=== PATIENT | female | born 1970 | race Caucasian/White ===

== ENCOUNTER 2022-09-04 10:27 | Inpatient (IN) ==
[2022-09-04] MEDS ORDERED: ALBUT/IPRATROP 3MG/0.5MG NEB 3 ML VIAL NEB STA (11:13)
--- NOTE | 2022-09-04 11:23 | Emergency Department Note ---
Impression & Plan Hypoxia, SOB (shortness of breath), CHF (congestive heart failure), Pedal edema, UTI (urinary tract infection) ED Provider Note NAME: TRANG TRONCOSO AGE: 52 SEX: F : 1970 ARRIVES VIA: Walk-In INFORMANT: [Patient] ED PROVIDER(S): [Kai Galaviz MD] CHIEF COMPLAINT: Shortness of breath HISTORY OF PRESENT ILLNESS: The patient is a 52-year-old female with a history of obesity. She does occasionally use an inhaler at home but has not been diagnosed with COPD. She does use tobacco products. The patient states that she has noticed increasing shortness of breath over the last few weeks. Things got quite a bit worse in the last couple days. Her abdomen is now much more swollen. Her legs are swollen. There has been no cough, chest pain, fever or chills, no nausea vomiting or diarrhea. She has tried her albuterol and it helps slightly for short time. Of note in triage, her O2 saturation was in the 70s. She does not typically wear oxygen. PMHx/PSHx: See Below SOCIAL HISTORY: See Below. PHYSICAL EXAM: GENERAL: Patient is in no acute distress. HEENT: No acute trauma, normocephalic atraumatic, mucous membranes moist, no nasal congestion. NECK: No stridor, no adenopathy, no meningismus, trachea is midline. LUNGS: Markedly diminished breath sounds bilaterally with some scattered wheezes and basilar crackles, the crackles are heard mostly on the left. No respiratory distress. No accessory muscle use. HEART: Without murmurs gallops or rubs, regular rate and rhythm. Heart tones are quite distant. ABDOMEN: Soft, nontender, bowel sounds positive, no peritonitis. Obese. There is abdominal wall edema noted. There is some subtle erythema to the abdominal wall but no warmth EXTREMITIES: No cyanosis, significant bilateral pedal edema, full range of motion of all the joints without pain or difficulty, no signs for acute trauma. NEUROLOGIC: Oriented x 3, no acute motor or sensory deficits, no focal weakness. SKIN: No jaundice, no diaphoresis. DIFFERENTIAL DIAGNOSIS: CHF, ascites, fluid overload, renal or liver failure, electrolyte imbalance, KS, pneumonia, bronchitis, PE, among others. EMERGENCY DEPARTMENT COURSE/PROCEDURES: Prior/Outside records reviewed: None. ECG per my interpretation: Indication was shortness of breath. The ECG shows a normal sinus rhythm with a rate of 98. There is some baseline artifact seen. There is no obvious ST elevation. No PVCs. The QTc is 436. Continuous Cardiac Monitoring per my interpretation: An order was placed for continuous cardiac monitoring. The monitor shows a rate of 91 with normal sinus rhythm. Critical Care Note: I have personally spent 47 minutes of critical care time in the direct management of this patient. This includes bedside care, interpretation of diagnostic studies, and testing, discussion with consultants, patient, and family members, and other required patient management activities. This 47 minutes is in excess of all separately billable procedures. MEDICAL DECISION MAKING: There is a very mild leukocytosis, this could be consistent with infection or the stress of her current situation. There is a normal hemoglobin and platelet count. No coagulopathy. ABG showed some mild acidosis, likely from CO2 retention. No renal failure or significant electrolyte abnormality. Lactic acid level was not elevated making severe sepsis less likely. No concerning liver enzyme elevation. ECG shows a normal sinus rhythm, no obvious acute KS. Cardiac enzyme testing x1 was somewhat elevated. This elevation could be from cardiac injury or potentially mismatch from her hypoxia. BNP was elevated consistent with CHF and fluid overload. Chest x-ray does show CHF. No pneumonia or pneumothorax per my review. Urinalysis shows findings of infection. COVID test returned negative. Bilateral lower extremity ultrasound did not show any evidence for DVT. Patient was given nitroglycerin paste, 2 inches. She received IV Lasix, 60 mg. A Renteria catheter was placed. She received IV ceftriaxone for her UTI. She was given a DuoNeb. The patient's oxygen saturation is now adequate. She looks fairly comfortable. The patient appears to be short of breath and hypoxic from CHF. She is significantly fluid overloaded. Admission is warranted. I spoke with the patient and case management, the on-call hospitalist was consulted. DISPOSITION: Patient's presentation and findings warrant a hospital stay. Past Med/Surg History Medical History Cellulitis Depression Gout HLD (hyperlipidemia) HTN (hypertension) Non-insulin dependent type 2 diabetes mellitus Obesity Shortness of breath Tobacco use disorder Surgical History (Updated 09/04/22 @ 14:12 by ZACHERY Feritas) H/O: H/O: hysterectomy History of cholecystectomy Family History (Updated 09/04/22 @ 14:13 by ZACHERY Freitas) Other Asthma Dyslipidemia Heart disease Hypertension Social History Smoking Status: Current every day smoker packs per day: 1.5; Second Hand Exposure: No; Do You Dip or Chew Tobacco: No; Tobacco Cessation Education Requested by Patient: Yes Hx Alcohol Use: No Hx Substance Use: No Preferred Language: Hungarian Hearing Ability: Normal Current Living Situation: Family current occupational status: unemployed Feels Safe at Home: Yes Allergies Allergies Allergy/AdvReac Type Severity Reaction Status Date / Time Penicillins Allergy Hives Verified 09/04/22 13:29 Home Meds Home Medications Medication Instructions Recorded Confirmed albuterol sulfate 90 mcg/actuation 90 mcg inhalation BID PRN 09/04/22 09/04/22 aerosol inhaler (ProAir HFA) Shortness Of Breath Or Wheezing allopurinol 100 mg tablet 100 mg PO DAILY 09/04/22 09/04/22 atorvastatin 10 mg tablet 10 mg PO DAILY 09/04/22 09/04/22 duloxetine 60 mg capsule,delayed 60 mg PO DAILY 09/04/22 09/04/22 release famotidine 20 mg tablet 20 mg PO DAILY 09/04/22 09/04/22 lisinopril 30 mg tablet 30 mg PO DAILY 09/04/22 09/04/22 metformin 1,000 mg tablet 1,000 mg PO BID 09/04/22 09/04/22 Results & Data (ED) Vital Signs Vital Signs - 24 hr 09/04/22 10:45 09/04/22 10:50 09/04/22 11:48 Temperature 36.3 C L 36.6 C Temperature Source Temporal Artery Scan Oral Pulse Rate 91 H Pulse Rate [Right Finger] 85 Pulse Rate from SpO2 Sensor Pulse Rhythm Pulse Rhythm [Right Finger] Regular Pulse Strength [Right Finger] Normal Respiratory Rate 22 22 Respiratory Effort / Characteristics Non-Labored Non-Labored Spontaneous Respiratory Depth Normal Normal Respiratory Pattern Regular Regular Blood Pressure 171/72 H Blood Pressure [Left Arm] 176/98 H Blood Pressure Mean 105 Blood Pressure Mean [Left Arm] 124 Blood Pressure Position [Left Arm] Sitting Pulse Oximetry 73 L 72 L 95 Oxygen Delivery Method Room Air Nasal Cannula Nasal Cannula Oxygen Flow Rate 0 4 Sepsis Recent Fever Within 48 Hours No Sepsis New/Unexplained Change in Mental Status N/A Sepsis Action Taken by Nursing No Action Required Oxygen Flow Rate - Titration 4 Pulse Oximetry Post Tiitration 92 09/04/22 10:56 09/04/22 10:55 09/04/22 11:00 Temperature Temperature Source Pulse Rate 71 102 H Pulse Rate [Right Finger] Pulse Rate from SpO2 Sensor Pulse Rhythm Regular Pulse Rhythm [Right Finger] Pulse Strength [Right Finger] Respiratory Rate 26 H 24 Respiratory Effort / Characteristics Respiratory Depth Respiratory Pattern Blood Pressure 217/119 H Blood Pressure [Left Arm] Blood Pressure Mean 151 Blood Pressure Mean [Left Arm] Blood Pressure Position [Left Arm] Pulse Oximetry 92 Oxygen Delivery Method Nasal Cannula Oxygen Flow Rate 4 Sepsis Recent Fever Within 48 Hours Sepsis New/Unexplained Change in Mental Status Sepsis Action Taken by Nursing Oxygen Flow Rate - Titration Pulse Oximetry Post Tiitration 09/04/22 11:00 09/04/22 11:10 09/04/22 11:20 Temperature Temperature Source Pulse Rate 93 H 87 87 Pulse Rate [Right Finger] Pulse Rate from SpO2 Sensor 94 H 87 87 Pulse Rhythm Pulse Rhythm [Right Finger] Pulse Strength [Right Finger] Respiratory Rate 30 H 20 22 Respiratory Effort / Characteristics Respiratory Depth Respiratory Pattern Blood Pressure Blood Pressure [Left Arm] Blood Pressure Mean Blood Pressure Mean [Left Arm] Blood Pressure Position [Left Arm] Pulse Oximetry 94 96 97 Oxygen Delivery Method Oxygen Flow Rate Sepsis Recent Fever Within 48 Hours Sepsis New/Unexplained Change in Mental Status Sepsis Action Taken by Nursing Oxygen Flow Rate - Titration Pulse Oximetry Post Tiitration 09/04/22 11:30 09/04/22 11:30 09/04/22 11:40 Temperature Temperature Source Pulse Rate 84 84 Pulse Rate [Right Finger] Pulse Rate from SpO2 Sensor 83 84 Pulse Rhythm Pulse Rhythm [Right Finger] Pulse Strength [Right Finger] Respiratory Rate 17 20 Respiratory Effort / Characteristics Respiratory Depth Respiratory Pattern Blood Pressure 176/98 H Blood Pressure [Left Arm] Blood Pressure Mean 124 Blood Pressure Mean [Left Arm] Blood Pressure Position [Left Arm] Pulse Oximetry 97 95 Oxygen Delivery Method Oxygen Flow Rate Sepsis Recent Fever Within 48 Hours Sepsis New/Unexplained Change in Mental Status Sepsis Action Taken by Nursing Oxygen Flow Rate - Titration Pulse Oximetry Post Tiitration 09/04/22 11:50 09/04/22 12:00 09/04/22 12:10 Temperature Temperature Source Pulse Rate 85 83 94 H Pulse Rate [Right Finger] Pulse Rate from SpO2 Sensor 85 84 95 H Pulse Rhythm Pulse Rhythm [Right Finger] Pulse Strength [Right Finger] Respiratory Rate 21 18 26 H Respiratory Effort / Characteristics Respiratory Depth Respiratory Pattern Blood Pressure Blood Pressure [Left Arm] Blood Pressure Mean Blood Pressure Mean [Left Arm] Blood Pressure Position [Left Arm] Pulse Oximetry 95 99 92 Oxygen Delivery Method Oxygen Flow Rate Sepsis Recent Fever Within 48 Hours Sepsis New/Unexplained Change in Mental Status Sepsis Action Taken by Nursing Oxygen Flow Rate - Titration Pulse Oximetry Post Tiitration 09/04/22 12:25 09/04/22 12:20 09/04/22 12:30 Temperature Temperature Source Pulse Rate 88 89 87 Pulse Rate [Right Finger] Pulse Rate from SpO2 Sensor 89 88 Pulse Rhythm Pulse Rhythm [Right Finger] Pulse Strength [Right Finger] Respiratory Rate 20 36 H Respiratory Effort / Characteristics Respiratory Depth Respiratory Pattern Blood Pressure Blood Pressure [Left Arm] Blood Pressure Mean Blood Pressure Mean [Left Arm] Blood Pressure Position [Left Arm] Pulse Oximetry 95 95 Oxygen Delivery Method Oxygen Flow Rate Sepsis Recent Fever Within 48 Hours Sepsis New/Unexplained Change in Mental Status Sepsis Action Taken by Nursing Oxygen Flow Rate - Titration Pulse Oximetry Post Tiitration 09/04/22 12:16 Temperature Temperature Source Pulse Rate Pulse Rate [Right Finger] Pulse Rate from SpO2 Sensor Pulse Rhythm Pulse Rhythm [Right Finger] Pulse Strength [Right Finger] Respiratory Rate Respiratory Effort / Characteristics Respiratory Depth Respiratory Pattern Blood Pressure Blood Pressure [Left Arm] Blood Pressure Mean Blood Pressure Mean [Left Arm] Blood Pressure Position [Left Arm] Pulse Oximetry 85 L Oxygen Delivery Method Oxygen Flow Rate 4 Sepsis Recent Fever Within 48 Hours Sepsis New/Unexplained Change in Mental Status Sepsis Action Taken by Nursing Oxygen Flow Rate - Titration 6 Pulse Oximetry Post Tiitration 93 Home Medications Current Medication List: was personally reviewed by me Laboratory Data Attestation: I reviewed the patient's lab results. 09/04/22 11:09 09/04/22 11:09 Lab Results 09/04/22 09/04/22 09/04/22 Range/Units 11:09 11:09 11:09 WBC 12.07 H (4.8-10.8) K/ul RBC 5.43 H (4.20-5.40) M/uL Hgb 13.2 (12.0-16.0) g/dl Hct 45.7 (37.0-47.0) % MCV 84.2 (80.0-100.0) fL MCH 24.3 L (25.0-34.0) pg MCHC 28.9 L (32.0-36.0) g/dL RDW Std Deviation 56.6 H (36.4-46.3) fL RDW Coeff of Bhumi 19.9 H (11.5-14.5) % Plt Count 295 (130-400) K/uL MPV 11.0 (9.4-12.4) fL Immature Gran % (Auto) 0.3 % Neut % (Auto) 81.9 % Lymph % (Auto) 12.2 % Stark % (Auto) 4.0 % Eos % (Auto) 1.2 % Baso % (Auto) 0.4 % Neut # (Auto) 9.89 H (1.40-6.50) K/uL Lymph # (Auto) 1.47 (1.2-3.4) K/uL Stark # (Auto) 0.48 (0.11-0.59) K/uL Eos # (Auto) 0.14 (0-0.50) K/uL Baso # (Auto) 0.05 (0-0.2) K/uL Immature Gran # (Auto) 0.04 (0.01-0.20) K/uL Polychromasia 2+ PT Cancelled INR Cancelled APTT Cancelled PTT Ratio Cancelled Sodium 141 (136-145) mmol/L Potassium 4.2 (3.5-5.1) mmol/L Chloride 106 (98-107) mmol/L Carbon Dioxide 29 (21-32) mmol/L Anion Gap 6 (3-11) BUN 23 (6-23) mg/dl Creatinine 0.65 (0.6-1.2) mg/dl Est Cr Clr Drug Dosing 156.8 ml/min Est GFR ( Amer) 117.5 ml/min Est GFR (Non-Af Amer) 101.4 ml/min BUN/Creatinine Ratio 35.4 H (10-20) Glucose 126 H (70-99(Fasting)) mg/dl Estimat Average Glucose mg/dl Hemoglobin A1c (4.5-5.6) % Lactate (0.4-2.0) mmol/L Calcium 8.5 L (8.6-10.3) mg/dl Magnesium 1.8 (1.7-2.4) mg/dl Total Bilirubin 0.6 (0.2-1.0) mg/dl AST 14 (13-39) U/L ALT 11 (7-52) U/L Alkaline Phosphatase 92 (34-104) U/L Troponin I High Sens 895.1 H* (0-14) pg/ml B-Natriuretic Peptide (0-100) pg/ml Total Protein 6.7 (6.0-8.3) gm/dl Albumin 3.5 (3.4-5.0) gm/dl Globulin 3.2 (2.5-4.0) gm/dl Albumin/Globulin Ratio 1.1 (0.9-2) Urine Color Urine Appearance (Clear) Urine pH (4.5-7.5) Ur Specific [place] (1.000-1.030) Urine Protein (Negative) Urine Glucose (UA) (Negative) Urine Ketones (Negative) Urine Blood (Negative) Urine Nitrite (Negative) Urine Bilirubin (Negative) Urine Urobilinogen (Negative) Ur Leukocyte Esterase (Negative) Urine WBC (Auto) (0-5) /hpf Urine RBC (Auto) (0-4) /hpf U Hyaline Cast (Auto) (0-5) /lpf U Epithel Cells (Auto) (0-5) /lpf Urine Bacteria (Auto) (Negative) SARS-CoV-2, RNA, NAAT (NEGATIVE) 09/04/22 09/04/22 09/04/22 Range/Units 11:09 11:09 11:40 WBC (4.8-10.8) K/ul RBC (4.20-5.40) M/uL Hgb (12.0-16.0) g/dl Hct (37.0-47.0) % MCV (80.0-100.0) fL MCH (25.0-34.0) pg MCHC (32.0-36.0) g/dL RDW Std Deviation (36.4-46.3) fL RDW Coeff of Bhumi (11.5-14.5) % Plt Count (130-400) K/uL MPV (9.4-12.4) fL Immature Gran % (Auto) % Neut % (Auto) % Lymph % (Auto) % Stark % (Auto) % Eos % (Auto) % Baso % (Auto) % Neut # (Auto) (1.40-6.50) K/uL Lymph # (Auto) (1.2-3.4) K/uL Stark # (Auto) (0.11-0.59) K/uL Eos # (Auto) (0-0.50) K/uL Baso # (Auto) (0-0.2) K/uL Immature Gran # (Auto) (0.01-0.20) K/uL Polychromasia PT INR APTT PTT Ratio Sodium (136-145) mmol/L Potassium (3.5-5.1) mmol/L Chloride (98-107) mmol/L Carbon Dioxide (21-32) mmol/L Anion Gap (3-11) BUN (6-23) mg/dl Creatinine (0.6-1.2) mg/dl Est Cr Clr Drug Dosing ml/min Est GFR ( Amer) ml/min Est GFR (Non-Af Amer) ml/min BUN/Creatinine Ratio (10-20) Glucose (70-99(Fasting)) mg/dl Estimat Average Glucose 160 mg/dl Hemoglobin A1c 7.2 H (4.5-5.6) % Lactate (0.4-2.0) mmol/L Calcium (8.6-10.3) mg/dl Magnesium (1.7-2.4) mg/dl Total Bilirubin (0.2-1.0) mg/dl AST (13-39) U/L ALT (7-52) U/L Alkaline Phosphatase (34-104) U/L Troponin I High Sens (0-14) pg/ml B-Natriuretic Peptide 481 H (0-100) pg/ml Total Protein (6.0-8.3) gm/dl Albumin (3.4-5.0) gm/dl Globulin (2.5-4.0) gm/dl Albumin/Globulin Ratio (0.9-2) Urine Color Urine Appearance (Clear) Urine pH (4.5-7.5) Ur Specific [place] (1.000-1.030) Urine Protein (Negative) Urine Glucose (UA) (Negative) Urine Ketones (Negative) Urine Blood (Negative) Urine Nitrite (Negative) Urine Bilirubin (Negative) Urine Urobilinogen (Negative) Ur Leukocyte Esterase (Negative) Urine WBC (Auto) (0-5) /hpf Urine RBC (Auto) (0-4) /hpf U Hyaline Cast (Auto) (0-5) /lpf U Epithel Cells (Auto) (0-5) /lpf Urine Bacteria (Auto) (Negative) SARS-CoV-2, RNA, NAAT NEGATIVE (NEGATIVE) 09/04/22 09/04/22 09/04/22 Range/Units 11:42 12:16 12:17 WBC (4.8-10.8) K/ul RBC (4.20-5.40) M/uL Hgb (12.0-16.0) g/dl Hct (37.0-47.0) % MCV (80.0-100.0) fL MCH (25.0-34.0) pg MCHC (32.0-36.0) g/dL RDW Std Deviation (36.4-46.3) fL RDW Coeff of Bhumi (11.5-14.5) % Plt Count (130-400) K/uL MPV (9.4-12.4) fL Immature Gran % (Auto) % Neut % (Auto) % Lymph % (Auto) % Stark % (Auto) % Eos % (Auto) % Baso % (Auto) % Neut # (Auto) (1.40-6.50) K/uL Lymph # (Auto) (1.2-3.4) K/uL Stark # (Auto) (0.11-0.59) K/uL Eos # (Auto) (0-0.50) K/uL Baso # (Auto) (0-0.2) K/uL Immature Gran # (Auto) (0.01-0.20) K/uL Polychromasia PT 11.4 INR 1.0 APTT 24.9 PTT Ratio 0.9 Sodium (136-145) mmol/L Potassium (3.5-5.1) mmol/L Chloride (98-107) mmol/L Carbon Dioxide (21-32) mmol/L Anion Gap (3-11) BUN (6-23) mg/dl Creatinine (0.6-1.2) mg/dl Est Cr Clr Drug Dosing ml/min Est GFR ( Amer) ml/min Est GFR (Non-Af Amer) ml/min BUN/Creatinine Ratio (10-20) Glucose (70-99(Fasting)) mg/dl Estimat Average Glucose mg/dl Hemoglobin A1c (4.5-5.6) % Lactate 1.8 (0.4-2.0) mmol/L Calcium (8.6-10.3) mg/dl Magnesium (1.7-2.4) mg/dl Total Bilirubin (0.2-1.0) mg/dl AST (13-39) U/L ALT (7-52) U/L Alkaline Phosphatase (34-104) U/L Troponin I High Sens (0-14) pg/ml B-Natriuretic Peptide (0-100) pg/ml Total Protein (6.0-8.3) gm/dl Albumin (3.4-5.0) gm/dl Globulin (2.5-4.0) gm/dl Albumin/Globulin Ratio (0.9-2) Urine Color Dark Yellow Urine Appearance Cloudy A (Clear) Urine pH 5.5 (4.5-7.5) Ur Specific [place] 1.025 (1.000-1.030) Urine Protein 3+ H (Negative) Urine Glucose (UA) Negative (Negative) Urine Ketones Trace H (Negative) Urine Blood Negative (Negative) Urine Nitrite Positive A (Negative) Urine Bilirubin 1+ H (Negative) Urine Urobilinogen Negative (Negative) Ur Leukocyte Esterase 2+ H (Negative) Urine WBC (Auto) >30 H (0-5) /hpf Urine RBC (Auto) 0-4 (0-4) /hpf U Hyaline Cast (Auto) 1-5 (0-5) /lpf U Epithel Cells (Auto) >30 H (0-5) /lpf Urine Bacteria (Auto) 4+ H (Negative) SARS-CoV-2, RNA, NAAT (NEGATIVE) Administered Medications Discontinued Medications Albuterol (Albut/Ipratrop 3mg/0.5mg Neb 3 Ml Vial) 3 ml NEB NOW STA; Protocol Stop: 09/04/22 11:14 Last Admin: 09/04/22 11:55 Dose: 3 ml Documented By: BOWLING OR SKATING FRONT DESK CLERK Furosemide (Furosemide 40 Mg/4 Ml Vial) 60 mg IV NOW STA Stop: 09/04/22 11:25 Last Admin: 09/04/22 11:55 Dose: 60 mg Documented By: BOWLING OR SKATING FRONT DESK CLERK Ceftriaxone Sodium (Rocephin) 2,000 mg in 70 mls @ 140 mls/hr IV NOW STA Stop: 09/04/22 13:35 Last Infusion: 09/04/22 15:15 Dose: 0 mls/hr Documented By: BOWLING OR SKATING FRONT DESK CLERK Admin: 09/04/22 14:39 Dose: 140 mls/hr Documented By: TOBY Miscellaneous Information (Patient's Allergy Info Needs Entered) 1 each N/A Q30M DIA Stop: 10/04/22 12:44 Last Admin: 09/04/22 14:35 Dose: Not Given Documented By: BOWLING OR SKATING FRONT DESK CLERK Admin: 09/04/22 14:35 Dose: Not Given Documented By: BOWLING OR SKATING FRONT DESK CLERK Admin: 09/04/22 13:29 Dose: 1 each Documented By: BOWLING OR SKATING FRONT DESK CLERK Admin: 09/04/22 13:29 Dose: 1 each Documented By: BOWLING OR SKATING FRONT DESK CLERK Nitroglycerin (Nitroglycerin 2% Ointment 30gm Tube) 2 inch EXT NOW STA Stop: 09/04/22 11:26 Last Admin: 09/04/22 11:54 Dose: 2 inch Documented By: BOWLING OR SKATING FRONT DESK CLERK Imaging Data Radiologist's Impression: Chest X-Ray 09/04/22 10:56 XR chest 1V portable HISTORY: Dyspnea COMPARISON: None. FINDINGS: No pneumothorax. Trace bilateral pleural effusions. The cardiac silhouette is enlarged. There is perihilar interstitial/vascular thickening consistent with mild pulmonary edema. No focal lung consolidations to suggest a pneumonia. IMPRESSION: Cardiomegaly with mild interstitial pulmonary edema and trace bilateral pleural effusions. ACT 112: Negative or not required by law. Electronically signed by: Yan Roberts M.D. 09/04/2022 11:28 AM Venous Doppler Study 09/04/22 12:13 US venous doppler LE BI CLINICAL HISTORY: swelling, poss dvt TECHNIQUE: Bilateral lower extremity real-time compression venous ultrasound with Color Doppler imaging. Utilizing real-time ultrasonic imaging multiple real time high-resolution ultrasonic images with compression and noncompression maneuvers of the deep venous system in addition to color doppler imaging were performed from the common femoral vein through the proximal calf veins. COMPARISON: None available at the time of this dictation. FINDINGS/IMPRESSION: Currently there is normal compressibility of the deep venous system from the common femoral vein through the proximal calf veins. Limited evaluation of the bilateral calf vessels. The left common femoral vein and greater saphenous vein were not well visualized due to patient positioning. ACT 112: Negative or not required by law. Electronically signed by: Babatunde Lopez M.D. 09/04/2022 5:06 PM Discharge Plan Visit Data Chief Complaint: Shortness of Breath/Dyspnea Stated Complaint: SHORTNESS OF BREATH, FILLING WITH FLUID ED Provider: Kai Galaviz Discharge Problem: Hypoxia, SOB (shortness of breath), CHF (congestive heart failure), Pedal edema, UTI (urinary tract infection) Patient Disposition: Admitted As Inpatient Condition: Fair Discharge Instructions Interventions: ED Discharge Assessment Last Done: 09/04/22 14:54
[2022-09-04] MEDS ORDERED: FUROSEMIDE 40 MG/4 ML VIAL IV STA (11:24)
[2022-09-04] MEDS ORDERED: NITROGLYCERIN 2% OINTMENT 30GM TUBE EXT STA (11:25)
--- NOTE | 2022-09-04 11:29 | XRay Report ---
XR chest 1V portable HISTORY: Dyspnea COMPARISON: None. FINDINGS: No pneumothorax. Trace bilateral pleural effusions. The cardiac silhouette is enlarged. The re is perihilar interstitial/vascular thickening consistent with mild pulmonary edema. No focal lung consolidations to suggest a pneumonia. IMPRESSION: Cardiomegaly with mild interstitial pulmonary edema and trace bilateral pleural effusions. ACT 112: Negative or not required by law. Electronically signed by: Yan Roberts M.D. 09/04/2022 11:28 AM
--- NOTE | 2022-09-04 12:06 | Electrocardiogram Report ---
Test Reason : Blood Pressure : / mmHG Vent. Rate : 098 BPM Atrial Rate : 098 BPM P-R Int : 190 ms QRS Dur : 086 ms QT Int : 342 ms P-R-T Axes : 058 106 -03 degrees QTc Int : 436 ms Normal sinus rhythm Rightward axis Nonspecific T wave abnormality Abnormal ECG No previous ECGs available Confirmed by Kurtis Connor ([id number]) on 09/04/2022 12:05:59 PM Referred By: Confirmed By:Kurtis Connor
[2022-09-04 12:08] LABS: Hematocrit (blood only) 45.7 % (37.0-47.0); Hemoglobin 13.2 g/dl (12.0-16.0); Mean Corpuscular Hemoglobin 24.3 pg (25.0-34.0); Mean Corpuscular Hgb Conc 28.9 g/dL (32.0-36.0); Mean Corpuscular Volume 84.2 fL (80.0-100.0); Platelet Count 295 K/uL (130-400); RDW Coefficient of Variation 19.9 % (11.5-14.5); RDW Standard Deviation 56.6 fL (36.4-46.3); Red Blood Count 5.43 M/uL (4.20-5.40); White Blood Count 12.07 K/ul (4.8-10.8)
[2022-09-04 12:10] LABS: Albumin Globulin Ratio 1.1 (0.9-2); Albumin Level 3.5 gm/dl (3.4-5.0); BUN Creatinine Ratio 35.4 (10-20); Bilirubin,Total 0.6 mg/dl (0.2-1.0); Calcium 8.5 mg/dl (8.6-10.3); Creatinine Clr Calc Pharmacy 156.8 ml/min; Est GFR (African American) 117.5 ml/min; Est GFR (Non-African American) 101.4 ml/min; Globulin 3.2 gm/dl (2.5-4.0); Magnesium 1.8 mg/dl (1.7-2.4); Potassium 4.2 mmol/L (3.5-5.1); Total Protein 6.7 gm/dl (6.0-8.3)
[2022-09-04 12:17] LABS: Basophils # (auto) 0.05 K/uL (0-0.2); Basophils % (auto) 0.4 %; Eosinophils # (auto) 0.14 K/uL (0-0.50); Eosinophils % (auto) 1.2 %; Immature Granulocytes # (auto) 0.04 K/uL (0.01-0.20); Immature Granulocytes % (auto) 0.3 %; Lymphocytes # (auto) 1.47 K/uL (1.2-3.4); Lymphocytes % (auto) 12.2 %; Monocytes # (auto) 0.48 K/uL (0.11-0.59); Neutrophils # (auto) 9.89 K/uL (1.40-6.50); Neutrophils % (auto) 81.9 %; Polychromasia 2+
[2022-09-04 12:23] LABS: Troponin I High Sensitivity 895.1 pg/ml (0-14)
[2022-09-04] MEDS ORDERED: POLYETHYLENE (MIRALAX) 17 GM PACK PO PRN (12:33)
[2022-09-04] MEDS ORDERED: MAGNESIUM HYDROXIDE SUSP 30 ML UDC PO PRN (12:33)
[2022-09-04] MEDS ORDERED: ONDANSETRON INJ 2 MG/ML 2 ML VIAL IV PRN (12:33)
[2022-09-04] MEDS ORDERED: ACETAMINOPHEN 325 MG TAB PO PRN (12:33)
[2022-09-04] MEDS ORDERED: ALUMINUM/MAGNESIUM SUSP 30 ML UDC PO PRN (12:33)
[2022-09-04 12:39] LABS: Appearance Urine Cloudy (Clear); Bacteria Urine Automated 4+ (Negative); Blood Urine Negative (Negative); Color Urine Dark Yellow; Epithelial Cell Urine Auto >30 /lpf (0-5); Glucose Urine UA Negative (Negative); Ketones Urine Trace (Negative); Leukocyte Esterase Urine 2+ (Negative); Nitrite Urine Positive (Negative); Protein Urine 3+ (Negative); Specific Gravity Urine 1.025 (1.000-1.030); Urobilinogen Urine Negative (Negative); WBC Urine Automated >30 /hpf (0-5); pH Urine 5.5 (4.5-7.5)
--- NOTE | 2022-09-04 12:47 | History & Physical Report ---
Date of Service September 04, 2022 Assessment & Plan (1) Shortness of breath: (2) HTN (hypertension): (3) HLD (hyperlipidemia): (4) Non-insulin dependent type 2 diabetes mellitus: (5) Tobacco use disorder: (6) Gout: (7) Obesity: (8) Depression: (9) Cellulitis: Plan 52-year-old presents with increased shortness of breath times a few weeks. No history of CHF. Legs bilateral lower extremity swelling. BNP 481, troponin 895; suspect mismatch due to fluid overload. Received Lasix 60 mg in ED. Chest x-ray interstitial pulmonary edema with trace bilateral pleural effusions. No ischemia noted on EKG. Rule out DVT/PE. Blood culture and urine culture pending. Shortness of breath: R/O CHF, DVT/PE BNP 481 Troponin 895; suspect mismatch due to fluid overload; will trend x1. If increasing; suspect would benefit from Heparin gtt Lasix 60 mg in ED; does not take diuretics at baseline; (+) diuresis; Administer 40 mg in AM and reassess I/O Doppler ultrasound of BL LE pending ECHO pending Chest CTA pending; place on oxymask Blood Culture/Urine Culture pending Renteria insertion with I/O Fluid restriction 1800 added to diet Cellulitis: Erythema RLE; warm to touch No open areas Treat with Keflex PO Tobacco use disorder: Nicotine patch offered; declined; patient reports having flaky skin with previous use PFTs done in 2017; FEV1 94 Would benefit from outpatient PFT's HTN: Takes lisinopril; baseline creatinine 0.8; continue HLD: Takes atorvastatin; continue Diabetes mellitus, type II: Obesity: BMI: 69.7 Takes metformin; hold while inpatient Last A1c 06/2021: 6.9; recheck while here FSBS ACHS SSI while inpatient Depression: Takes Cymbalta; continue Gout: Takes allopurinol; continue Disposition: PCP: Dr. Griffith CODE STATUS: Full code VTE prophylaxis: Heparin SQ I spent a total of 88 minutes coordinating, documenting, and providing care for this patient excluding time spent in the performance of separately billed services. All of the aforementioned completed while collaborating with the assigned attending physician for a full treatment plan. Please see their addendum for further details. History of Present Illness Chief Complaint: SOB Primary Care Provider: Santo Griffith MD Mr. Slater is a 52-year-old female that presented to the ED after her sister drove her to the hospital with complaints of shortness of breath that have been occurring for the past few weeks; worsening over the past few days with increased abdominal distention. She reports that she noticed her hand imprint if she left her hand on her abdomen. She had dyspnea at rest and with exertion. On arrival patient SPO2 70% improved with 4 L supplemental O2. Patient reporting bilateral lower extremity swelling. No known history of congestive heart failure. Chest x-ray revealed cardiomegaly with interstitial pulmonary edema and trace bilateral pleural effusions. No ischemia on EKG and patient denies chest pain. Pt has had a productive clear cough that has been present since May. She denies fever/chills. She does have bilateral LE edema up to above her knee with right sided erythema, R> L. BNP 41, troponin 895; suspect mismatch related to fluid overload and do not suspect this to be ACS in nature. CXR Cardiomegaly with mild interstitial pulmonary edema and trace bilateral pleural effusions. High suspicion for PE/DVT due to obesity and increased tobacco risk. Additional past medical history includes hypertension, HLD, diabetes mellitus type 2 [id number], obesity, gout, osteoarthritis, lumbar DDD and urge incontinence. Patient denies headache, visual or auditory changes, dizziness, fever, chills, cough, chest pain, appetite changes, new rashes, recent falls or trauma, nausea, vomiting, diarrhea. She does report some palpitations over the past week or so but not associated with any activity, aggravated or relieved by anything specific. Currently smoking 1.5 ppd of cigarettes for the past four years and had quite for five years prior to that. Prior to her 5 years of smoking cessation she was smoking 1ppd x 10+ years. She denies alcohol or recreational drug use. Pt lives with her mother and her sister drove her to the hospital today. At baseline, she is able to ambulate with a cane intermittently and is able to complete her own ADL's. She is not working. When I visited with her, she was sitting upright in her hospital bed in no apparent distress and able to speak in complete sentences. Patient will be admitted for further evaluation and management. Please see A/P for further details. Allergies Allergy/AdvReac Type Severity Reaction Status Date / Time Penicillins Allergy Hives Verified 09/04/22 13:29 Home Medications Medication Instructions Recorded Confirmed Type albuterol sulfate 90 mcg/actuation 90 mcg inhalation BID PRN 09/04/22 09/04/22 History aerosol inhaler (ProAir HFA) Shortness Of Breath Or Wheezing allopurinol 100 mg tablet 100 mg PO DAILY 09/04/22 09/04/22 History atorvastatin 10 mg tablet 10 mg PO DAILY 09/04/22 09/04/22 History duloxetine 60 mg capsule,delayed 60 mg PO DAILY 09/04/22 09/04/22 History release famotidine 20 mg tablet 20 mg PO DAILY 09/04/22 09/04/22 History lisinopril 30 mg tablet 30 mg PO DAILY 09/04/22 09/04/22 History metformin 1,000 mg tablet 1,000 mg PO BID 09/04/22 09/04/22 History Past Med/Surg History Medical History Cellulitis Depression Gout HLD (hyperlipidemia) HTN (hypertension) Non-insulin dependent type 2 diabetes mellitus Obesity Shortness of breath Tobacco use disorder Surgical History (Updated 09/04/22 @ 14:12 by ZACHERY Freitas) H/O: H/O: hysterectomy History of cholecystectomy Family History (Updated 09/04/22 @ 14:13 by ZACHERY Freitas) Other Asthma Dyslipidemia Heart disease Hypertension Social History Smoking Status: Current every day smoker packs per day: 1.5; Second Hand Exposure: Yes; Do You Dip or Chew Tobacco: No; Tobacco Cessation Education Requested by Patient: No Hx Alcohol Use: No Hx Substance Use: No Preferred Language: Montenegrin Communication Ability: Effective Hearing Ability: Normal Spinal Surgeon Required: No Beliefs That Will Affect Care: None Current Living Situation: Parent current occupational status: unemployed Other Information That Helps Us Care for You: No Feels Safe at Home: Yes Safety Concerns: Feels Safe At This Time Assistive Devices: Cane and Denture - Upper Review of Systems Review of Systems: Neuro: (-) Falls, trauma, slurred speech HEENT: (-) MAJANO, dizziness, dysphagia, visual or auditory changes CV: (-) CP, palpitations, swelling Resp: (+) SOB GI: (-) appetite changes, N/V/D, bowel changes : (-) urinary changes Skin: (+) erythema R.L LE Psych: (-) anxiety, depression Physical Exam Physical Exam: Neuro: AAOx4, PERRLA, no aphagia, memory changes, CNII-XII grossly intact HEENT: head normocephalic, moist mucus membranes CV: S1/S2, (-) M/G/R, (+) edema, cap refill < 3 seconds Resp: Lungs clear upper airway; decreased air movement lower lungs GI: Abdomen large NT and distended, Ax4 bowel sounds, (-) CVA tenderness Musculoskeletal: 5/5 B/L UE strength, 5/5 B/L LE strength. No gait disturbance Skin: (-) rashes , (+) erythema R>L. Psych: euthymic mood Results & Data Results & Data Vital Signs (Past 12 Hours) Vital Signs Temp Pulse Pulse Resp BP BP Pulse Ox 09/04/22 12:25 88 09/04/22 12:10 94 H 26 H 92 09/04/22 12:00 83 18 99 09/04/22 11:50 85 21 95 09/04/22 11:40 84 20 95 09/04/22 11:30 84 17 97 09/04/22 11:30 176/98 H 09/04/22 11:20 87 22 97 09/04/22 11:10 87 20 96 09/04/22 11:00 93 H 30 H 94 09/04/22 11:00 217/119 H 09/04/22 10:55 102 H 24 09/04/22 10:56 71 26 H 92 09/04/22 11:48 36.6 C 85 22 176/98 H 95 09/04/22 10:50 72 L 09/04/22 10:45 36.3 C L 91 H 22 171/72 H 73 L O2 Del Method O2 Flow Rate 09/04/22 12:25 09/04/22 12:10 09/04/22 12:00 09/04/22 11:50 09/04/22 11:40 09/04/22 11:30 09/04/22 11:30 09/04/22 11:20 09/04/22 11:10 09/04/22 11:00 09/04/22 11:00 09/04/22 10:55 09/04/22 10:56 Nasal Cannula 4 09/04/22 11:48 Nasal Cannula 4 09/04/22 10:50 Nasal Cannula 0 09/04/22 10:45 Room Air Laboratory Results Short CBC 09/04/22 Range/Units 11:09 WBC 12.07 H (4.8-10.8) K/ul Hgb 13.2 (12.0-16.0) g/dl Hct 45.7 (37.0-47.0) % Plt Count 295 (130-400) K/uL BMP 09/04/22 11:09 Sodium 141 Potassium 4.2 Chloride 106 Carbon Dioxide 29 BUN 23 Creatinine 0.65 Glucose 126 H Calcium 8.5 L Liver Function 09/04/22 Range/Units 11:09 Total Bilirubin 0.6 (0.2-1.0) mg/dl AST 14 (13-39) U/L ALT 11 (7-52) U/L Alkaline Phosphatase 92 (34-104) U/L Albumin 3.5 (3.4-5.0) gm/dl Diagnostic Findings Chest X-Ray 09/04/22 10:56 XR chest 1V portable HISTORY: Dyspnea COMPARISON: None. FINDINGS: No pneumothorax. Trace bilateral pleural effusions. The cardiac silhouette is enlarged. There is perihilar interstitial/vascular thickening consistent with mild pulmonary edema. No focal lung consolidations to suggest a pneumonia. IMPRESSION: Cardiomegaly with mild interstitial pulmonary edema and trace bilateral pleural effusions. ACT 112: Negative or not required by law. Electronically signed by: Yan Roberts M.D. 09/04/2022 11:28 AM ECG Additional Comments: NSR Vent. Rate : 098 BPM Atrial Rate : 098 BPM P-R Int : 190 ms QRS Dur : 086 ms QT Int : 342 ms P-R-T Axes : 058 106 -03 degrees QTc Int : 436 ms Code Status & VTE Plan Code Status Full code in the event of cardiac or respiratory arrest VTE Prophylaxis Plan VTE Prophylaxis will be ordered: Yes Supervising Physician Co-Signing Physician Notes Patient seen and examined independently. Chart reviewed. Case discussed with JAILENE. Lasix 40mg IV daily Trop x 3 Check TTE LE ultrasound negative for DVT CTA chest pending to evaluate for PE given her hypoxia with VTE risk factors of smoking and obesity Keflex for RLE cellulitis. UA abnormal but patient with no urinary symptoms.
[2022-09-04 12:55] LABS: Bilirubin Urine 1+ (Negative)
[2022-09-04 13:00] LABS: RBC Urine Automated 0-4 /hpf (0-4)
[2022-09-04] MEDS ORDERED: cefTRIAXone SODIUM 2,000 MG/70 ML BAG IV STA (13:06)
[2022-09-04 13:07] LABS: Partial Thromboplastin Ratio 0.9; Partial Thromboplastin Time 24.9 Seconds (21.0-31.0); Prothrombin Time 11.4 Seconds (9.0-12.0)
[2022-09-04] MEDS: Patient's ALLERGY Info needs ENTERED SCH ×2 (13:29→14:35)
[2022-09-04 13:53] LABS: Base Excess ABG 5.3 mEq/L (-9-1.8); HCO3 ABG 33 mmol/L (19-24); Oxygen Saturation ABG 96.9 % (90-95); PCO2 ABG 63 mmHg (35-46); PO2 ABG 78 mmHg (80-95); pH ABG 7.33 (7.35-7.45)
[2022-09-04 14:02] LABS: Allen Test Pos (Pos)
[2022-09-04 14:11] LABS: Estimated Average Glucose 160 mg/dl; Hemoglobin A1C 7.2 % (4.5-5.6)
[2022-09-04] MEDS ORDERED: GLUCAGON FOR INJ 1 MG VIAL SQ PRN (14:54)
[2022-09-04] MEDS ORDERED: GLUCOSE 40% GEL 15 GM TUBE PO PRN (14:54)
[2022-09-04] MEDS ORDERED: PHARMACY GLYCEMIC MGMT CONSULT PRN (14:54)
[2022-09-04] MEDS ORDERED: DEXTROSE 50% 50 ML SYRINGE IV PRN (14:54)
[2022-09-04] MEDS ORDERED: GLUCOSE 10 TAB/TUBE PO PRN (14:54)
[2022-09-04] MEDS ORDERED: CARBOHYDRATES FOR HYPOGLYCEMIA PO PRN (14:54)
--- NOTE | 2022-09-04 17:08 | Ultrasound Report ---
US venous doppler LE BI CLINICAL HISTORY: swelling, poss dvt TECHNIQUE: Bilateral lower extremity real-time compression venous ultrasound with Color Doppler imagi ng. Utilizing real-time ultrasonic imaging multiple real time high-resolution ultrasonic images with compression and noncompression maneuvers of the deep venous system in addition to color doppler imagi ng were performed from the common femoral vein through the proximal calf veins. COMPARISON: None available at the time of this dictation. FINDINGS/IMPRESSION: Currently there is normal compressibility of the deep venous system from the common femoral vein thro ugh the proximal calf veins. Limited evaluation of the bilateral calf vessels. The left common femor al vein and greater saphenous vein were not well visualized due to patient positioning. ACT 112: Negative or not required by law. Electronically signed by: Babatunde Lopez M.D. 09/04/2022 5:06 PM
[2022-09-04] MEDS: cephALEXin 500 MG CAP PO SCH ×2 (19:19→22:00)
[2022-09-04] MEDS: INSULIN ASPART PER UNIT CHARGE SC SCH ×2 (19:30→22:06)
[2022-09-04] MEDS ORDERED: LANTUS PER UNIT CHARGE SQ SCH (21:00)
[2022-09-04] MEDS ORDERED: PNEUMOCOCCAL Polysaccharide Vaccine 25mcg/0.5mL vial/Syr IM ONE (23:45)
[2022-09-05 06:22] LABS: Hematocrit (blood only) 44.3 % (37.0-47.0); Hemoglobin 12.9 g/dl (12.0-16.0); Mean Corpuscular Hemoglobin 24.4 pg (25.0-34.0); Mean Corpuscular Hgb Conc 29.1 g/dL (32.0-36.0); Mean Corpuscular Volume 83.7 fL (80.0-100.0); Mean Platelet Volume 10.4 fL (9.4-12.4); Platelet Count 272 K/uL (130-400); RDW Coefficient of Variation 19.5 % (11.5-14.5); RDW Standard Deviation 56.6 fL (36.4-46.3); Red Blood Count 5.29 M/uL (4.20-5.40); White Blood Count 12.46 K/ul (4.8-10.8)
[2022-09-05 06:38] LABS: Albumin Level 3.3 gm/dl (3.4-5.0); BUN Creatinine Ratio 29.5 (10-20); Bilirubin,Total 0.5 mg/dl (0.2-1.0); Calcium 8.9 mg/dl (8.6-10.3); Creatinine Clr Calc Pharmacy 158.7 ml/min; Est GFR (Non-African American) 103.5 ml/min; Globulin 3.2 gm/dl (2.5-4.0); Magnesium 1.7 mg/dl (1.7-2.4); Phosphorus 4.1 mg/dl (2.5-4.9); Potassium 4.3 mmol/L (3.5-5.1); Total Protein 6.5 gm/dl (6.0-8.3)
[2022-09-05] MEDS: INSULIN ASPART PER UNIT CHARGE SC SCH ×4 (08:42→20:54)
[2022-09-05] MEDS: ATORVASTATIN 10 MG TAB PO SCH (08:49)
[2022-09-05] MEDS: allopurinoL 100 MG TAB PO SCH (08:49)
[2022-09-05] MEDS: cephALEXin 500 MG CAP PO SCH ×4 (08:49→20:59)
[2022-09-05] MEDS: DULoxetine HCL 60 MG CAP PO SCH (08:50)
[2022-09-05] MEDS: FAMOTIDINE 20 MG TAB PO SCH (08:50)
[2022-09-05] MEDS: FUROSEMIDE 40 MG/4 ML VIAL IV SCH ×2 (08:51→14:43)
[2022-09-05] MEDS ORDERED: lisinopril 10 MG TAB PO SCH (09:00)
[2022-09-05] MEDS ORDERED: FUROSEMIDE 40 MG/4 ML VIAL IV SCH (09:00)
--- NOTE | 2022-09-05 10:07 | Cardiology Consultation ---
Date of Consultation September 05, 2022 Assessment & Plan (1) Hypoxia: (2) Right heart failure: (3) Cellulitis: (4) Elevated troponin: (5) (HFpEF) heart failure with preserved ejection fraction: (6) COPD exacerbation: Plan Acute decompensated right heart failure, HFpEF Suspected obstructive pulmonary disease exacerbation, chronic tobacco use Probable bilateral lower extremity cellulitis Elevated troponin in the absence of an acute coronary syndrome (critical illness, hypoxemia, heart failure, pulmonary disease) Hypertension, uncontrolled Dyslipidemia RECOMMENDATIONS: Continue IV furosemide Trial low-dose spironolactone Switch lisinopril to losartan at 100 mg/day Monitor I's/O's, daily weights, daily metabolic panels, maintain electrolytes Recommend evaluation sleep disordered breathing, for obesity hypoventilation syndrome Treatment of the bronchitic symptoms as per hospitalist. Consider use of Sacubitril/valsartan (Entresto) after optimizing mineralocorticoid-receptor antagonist and sodium-glucose transport protein 2 receptor antagonist therapies Continue statin Tobacco cessation Further recommendations pending the above, evaluation by Dr. Maza, and patient's ongoing hospitalization Supervising Physician Co-Signing Physician Notes Supervising Physician Attestation: I have personally performed a history and physical examination on the patient. I agree with the physician front desk assistant's findings and plan as documented with the following additions. Subjective: Patient with progressive shortness of breath, chronic bilateral lower extremity edema Exam: Cardiovascular: Regular rhythm, no murmurs, 2+ lower extremity edema Data: Echocardiogram performed 09/01/2022 revealed mild concentric left ventricular hypertrophy, LVEF 55 to 60%, no significant valvular heart disease. Assessment and Plan: Impression as noted above, clinical right heart failure despite normal RV size and systolic function noted on echo. * Continue furosemide 40 mg twice daily, spironolactone 12.5 mg daily added as well as losartan 50 mg twice daily DVT prophylaxis: Consider adding pharmacologic DVT prophylaxis Santosh Rodriguez, DO History of Present Illness Reason for Consultation: Acute CHF, elevated troponin Requesting Physician: Oliver Attending Physician: Oliver History of Present Illness Ms. Tyesha Slater is a 52-year-old female who lives with her mother in [place], [place]. Back in late April or early May both the patient and her mother had chest colds. Towards the end of May she had a telemedicine visit with her PCP Dr. Griffith. Complaints at that time included chest pressure, cough, shortness of breath, and fever. She was treated for an acute complicated bronchitis with a course of prednisone, azithromycin, and Tessalon Perles. Unfortunately, she did not experience improvement after treatment for an acute complicated bronchitis. She describes experiencing worsening cough productive of clear phlegm, worsening shortness of breath, orthopnea without PND (folds a comforter up at the head of the bed and puts a pillow on top of that), abdominal distention, increased lower extremity peripheral edema, weight gain. On arrival to the ER the patient's SPO2 was 70%, improving with 4 L of supplemental oxygen. Chest x-ray revealed interstitial pulmonary edema with trace pleural effusions. She was given 40 mg of IV furosemide without much improvement. She was also prescribed Rocephin due to concern for bilateral lower extremity cellulitis. Nitropaste was administered due to observed hypertension, elevated troponin. Significant chest pain. EKG without acute changes. Resting echocardiography with preserved LV systolic function without wall motion abnormality. Patient denies prior cardiac history. She notes that 5 or 6 years ago she was referred for dobutamine stress echocardiography to evaluate complaints of shortness of breath. Testing at that time was unable to be completed due to hypertension. The patient specifically denies history of VT, CAD, CHF, arrhythmia, heart murmur, rheumatic fever, or scarlet fever. Inactive. Dyspnea occurs with activities of daily living. No exertional related chest discomfort. No significant palpitations. No syncope. No melena or hematochezia. Past Medical and Surgical History: Morbid obesity Type 2 diabetes mellitus Hypertension Dyslipidemia Tobacco use disorder Depression Gout Osteoarthritis Lumbar disc disease Urge incontinence Hysterectomy Cholecystectomy Family History: Father's history is unknown. Mother is alive and well without cardiac issues. 1 brother and 1 sister without cardiac issues Social History: Tobacco: Currently smoking 1 to 2 packs/day. She has smoked 1 to 1-1/2 packs/day for the last 4 years. She notes taking a 5-year break from cigarettes, vaping at that time. She has smoked since her teenage years. No smokeless tobacco. No significant alcohol consumption. No illegal drug use. . 2 children. Lives with her mother. 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 Allergies Allergy/AdvReac Type Severity Reaction Status Date / Time Penicillins Allergy Hives Verified 09/04/22 13:29 Home Medications Medication Instructions Recorded Confirmed Type albuterol sulfate 90 mcg/actuation 90 mcg inhalation BID PRN 09/04/22 09/04/22 History aerosol inhaler (ProAir HFA) Shortness Of Breath Or Wheezing allopurinol 100 mg tablet 100 mg PO DAILY 09/04/22 09/04/22 History atorvastatin 10 mg tablet 10 mg PO DAILY 09/04/22 09/04/22 History duloxetine 60 mg capsule,delayed 60 mg PO DAILY 09/04/22 09/04/22 History release famotidine 20 mg tablet 20 mg PO DAILY 09/04/22 09/04/22 History lisinopril 30 mg tablet 30 mg PO DAILY 09/04/22 09/04/22 History metformin 1,000 mg tablet 1,000 mg PO BID 09/04/22 09/04/22 History Patient History Medical History Cellulitis Depression Gout HLD (hyperlipidemia) HTN (hypertension) Non-insulin dependent type 2 diabetes mellitus Obesity Shortness of breath Tobacco use disorder Surgical History H/O: H/O: hysterectomy History of cholecystectomy Family History Other Asthma Dyslipidemia Heart disease Hypertension Social History Smoking Status: Current every day smoker packs per day: 1.5; Second Hand Exposure: Yes; Do You Dip or Chew Tobacco: No; Tobacco Cessation Education Requested by Patient: No Hx Alcohol Use: No Hx Substance Use: No Preferred Language: Italian Communication Ability: Effective Hearing Ability: Normal Harpooner Required: No Beliefs That Will Affect Care: None Current Living Situation: Parent current occupational status: unemployed Other Information That Helps Us Care for You: No Feels Safe at Home: Yes Safety Concerns: Feels Safe At This Time Assistive Devices: Cane Review of Systems Review of Systems: Complete Review of Systems: Constitutional: + Weight gain. No night sweats. HEENT: No amaurosis fugax. Pulmonary: Recent bronchitis. No history of PE. No history of asthma. Cardiac: See above. GI/Abd: No dysphagia. No melana or hematochezia. Denies liver or kidney problems. Vascular: No history of aneurysm Hematologic: No abnormal bleeding Musculoskeletal: Arthritis. Chronic low back pain. Neurologic: No history of seizure. No history of CVA. Female : Incontinence Endocrine: Type 2 diabetes mellitus, on metformin Complete Review of Systems is as stated above, negative, or noncontributory Physical Exam Physical Exam: General: Alert to person place and time. Morbidly obese. Wet cough HENT: Normocephalic. Atraumatic. Eyes: PER. Conjunctiva pink, sclera clear. Neck: JVD not appreciated Heart: RRR, 88 bpm. No murmur. Lungs: Decreased. Diminished. No wheeze. Clear to auscultation. Abdomen: Large, distended, edematous. +BS. No organomegaly. Extremities: Bilateral lower extremity erythema suggesting bilateral lower extremity cellulitis. Chronic indurated edema, 2+. No cyanosis. No clubbing. Limited neurological examination is without focal deficits. Pulses: Radial pulse 1/4. Distal pulses not appreciated. Results & Data Vital Signs (Past 12 Hours) Vital Signs Temp Pulse Pulse Resp BP BP Pulse Ox 09/05/22 08:00 36.8 C 91 H 20 166/82 H 95 09/05/22 04:00 36.7 C 88 18 164/89 H 95 09/04/22 23:11 90 09/04/22 22:55 09/04/22 23:05 36.7 C 92 H 22 143/82 H 94 09/04/22 22:30 91 H 19 94 09/04/22 22:30 169/79 H 09/04/22 22:20 82 18 96 09/04/22 22:10 85 20 96 O2 Del Method O2 Flow Rate 09/05/22 08:00 Room Air 4 09/05/22 04:00 Nasal Cannula 4 09/04/22 23:11 09/04/22 22:55 Nasal Cannula 5 09/04/22 23:05 Nasal Cannula 5 09/04/22 22:30 09/04/22 22:30 09/04/22 22:20 09/04/22 22:10 Laboratory Results Cardiac Enzymes 09/04/22 09/04/22 09/04/22 Range/Units 11:09 11:09 14:09 AST 14 (13-39) U/L Troponin I High Sens 895.1 H* 817.6 H* (0-14) pg/ml B-Natriuretic Peptide 481 H (0-100) pg/ml 09/04/22 09/05/22 09/05/22 Range/Units 21:29 05:39 05:39 AST 12 L (13-39) U/L Troponin I High Sens 764.1 H* 731.2 H* (0-14) pg/ml B-Natriuretic Peptide (0-100) pg/ml Coagulation 09/04/22 09/04/22 09/04/22 Range/Units 11:09 11:09 12:16 PT Cancelled 11.4 APTT Cancelled 24.9 B-Natriuretic Peptide 481 H (0-100) pg/ml CBC 09/04/22 09/05/22 Range/Units 11:09 05:39 WBC 12.07 H 12.46 H (4.8-10.8) K/ul RBC 5.43 H 5.29 (4.20-5.40) M/uL Hgb 13.2 12.9 (12.0-16.0) g/dl Hct 45.7 44.3 (37.0-47.0) % Plt Count 295 272 (130-400) K/uL Neut # (Auto) 9.89 H (1.40-6.50) K/uL Lymph # (Auto) 1.47 (1.2-3.4) K/uL Pierce # (Auto) 0.48 (0.11-0.59) K/uL Eos # (Auto) 0.14 (0-0.50) K/uL Baso # (Auto) 0.05 (0-0.2) K/uL Comprehensive Metabolic Panel 09/04/22 09/05/22 Range/Units 11:09 05:39 Sodium 141 144 (136-145) mmol/L Potassium 4.2 4.3 (3.5-5.1) mmol/L Chloride 106 106 (98-107) mmol/L Carbon Dioxide 29 33 H (21-32) mmol/L BUN 23 18 (6-23) mg/dl Creatinine 0.65 0.61 (0.6-1.2) mg/dl Glucose 126 H 112 H (70-99(Fasting)) mg/dl Calcium 8.5 L 8.9 (8.6-10.3) mg/dl AST 14 12 L (13-39) U/L ALT 11 9 (7-52) U/L Alkaline Phosphatase 92 87 (34-104) U/L Total Protein 6.7 6.5 (6.0-8.3) gm/dl Albumin 3.5 3.3 L (3.4-5.0) gm/dl Intake and Output 09/04/22 09/05/22 09/05/22 22:59 06:59 14:59 Intake Total 70 / 70 Output Total 2400 / 2800 400 / 2800 Balance -2330 / -2730 -400 / -2730 Intake: IV 70 / cefTRIAXone SODIUM 2,000 mg In 70 / 70 70 ml @ 140 mls/hr IV NOW STA Rx#:[id number] Output: Urine Amount (Catheter) 2400 / 2800 400 / 2800 Renteria/Indwelling 2400 / 2800 400 / 2800 Other: Other Intake Source Sips Weight 168.8 kg 160.5 kg Weight Measurement Method Standing Scale Standing Scale Diagnostic Findings EKG on presentation revealed normal sinus rhythm at 98 bpm with rightward axis, nonspecific T wave abnormality. QTc 436 ms. EKG in the morning of September 05, 2022 revealed normal sinus rhythm at 89 bpm with rightward axis, without significant change compared to prior. Continuous telemetry monitoring revealed sinus rhythm with premature atrial c ontractions, heart rates primarily in the 80s and 90s. Resting echocardiography on September 04, 2022 revealed preserved LV systolic function, ejection fraction 55 to 60%. RV wall motion normal. Mild concentric left ventricular hypertrophy noted. RV size and function normal. Grade 1 diastolic dysfunction noted. No significant valvular disease observed. Chest x-ray revealed cardiomegaly with mild interstitial pulmonary edema and trace bilateral pleural effusions per radiological interpretation. Venous blood test without overt DVT
--- NOTE | 2022-09-05 11:22 | Electrocardiogram Report ---
Test Reason : Blood Pressure : / mmHG Vent. Rate : 089 BPM Atrial Rate : 089 BPM P-R Int : 186 ms QRS Dur : 090 ms QT Int : 360 ms P-R-T Axes : 059 108 017 degrees QTc Int : 438 ms Normal sinus rhythm Rightward axis Borderline ECG When compared with ECG of 04-SEP-2022 10:57, No significant change was found Confirmed by Kurtis Connor ([id number]) on 09/05/2022 11:22:25 AM Referred By: REFERRED SELF Confirmed By:Kurtis Connor
--- NOTE | 2022-09-05 11:33 | Hospitalist Progress Note ---
Date of Service September 05, 2022 Assessment & Plan (1) Shortness of breath: (2) HTN (hypertension): (3) HLD (hyperlipidemia): (4) Non-insulin dependent type 2 diabetes mellitus: (5) Tobacco use disorder: (6) Gout: (7) Obesity: (8) Depression: (9) Cellulitis: Plan 52-year-old presents with increased shortness of breath times a few weeks. No history of CHF. Legs bilateral lower extremity swelling. BNP 481, troponin 895. Received Lasix 60 mg in ED. Chest x-ray interstitial pulmonary edema with trace bilateral pleural effusions. No ischemia noted on EKG. Rule out DVT/PE. Blood culture and urine culture pending. Acute hypoxic respiratory failure Acute on chronic diastolic heart failure Elevated high-sensitivity troponin due to demand ischemia 52-year-old female presents to the hospital with increasing shortness of breath for few weeks Chest x-ray personally reviewed; consistent with pulmonary edema Labs reviewed; BNP elevated Echocardiogram results reviewed; mild concentric left ventricular hypertrophy. EF of 55 to 60%. Grade 1 diastolic dysfunction Venous duplex did not show DVT Continue on IV diuresis Strict input and output monitoring; currently has Renteria. Will remove tomorrow. Discussed with cardiology; continue IV Lasix and trial of low-dose spironolactone. CTA ordered at admission to rule out PE; pending Will need outpatient sleep study Cellulitis: Erythema RLE; warm to touch No open areas Started on Keflex. Continue. Tobacco use disorder: Nicotine patch offered; declined; patient reports having flaky skin with previous use PFTs done in 2017; FEV1 94 HTN: Previously on lisinopril. Switch to losartan 50 mg twice daily during hospitalization. HLD: Takes atorvastatin; continue Diabetes mellitus, type II: Morbid obesity: BMI: 69.7 Takes metformin; hold while inpatient Last A1c 06/2021: 6.9 FSBS ACHS SSI while inpatient Depression: Takes Cymbalta; continue Gout: Takes allopurinol; continue Disposition: PCP: Dr. Griffith CODE STATUS: Full code VTE prophylaxis: Heparin SQ Time spent evaluating patient, direct bedside care, chart review, placing orders, interpretation of diagnostic studies, discussion with consultants, patient, and family members, as well as other required patient management activities is 60 minutes. Please note the above document was generated using voice recognition software. It may contain grammatical, syntax or spelling errors. Any formal questions or concerns about the content, text or information contained within the body of this dictation should be directly addressed to the provider for clarification Admission and Anticipated Discharge Date Admission Date: September 04, 2022 Subjective Patient seen and examined at bedside. She is comfortably sitting up on the bed; not in any distress. She is requiring 4 L of oxygen via nasal cannula. Telemetry shows normal sinus rhythm. Review of Systems Review of Systems: All systems reviewed & are unremarkable except as noted in Subjective Physical Exam Physical Exam: Constitutional: Alert, oriented x3; morbidly obese. Respiratory: Basal lung sounds difficult to appreciate due to body habitus. Otherwise, physically bedside. Cardiovascular: RRR, no murmur, no edema Vessels: no JVD or carotid bruit Chest: normal inspection of chest Abdomen: normal bowel sounds, soft, nontender, no hepatosplenomegaly Musculoskeletal: no cyanosis or clubbing, extremities motor strength 5/5 Skin: Slight redness present in bilateral lower extremity. Neurologic: PERRL, EOMI, accommodation nl, no face palsy, no dysarthria CN's II- XI intact bilaterally and moves all extremities Psychiatric: A+Ox3, euthymic affect Lymphatic: no cervical or axillary lymphadenopathy : deferred Results & Data Results & Data Vital Signs (Past 12 Hours) Vital Signs Temp Pulse Resp BP Pulse Ox O2 Del Method O2 Flow Rate 09/05/22 11:26 36.4 C L 90 22 158/79 H 92 Nasal Cannula 4 09/05/22 10:17 Nasal Cannula 5 09/05/22 08:00 36.8 C 91 H 20 166/82 H 95 Room Air 4 09/05/22 04:00 36.7 C 88 18 164/89 H 95 Nasal Cannula 4 Laboratory Results Laboratory Results WBC 12.46 K/ul (4.8-10.8) H 09/05/22 05:39 RBC 5.29 M/uL (4.20-5.40) 09/05/22 05:39 Hgb 12.9 g/dl (12.0-16.0) 09/05/22 05:39 Hct 44.3 % (37.0-47.0) 09/05/22 05:39 MCV 83.7 fL (80.0-100.0) 09/05/22 05:39 MCH 24.4 pg (25.0-34.0) L 09/05/22 05:39 MCHC 29.1 g/dL (32.0-36.0) L 09/05/22 05:39 RDW Std Deviation 56.6 fL (36.4-46.3) H 09/05/22 05:39 RDW Coeff of Bhumi 19.5 % (11.5-14.5) H 09/05/22 05:39 Plt Count 272 K/uL (130-400) 09/05/22 05:39 MPV 10.4 fL (9.4-12.4) 09/05/22 05:39 Immature Gran % (Auto) 0.3 % 09/04/22 11:09 Neut % (Auto) 81.9 % 09/04/22 11:09 Lymph % (Auto) 12.2 % 09/04/22 11:09 [place] % (Auto) 4.0 % 09/04/22 11:09 Eos % (Auto) 1.2 % 09/04/22 11:09 Baso % (Auto) 0.4 % 09/04/22 11:09 Neut # (Auto) 9.89 K/uL (1.40-6.50) H 09/04/22 11:09 Lymph # (Auto) 1.47 K/uL (1.2-3.4) 09/04/22 11:09 [place] # (Auto) 0.48 K/uL (0.11-0.59) 09/04/22 11:09 Eos # (Auto) 0.14 K/uL (0-0.50) 09/04/22 11:09 Baso # (Auto) 0.05 K/uL (0-0.2) 09/04/22 11:09 Immature Gran # (Auto) 0.04 K/uL (0.01-0.20) 09/04/22 11:09 Polychromasia 2+ 09/04/22 11:09 PT 11.4 Seconds (9.0-12.0) 09/04/22 12:16 INR 1.0 (0.9-1.1) 09/04/22 12:16 APTT 24.9 Seconds (21.0-31.0) 09/04/22 12:16 PTT Ratio 0.9 09/04/22 12:16 ABG pH 7.33 (7.35-7.45) L 09/04/22 13:41 ABG pCO2 63 mmHg (35-46) H 09/04/22 13:41 ABG pO2 78 mmHg (80-95) L 09/04/22 13:41 ABG HCO3 33 mmol/L (19-24) H 09/04/22 13:41 ABG O2 Saturation 96.9 % (90-95) H 09/04/22 13:41 ABG Base Excess 5.3 mEq/L (-9-1.8) H 09/04/22 13:41 Rj Test Pos (Pos) 09/04/22 13:41 Oxygen Given 6L 09/04/22 13:41 Sodium 144 mmol/L (136-145) 09/05/22 05:39 Potassium 4.3 mmol/L (3.5-5.1) 09/05/22 05:39 Chloride 106 mmol/L (98-107) 09/05/22 05:39 Carbon Dioxide 33 mmol/L (21-32) H 09/05/22 05:39 Anion Gap 5 (3-11) 09/05/22 05:39 BUN 18 mg/dl (6-23) 09/05/22 05:39 Creatinine 0.61 mg/dl (0.6-1.2) 09/05/22 05:39 Est Cr Clr Drug Dosing 158.7 ml/min 09/05/22 05:39 Est GFR ( Amer) 120.0 ml/min 09/05/22 05:39 Est GFR (Non-Af Amer) 103.5 ml/min 09/05/22 05:39 BUN/Creatinine Ratio 29.5 (10-20) H 09/05/22 05:39 Glucose 112 mg/dl (70-99(Fasting)) H 09/05/22 05:39 POC Glucose 127 mg/dl (70-99) H 09/05/22 11:07 Estimat Average Glucose 160 mg/dl 09/04/22 11:09 Hemoglobin A1c 7.2 % (4.5-5.6) H 09/04/22 11:09 Lactate 1.8 mmol/L (0.4-2.0) 09/04/22 11:42 Calcium 8.9 mg/dl (8.6-10.3) 09/05/22 05:39 Phosphorus 4.1 mg/dl (2.5-4.9) 09/05/22 05:39 Magnesium 1.7 mg/dl (1.7-2.4) 09/05/22 05:39 Total Bilirubin 0.5 mg/dl (0.2-1.0) 09/05/22 05:39 AST 12 U/L (13-39) L 09/05/22 05:39 ALT 9 U/L (7-52) 09/05/22 05:39 Alkaline Phosphatase 87 U/L (34-104) 09/05/22 05:39 Troponin I High Sens 731.2 pg/ml (0-14) H* 09/05/22 05:39 B-Natriuretic Peptide 481 pg/ml (0-100) H 09/04/22 11:09 Total Protein 6.5 gm/dl (6.0-8.3) 09/05/22 05:39 Albumin 3.3 gm/dl (3.4-5.0) L 09/05/22 05:39 Globulin 3.2 gm/dl (2.5-4.0) 09/05/22 05:39 Albumin/Globulin Ratio 1.0 (0.9-2) 09/05/22 05:39 Procalcitonin < 0.05 ng/ml (0-0.5) 09/05/22 05:39 Urine Color Dark Yellow 09/04/22 12:17 Urine Appearance Cloudy (Clear) A 09/04/22 12:17 Urine pH 5.5 (4.5-7.5) 09/04/22 12:17 Ur Specific [place] 1.025 (1.000-1.030) 09/04/22 12:17 Urine Protein 3+ (Negative) H 09/04/22 12:17 Urine Glucose (UA) Negative (Negative) 09/04/22 12:17 Urine Ketones Trace (Negative) H 09/04/22 12:17 Urine Blood Negative (Negative) 09/04/22 12:17 Urine Nitrite Positive (Negative) A 09/04/22 12:17 Urine Bilirubin 1+ (Negative) H 09/04/22 12:17 Urine Urobilinogen Negative (Negative) 09/04/22 12:17 Ur Leukocyte Esterase 2+ (Negative) H 09/04/22 12:17 Urine WBC (Auto) >30 /hpf (0-5) H 09/04/22 12:17 Urine RBC (Auto) 0-4 /hpf (0-4) 09/04/22 12:17 U Hyaline Cast (Auto) 1-5 /lpf (0-5) 09/04/22 12:17 U Epithel Cells (Auto) >30 /lpf (0-5) H 09/04/22 12:17 Urine Bacteria (Auto) 4+ (Negative) H 09/04/22 12:17 SARS-CoV-2, RNA, NAAT NEGATIVE (NEGATIVE) 09/04/22 11:40 Impressions Chest X-Ray 09/04/22 10:56 XR chest 1V portable HISTORY: Dyspnea COMPARISON: None. FINDINGS: No pneumothorax. Trace bilateral pleural effusions. The cardiac silhouette is enlarged. There is perihilar interstitial/vascular thickening consistent with mild pulmonary edema. No focal lung consolidations to suggest a pneumonia. IMPRESSION: Cardiomegaly with mild interstitial pulmonary edema and trace bilateral pleural effusions. ACT 112: Negative or not required by law. Electronically signed by: Yan Roberts M.D. 09/04/2022 11:28 AM Venous Doppler Study 09/04/22 12:13 US venous doppler LE BI CLINICAL HISTORY: swelling, poss dvt TECHNIQUE: Bilateral lower extremity real-time compression venous ultrasound with Color Doppler imaging. Utilizing real-time ultrasonic imaging multiple real time high-resolution ultrasonic images with compression and noncompression maneuvers of the deep venous system in addition to color doppler imaging were performed from the common femoral vein through the proximal calf veins. COMPARISON: None available at the time of this dictation. FINDINGS/IMPRESSION: Currently there is normal compressibility of the deep venous system from the common femoral vein through the proximal calf veins. Limited evaluation of the bilateral calf vessels. The left common femoral vein and greater saphenous vein were not well visualized due to patient positioning. ACT 112: Negative or not required by law. Electronically signed by: Babatunde Lopez M.D. 09/04/2022 5:06 PM
[2022-09-05] MEDS: SPIRONOLACTONE 12.5 MG TAB PO SCH (11:55)
--- NOTE | 2022-09-05 13:19 | Pharmacy Report ---
Pharmacy Glycemic Sign Off Nt - Date of Service September 05, 2022 - Assessment & Plan ASSESSMENT: * Pharmacy was consulted by ZACHERY Calle, on 09/04/22 for glycemic control and to write orders per [facility] inpatient glycemic control protocol. * Major changes made by pharmacy to antidiabetic regimen include: * Adding correctional/prandial insulin * Patient has been receiving 2-3 units of insulin per injection for adequate glycemic control * BSGs ranging 107-127 mg/dl * Do not anticipate further changes in patient status that would quickly deteriorate glycemic control (i.e. patient to be NPO for upcoming procedure, steroids tapering, starting tube feedings, etc). PLAN FOR INPATIENT GLYCEMIC CONTROL: No changes needed to current regimen. * No basal insulin necessary * Continue NovoLog per scale ACHS/Q6hrs while NPO * Goal range = 110-140 mg/dl * CF = 30 mg/dl/unit * CR = 1 unit for ever 10 g CHO consumed * Pharmacy is signing off of glycemic consult and will no longer be making adjustments to inpatient regimen. Please feel free to re-consult if needed. Thank you.
[2022-09-05] MEDS: LOSARTAN POTASSIUM 50 MG TAB PO SCH (20:59)
[2022-09-06 07:11] LABS: BUN Creatinine Ratio 29.2 (10-20); Calcium 8.9 mg/dl (8.6-10.3); Creatinine Clr Calc Pharmacy 205.5 ml/min; Est GFR (African American) 129.8 ml/min; Potassium 3.8 mmol/L (3.5-5.1)
[2022-09-06 07:38] LABS: Hematocrit (blood only) 43.8 % (37.0-47.0); Hemoglobin 12.3 g/dl (12.0-16.0); Mean Corpuscular Hemoglobin 23.7 pg (25.0-34.0); Mean Corpuscular Hgb Conc 28.1 g/dL (32.0-36.0); Mean Corpuscular Volume 84.4 fL (80.0-100.0); Mean Platelet Volume 10.8 fL (9.4-12.4); Platelet Count 264 K/uL (130-400); RDW Coefficient of Variation 19.1 % (11.5-14.5); RDW Standard Deviation 55.6 fL (36.4-46.3); Red Blood Count 5.19 M/uL (4.20-5.40); White Blood Count 10.69 K/ul (4.8-10.8)
[2022-09-06 07:39] LABS: Basophils # (auto) 0.03 K/uL (0-0.2); Basophils % (auto) 0.3 %; Eosinophils # (auto) 0.17 K/uL (0-0.50); Eosinophils % (auto) 1.6 %; Immature Granulocytes # (auto) 0.03 K/uL (0.01-0.20); Immature Granulocytes % (auto) 0.3 %; Lymphocytes # (auto) 1.82 K/uL (1.2-3.4); Monocytes # (auto) 0.59 K/uL (0.11-0.59); Monocytes % (auto) 5.5 %; Neutrophils # (auto) 8.05 K/uL (1.40-6.50); Neutrophils % (auto) 75.3 %; Polychromasia 1+
[2022-09-06] MEDS: INSULIN ASPART PER UNIT CHARGE SC SCH ×4 (09:08→20:23)
[2022-09-06] MEDS: LOSARTAN POTASSIUM 50 MG TAB PO SCH ×2 (09:09→20:32)
[2022-09-06] MEDS: cephALEXin 500 MG CAP PO SCH ×4 (09:09→20:32)
[2022-09-06] MEDS: SPIRONOLACTONE 12.5 MG TAB PO SCH (09:10)
[2022-09-06] MEDS: allopurinoL 100 MG TAB PO SCH (09:10)
[2022-09-06] MEDS: DULoxetine HCL 60 MG CAP PO SCH (09:11)
[2022-09-06] MEDS: ATORVASTATIN 10 MG TAB PO SCH (09:11)
[2022-09-06] MEDS: FAMOTIDINE 20 MG TAB PO SCH (09:11)
[2022-09-06] MEDS: FUROSEMIDE 40 MG/4 ML VIAL IV SCH (09:27)
--- NOTE | 2022-09-06 09:49 | Cardiology Progress Note ---
Date of Service September 06, 2022 Assessment & Plan (1) Hypoxia: (2) Right heart failure: (3) Cellulitis: (4) Elevated troponin: (5) (HFpEF) heart failure with preserved ejection fraction: (6) COPD exacerbation: Plan Acute decompensated right heart failure, HFpEF Suspected obstructive pulmonary disease exacerbation, chronic tobacco use Probable bilateral lower extremity cellulitis Elevated troponin in the absence of an acute coronary syndrome (critical illness, hypoxemia, heart failure, pulmonary disease) Hypertension Dyslipidemia RECOMMENDATIONS: Continue IV furosemide and spironolactone. Aggressive diuresis noted with low dose furosemide. -6 L balance since admission. Daily weight with standing scale. Monitor I+O's. Monitor renal function and electrolytes -stable this morning. Recommend evaluation sleep disordered breathing, for obesity hypoventilation syndrome Hypertension improved with transition to losartan and diuresis. Treatment of the bronchitis symptoms as per hospitalist. Consider use of Sacubitril/valsartan (Entresto) after optimizing mineralo corticoid-receptor antagonist and sodium-glucose transport protein 2 receptor antagonist therapies Continue statin Tobacco cessation Would anticipate need of ongoing IV diuresis over the next few days. Case discussed with Dr. Rodriguez I spent a total of 35 minutes on the date of service in preparation, delivery, and documentation of the care provided to this patient, excluding any time spent in the performance of separately billed services. Pebbles Sargent PA-C Department of Cardiology, [facility] This chart was completed in part utilizing Speech Voice Recognition Software. Grammatical errors, random word insertions, pronoun errors, and incomplete sentences are an occasional consequence of this system due to software limitations, ambient noise, and hardware issues. Any formal questions or concerns about the content, text, or information contained within the body of this dictation should be directly addressed to the provider for clarification. Admission and Anticipated Discharge Date Admission Date: September 04, 2022 Supervising Physician Co-Signing Physician Notes Supervising Physician Attestation: I have personally performed a history and physical examination on the patient. I agree with the physician pizza hut assistant's findings and plan as documented with the following additions. Subjective: Patient sitting in bedside chair at the time my assessment. Renteria catheter in place. Denies chest discomfort or shortness of breath. Still with significant lower extremity edema and erythema. Exam: Pulmonary: Mildly decreased breath sounds at the bases Cardiovascular: Regular rhythm, no murmurs, 2+ lower extremity edema Data: Telemetry reveals sinus rhythm in the 80s Assessment and Plan: -Acute right heart failure, preserved LVEF, clinically, suspect obesity hypoventilation syndrome -Continue furosemide 20 mg IV twice daily, spironolactone. DVT prophylaxis: Subcutaneous heparin 5000 units every 8 hours Santosh Rodriguez, Subjective Patient resting in bed. Ongoing cough and SOB noted but improving. No fever or chills. No chest pain. Aggressive diuresis since admission. Negative 6 L. Weight likely not accurate on admission. Ongoing edema and abdominal bloating n oted. Review of Systems Review of Systems: All systems reviewed & are unremarkable except as noted in HPI & below Physical Exam Constitutional: WD/WN, vitals as above Neck: + thick neck Respiratory: + cough Auscultation: + diminished lung sounds, + crackles and + rhonchi Cardiovascular: Rate/Rhythm: regular rate and regular rhythm Heart Sounds: no murmur (distant heart sounds. No audible murmur) Extremities: + edema (2+ hard indurated edema with stasis changes) Gastrointestinal (Abdomen): normal bowel sounds, soft, nontender, no hepatosplenomegaly Neurologic: PERRL, EOMI, accommodation nl, no face palsy, no dysarthria Results & Data Vital Signs (Past 12 Hours) Vital Signs Temp Pulse Pulse Resp BP Pulse Ox O2 Del Method 09/06/22 09:01 92 Nasal Cannula 09/06/22 07:39 36.6 C 79 19 132/75 92 Nasal Cannula 09/06/22 07:22 81 09/06/22 02:51 181/80 H 09/06/22 02:47 36.8 C 85 18 172/93 H 95 Nasal Cannula 09/05/22 21:59 71 09/05/22 22:58 36.7 C 84 18 171/84 H 95 Nasal Cannula O2 Flow Rate 09/06/22 09:01 2 09/06/22 07:39 5.0 09/06/22 07:22 09/06/22 02:51 09/06/22 02:47 5 09/05/22 21:59 09/05/22 22:58 5 Laboratory Results Cardiac Enzymes 09/05/22 Range/Units 11:34 Troponin I High Sens 668.1 H* (0-14) pg/ml CBC 09/06/22 Range/Units 05:35 WBC 10.69 (4.8-10.8) K/ul RBC 5.19 (4.20-5.40) M/uL Hgb 12.3 (12.0-16.0) g/dl Hct 43.8 (37.0-47.0) % Plt Count 264 (130-400) K/uL Neut # (Auto) 8.05 H (1.40-6.50) K/uL Lymph # (Auto) 1.82 (1.2-3.4) K/uL [place] # (Auto) 0.59 (0.11-0.59) K/uL Eos # (Auto) 0.17 (0-0.50) K/uL Baso # (Auto) 0.03 (0-0.2) K/uL Comprehensive Metabolic Panel 09/06/22 Range/Units 05:35 Sodium 144 (136-145) mmol/L Potassium 3.8 (3.5-5.1) mmol/L Chloride 104 (98-107) mmol/L Carbon Dioxide 36 H (21-32) mmol/L BUN 14 (6-23) mg/dl Creatinine 0.48 L (0.6-1.2) mg/dl Glucose 100 H (70-99(Fasting)) mg/dl Calcium 8.9 (8.6-10.3) mg/dl Intake and Output 09/05/22 09/06/22 09/06/22 22:59 06:59 14:59 Output Total 1750 / 4850 300 / 4850 Balance -1750 / -4120 -300 / -4120 Output: Urine Amount (Catheter) 1750 / 4850 300 / 4850 Renteria/Indwelling 1750 / 4850 300 / 4850 Other: Weight 165 kg Weight Measurement Method Standing Scale Diagnostic Findings Telemetry reviewed: NSR in the 80's; no arrhythmias EKG 09/06/22: Normal sinus rhythm Rightward axis Borderline ECG When compared with ECG of 05-SEP-2022 05:57, No significant change was found Echocardiogram report reviewed Study was technically difficult Mild concentric LVH LV wall motion is normal EF 55-60% RV is normal in size and function Grade I diastolic dysfunction No significant valvular disease Chest xray reviewed on admission: IMPRESSION: Cardiomegaly with mild interstitial pulmonary edema and trace bilateral pleural effusions. Medications Administered Current Inpatient Medications Acetaminophen (Acetaminophen 325 Mg Tab) 650 mg PO Q4H PRN PRN Reason: Pain or Fever Stop: 10/04/22 12:32 Last Admin: 09/06/22 02:47 Dose: 650 mg Al Hydrox/Mg Hydrox/Simethicone (Aluminum/Magnesium Susp 30 Ml Udc) 15 ml PO Q4H PRN PRN Reason: Dyspepsia Stop: 10/04/22 12:32 Allopurinol (Allopurinol 100 Mg Tab) 100 mg PO DAILY DIA Stop: 10/05/22 08:59 Last Admin: 09/06/22 09:10 Dose: 100 mg Atorvastatin Calcium (Atorvastatin 10 Mg Tab) 10 mg PO DAILY DIA Stop: 10/05/22 08:59 Last Admin: 09/06/22 09:11 Dose: 10 mg Cephalexin HCl (Cephalexin 500 Mg Cap) 500 mg PO QID [facility] Stop: 09/11/22 16:59 Last Admin: 09/06/22 09:09 Dose: 500 mg Dextrose (Dextrose 50% 50 Ml Syringe) 25 - 50 ml IV UD PRN; Protocol PRN Reason: Hypoglycemia Protocol Stop: 10/04/22 14:53 Duloxetine HCl (Duloxetine Hcl 60 Mg Cap) 60 mg PO DAILY DIA Stop: 10/05/22 08:59 Last Admin: 09/06/22 09:11 Dose: 60 mg Famotidine (Famotidine 20 Mg Tab) 20 mg PO DAILY DIA Stop: 10/05/22 08:59 Last Admin: 09/06/22 09:11 Dose: 20 mg Furosemide (Furosemide Inj 20 Mg/2 Ml Vial) 20 mg IV BID@0800,1400 [facility] Stop: 10/06/22 13:59 Glucagon (Glucagon For Inj 1 Mg Vial) 1 mg SQ UD PRN; Protocol PRN Reason: Hypoglycemia Protocol Stop: 10/04/22 14:53 Glucose (Glucose 10 Tab/Tube) 4 - 8 tab PO UD PRN; Protocol PRN Reason: Hypoglycemia Treatment Stop: 10/04/22 14:53 Glucose (Glucose 40% Gel 15 Gm Tube) 15 - 30 gm PO UD PRN; Protocol PRN Reason: Hypoglycemia Protocol Stop: 10/04/22 14:53 Heparin Sodium (Porcine) (Heparin Sod 5,000 Unit/0.5 Ml Vial) 5,000 units SQ Q8 DIA Stop: 06/24/23 13:59 Insulin Aspart (Insulin Aspart Per Unit Charge) 0 units SC ACHS DIA Stop: 10/04/22 16:29 Last Admin: 09/06/22 09:08 Dose: 2 units Losartan Potassium (Losartan Potassium 50 Mg Tab) 50 mg PO BID DIA Stop: 10/05/22 20:59 Last Admin: 09/06/22 09:09 Dose: 50 mg Magnesium Hydroxide (Magnesium Hydroxide Susp 30 Ml Udc) 30 ml PO Q12H PRN PRN Reason: Constipation Stop: 10/04/22 12:32 Miscellaneous (Carbohydrates For Hypoglycemia ) 15 - 30 gm PO UD PRN PRN Reason: Hypoglycemia Protocol Stop: 10/04/22 14:53 Ondansetron HCl (Ondansetron Inj 2 Mg/Ml 2 Ml Vial) 4 mg IV Q6H PRN PRN Reason: Nausea Stop: 10/04/22 12:32 Polyethylene Glycol (Polyethylene (Miralax) 17 Gm Pack) 17 gm PO DAILY PRN PRN Reason: Constipation Stop: 10/04/22 12:32 Spironolactone (Spironolactone 12.5 Mg Tab) 12.5 mg PO DAILY DIA Stop: 10/05/22 10:59 Last Admin: 09/06/22 09:10 Dose: 12.5 mg
--- NOTE | 2022-09-06 10:34 | Hospitalist Progress Note ---
Date of Service September 06, 2022 Assessment & Plan (1) Shortness of breath: (2) HTN (hypertension): (3) HLD (hyperlipidemia): (4) Non-insulin dependent type 2 diabetes mellitus: (5) Tobacco use disorder: (6) Gout: (7) Obesity: (8) Depression: (9) Cellulitis: Plan 52-year-old presents with increased shortness of breath times a few weeks. No history of CHF. Legs bilateral lower extremity swelling. BNP 481, troponin 895. Received Lasix 60 mg in ED. Chest x-ray interstitial pulmonary edema with trace bilateral pleural effusions. No ischemia noted on EKG. Rule out DVT/PE. Blood culture and urine culture pending. Acute hypoxic respiratory failure Acute on chronic diastolic heart failure Elevated high-sensitivity troponin due to demand ischemia 52-year-old female presents to the hospital with increasing shortness of breath for few weeks. On presentation, her SPO2 at room air was 77%, with RR greater than 22. Chest x-ray on admission personally reviewed; consistent with pulmonary edema Labs reviewed; BNP elevated Echocardiogram results reviewed; mild concentric left ventricular hypertrophy. EF of 55 to 60%. Grade 1 diastolic dysfunction Venous duplex did not show DVT will change IV Lasix to 20 milligram twice daily. BMP reviewed from today; bicarb increased to 36. Strict input and output monitoring; remove Renteria and use external cath. Discussed with cardiology; continue IV Lasix and trial of low-dose spironolactone. CTA chest ordered to rule out PE. Will need outpatient sleep study Cellulitis: Erythema RLE; warm to touch No open areas Started on Keflex. Continue. Tobacco use disorder: Nicotine patch offered; declined; patient reports having flaky skin with previous use PFTs done in 2017; FEV1 94 HTN: Previously on lisinopril. Switch to losartan 50 mg twice daily during hospitalization. HLD: Takes atorvastatin; continue Diabetes mellitus, type II: Morbid obesity: BMI: 69.7 Takes metformin; hold while inpatient Last A1c 06/2021: 6.9 FSBS ACHS SSI while inpatient Depression: Takes Cymbalta; continue Gout: Takes allopurinol; continue Disposition: PCP: Dr. Griffith CODE STATUS: Full code VTE prophylaxis: Heparin SQ Dispositionlives with her mother. Independent of all ADLs. PT OT ordered. Patient continues to be hospitalized due to acute hypoxic respiratory failure, acute on chronic diastolic heart failure needing IV diuretics. Time spent evaluating patient, direct bedside care, chart review, placing orders, interpretation of diagnostic studies, discussion with consultants, patient, and family members, as well as other required patient management activities is 60 minutes. Please note the above document was generated using voice recognition software. It may contain grammatical, syntax or spelling errors. Any formal questions or concerns about the content, text or information contained within the body of this dictation should be directly addressed to the provider for clarification Admission and Anticipated Discharge Date Admission Date: September 04, 2022 Subjective Patient seen and examined at bedside. She reports her shortness of breath is slightly better compared to admission. Urine output of 6 L since admission. Review of Systems Review of Systems: All systems reviewed & are unremarkable except as noted in Subjective Physical Exam Physical Exam: Constitutional: Alert, oriented x3; morbidly obese. Respiratory: Basal lung sounds difficult to appreciate due to body habitus. Otherwise, vesicular breath sound. Cardiovascular: RRR, no murmur, no edema Vessels: no JVD or carotid bruit Chest: normal inspection of chest Abdomen: normal bowel sounds, soft, nontender, no hepatosplenomegaly Musculoskeletal: no cyanosis or clubbing, extremities motor strength 5/5 Skin: Slight redness present in bilateral lower extremity. Neurologic: PERRL, EOMI, accommodation nl, no face palsy, no dysarthria CN's II- XI intact bilaterally and moves all extremities Psychiatric: A+Ox3, euthymic affect Lymphatic: no cervical or axillary lymphadenopathy : deferred Results & Data Results & Data Vital Signs (Past 12 Hours) Vital Signs Temp Pulse Pulse Resp BP Pulse Ox O2 Del Method 09/06/22 09:01 92 Nasal Cannula 09/06/22 07:39 36.6 C 79 19 132/75 92 Nasal Cannula 09/06/22 07:22 81 09/06/22 02:51 181/80 H 09/06/22 02:47 36.8 C 85 18 172/93 H 95 Nasal Cannula 09/05/22 22:58 36.7 C 84 18 171/84 H 95 Nasal Cannula O2 Flow Rate 09/06/22 09:01 2 09/06/22 07:39 5.0 09/06/22 07:22 09/06/22 02:51 09/06/22 02:47 5 09/05/22 22:58 5 Laboratory Results Laboratory Results WBC 10.69 K/ul (4.8-10.8) 09/06/22 05:35 RBC 5.19 M/uL (4.20-5.40) 09/06/22 05:35 Hgb 12.3 g/dl (12.0-16.0) 09/06/22 05:35 Hct 43.8 % (37.0-47.0) 09/06/22 05:35 MCV 84.4 fL (80.0-100.0) 09/06/22 05:35 MCH 23.7 pg (25.0-34.0) L 09/06/22 05:35 MCHC 28.1 g/dL (32.0-36.0) L 09/06/22 05:35 RDW Std Deviation 55.6 fL (36.4-46.3) H 09/06/22 05:35 RDW Coeff of Bhumi 19.1 % (11.5-14.5) H 09/06/22 05:35 Plt Count 264 K/uL (130-400) 09/06/22 05:35 MPV 10.8 fL (9.4-12.4) 09/06/22 05:35 Immature Gran % (Auto) 0.3 % 09/06/22 05:35 Neut % (Auto) 75.3 % 09/06/22 05:35 Lymph % (Auto) 17.0 % 09/06/22 05:35 [place] % (Auto) 5.5 % 09/06/22 05:35 Eos % (Auto) 1.6 % 09/06/22 05:35 Baso % (Auto) 0.3 % 09/06/22 05:35 Neut # (Auto) 8.05 K/uL (1.40-6.50) H 09/06/22 05:35 Lymph # (Auto) 1.82 K/uL (1.2-3.4) 09/06/22 05:35 [place] # (Auto) 0.59 K/uL (0.11-0.59) 09/06/22 05:35 Eos # (Auto) 0.17 K/uL (0-0.50) 09/06/22 05:35 Baso # (Auto) 0.03 K/uL (0-0.2) 09/06/22 05:35 Immature Gran # (Auto) 0.03 K/uL (0.01-0.20) 09/06/22 05:35 Polychromasia 1+ 09/06/22 05:35 PT 11.4 Seconds (9.0-12.0) 09/04/22 12:16 INR 1.0 (0.9-1.1) 09/04/22 12:16 APTT 24.9 Seconds (21.0-31.0) 09/04/22 12:16 PTT Ratio 0.9 09/04/22 12:16 ABG pH 7.33 (7.35-7.45) L 09/04/22 13:41 ABG pCO2 63 mmHg (35-46) H 09/04/22 13:41 ABG pO2 78 mmHg (80-95) L 09/04/22 13:41 ABG HCO3 33 mmol/L (19-24) H 09/04/22 13:41 ABG O2 Saturation 96.9 % (90-95) H 09/04/22 13:41 ABG Base Excess 5.3 mEq/L (-9-1.8) H 09/04/22 13:41 Rj Test Pos (Pos) 09/04/22 13:41 Oxygen Given 6L 09/04/22 13:41 Sodium 144 mmol/L (136-145) 09/06/22 05:35 Potassium 3.8 mmol/L (3.5-5.1) 09/06/22 05:35 Chloride 104 mmol/L (98-107) 09/06/22 05:35 Carbon Dioxide 36 mmol/L (21-32) H 09/06/22 05:35 Anion Gap 4 (3-11) 09/06/22 05:35 BUN 14 mg/dl (6-23) 09/06/22 05:35 Creatinine 0.48 mg/dl (0.6-1.2) L 09/06/22 05:35 Est Cr Clr Drug Dosing 205.5 ml/min 09/06/22 05:35 Est GFR ( Amer) 129.8 ml/min 09/06/22 05:35 Est GFR (Non-Af Amer) 112.0 ml/min 09/06/22 05:35 BUN/Creatinine Ratio 29.2 (10-20) H 09/06/22 05:35 Glucose 100 mg/dl (70-99(Fasting)) H 09/06/22 05:35 POC Glucose 120 mg/dl (70-99) H 09/06/22 07:28 Estimat Average Glucose 160 mg/dl 09/04/22 11:09 Hemoglobin A1c 7.2 % (4.5-5.6) H 09/04/22 11:09 Lactate 1.8 mmol/L (0.4-2.0) 09/04/22 11:42 Calcium 8.9 mg/dl (8.6-10.3) 09/06/22 05:35 Phosphorus 4.1 mg/dl (2.5-4.9) 09/05/22 05:39 Magnesium 1.7 mg/dl (1.7-2.4) 09/05/22 05:39 Total Bilirubin 0.5 mg/dl (0.2-1.0) 09/05/22 05:39 AST 12 U/L (13-39) L 09/05/22 05:39 ALT 9 U/L (7-52) 09/05/22 05:39 Alkaline Phosphatase 87 U/L (34-104) 09/05/22 05:39 Troponin I High Sens 668.1 pg/ml (0-14) H* 09/05/22 11:34 B-Natriuretic Peptide 481 pg/ml (0-100) H 09/04/22 11:09 Total Protein 6.5 gm/dl (6.0-8.3) 09/05/22 05:39 Albumin 3.3 gm/dl (3.4-5.0) L 09/05/22 05:39 Globulin 3.2 gm/dl (2.5-4.0) 09/05/22 05:39 Albumin/Globulin Ratio 1.0 (0.9-2) 09/05/22 05:39 Procalcitonin < 0.05 ng/ml (0-0.5) 09/05/22 05:39 Urine Color Dark Yellow 09/04/22 12:17 Urine Appearance Cloudy (Clear) A 09/04/22 12:17 Urine pH 5.5 (4.5-7.5) 09/04/22 12:17 Ur Specific [place] 1.025 (1.000-1.030) 09/04/22 12:17 Urine Protein 3+ (Negative) H 09/04/22 12:17 Urine Glucose (UA) Negative (Negative) 09/04/22 12:17 Urine Ketones Trace (Negative) H 09/04/22 12:17 Urine Blood Negative (Negative) 09/04/22 12:17 Urine Nitrite Positive (Negative) A 09/04/22 12:17 Urine Bilirubin 1+ (Negative) H 09/04/22 12:17 Urine Urobilinogen Negative (Negative) 09/04/22 12:17 Ur Leukocyte Esterase 2+ (Negative) H 09/04/22 12:17 Urine WBC (Auto) >30 /hpf (0-5) H 09/04/22 12:17 Urine RBC (Auto) 0-4 /hpf (0-4) 09/04/22 12:17 U Hyaline Cast (Auto) 1-5 /lpf (0-5) 09/04/22 12:17 U Epithel Cells (Auto) >30 /lpf (0-5) H 09/04/22 12:17 Urine Bacteria (Auto) 4+ (Negative) H 09/04/22 12:17 SARS-CoV-2, RNA, NAAT NEGATIVE (NEGATIVE) 09/04/22 11:40 Impressions Chest X-Ray 09/04/22 10:56 XR chest 1V portable HISTORY: Dyspnea COMPARISON: None. FINDINGS: No pneumothorax. Trace bilateral pleural effusions. The cardiac silhouette is enlarged. There is perihilar interstitial/vascular thickening consistent with mild pulmonary edema. No focal lung consolidations to suggest a pneumonia. IMPRESSION: Cardiomegaly with mild interstitial pulmonary edema and trace bilateral pleural effusions. ACT 112: Negative or not required by law. Electronically signed by: Yan Roberts M.D. 09/04/2022 11:28 AM Venous Doppler Study 09/04/22 12:13 US venous doppler LE BI CLINICAL HISTORY: swelling, poss dvt TECHNIQUE: Bilateral lower extremity real-time compression venous ultrasound with Color Doppler imaging. Utilizing real-time ultrasonic imaging multiple real time high-resolution ultrasonic images with compression and noncompression maneuvers of the deep venous system in addition to color doppler imaging were performed from the common femoral vein through the proximal calf veins. COMPARISON: None available at the time of this dictation. FINDINGS/IMPRESSION: Currently there is normal compressibility of the deep venous system from the common femoral vein through the proximal calf veins. Limited evaluation of the bilateral calf vessels. The left common femoral vein and greater saphenous vein were not well visualized due to patient positioning. ACT 112: Negative or not required by law. Electronically signed by: Babatunde Lopez M.D. 09/04/2022 5:06 PM
[2022-09-06] MEDS ORDERED: OPTIRAY 320 125ml IV ONE (11:11)
--- NOTE | 2022-09-06 11:20 | CT Scan Report ---
CT angio chest PE protocol CLINICAL HISTORY: Rule out PE TECHNIQUE: Multidetector row helical CT of the chest was performed with angiographic protocol. Garvin l and sagittal reformations were obtained. Coronal and sagittal MIPS were obtained from the axial lora a set and were submitted for review. Automated dose lowering techniques and/or adjustment according to patient size were utilized for this exam. CT DOSE: 1743.53 mGy.cm Comparison: None available at the time of this dictation. FINDINGS: Lungs and pleura: Bilateral trace pleural effusions are seen. Underlying atelectasis is seen. Heart and pericardium: Cardiomegaly is seen with biatrial enlargement. There is a 5 mm nodule in the right middle lobe (series 7 image 180). Vessels: No evidence of pulmonary embolism. Mediastinum and claire: Unremarkable. Chest wall and lower neck: Unremarkable. Abdomen: Unremarkable. Bones: Degenerative changes in the thoracic spine. IMPRESSION: 1. No pulmonary embolus is seen. 2. 5 mm nodule in the right lower lobe. According to Fleischner criteria, no follow-up is required i n low risk patients, in high-risk patients, a 12 month follow-up CT can be optionally performed. ACT 112: Negative or not required by law. Electronically signed by: Babatunde Lopez M.D. 09/06/2022 11:19 AM
[2022-09-06] MEDS: FUROSEMIDE INJ 20 MG/2 ML VIAL IV SCH (14:00)
[2022-09-06] MEDS ORDERED: FUROSEMIDE 40 MG/4 ML VIAL IV SCH (14:00)
[2022-09-06] MEDS: HEPARIN SOD 5,000 UNIT/0.5 ML VIAL SQ SCH ×2 (14:00→21:06)
[2022-09-07] MEDS: HEPARIN SOD 5,000 UNIT/0.5 ML VIAL SQ SCH ×3 (05:56→21:04)
--- NOTE | 2022-09-07 06:08 | Electrocardiogram Report ---
Test Reason : Blood Pressure : / mmHG Vent. Rate : 084 BPM Atrial Rate : 084 BPM P-R Int : 198 ms QRS Dur : 086 ms QT Int : 378 ms P-R-T Axes : 075 102 015 degrees QTc Int : 446 ms Poor data quality, interpretation may be adversely affected Normal sinus rhythm Rightward axis Borderline ECG When compared with ECG of 05-SEP-2022 05:57, No significant change was found Confirmed by Mio Rayo ([id number]) on 09/07/2022 6:07:57 AM Referred By: REFERRED SELF Confirmed By:Mio Rayo
[2022-09-07 06:24] LABS: BUN Creatinine Ratio 27.5 (10-20); Calcium 8.9 mg/dl (8.6-10.3); Est GFR (African American) 127.2 ml/min; Est GFR (Non-African American) 109.8 ml/min; Magnesium 1.4 mg/dl (1.7-2.4); Potassium 3.7 mmol/L (3.5-5.1)
[2022-09-07 06:41] LABS: Basophils # (auto) 0.03 K/uL (0-0.2); Basophils % (auto) 0.3 %; Eosinophils # (auto) 0.17 K/uL (0-0.50); Eosinophils % (auto) 1.7 %; Hematocrit (blood only) 41.3 % (37.0-47.0); Hemoglobin 11.9 g/dl (12.0-16.0); Hypochromasia Present; Immature Granulocytes # (auto) 0.04 K/uL (0.01-0.20); Immature Granulocytes % (auto) 0.4 %; Lymphocytes # (auto) 1.53 K/uL (1.2-3.4); Lymphocytes % (auto) 15.5 %; Mean Corpuscular Hemoglobin 24.1 pg (25.0-34.0); Mean Corpuscular Hgb Conc 28.8 g/dL (32.0-36.0); Mean Corpuscular Volume 83.6 fL (80.0-100.0); Mean Platelet Volume 10.8 fL (9.4-12.4); Monocytes # (auto) 0.52 K/uL (0.11-0.59); Monocytes % (auto) 5.3 %; Neutrophils # (auto) 7.55 K/uL (1.40-6.50); Neutrophils % (auto) 76.8 %; Platelet Count 262 K/uL (130-400); RDW Coefficient of Variation 18.7 % (11.5-14.5); RDW Standard Deviation 53.9 fL (36.4-46.3); Red Blood Count 4.94 M/uL (4.20-5.40); White Blood Count 9.84 K/ul (4.8-10.8)
[2022-09-07] MEDS: LOSARTAN POTASSIUM 50 MG TAB PO SCH ×2 (08:08→21:04)
[2022-09-07] MEDS: FUROSEMIDE INJ 20 MG/2 ML VIAL IV SCH ×2 (08:08→14:59)
[2022-09-07] MEDS: cephALEXin 500 MG CAP PO SCH ×4 (08:08→21:05)
[2022-09-07] MEDS: ATORVASTATIN 10 MG TAB PO SCH (08:09)
[2022-09-07] MEDS: allopurinoL 100 MG TAB PO SCH (08:09)
[2022-09-07] MEDS: DULoxetine HCL 60 MG CAP PO SCH (08:09)
[2022-09-07] MEDS: FAMOTIDINE 20 MG TAB PO SCH (08:10)
[2022-09-07] MEDS: SPIRONOLACTONE 12.5 MG TAB PO SCH (08:10)
[2022-09-07] MEDS: MAGNESIUM SULFATE / D5W 1 GM/100 ML BAG IV SCH ×4 (08:11→14:38)
[2022-09-07] MEDS: INSULIN ASPART PER UNIT CHARGE SC SCH ×4 (08:11→21:05)
[2022-09-07] MEDS ORDERED: POTASSIUM CHLORIDE CRTAB 20 MEQ TABCR PO ONE (14:00)
[2022-09-07] MEDS ORDERED: FUROSEMIDE INJ 20 MG/2 ML VIAL IV SCH (14:00)
[2022-09-07] MEDS ORDERED: FUROSEMIDE 40 MG/4 ML VIAL IV SCH (14:00)
--- NOTE | 2022-09-07 14:03 | Hospitalist Progress Note ---
Date of Service September 07, 2022 Assessment & Plan (1) Shortness of breath: (2) HTN (hypertension): (3) HLD (hyperlipidemia): (4) Non-insulin dependent type 2 diabetes mellitus: (5) Tobacco use disorder: (6) Gout: (7) Obesity: (8) Depression: (9) Cellulitis: Plan 52-year-old presents with increased shortness of breath times a few weeks. No history of CHF. Legs bilateral lower extremity swelling. BNP 481, troponin 895. Received Lasix 60 mg in ED. Chest x-ray interstitial pulmonary edema with trace bilateral pleural effusions. No ischemia noted on EKG. Rule out DVT/PE. Blood culture and urine culture pending. Acute hypoxic respiratory failure Acute on chronic diastolic heart failure Elevated high-sensitivity troponin due to demand ischemia 52-year-old female presents to the hospital with increasing shortness of breath for few weeks. On presentation, her SPO2 at room air was 77%, with RR greater than 22. Chest x-ray on admission personally reviewed; consistent with pulmonary edema Labs reviewed; BNP elevated Echocardiogram results reviewed; mild concentric left ventricular hypertrophy. EF of 55 to 60%. Grade 1 diastolic dysfunction Venous duplex did not show DVT CTA chest reviewed; no PE. Bilateral atelectasis present. Minimal pulmonary edema. Discussed with cardiology; recommend to continue on Lasix 20 mg IV twice daily. Monitor kidney function and bicarb. Also continue on spironolactone 12.5 mg once daily. Wean down oxygen as tolerated. Daily weights Cellulitis: Erythema RLE; warm to touch No open areas Started on Keflex. Continue. Tobacco use disorder: Nicotine patch offered; declined; patient reports having flaky skin with previous use PFTs done in 2017; FEV1 94 HTN: Previously on lisinopril. Switch to losartan 50 mg twice daily during hospitalization. HLD: Takes atorvastatin; continue Diabetes mellitus, type II: Morbid obesity: BMI: 69.7 Takes metformin; hold while inpatient Last A1c 06/2021: 6.9 FSBS ACHS SSI while inpatient Depression: Takes Cymbalta; continue Gout: Takes allopurinol; continue Disposition: PCP: Dr. Griffith CODE STATUS: Full code VTE prophylaxis: Heparin SQ Dispositionlives with her mother. Independent of all ADLs. PT OT recommend home with home health; prescription sent. Also prescription for bariatric walker sent. Patient continues to be hospitalized due to acute hypoxic respiratory failure, acute on chronic diastolic heart failure needing IV diuretics. Time spent evaluating patient, direct bedside care, chart review, placing orders, interpretation of diagnostic studies, discussion with consultants, patient, and family members, as well as other required patient management activities is 60 minutes. Please note the above document was generated using voice recognition software. It may contain grammatical, syntax or spelling errors. Any formal questions or concerns about the content, text or information contained within the body of this dictation should be directly addressed to the provider for clarification Admission and Anticipated Discharge Date Admission Date: September 04, 2022 Subjective Patient seen and examined at bedside. She is sitting up on the chair; not in distress. She continues to require oxygen by nasal cannula at 2 L/min. She desaturates on ambulation. Review of Systems Review of Systems: All systems reviewed & are unremarkable except as noted in Subjective Physical Exam Physical Exam: Constitutional: Alert, oriented x3; morbidly obese. Respiratory: Basal lung sounds difficult to appreciate due to body habitus. Otherwise, vesicular breath sound. Cardiovascular: RRR, no murmur, no edema Vessels: no JVD or carotid bruit Chest: normal inspection of chest Abdomen: normal bowel sounds, soft, nontender, no hepatosplenomegaly Musculoskeletal: no cyanosis or clubbing, extremities motor strength 5/5 Skin: Slight redness present in bilateral lower extremity. 3+ pitting edema present. Neurologic: PERRL, EOMI, accommodation nl, no face palsy, no dysarthria CN's II- XI intact bilaterally and moves all extremities Psychiatric: A+Ox3, euthymic affect Lymphatic: no cervical or axillary lymphadenopathy : deferred Results & Data Results & Data Vital Signs (Past 12 Hours) Vital Signs Temp Pulse Pulse Pulse Pulse Pulse Pulse 09/07/22 13:39 83 103 H 104 H 101 H 103 H 09/07/22 12:02 09/07/22 11:46 36.7 C 09/07/22 07:10 80 09/07/22 06:23 36.9 C 09/07/22 03:21 36.9 C Pulse Pulse Pulse Resp Resp Resp Resp 09/07/22 13:39 89 83 20 24 24 09/07/22 12:02 09/07/22 11:46 79 21 09/07/22 07:10 09/07/22 06:23 83 20 09/07/22 03:21 83 20 Resp Resp Resp Resp BP Pulse Ox Pulse Ox 09/07/22 13:39 24 24 20 20 90 09/07/22 12:02 09/07/22 11:46 148/81 H 92 09/07/22 07:10 09/07/22 06:23 159/76 H 91 09/07/22 03:21 158/78 H 90 Pulse Ox Pulse Ox Pulse Ox Pulse Ox Pulse Ox Pulse Ox O2 Del Method 09/07/22 13:39 82 L 83 L 86 L 79 L 94 86 L 09/07/22 12:02 Nasal Cannula 09/07/22 11:46 Nasal Cannula 09/07/22 07:10 09/07/22 06:23 Nasal Cannula 09/07/22 03:21 Nasal Cannula O2 Flow Rate O2 Flow Rate O2 Flow Rate O2 Flow Rate O2 Flow Rate O2 Flow Rate O2 Flow Rate 09/07/22 13:39 2 3 4 6 2 2 09/07/22 12:02 3 09/07/22 11:46 3.0 09/07/22 07:10 09/07/22 06:23 4 09/07/22 03:21 4 Laboratory Results Laboratory Results WBC 9.84 K/ul (4.8-10.8) 09/07/22 05:25 RBC 4.94 M/uL (4.20-5.40) 09/07/22 05:25 Hgb 11.9 g/dl (12.0-16.0) L 09/07/22 05:25 Hct 41.3 % (37.0-47.0) 09/07/22 05:25 MCV 83.6 fL (80.0-100.0) 09/07/22 05:25 MCH 24.1 pg (25.0-34.0) L 09/07/22 05:25 MCHC 28.8 g/dL (32.0-36.0) L 09/07/22 05:25 RDW Std Deviation 53.9 fL (36.4-46.3) H 09/07/22 05:25 RDW Coeff of Bhumi 18.7 % (11.5-14.5) H 09/07/22 05:25 Plt Count 262 K/uL (130-400) 09/07/22 05:25 MPV 10.8 fL (9.4-12.4) 09/07/22 05:25 Immature Gran % (Auto) 0.4 % 09/07/22 05:25 Neut % (Auto) 76.8 % 09/07/22 05:25 Lymph % (Auto) 15.5 % 09/07/22 05:25 [place] % (Auto) 5.3 % 09/07/22 05:25 Eos % (Auto) 1.7 % 09/07/22 05:25 Baso % (Auto) 0.3 % 09/07/22 05:25 Neut # (Auto) 7.55 K/uL (1.40-6.50) H 09/07/22 05:25 Lymph # (Auto) 1.53 K/uL (1.2-3.4) 09/07/22 05:25 [place] # (Auto) 0.52 K/uL (0.11-0.59) 09/07/22 05:25 Eos # (Auto) 0.17 K/uL (0-0.50) 09/07/22 05:25 Baso # (Auto) 0.03 K/uL (0-0.2) 09/07/22 05:25 Immature Gran # (Auto) 0.04 K/uL (0.01-0.20) 09/07/22 05:25 Polychromasia 1+ 09/06/22 05:35 Hypochromasia Present 09/07/22 05:25 PT 11.4 Seconds (9.0-12.0) 09/04/22 12:16 INR 1.0 (0.9-1.1) 09/04/22 12:16 APTT 24.9 Seconds (21.0-31.0) 09/04/22 12:16 PTT Ratio 0.9 09/04/22 12:16 ABG pH 7.33 (7.35-7.45) L 09/04/22 13:41 ABG pCO2 63 mmHg (35-46) H 09/04/22 13:41 ABG pO2 78 mmHg (80-95) L 09/04/22 13:41 ABG HCO3 33 mmol/L (19-24) H 09/04/22 13:41 ABG O2 Saturation 96.9 % (90-95) H 09/04/22 13:41 ABG Base Excess 5.3 mEq/L (-9-1.8) H 09/04/22 13:41 Rj Test Pos (Pos) 09/04/22 13:41 Oxygen Given 6L 09/04/22 13:41 Sodium 143 mmol/L (136-145) 09/07/22 05:25 Potassium 3.7 mmol/L (3.5-5.1) 09/07/22 05:25 Chloride 99 mmol/L (98-107) 09/07/22 05:25 Carbon Dioxide 39 mmol/L (21-32) H 09/07/22 05:25 Anion Gap 5 (3-11) 09/07/22 05:25 BUN 14 mg/dl (6-23) 09/07/22 05:25 Creatinine 0.51 mg/dl (0.6-1.2) L 09/07/22 05:25 Est Cr Clr Drug Dosing 192.0 ml/min 09/07/22 05:25 Est GFR ( Amer) 127.2 ml/min 09/07/22 05:25 Est GFR (Non-Af Amer) 109.8 ml/min 09/07/22 05:25 BUN/Creatinine Ratio 27.5 (10-20) H 09/07/22 05:25 Glucose 99 mg/dl (70-99(Fasting)) 09/07/22 05:25 POC Glucose 116 mg/dl (70-99) H 09/07/22 11:23 Estimat Average Glucose 160 mg/dl 09/04/22 11:09 Hemoglobin A1c 7.2 % (4.5-5.6) H 09/04/22 11:09 Lactate 1.8 mmol/L (0.4-2.0) 09/04/22 11:42 Calcium 8.9 mg/dl (8.6-10.3) 09/07/22 05:25 Phosphorus 4.1 mg/dl (2.5-4.9) 09/05/22 05:39 Magnesium 1.4 mg/dl (1.7-2.4) L 09/07/22 05:25 Total Bilirubin 0.5 mg/dl (0.2-1.0) 09/05/22 05:39 AST 12 U/L (13-39) L 09/05/22 05:39 ALT 9 U/L (7-52) 09/05/22 05:39 Alkaline Phosphatase 87 U/L (34-104) 09/05/22 05:39 Troponin I High Sens 668.1 pg/ml (0-14) H* 09/05/22 11:34 B-Natriuretic Peptide 481 pg/ml (0-100) H 09/04/22 11:09 Total Protein 6.5 gm/dl (6.0-8.3) 09/05/22 05:39 Albumin 3.3 gm/dl (3.4-5.0) L 09/05/22 05:39 Globulin 3.2 gm/dl (2.5-4.0) 09/05/22 05:39 Albumin/Globulin Ratio 1.0 (0.9-2) 09/05/22 05:39 Procalcitonin < 0.05 ng/ml (0-0.5) 09/05/22 05:39 Urine Color Dark Yellow 09/04/22 12:17 Urine Appearance Cloudy (Clear) A 09/04/22 12:17 Urine pH 5.5 (4.5-7.5) 09/04/22 12:17 Ur Specific [place] 1.025 (1.000-1.030) 09/04/22 12:17 Urine Protein 3+ (Negative) H 09/04/22 12:17 Urine Glucose (UA) Negative (Negative) 09/04/22 12:17 Urine Ketones Trace (Negative) H 09/04/22 12:17 Urine Blood Negative (Negative) 09/04/22 12:17 Urine Nitrite Positive (Negative) A 09/04/22 12:17 Urine Bilirubin 1+ (Negative) H 09/04/22 12:17 Urine Urobilinogen Negative (Negative) 09/04/22 12:17 Ur Leukocyte Esterase 2+ (Negative) H 09/04/22 12:17 Urine WBC (Auto) >30 /hpf (0-5) H 09/04/22 12:17 Urine RBC (Auto) 0-4 /hpf (0-4) 09/04/22 12:17 U Hyaline Cast (Auto) 1-5 /lpf (0-5) 09/04/22 12:17 U Epithel Cells (Auto) >30 /lpf (0-5) H 09/04/22 12:17 Urine Bacteria (Auto) 4+ (Negative) H 09/04/22 12:17 SARS-CoV-2, RNA, NAAT NEGATIVE (NEGATIVE) 09/04/22 11:40 Impressions Chest X-Ray 09/04/22 10:56 XR chest 1V portable HISTORY: Dyspnea COMPARISON: None. FINDINGS: No pneumothorax. Trace bilateral pleural effusions. The cardiac silhouette is enlarged. There is perihilar interstitial/vascular thickening consistent with mild pulmonary edema. No focal lung consolidations to suggest a pneumonia. IMPRESSION: Cardiomegaly with mild interstitial pulmonary edema and trace bilateral pleural effusions. ACT 112: Negative or not required by law. Electronically signed by: Yan Roberts M.D. 09/04/2022 11:28 AM Venous Doppler Study 09/04/22 12:13 US venous doppler LE BI CLINICAL HISTORY: swelling, poss dvt TECHNIQUE: Bilateral lower extremity real-time compression venous ultrasound with Color Doppler imaging. Utilizing real-time ultrasonic imaging multiple real time high-resolution ultrasonic images with compression and noncompression maneuvers of the deep venous system in addition to color doppler imaging were performed from the common femoral vein through the proximal calf veins. COMPARISON: None available at the time of this dictation. FINDINGS/IMPRESSION: Currently there is normal compressibility of the deep venous system from the common femoral vein through the proximal calf veins. Limited evaluation of the bilateral calf vessels. The left common femoral vein and greater saphenous vein were not well visualized due to patient positioning. ACT 112: Negative or not required by law. Electronically signed by: Babatunde Lopez M.D. 09/04/2022 5:06 PM Chest CTA 09/06/22 07:30 CT angio chest PE protocol CLINICAL HISTORY: Rule out PE TECHNIQUE: Multidetector row helical CT of the chest was performed with angiographic protocol. Coronal and sagittal reformations were obtained. Coronal and sagittal MIPS were obtained from the axial data set and were submitted for review. Automated dose lowering techniques and/or adjustment according to patie nt size were utilized for this exam. CT DOSE: 1743.53 mGy.cm Comparison: None available at the time of this dictation. FINDINGS: Lungs and pleura: Bilateral trace pleural effusions are seen. Underlying atelectasis is seen. Heart and pericardium: Cardiomegaly is seen with biatrial enlargement. There is a 5 mm nodule in the right middle lobe (series 7 image 180). Vessels: No evidence of pulmonary embolism. Mediastinum and claire: Unremarkable. Chest wall and lower neck: Unremarkable. Abdomen: Unremarkable. Bones: Degenerative changes in the thoracic spine. IMPRESSION: 1. No pulmonary embolus is seen. 2. 5 mm nodule in the right lower lobe. According to Fleischner criteria, no follow-up is required in low risk patients, in high-risk patients, a 12 month follow-up CT can be optionally performed. ACT 112: Negative or not required by law. Electronically signed by: Babatunde Lopez M.D. 09/06/2022 11:19 AM
[2022-09-07] MEDS ORDERED: NICOTINE POLACRILEX 2 MG GUM MT PRN (14:04)
--- NOTE | 2022-09-07 15:32 | Cardiology Progress Note ---
Date of Service September 07, 2022 Assessment & Plan (1) Hypoxia: (2) Right heart failure: (3) Cellulitis: (4) Elevated troponin: (5) (HFpEF) heart failure with preserved ejection fraction: (6) COPD exacerbation: Plan Acute decompensated right heart failure, HFpEF Suspected obstructive pulmonary disease exacerbation, chronic tobacco use Probable bilateral lower extremity cellulitis Elevated troponin in the absence of an acute coronary syndrome (critical illness, hypoxemia, heart failure, pulmonary disease) Hypertension Dyslipidemia RECOMMENDATIONS: Patient has made improvement in volume status with significant diuresis. She remains SOB with minimal activity and hypoxic. Continue IV furosemide and spironolactone. Daily weight with standing scale. Monitor I+O's. Monitor renal function and electrolytes Supplement magnesium. Recommend sleep evaluation. Will need 2 Step prior discharge given hypoxia. Continue statin Tobacco cessation Would anticipate need of ongoing IV diuresis over the next few days. Case discussed with Dr. Rodriguez I spent a total of 30 minutes on the date of service in preparation, delivery, and documentation of the care provided to this patient, excluding any time spent in the performance of separately billed services. Pebbles Sargent PA-C Department of Cardiology, [facility] This chart was completed in part utilizing Speech Voice Recognition Software. Grammatical errors, random word insertions, pronoun errors, and incomplete sentences are an occasional consequence of this system due to software limitations, ambient noise, and hardware issues. Any formal questions or concerns about the content, text, or information contained within the body of this dictation should be directly addressed to the provider for clarification. Admission and Anticipated Discharge Date Admission Date: September 04, 2022 Supervising Physician Co-Signing Physician Notes Supervising Physician Attestation: I have personally performed a history and physical examination on the patient. I agree with the physician client services assistant's findings and plan as documented with the following additions. Subjective: Patient notes some improvement in breathing and edema. Renteria catheter removed. Significant edema still noted. Exam: Cardiovascular: Regular rhythm, no murmurs, 2+ lower extremity Data: Telemetry reveals sinus rhythm in the 70s. Kidney function stable, potassium 3.7 Assessment and Plan: -Volume overload -Uncontrolled hypertension -- Increase spironolactone from 12.5 mg daily to 25 mg daily. --Oral potassium supplementation 20 mill equivalents p.o. daily while on IV furosemide 20 mg IV twice daily --Continue losartan 50 mg twice daily (replaces prior to hospital treatment with lisinopril 30 mg daily) -- Add carvedilol 3.125 mg twice daily for hypertension DVT prophylaxis: Continue subcutaneous heparin Santosh Rodriguez, DO Subjective Patient evaluated morning of 09/07/22. She reports ongoing SOB with ambulation from chair to toilet. Has to "catch her breath". She notes improved abdominal bloating. Ongoing edema reported. No chest pain. No dizziness. Significant diuresis noted since admission. Tolerating medications. Review of Systems Review of Systems: All systems reviewed & are unremarkable except as noted in HPI & below Physical Exam Constitutional: WD/WN, vitals as above Neck: + thick neck Respiratory: + cough Auscultation: + diminished lung sounds, + crackles and + rhonchi Cardiovascular: Rate/Rhythm: regular rate and regular rhythm Heart Sounds: no murmur (distant heart sounds. No audible murmur) Extremities: + edema (2+ hard indurated edema with stasis changes) Gastrointestinal (Abdomen): normal bowel sounds, soft, nontender, no hepatosplenomegaly Neurologic: PERRL, EOMI, accommodation nl, no face palsy, no dysarthria Results & Data Vital Signs (Past 12 Hours) Vital Signs Temp Pulse Pulse Pulse Pulse Pulse Pulse 09/07/22 13:39 83 103 H 104 H 101 H 103 H 09/07/22 12:02 09/07/22 11:46 36.7 C 09/07/22 07:10 80 09/07/22 06:23 36.9 C Pulse Pulse Pulse Resp Resp Resp Resp 09/07/22 13:39 89 83 20 24 24 09/07/22 12:02 09/07/22 11:46 79 21 09/07/22 07:10 09/07/22 06:23 83 20 Resp Resp Resp Resp BP Pulse Ox Pulse Ox 09/07/22 13:39 24 24 20 20 90 09/07/22 12:02 09/07/22 11:46 148/81 H 92 09/07/22 07:10 09/07/22 06:23 159/76 H 91 Pulse Ox Pulse Ox Pulse Ox Pulse Ox Pulse Ox Pulse Ox O2 Del Method 09/07/22 13:39 82 L 83 L 86 L 79 L 94 86 L 09/07/22 12:02 Nasal Cannula 09/07/22 11:46 Nasal Cannula 09/07/22 07:10 09/07/22 06:23 Nasal Cannula O2 Flow Rate O2 Flow Rate O2 Flow Rate O2 Flow Rate O2 Flow Rate O2 Flow Rate O2 Flow Rate 09/07/22 13:39 2 3 4 6 2 2 09/07/22 12:02 3 09/07/22 11:46 3.0 09/07/22 07:10 09/07/22 06:23 4 Laboratory Results CBC 09/07/22 Range/Units 05:25 WBC 9.84 (4.8-10.8) K/ul RBC 4.94 (4.20-5.40) M/uL Hgb 11.9 L (12.0-16.0) g/dl Hct 41.3 (37.0-47.0) % Plt Count 262 (130-400) K/uL Neut # (Auto) 7.55 H (1.40-6.50) K/uL Lymph # (Auto) 1.53 (1.2-3.4) K/uL Davidson # (Auto) 0.52 (0.11-0.59) K/uL Eos # (Auto) 0.17 (0-0.50) K/uL Baso # (Auto) 0.03 (0-0.2) K/uL Comprehensive Metabolic Panel 09/07/22 Range/Units 05:25 Sodium 143 (136-145) mmol/L Potassium 3.7 (3.5-5.1) mmol/L Chloride 99 (98-107) mmol/L Carbon Dioxide 39 H (21-32) mmol/L BUN 14 (6-23) mg/dl Creatinine 0.51 L (0.6-1.2) mg/dl Glucose 99 (70-99(Fasting)) mg/dl Calcium 8.9 (8.6-10.3) mg/dl Intake and Output 09/07/22 09/07/22 09/07/22 06:59 14:59 22:59 Intake Total 200 / 400 300 / 300 Balance 200 / -3575 300 / 300 Intake: IV 300 / 300 Magnesium Sulfate / D5w 1 gm In 300 / 300 100 ml @ 50 mls/hr IV Q2H [facility] Rx#:[id number] Oral 200 / 400 Other: Weight 163.2 kg 163.2 kg Weight Measurement Method Built in Bedscale Standing Scale Patient Weight 09/08/22 06:59 Weight 163.2 kg Diagnostic Findings Telemetry reviewed: NSR in the 's Medications Administered Current Inpatient Medications Acetaminophen (Acetaminophen 325 Mg Tab) 650 mg PO Q4H PRN PRN Reason: Pain or Fever Stop: 10/04/22 12:32 Last Admin: 09/06/22 02:47 Dose: 650 mg Al Hydrox/Mg Hydrox/Simethicone (Aluminum/Magnesium Susp 30 Ml Udc) 15 ml PO Q4H PRN PRN Reason: Dyspepsia Stop: 10/04/22 12:32 Allopurinol (Allopurinol 100 Mg Tab) 100 mg PO DAILY DIA Stop: 10/05/22 08:59 Last Admin: 09/07/22 08:09 Dose: 100 mg Atorvastatin Calcium (Atorvastatin 10 Mg Tab) 10 mg PO DAILY DIA Stop: 10/05/22 08:59 Last Admin: 09/07/22 08:09 Dose: 10 mg Cephalexin HCl (Cephalexin 500 Mg Cap) 500 mg PO QID DIA Stop: 09/11/22 16:59 Last Admin: 09/07/22 12:16 Dose: 500 mg Dextrose (Dextrose 50% 50 Ml Syringe) 25 - 50 ml IV UD PRN; Protocol PRN Reason: Hypoglycemia Protocol Stop: 10/04/22 14:53 Duloxetine HCl (Duloxetine Hcl 60 Mg Cap) 60 mg PO DAILY DIA Stop: 10/05/22 08:59 Last Admin: 09/07/22 08:09 Dose: 60 mg Famotidine (Famotidine 20 Mg Tab) 20 mg PO DAILY DIA Stop: 10/05/22 08:59 Last Admin: 09/07/22 08:10 Dose: 20 mg Furosemide (Furosemide Inj 20 Mg/2 Ml Vial) 20 mg IV BID@0800,1400 DIA Stop: 10/07/22 13:59 Last Admin: 09/07/22 14:59 Dose: 20 mg Glucagon (Glucagon For Inj 1 Mg Vial) 1 mg SQ UD PRN; Protocol PRN Reason: Hypoglycemia Protocol Stop: 10/04/22 14:53 Glucose (Glucose 10 Tab/Tube) 4 - 8 tab PO UD PRN; Protocol PRN Reason: Hypoglycemia Treatment Stop: 10/04/22 14:53 Glucose (Glucose 40% Gel 15 Gm Tube) 15 - 30 gm PO UD PRN; Protocol PRN Reason: Hypoglycemia Protocol Stop: 10/04/22 14:53 Heparin Sodium (Porcine) (Heparin Sod 5,000 Unit/0.5 Ml Vial) 5,000 units SQ Q8 DIA Stop: 10/06/22 13:59 Last Admin: 09/07/22 14:38 Dose: 5,000 units Magnesium Sulfate/Dextrose (Magnesium Sulfate / D5w) 1 gm in 100 mls @ 50 mls/hr IV Q2H DIA Stop: 09/07/22 15:44 Last Admin: 09/07/22 14:38 Dose: 50 mls/hr Insulin Aspart (Insulin Aspart Per Unit Charge) 0 units SC ACHS DIA Stop: 10/04/22 16:29 Last Admin: 09/07/22 12:15 Dose: 5 units Losartan Potassium (Losartan Potassium 50 Mg Tab) 50 mg PO BID DIA Stop: 10/05/22 20:59 Last Admin: 09/07/22 08:08 Dose: 50 mg Magnesium Hydroxide (Magnesium Hydroxide Susp 30 Ml Udc) 30 ml PO Q12H PRN PRN Reason: Constipation Stop: 10/04/22 12:32 Miscellaneous (Carbohydrates For Hypoglycemia ) 15 - 30 gm PO UD PRN PRN Reason: Hypoglycemia Protocol Stop: 10/04/22 14:53 Nicotine Polacrilex (Nicotine Polacrilex 2 Mg Gum) 1 piece MT Q2H PRN PRN Reason: nicotine withdrawal Stop: 10/07/22 14:03 Ondansetron HCl (Ondansetron Inj 2 Mg/Ml 2 Ml Vial) 4 mg IV Q6H PRN PRN Reason: Nausea Stop: 10/04/22 12:32 Polyethylene Glycol (Polyethylene (Miralax) 17 Gm Pack) 17 gm PO DAILY PRN PRN Reason: Constipation Stop: 10/04/22 12:32 Spironolactone (Spironolactone 12.5 Mg Tab) 12.5 mg PO DAILY DIA Stop: 10/05/22 10:59 Last Admin: 09/07/22 08:10 Dose: 12.5 mg
[2022-09-07] MEDS: carvediloL 3.125 MG TAB PO SCH (21:05)
[2022-09-08] MEDS: HEPARIN SOD 5,000 UNIT/0.5 ML VIAL SQ SCH ×3 (05:39→20:50)
[2022-09-08 06:45] LABS: Basophils # (auto) 0.03 K/uL (0-0.2); Basophils % (auto) 0.3 %; Eosinophils # (auto) 0.23 K/uL (0-0.50); Eosinophils % (auto) 2.5 %; Hematocrit (blood only) 40.4 % (37.0-47.0); Immature Granulocytes # (auto) 0.02 K/uL (0.01-0.20); Immature Granulocytes % (auto) 0.2 %; Lymphocytes # (auto) 1.52 K/uL (1.2-3.4); Lymphocytes % (auto) 16.3 %; Mean Corpuscular Hemoglobin 24.4 pg (25.0-34.0); Mean Corpuscular Hgb Conc 29.7 g/dL (32.0-36.0); Mean Corpuscular Volume 82.1 fL (80.0-100.0); Mean Platelet Volume 10.4 fL (9.4-12.4); Monocytes % (auto) 5.4 %; Neutrophils # (auto) 7.01 K/uL (1.40-6.50); Neutrophils % (auto) 75.3 %; Platelet Count 265 K/uL (130-400); RDW Coefficient of Variation 18.6 % (11.5-14.5); RDW Standard Deviation 53.6 fL (36.4-46.3); Red Blood Count 4.92 M/uL (4.20-5.40); White Blood Count 9.31 K/ul (4.8-10.8)
[2022-09-08 07:16] LABS: Calcium 8.9 mg/dl (8.6-10.3); Creatinine Clr Calc Pharmacy 232.5 ml/min; Est GFR (African American) 135.6 ml/min; Magnesium 1.8 mg/dl (1.7-2.4); Potassium 3.7 mmol/L (3.5-5.1)
[2022-09-08] MEDS: POTASSIUM CHLORIDE CRTAB 20 MEQ TABCR PO SCH (07:55)
[2022-09-08] MEDS: SPIRONOLACTONE 25 MG TAB PO SCH (07:55)
[2022-09-08] MEDS: cephALEXin 500 MG CAP PO SCH ×4 (07:56→20:50)
[2022-09-08] MEDS: carvediloL 3.125 MG TAB PO SCH ×2 (07:56→20:50)
[2022-09-08] MEDS: LOSARTAN POTASSIUM 50 MG TAB PO SCH ×2 (07:57→20:50)
[2022-09-08] MEDS: ATORVASTATIN 10 MG TAB PO SCH (07:57)
[2022-09-08] MEDS: DULoxetine HCL 60 MG CAP PO SCH (07:58)
[2022-09-08] MEDS: allopurinoL 100 MG TAB PO SCH (07:58)
[2022-09-08] MEDS: FAMOTIDINE 20 MG TAB PO SCH (07:58)
[2022-09-08] MEDS: FUROSEMIDE INJ 20 MG/2 ML VIAL IV SCH ×2 (08:01→15:40)
[2022-09-08] MEDS: INSULIN ASPART PER UNIT CHARGE SC SCH ×4 (08:07→20:51)
--- NOTE | 2022-09-08 09:52 | Cardiology Progress Note ---
Date of Service September 08, 2022 Assessment & Plan (1) Hypoxia: (2) Right heart failure: (3) Cellulitis: (4) Elevated troponin: (5) (HFpEF) heart failure with preserved ejection fraction: (6) COPD exacerbation: Plan The patient continues to diuresis and is in negative numbers. I would continue the current dosage of Lasix. Admission and Anticipated Discharge Date Admission Date: September 04, 2022 Subjective The patient is sitting in the chair and has no complaints today. Review of Systems Review of Systems: Review of Systems: See HPI for pertinent positives. All other 10 point review of systems are negative. Physical Exam Physical Exam: General: no acute distress and stated age Head: normocephalic, no masses, lesions, tenderness or abnormalities Eyes: conjunctiva are pink and non-injected, sclera clear Neck: supple, no adenopathy, no bruits, normal jugular venous pulse, no hepatojugular reflux Chest: normal shape and normal respiratory effort Lungs: clear to auscultation and percussion Cardiac Exam: - regular rate & rhythm, no murmurs gallops or rubs - normal S1, normal S2 Pulses: 2(+) throughout Abdomen: abdomen soft, non-tender, no abnormal masses and no hepatosplenomegaly Musculoskeletal: no gait disturbance, no joint inflammation, no deforming arthritis Extremities: Still edematous Neuro: grossly normal exam Results & Data Vital Signs (Past 12 Hours) Vital Signs Temp Pulse Pulse Resp BP Pulse Ox O2 Del Method 09/08/22 06:16 37.1 C 81 22 158/85 H 92 Nasal Cannula 09/08/22 03:28 37.2 C 78 20 161/75 H 98 Nasal Cannula 09/07/22 22:00 71 09/07/22 23:00 36.8 C 74 16 124/81 97 Nasal Cannula O2 Flow Rate 09/08/22 06:16 4 09/08/22 03:28 4 09/07/22 22:00 09/07/22 23:00 4 Laboratory Results Laboratory Results - last 24 hr 09/07/22 09/07/22 09/07/22 11:23 16:20 20:11 WBC RBC Hgb Hct MCV MCH MCHC RDW Std Deviation RDW Coeff of Bhumi Plt Count MPV Immature Gran % (Auto) Neut % (Auto) Lymph % (Auto) Alfalfa % (Auto) Eos % (Auto) Baso % (Auto) Neut # (Auto) Lymph # (Auto) Alfalfa # (Auto) Eos # (Auto) Baso # (Auto) Immature Gran # (Auto) Sodium Potassium Chloride Carbon Dioxide Anion Gap BUN Creatinine Est Cr Clr Drug Dosing Est GFR ( Amer) Est GFR (Non-Af Amer) BUN/Creatinine Ratio Glucose POC Glucose 116 H 132 H 105 H Calcium Magnesium 09/08/22 09/08/22 09/08/22 05:49 05:49 07:29 WBC 9.31 RBC 4.92 Hgb 12.0 Hct 40.4 MCV 82.1 MCH 24.4 L MCHC 29.7 L RDW Std Deviation 53.6 H RDW Coeff of Bhumi 18.6 H Plt Count 265 MPV 10.4 Immature Gran % (Auto) 0.2 Neut % (Auto) 75.3 Lymph % (Auto) 16.3 Alfalfa % (Auto) 5.4 Eos % (Auto) 2.5 Baso % (Auto) 0.3 Neut # (Auto) 7.01 H Lymph # (Auto) 1.52 Alfalfa # (Auto) 0.50 Eos # (Auto) 0.23 Baso # (Auto) 0.03 Immature Gran # (Auto) 0.02 Sodium 141 Potassium 3.7 Chloride 98 Carbon Dioxide 39 H Anion Gap 4 BUN 13 Creatinine 0.42 L Est Cr Clr Drug Dosing 232.5 Est GFR ( Amer) 135.6 Est GFR (Non-Af Amer) 117.0 BUN/Creatinine Ratio 31.0 H Glucose 102 H POC Glucose 121 H Calcium 8.9 Magnesium 1.8 Medications Administered Current Inpatient Medications Acetaminophen (Acetaminophen 325 Mg Tab) 650 mg PO Q4H PRN PRN Reason: Pain or Fever Stop: 10/04/22 12:32 Last Admin: 09/06/22 02:47 Dose: 650 mg Al Hydrox/Mg Hydrox/Simethicone (Aluminum/Magnesium Susp 30 Ml Udc) 15 ml PO Q4H PRN PRN Reason: Dyspepsia Stop: 10/04/22 12:32 Allopurinol (Allopurinol 100 Mg Tab) 100 mg PO DAILY [facility] Stop: 10/05/22 08:59 Last Admin: 09/08/22 07:58 Dose: 100 mg Atorvastatin Calcium (Atorvastatin 10 Mg Tab) 10 mg PO DAILY DIA Stop: 10/05/22 08:59 Last Admin: 09/08/22 07:57 Dose: 10 mg Carvedilol (Carvedilol 3.125 Mg Tab) 3.125 mg PO BID DIA Stop: 10/07/22 20:59 Last Admin: 09/08/22 07:56 Dose: 3.125 mg Cephalexin HCl (Cephalexin 500 Mg Cap) 500 mg PO QID DIA Stop: 09/11/22 16:59 Last Admin: 09/08/22 07:56 Dose: 500 mg Dextrose (Dextrose 50% 50 Ml Syringe) 25 - 50 ml IV UD PRN; Protocol PRN Reason: Hypoglycemia Protocol Stop: 10/04/22 14:53 Duloxetine HCl (Duloxetine Hcl 60 Mg Cap) 60 mg PO DAILY DIA Stop: 10/05/22 08:59 Last Admin: 09/08/22 07:58 Dose: 60 mg Famotidine (Famotidine 20 Mg Tab) 20 mg PO DAILY DIA Stop: 10/05/22 08:59 Last Admin: 09/08/22 07:58 Dose: 20 mg Furosemide (Furosemide Inj 20 Mg/2 Ml Vial) 20 mg IV BID@0800,1400 DIA Stop: 10/07/22 13:59 Last Admin: 09/08/22 08:01 Dose: 20 mg Glucagon (Glucagon For Inj 1 Mg Vial) 1 mg SQ UD PRN; Protocol PRN Reason: Hypoglycemia Protocol Stop: 10/04/22 14:53 Glucose (Glucose 10 Tab/Tube) 4 - 8 tab PO UD PRN; Protocol PRN Reason: Hypoglycemia Treatment Stop: 10/04/22 14:53 Glucose (Glucose 40% Gel 15 Gm Tube) 15 - 30 gm PO UD PRN; Protocol PRN Reason: Hypoglycemia Protocol Stop: 10/04/22 14:53 Heparin Sodium (Porcine) (Heparin Sod 5,000 Unit/0.5 Ml Vial) 5,000 units SQ Q8 DIA Stop: 10/06/22 13:59 Last Admin: 09/08/22 05:39 Dose: 5,000 units Insulin Aspart (Insulin Aspart Per Unit Charge) 0 units SC ACHS DIA Stop: 10/04/22 16:29 Last Admin: 09/08/22 08:07 Dose: 4 units Losartan Potassium (Losartan Potassium 50 Mg Tab) 50 mg PO BID DIA Stop: 10/05/22 20:59 Last Admin: 09/08/22 07:57 Dose: 50 mg Magnesium Hydroxide (Magnesium Hydroxide Susp 30 Ml Udc) 30 ml PO Q12H PRN PRN Reason: Constipation Stop: 10/04/22 12:32 Miscellaneous (Carbohydrates For Hypoglycemia ) 15 - 30 gm PO UD PRN PRN Reason: Hypoglycemia Protocol Stop: 10/04/22 14:53 Nicotine Polacrilex (Nicotine Polacrilex 2 Mg Gum) 1 piece MT Q2H PRN PRN Reason: nicotine withdrawal Stop: 10/07/22 14:03 Ondansetron HCl (Ondansetron Inj 2 Mg/Ml 2 Ml Vial) 4 mg IV Q6H PRN PRN Reason: Nausea Stop: 10/04/22 12:32 Polyethylene Glycol (Polyethylene (Miralax) 17 Gm Pack) 17 gm PO DAILY PRN PRN Reason: Constipation Stop: 10/04/22 12:32 Potassium Chloride (Potassium Chloride Crtab 20 Meq Tabcr) 20 meq PO QAM [facility] Stop: 10/08/22 08:59 Last Admin: 09/08/22 07:55 Dose: 20 meq Spironolactone (Spironolactone 25 Mg Tab) 25 mg PO QAM [facility] Stop: 10/08/22 08:59 Last Admin: 09/08/22 07:55 Dose: 25 mg
--- NOTE | 2022-09-08 11:24 | Hospitalist Progress Note ---
Date of Service September 08, 2022 Assessment & Plan (1) Shortness of breath: (2) HTN (hypertension): (3) HLD (hyperlipidemia): (4) Non-insulin dependent type 2 diabetes mellitus: (5) Tobacco use disorder: (6) Gout: (7) Obesity: (8) Depression: (9) Cellulitis: Plan 52-year-old presents with increased shortness of breath times a few weeks. No history of CHF. Legs bilateral lower extremity swelling. BNP 481, troponin 895. Received Lasix 60 mg in ED. Chest x-ray interstitial pulmonary edema with trace bilateral pleural effusions. No ischemia noted on EKG. Rule out DVT/PE. Blood culture and urine culture pending. Acute hypoxic respiratory failure Acute on chronic diastolic heart failure Elevated high-sensitivity troponin due to demand ischemia 52-year-old female presents to the hospital with increasing shortness of breath for few weeks. On presentation, her SPO2 at room air was 77%, with RR greater than 22. Chest x-ray on admission personally reviewed; consistent with pulmonary edema Labs reviewed; BNP elevated Echocardiogram results reviewed; mild concentric left ventricular hypertrophy. EF of 55 to 60%. Grade 1 diastolic dysfunction Venous duplex did not show DVT CTA chest reviewed; no PE. Bilateral atelectasis present. Minimal pulmonary edema. Found to have 5 mm nodule in right lower lobe. Discussed with patient; she will need CT chest follow-up follow-up as outpatient. Discussed with cardiology; recommend to continue on Lasix 20 mg IV twice daily. Monitor kidney function and bicarb. Also, to increase spironolactone to 25 mg once daily. Wean down oxygen as tolerated. Daily weights Cellulitis: Erythema RLE; warm to touch No open areas Started on Keflex. Continue for total of 5 days. Tobacco use disorder: Nicotine patch offered; declined; patient reports having flaky skin with previous use PFTs done in 2017; FEV1 94 Started on nicotine gums. HTN: Previously on lisinopril. Switch to losartan 50 mg twice daily during ho spitalization. HLD: Takes atorvastatin; continue Diabetes mellitus, type II: Morbid obesity: BMI: 69.7 Takes metformin; hold while inpatient Last A1c 06/2021: 6.9 FSBS ACHS SSI while inpatient Depression: Takes Cymbalta; continue Gout: Takes allopurinol; continue Disposition: PCP: Dr. Griffith CODE STATUS: Full code VTE prophylaxis: Heparin SQ Dispositionlives with her mother. Independent of all ADLs. PT OT recommend home with home health; prescription sent. Also prescription for bariatric walker sent. Patient continues to be hospitalized due to acute hypoxic respiratory failure, acute on chronic diastolic heart failure needing IV diuretics. Time spent evaluating patient, direct bedside care, chart review, placing orders, interpretation of diagnostic studies, discussion with consultants, patient, and family members, as well as other required patient management activities is 60 minutes. Please note the above document was generated using voice recognition software. It may contain grammatical, syntax or spelling errors. Any formal questions or concerns about the content, text or information contained within the body of this dictation should be directly addressed to the provider for clarification Admission and Anticipated Discharge Date Admission Date: September 04, 2022 Subjective Patient seen and examined at bedside. She is comfortable at rest but gets short of breath on exertion. Urine output of 1 L in last 24 hours. Review of Systems Review of Systems: All systems reviewed & are unremarkable except as noted in Subjective Physical Exam Physical Exam: Constitutional: Alert, oriented x3; morbidly obese. Respiratory: Basal lung sounds difficult to appreciate due to body habitus. Otherwise, vesicular breath sound. Cardiovascular: RRR, no murmur, no edema Vessels: no JVD or carotid bruit Chest: normal inspection of chest Abdomen: normal bowel sounds, soft, nontender, no hepatosplenomegaly Musculoskeletal: no cyanosis or clubbing, extremities motor strength 5/5 Skin: Slight redness present in bilateral lower extremity. 3+ pitting edema present. Neurologic: PERRL, EOMI, accommodation nl, no face palsy, no dysarthria CN's II- XI intact bilaterally and moves all extremities Psychiatric: A+Ox3, euthymic affect Lymphatic: no cervical or axillary lymphadenopathy : deferred Results & Data Results & Data Vital Signs (Past 12 Hours) Vital Signs Temp Pulse Resp BP Pulse Ox O2 Del Method O2 Flow Rate 09/08/22 10:35 Nasal Cannula 2 09/08/22 06:16 37.1 C 81 22 158/85 H 92 Nasal Cannula 4 09/08/22 03:28 37.2 C 78 20 161/75 H 98 Nasal Cannula 4 Laboratory Results Laboratory Results WBC 9.31 K/ul (4.8-10.8) 09/08/22 05:49 RBC 4.92 M/uL (4.20-5.40) 09/08/22 05:49 Hgb 12.0 g/dl (12.0-16.0) 09/08/22 05:49 Hct 40.4 % (37.0-47.0) 09/08/22 05:49 MCV 82.1 fL (80.0-100.0) 09/08/22 05:49 MCH 24.4 pg (25.0-34.0) L 09/08/22 05:49 MCHC 29.7 g/dL (32.0-36.0) L 09/08/22 05:49 RDW Std Deviation 53.6 fL (36.4-46.3) H 09/08/22 05:49 RDW Coeff of Bhumi 18.6 % (11.5-14.5) H 09/08/22 05:49 Plt Count 265 K/uL (130-400) 09/08/22 05:49 MPV 10.4 fL (9.4-12.4) 09/08/22 05:49 Immature Gran % (Auto) 0.2 % 09/08/22 05:49 Neut % (Auto) 75.3 % 09/08/22 05:49 Lymph % (Auto) 16.3 % 09/08/22 05:49 [place] % (Auto) 5.4 % 09/08/22 05:49 Eos % (Auto) 2.5 % 09/08/22 05:49 Baso % (Auto) 0.3 % 09/08/22 05:49 Neut # (Auto) 7.01 K/uL (1.40-6.50) H 09/08/22 05:49 Lymph # (Auto) 1.52 K/uL (1.2-3.4) 09/08/22 05:49 [place] # (Auto) 0.50 K/uL (0.11-0.59) 09/08/22 05:49 Eos # (Auto) 0.23 K/uL (0-0.50) 09/08/22 05:49 Baso # (Auto) 0.03 K/uL (0-0.2) 09/08/22 05:49 Immature Gran # (Auto) 0.02 K/uL (0.01-0.20) 09/08/22 05:49 Polychromasia 1+ 09/06/22 05:35 Hypochromasia Present 09/07/22 05:25 PT 11.4 Seconds (9.0-12.0) 09/04/22 12:16 INR 1.0 (0.9-1.1) 09/04/22 12:16 APTT 24.9 Seconds (21.0-31.0) 09/04/22 12:16 PTT Ratio 0.9 09/04/22 12:16 ABG pH 7.33 (7.35-7.45) L 09/04/22 13:41 ABG pCO2 63 mmHg (35-46) H 09/04/22 13:41 ABG pO2 78 mmHg (80-95) L 09/04/22 13:41 ABG HCO3 33 mmol/L (19-24) H 09/04/22 13:41 ABG O2 Saturation 96.9 % (90-95) H 09/04/22 13:41 ABG Base Excess 5.3 mEq/L (-9-1.8) H 09/04/22 13:41 Rj Test Pos (Pos) 09/04/22 13:41 Oxygen Given 6L 09/04/22 13:41 Sodium 141 mmol/L (136-145) 09/08/22 05:49 Potassium 3.7 mmol/L (3.5-5.1) 09/08/22 05:49 Chloride 98 mmol/L (98-107) 09/08/22 05:49 Carbon Dioxide 39 mmol/L (21-32) H 09/08/22 05:49 Anion Gap 4 (3-11) 09/08/22 05:49 BUN 13 mg/dl (6-23) 09/08/22 05:49 Creatinine 0.42 mg/dl (0.6-1.2) L 09/08/22 05:49 Est Cr Clr Drug Dosing 232.5 ml/min 09/08/22 05:49 Est GFR ( Amer) 135.6 ml/min 09/08/22 05:49 Est GFR (Non-Af Amer) 117.0 ml/min 09/08/22 05:49 BUN/Creatinine Ratio 31.0 (10-20) H 09/08/22 05:49 Glucose 102 mg/dl (70-99(Fasting)) H 09/08/22 05:49 POC Glucose 121 mg/dl (70-99) H 09/08/22 07:29 Estimat Average Glucose 160 mg/dl 09/04/22 11:09 Hemoglobin A1c 7.2 % (4.5-5.6) H 09/04/22 11:09 Lactate 1.8 mmol/L (0.4-2.0) 09/04/22 11:42 Calcium 8.9 mg/dl (8.6-10.3) 09/08/22 05:49 Phosphorus 4.1 mg/dl (2.5-4.9) 09/05/22 05:39 Magnesium 1.8 mg/dl (1.7-2.4) 09/08/22 05:49 Total Bilirubin 0.5 mg/dl (0.2-1.0) 09/05/22 05:39 AST 12 U/L (13-39) L 09/05/22 05:39 ALT 9 U/L (7-52) 09/05/22 05:39 Alkaline Phosphatase 87 U/L (34-104) 09/05/22 05:39 Troponin I High Sens 668.1 pg/ml (0-14) H* 09/05/22 11:34 B-Natriuretic Peptide 481 pg/ml (0-100) H 09/04/22 11:09 Total Protein 6.5 gm/dl (6.0-8.3) 09/05/22 05:39 Albumin 3.3 gm/dl (3.4-5.0) L 09/05/22 05:39 Globulin 3.2 gm/dl (2.5-4.0) 09/05/22 05:39 Albumin/Globulin Ratio 1.0 (0.9-2) 09/05/22 05:39 Procalcitonin < 0.05 ng/ml (0-0.5) 09/05/22 05:39 Urine Color Dark Yellow 09/04/22 12:17 Urine Appearance Cloudy (Clear) A 09/04/22 12:17 Urine pH 5.5 (4.5-7.5) 09/04/22 12:17 Ur Specific [place] 1.025 (1.000-1.030) 09/04/22 12:17 Urine Protein 3+ (Negative) H 09/04/22 12:17 Urine Glucose (UA) Negative (Negative) 09/04/22 12:17 Urine Ketones Trace (Negative) H 09/04/22 12:17 Urine Blood Negative (Negative) 09/04/22 12:17 Urine Nitrite Positive (Negative) A 09/04/22 12:17 Urine Bilirubin 1+ (Negative) H 09/04/22 12:17 Urine Urobilinogen Negative (Negative) 09/04/22 12:17 Ur Leukocyte Esterase 2+ (Negative) H 09/04/22 12:17 Urine WBC (Auto) >30 /hpf (0-5) H 09/04/22 12:17 Urine RBC (Auto) 0-4 /hpf (0-4) 09/04/22 12:17 U Hyaline Cast (Auto) 1-5 /lpf (0-5) 09/04/22 12:17 U Epithel Cells (Auto) >30 /lpf (0-5) H 09/04/22 12:17 Urine Bacteria (Auto) 4+ (Negative) H 09/04/22 12:17 SARS-CoV-2, RNA, NAAT NEGATIVE (NEGATIVE) 09/04/22 11:40 Impressions Chest X-Ray 09/04/22 10:56 XR chest 1V portable HISTORY: Dyspnea COMPARISON: None. FINDINGS: No pneumothorax. Trace bilateral pleural effusions. The cardiac silhouette is enlarged. There is perihilar interstitial/vascular thickening consistent with mild pulmonary edema. No focal lung consolidations to suggest a pneumonia. IMPRESSION: Cardiomegaly with mild interstitial pulmonary edema and trace bilateral pleural effusions. ACT 112: Negative or not required by law. Electronically signed by: Yan Roberts M.D. 09/04/2022 11:28 AM Venous Doppler Study 09/04/22 12:13 US venous doppler LE BI CLINICAL HISTORY: swelling, poss dvt TECHNIQUE: Bilateral lower extremity real-time compression venous ultrasound with Color Doppler imaging. Utilizing real-time ultrasonic imaging multiple real time high-resolution ultrasonic images with compression and noncompression maneuvers of the deep venous system in addition to color doppler imaging were performed from the common femoral vein through the proximal calf veins. COMPARISON: None available at the time of this dictation. FINDINGS/IMPRESSION: Currently there is normal compressibility of the deep venous system from the common femoral vein through the proximal calf veins. Limited evaluation of the bilateral calf vessels. The left common femoral vein and greater saphenous vein were not well visualized due to patient positioning. ACT 112: Negative or not required by law. Electronically signed by: Babatunde Lopez M.D. 09/04/2022 5:06 PM Chest CTA 09/06/22 07:30 CT angio chest PE protocol CLINICAL HISTORY: Rule out PE TECHNIQUE: Multidetector row helical CT of the chest was performed with angiographic protocol. Coronal and sagittal reformations were obtained. Coronal and sagittal MIPS were obtained from the axial data set and were submitted for review. Automated dose lowering techniques and/or adjustment according to patient size were utilized for this exam. CT DOSE: 1743.53 mGy.cm Comparison: None available at the time of this dictation. FINDINGS: Lungs and pleura: Bilateral trace pleural effusions are seen. Underlying atelectasis is seen. Heart and pericardium: Cardiomegaly is seen with biatrial enlargement. There is a 5 mm nodule in the right middle lobe (series 7 image 180). Vessels: No evidence of pulmonary embolism. Mediastinum and claire: Unremarkable. Chest wall and lower neck: Unremarkable. Abdomen: Unremarkable. Bones: Degenerative changes in the thoracic spine. IMPRESSION: 1. No pulmonary embolus is seen. 2. 5 mm nodule in the right lower lobe. According to Fleischner criteria, no follow-up is required in low risk patients, in high-risk patients, a 12 month follow-up CT can be optionally performed. ACT 112: Negative or not required by law. Electronically signed by: Babatunde Lopez M.D. 09/06/2022 11:19 AM
[2022-09-09] MEDS: HEPARIN SOD 5,000 UNIT/0.5 ML VIAL SQ SCH ×3 (06:17→21:13)
[2022-09-09 06:59] LABS: Basophils # (auto) 0.02 K/uL (0-0.2); Basophils % (auto) 0.2 %; Eosinophils # (auto) 0.21 K/uL (0-0.50); Eosinophils % (auto) 2.4 %; Hematocrit (blood only) 42.9 % (37.0-47.0); Hemoglobin 12.6 g/dl (12.0-16.0); Immature Granulocytes # (auto) 0.03 K/uL (0.01-0.20); Immature Granulocytes % (auto) 0.3 %; Lymphocytes # (auto) 1.34 K/uL (1.2-3.4); Lymphocytes % (auto) 15.3 %; Mean Corpuscular Hemoglobin 24.3 pg (25.0-34.0); Mean Corpuscular Hgb Conc 29.4 g/dL (32.0-36.0); Mean Corpuscular Volume 82.7 fL (80.0-100.0); Mean Platelet Volume 10.4 fL (9.4-12.4); Monocytes # (auto) 0.42 K/uL (0.11-0.59); Monocytes % (auto) 4.8 %; Neutrophils # (auto) 6.72 K/uL (1.40-6.50); Platelet Count 259 K/uL (130-400); RDW Coefficient of Variation 18.8 % (11.5-14.5); Red Blood Count 5.19 M/uL (4.20-5.40); White Blood Count 8.74 K/ul (4.8-10.8)
[2022-09-09 07:11] LABS: BUN Creatinine Ratio 28.9 (10-20); Creatinine Clr Calc Pharmacy 215.3 ml/min; Est GFR (African American) 132.6 ml/min; Est GFR (Non-African American) 114.4 ml/min; Magnesium 1.8 mg/dl (1.7-2.4); Potassium 4.1 mmol/L (3.5-5.1)
[2022-09-09] MEDS: DULoxetine HCL 60 MG CAP PO SCH (08:41)
[2022-09-09] MEDS: LOSARTAN POTASSIUM 50 MG TAB PO SCH ×2 (08:41→20:24)
[2022-09-09] MEDS: ATORVASTATIN 10 MG TAB PO SCH (08:41)
[2022-09-09] MEDS: FAMOTIDINE 20 MG TAB PO SCH (08:41)
[2022-09-09] MEDS: carvediloL 3.125 MG TAB PO SCH ×2 (08:42→20:25)
[2022-09-09] MEDS: POTASSIUM CHLORIDE CRTAB 20 MEQ TABCR PO SCH ×2 (08:42→20:24)
[2022-09-09] MEDS: SPIRONOLACTONE 25 MG TAB PO SCH (08:42)
[2022-09-09] MEDS: cephALEXin 500 MG CAP PO SCH ×4 (08:43→20:24)
[2022-09-09] MEDS: allopurinoL 100 MG TAB PO SCH (08:43)
[2022-09-09] MEDS: FUROSEMIDE INJ 20 MG/2 ML VIAL IV SCH ×2 (08:43→15:38)
[2022-09-09] MEDS: INSULIN ASPART PER UNIT CHARGE SC SCH ×4 (08:45→20:21)
[2022-09-09] MEDS ORDERED: metOLazone 5 MG TABLET PO ONE (10:00)
--- NOTE | 2022-09-09 10:05 | Cardiology Progress Note ---
Date of Service September 09, 2022 Assessment & Plan (1) Hypoxia: (2) Right heart failure: (3) Cellulitis: (4) Elevated troponin: (5) (HFpEF) heart failure with preserved ejection fraction: (6) COPD exacerbation: Plan The patient's I&O indicates that her diuresis has slowed down. I will give her dose of Zaroxolyn today along with magnesium and additional potassium supplements. Clinically, I think she still was a good deal of fluid on board. Admission and Anticipated Discharge Date Admission Date: September 04, 2022 Subjective The patient is sitting up in a chair no complaints. Review of Systems Review of Systems: Review of Systems: See HPI for pertinent positives. All other 10 point review of systems are negative. Physical Exam Physical Exam: General: no acute distress and stated age Head: normocephalic, no masses, lesions, tenderness or abnormalities Eyes: conjunctiva are pink and non-injected, sclera clear Neck: supple, no adenopathy, no bruits, normal jugular venous pulse, no hepatojugular reflux Chest: normal shape and normal respiratory effort Lungs: clear to auscultation and percussion Cardiac Exam: - regular rate & rhythm, no murmurs gallops or rubs - normal S1, normal S2 Pulses: 2(+) throughout Abdomen: abdomen soft, non-tender, no abnormal masses and no hepatosplenomegaly Musculoskeletal: no gait disturbance, no joint inflammation, no deforming arthritis Extremities: Still edematous Neuro: grossly normal exam Results & Data Vital Signs (Past 12 Hours) Vital Signs Temp Pulse Pulse Resp BP Pulse Ox O2 Del Method 09/09/22 09:30 80 09/09/22 07:59 36.6 C 72 19 169/71 H 94 Nasal Cannula 09/09/22 07:54 Nasal Cannula 09/09/22 03:00 37.1 C 76 20 145/75 H 93 Nasal Cannula 09/08/22 22:26 85 09/08/22 23:00 37.0 C 67 22 165/85 H 96 Nasal Cannula O2 Flow Rate 09/09/22 09:30 09/09/22 07:59 3.0 09/09/22 07:54 3 09/09/22 03:00 3 09/08/22 22:26 09/08/22 23:00 3 Laboratory Results Laboratory Results - last 24 hr 09/08/22 09/08/2209/08/23 11:29 16:14 20:10 WBC RBC Hgb Hct MCV MCH MCHC RDW Std Deviation RDW Coeff of Bhumi Plt Count MPV Immature Gran % (Auto) Neut % (Auto) Lymph % (Auto) [place] % (Auto) Eos % (Auto) Baso % (Auto) Neut # (Auto) Lymph # (Auto) [place] # (Auto) Eos # (Auto) Baso # (Auto) Immature Gran # (Auto) Sodium Potassium Chloride Carbon Dioxide Anion Gap BUN Creatinine Est Cr Clr Drug Dosing Est GFR ( Amer) Est GFR (Non-Af Amer) BUN/Creatinine Ratio Glucose POC Glucose 111 H 123 H 139 H Calcium Magnesium 09/09/22 09/09/22 09/09/22 06:33 06:33 07:26 WBC 8.74 RBC 5.19 Hgb 12.6 Hct 42.9 MCV 82.7 MCH 24.3 L MCHC 29.4 L RDW Std Deviation 53.0 H RDW Coeff of Bhumi 18.8 H Plt Count 259 MPV 10.4 Immature Gran % (Auto) 0.3 Neut % (Auto) 77.0 Lymph % (Auto) 15.3 [place] % (Auto) 4.8 Eos % (Auto) 2.4 Baso % (Auto) 0.2 Neut # (Auto) 6.72 H Lymph # (Auto) 1.34 [place] # (Auto) 0.42 Eos # (Auto) 0.21 Baso # (Auto) 0.02 Immature Gran # (Auto) 0.03 Sodium 141 Potassium 4.1 Chloride 98 Carbon Dioxide 40 H Anion Gap 3 BUN 13 Creatinine 0.45 L Est Cr Clr Drug Dosing 215.3 Est GFR ( Amer) 132.6 Est GFR (Non-Af Amer) 114.4 BUN/Creatinine Ratio 28.9 H Glucose 108 H POC Glucose 108 H Calcium 9.0 Magnesium 1.8 Medications Administered Current Inpatient Medications Acetaminophen (Acetaminophen 325 Mg Tab) 650 mg PO Q4H PRN PRN Reason: Pain or Fever Stop: 10/04/22 12:32 Last Admin: 09/06/22 02:47 Dose: 650 mg Al Hydrox/Mg Hydrox/Simethicone (Aluminum/Magnesium Susp 30 Ml Udc) 15 ml PO Q4H PRN PRN Reason: Dyspepsia Stop: 10/04/22 12:32 Allopurinol (Allopurinol 100 Mg Tab) 100 mg PO DAILY DIA Stop: 10/05/22 08:59 Last Admin: 09/09/22 08:43 Dose: 100 mg Atorvastatin Calcium (Atorvastatin 10 Mg Tab) 10 mg PO DAILY DIA Stop: 10/05/22 08:59 Last Admin: 09/09/22 08:41 Dose: 10 mg Carvedilol (Carvedilol 3.125 Mg Tab) 3.125 mg PO BID DIA Stop: 10/07/22 20:59 Last Admin: 09/09/22 08:42 Dose: 3.125 mg Cephalexin HCl (Cephalexin 500 Mg Cap) 500 mg PO QID DIA Stop: 09/11/22 16:59 Last Admin: 09/09/22 08:43 Dose: 500 mg Dextrose (Dextrose 50% 50 Ml Syringe) 25 - 50 ml IV UD PRN; Protocol PRN Reason: Hypoglycemia Protocol Stop: 10/04/22 14:53 Duloxetine HCl (Duloxetine Hcl 60 Mg Cap) 60 mg PO DAILY DIA Stop: 10/05/22 08:59 Last Admin: 09/09/22 08:41 Dose: 60 mg Famotidine (Famotidine 20 Mg Tab) 20 mg PO DAILY DIA Stop: 10/05/22 08:59 Last Admin: 09/09/22 08:41 Dose: 20 mg Furosemide (Furosemide Inj 20 Mg/2 Ml Vial) 20 mg IV BID@0800,1400 DIA Stop: 10/07/22 13:59 Last Admin: 09/09/22 08:43 Dose: 20 mg Glucagon (Glucagon For Inj 1 Mg Vial) 1 mg SQ UD PRN; Protocol PRN Reason: Hypoglycemia Protocol Stop: 10/04/22 14:53 Glucose (Glucose 10 Tab/Tube) 4 - 8 tab PO UD PRN; Protocol PRN Reason: Hypoglycemia Treatment Stop: 10/04/22 14:53 Glucose (Glucose 40% Gel 15 Gm Tube) 15 - 30 gm PO UD PRN; Protocol PRN Reason: Hypoglycemia Protocol Stop: 10/04/22 14:53 Heparin Sodium (Porcine) (Heparin Sod 5,000 Unit/0.5 Ml Vial) 5,000 units SQ Q8 DIA Stop: 10/06/22 13:59 Last Admin: 09/09/22 06:17 Dose: 5,000 units Insulin Aspart (Insulin Aspart Per Unit Charge) 0 units SC ACHS [facility] Stop: 10/04/22 16:29 Last Admin: 09/09/22 08:45 Dose: 2 units Losartan Potassium (Losartan Potassium 50 Mg Tab) 50 mg PO BID DIA Stop: 10/05/22 20:59 Last Admin: 09/09/22 08:41 Dose: 50 mg Magnesium Hydroxide (Magnesium Hydroxide Susp 30 Ml Udc) 30 ml PO Q12H PRN PRN Reason: Constipation Stop: 10/04/22 12:32 Magnesium Oxide (Magnesium Oxide 400 Mg Tab) 400 mg PO BID DIA Stop: 10/09/22 20:59 Metolazone (Metolazone 5 Mg Tablet) 5 mg PO NOW ONE Stop: 09/09/22 10:01 Miscellaneous (Carbohydrates For Hypoglycemia ) 15 - 30 gm PO UD PRN PRN Reason: Hypoglycemia Protocol Stop: 10/04/22 14:53 Nicotine Polacrilex (Nicotine Polacrilex 2 Mg Gum) 1 piece MT Q2H PRN PRN Reason: nicotine withdrawal Stop: 10/07/22 14:03 Ondansetron HCl (Ondansetron Inj 2 Mg/Ml 2 Ml Vial) 4 mg IV Q6H PRN PRN Reason: Nausea Stop: 10/04/22 12:32 Polyethylene Glycol (Polyethylene (Miralax) 17 Gm Pack) 17 gm PO DAILY PRN PRN Reason: Constipation Stop: 10/04/22 12:32 Potassium Chloride (Potassium Chloride Crtab 20 Meq Tabcr) 20 meq PO BID [facility] Stop: 10/09/22 20:59 Spironolactone (Spironolactone 25 Mg Tab) 25 mg PO QAM [facility] Stop: 10/08/22 08:59 Last Admin: 09/09/22 08:42 Dose: 25 mg
--- NOTE | 2022-09-09 12:06 | Hospitalist Progress Note ---
Date of Service September 09, 2022 Assessment & Plan (1) Shortness of breath: (2) HTN (hypertension): (3) HLD (hyperlipidemia): (4) Non-insulin dependent type 2 diabetes mellitus: (5) Tobacco use disorder: (6) Gout: (7) Obesity: (8) Depression: (9) Cellulitis: Plan 52-year-old presents with increased shortness of breath times a few weeks. No history of CHF. Legs bilateral lower extremity swelling. BNP 481, troponin 895. Received Lasix 60 mg in ED. Chest x-ray interstitial pulmonary edema with trace bilateral pleural effusions. No ischemia noted on EKG. Rule out DVT/PE. Blood culture and urine culture pending. Acute hypoxic respiratory failure Acute on chronic diastolic heart failure Elevated high-sensitivity troponin due to demand ischemia 52-year-old female presents to the hospital with increasing shortness of breath for few weeks. On presentation, her SPO2 at room air was 77%, with RR greater than 22. Chest x-ray on admission personally reviewed; consistent with pulmonary edema Labs reviewed; BNP elevated Echocardiogram results reviewed; mild concentric left ventricular hypertrophy. EF of 55 to 60%. Grade 1 diastolic dysfunction Venous duplex did not show DVT CTA chest reviewed; no PE. Bilateral atelectasis present. Found to have 5 mm nodule in right lower lobe. Discussed with patient; she will need CT chest follow-up follow-up as outpatient. Discussed with cardiology; recommend to continue on Lasix 20 mg IV twice daily. Metolazone 5 mg added by cardiology. Also on losartan. Monitoring strict input and output Wean down oxygen as tolerated. Daily weights Patient failed two-step oxygen evaluation as he desaturates on exertion. Required 3 L at rest, 4 L on exertion. Cellulitis: Erythema RLE; warm to touch No open areas Started on Keflex. Continue for total of 5 days. Tobacco use disorder: Nicotine patch offered; declined; patient reports having flaky skin with previous use PFTs done in 2017; FEV1 94 Started on nicotine gums. HTN: Previously on lisinopril. Switch to losartan 50 mg twice daily during hospitalization. HLD: Takes atorvastatin; continue Diabetes mellitus, type II: Morbid obesity: BMI: 69.7 Takes metformin; hold while inpatient Last A1c 06/2021: 6.9 FSBS ACHS SSI while inpatient Depression: Takes Cymbalta; continue Gout: Takes allopurinol; continue Disposition: PCP: Dr. Griffith CODE STATUS: Full code VTE prophylaxis: Heparin SQ Dispositionlives with her mother. Independent of all ADLs. PT OT recommend home with home health; prescription sent. Also prescription for bariatric walker sent. Patient continues to be hospitalized due to acute hypoxic respiratory failure, acute on chronic diastolic heart failure needing IV diuretics. Time spent evaluating patient, direct bedside care, chart review, placing orders, interpretation of diagnostic studies, discussion with consultants, patient, and family members, as well as other required patient management activities is 60 minutes. Please note the above document was generated using voice recognition software. It may contain grammatical, syntax or spelling errors. Any formal questions or concerns about the content, text or information contained within the body of this dictation should be directly addressed to the provider for clarification Admission and Anticipated Discharge Date Admission Date: September 04, 2022 Subjective Patient seen and examined at bedside. She sitting on the chair; not in distress. Telemetry shows normal sinus rhythm. Appears comfortable on 3 L of nasal cannula. Desaturates on exertion. Review of Systems Review of Systems: All systems reviewed & are unremarkable except as noted in Subjective Physical Exam Physical Exam: Constitutional: Alert, oriented x3; morbidly obese. Respiratory: Basal lung sounds difficult to appreciate due to body habitus. Otherwise, vesicular breath sound. Cardiovascular: RRR, no murmur, no edema Vessels: no JVD or carotid bruit Chest: normal inspection of chest Abdomen: normal bowel sounds, soft, nontender, no hepatosplenomegaly Musculoskeletal: no cyanosis or clubbing, extremities motor strength 5/5 Skin: Slight redness present in bilateral lower extremity. 3+ pitting edema present. Neurologic: PERRL, EOMI, accommodation nl, no face palsy, no dysarthria CN's II- XI intact bilaterally and moves all extremities Psychiatric: A+Ox3, euthymic affect Lymphatic: no cervical or axillary lymphadenopathy : deferred Results & Data Results & Data Vital Signs (Past 12 Hours) Vital Signs Temp Pulse Pulse Pulse Pulse Pulse Pulse 09/09/22 11:59 37.1 C 09/09/22 11:03 73 71 103 H 109 H 92 H 09/09/22 09:30 80 09/09/22 07:59 36.6 C 09/09/22 07:54 09/09/22 03:00 37.1 C Pulse Pulse Resp Resp Resp Resp Resp 09/09/22 11:59 71 18 09/09/22 11:03 79 18 18 24 26 H 09/09/22 09:30 09/09/22 07:59 72 19 09/09/22 07:54 09/09/22 03:00 76 20 Resp Resp BP Pulse Ox Pulse Ox Pulse Ox Pulse Ox 09/09/22 11:59 173/81 H 91 09/09/22 11:03 20 18 87 L 92 90 09/09/22 09:30 09/09/22 07:59 169/71 H 94 09/09/22 07:54 09/09/22 03:00 145/75 H 93 Pulse Ox Pulse Ox Pulse Ox O2 Del Method O2 Flow Rate O2 Flow Rate O2 Flow Rate 09/09/22 11:59 Nasal Cannula 3.0 09/09/22 11:03 86 L 90 72 L 2 3 09/09/22 09:30 09/09/22 07:59 Nasal Cannula 3.0 09/09/22 07:54 Nasal Cannula 3 09/09/22 03:00 Nasal Cannula 3 O2 Flow Rate O2 Flow Rate O2 Flow Rate 09/09/22 11:59 09/09/22 11:03 4 3 3 09/09/22 09:30 09/09/22 07:59 09/09/22 07:54 09/09/22 03:00 Laboratory Results Laboratory Results WBC 8.74 K/ul (4.8-10.8) 09/09/22 06:33 RBC 5.19 M/uL (4.20-5.40) 09/09/22 06:33 Hgb 12.6 g/dl (12.0-16.0) 09/09/22 06:33 Hct 42.9 % (37.0-47.0) 09/09/22 06:33 MCV 82.7 fL (80.0-100.0) 09/09/22 06:33 MCH 24.3 pg (25.0-34.0) L 09/09/22 06:33 MCHC 29.4 g/dL (32.0-36.0) L 09/09/22 06:33 RDW Std Deviation 53.0 fL (36.4-46.3) H 09/09/22 06:33 RDW Coeff of Bhumi 18.8 % (11.5-14.5) H 09/09/22 06:33 Plt Count 259 K/uL (130-400) 09/09/22 06:33 MPV 10.4 fL (9.4-12.4) 09/09/22 06:33 Immature Gran % (Auto) 0.3 % 09/09/22 06:33 Neut % (Auto) 77.0 % 09/09/22 06:33 Lymph % (Auto) 15.3 % 09/09/22 06:33 [place] % (Auto) 4.8 % 09/09/22 06:33 Eos % (Auto) 2.4 % 09/09/22 06:33 Baso % (Auto) 0.2 % 09/09/22 06:33 Neut # (Auto) 6.72 K/uL (1.40-6.50) H 09/09/22 06:33 Lymph # (Auto) 1.34 K/uL (1.2-3.4) 09/09/22 06:33 [place] # (Auto) 0.42 K/uL (0.11-0.59) 09/09/22 06:33 Eos # (Auto) 0.21 K/uL (0-0.50) 09/09/22 06:33 Baso # (Auto) 0.02 K/uL (0-0.2) 09/09/22 06:33 Immature Gran # (Auto) 0.03 K/uL (0.01-0.20) 09/09/22 06:33 Polychromasia 1+ 09/06/22 05:35 Hypochromasia Present 09/07/22 05:25 PT 11.4 Seconds (9.0-12.0) 09/04/22 12:16 INR 1.0 (0.9-1.1) 09/04/22 12:16 APTT 24.9 Seconds (21.0-31.0) 09/04/22 12:16 PTT Ratio 0.9 09/04/22 12:16 ABG pH 7.33 (7.35-7.45) L 09/04/22 13:41 ABG pCO2 63 mmHg (35-46) H 09/04/22 13:41 ABG pO2 78 mmHg (80-95) L 09/04/22 13:41 ABG HCO3 33 mmol/L (19-24) H 09/04/22 13:41 ABG O2 Saturation 96.9 % (90-95) H 09/04/22 13:41 ABG Base Excess 5.3 mEq/L (-9-1.8) H 09/04/22 13:41 Rj Test Pos (Pos) 09/04/22 13:41 Oxygen Given 6L 09/04/22 13:41 Sodium 141 mmol/L (136-145) 09/09/22 06:33 Potassium 4.1 mmol/L (3.5-5.1) 09/09/22 06:33 Chloride 98 mmol/L (98-107) 09/09/22 06:33 Carbon Dioxide 40 mmol/L (21-32) H 09/09/22 06:33 Anion Gap 3 (3-11) 09/09/22 06:33 BUN 13 mg/dl (6-23) 09/09/22 06:33 Creatinine 0.45 mg/dl (0.6-1.2) L 09/09/22 06:33 Est Cr Clr Drug Dosing 215.3 ml/min 09/09/22 06:33 Est GFR ( Amer) 132.6 ml/min 09/09/22 06:33 Est GFR (Non-Af Amer) 114.4 ml/min 09/09/22 06:33 BUN/Creatinine Ratio 28.9 (10-20) H 09/09/22 06:33 Glucose 108 mg/dl (70-99(Fasting)) H 09/09/22 06:33 POC Glucose 139 mg/dl (70-99) H 09/09/22 11:28 Estimat Average Glucose 160 mg/dl 09/04/22 11:09 Hemoglobin A1c 7.2 % (4.5-5.6) H 09/04/22 11:09 Lactate 1.8 mmol/L (0.4-2.0) 09/04/22 11:42 Calcium 9.0 mg/dl (8.6-10.3) 09/09/22 06:33 Phosphorus 4.1 mg/dl (2.5-4.9) 09/05/22 05:39 Magnesium 1.8 mg/dl (1.7-2.4) 09/09/22 06:33 Total Bilirubin 0.5 mg/dl (0.2-1.0) 09/05/22 05:39 AST 12 U/L (13-39) L 09/05/22 05:39 ALT 9 U/L (7-52) 09/05/22 05:39 Alkaline Phosphatase 87 U/L (34-104) 09/05/22 05:39 Troponin I High Sens 668.1 pg/ml (0-14) H* 09/05/22 11:34 B-Natriuretic Peptide 481 pg/ml (0-100) H 09/04/22 11:09 Total Protein 6.5 gm/dl (6.0-8.3) 09/05/22 05:39 Albumin 3.3 gm/dl (3.4-5.0) L 09/05/22 05:39 Globulin 3.2 gm/dl (2.5-4.0) 09/05/22 05:39 Albumin/Globulin Ratio 1.0 (0.9-2) 09/05/22 05:39 Procalcitonin < 0.05 ng/ml (0-0.5) 09/05/22 05:39 Urine Color Dark Yellow 09/04/22 12:17 Urine Appearance Cloudy (Clear) A 09/04/22 12:17 Urine pH 5.5 (4.5-7.5) 09/04/22 12:17 Ur Specific [place] 1.025 (1.000-1.030) 09/04/22 12:17 Urine Protein 3+ (Negative) H 09/04/22 12:17 Urine Glucose (UA) Negative (Negative) 09/04/22 12:17 Urine Ketones Trace (Negative) H 09/04/22 12:17 Urine Blood Negative (Negative) 09/04/22 12:17 Urine Nitrite Positive (Negative) A 09/04/22 12:17 Urine Bilirubin 1+ (Negative) H 09/04/22 12:17 Urine Urobilinogen Negative (Negative) 09/04/22 12:17 Ur Leukocyte Esterase 2+ (Negative) H 09/04/22 12:17 Urine WBC (Auto) >30 /hpf (0-5) H 09/04/22 12:17 Urine RBC (Auto) 0-4 /hpf (0-4) 09/04/22 12:17 U Hyaline Cast (Auto) 1-5 /lpf (0-5) 09/04/22 12:17 U Epithel Cells (Auto) >30 /lpf (0-5) H 09/04/22 12:17 Urine Bacteria (Auto) 4+ (Negative) H 09/04/22 12:17 SARS-CoV-2, RNA, NAAT NEGATIVE (NEGATIVE) 09/04/22 11:40 Impressions Chest X-Ray 09/04/22 10:56 XR chest 1V portable HISTORY: Dyspnea COMPARISON: None. FINDINGS: No pneumothorax. Trace bilateral pleural effusions. The cardiac silhouette is enlarged. There is perihilar interstitial/vascular thickening consistent with mild pulmonary edema. No focal lung consolidations to suggest a pneumonia. IMPRESSION: Cardiomegaly with mild interstitial pulmonary edema and trace bilateral pleural effusions. ACT 112: Negative or not required by law. Electronically signed by: Yan Roberts M.D. 09/04/2022 11:28 AM Venous Doppler Study 09/04/22 12:13 US venous doppler LE BI CLINICAL HISTORY: swelling, poss dvt TECHNIQUE: Bilateral lower extremity real-time compression venous ultrasound with Color Doppler imaging. Utilizing real-time ultrasonic imaging multiple real time high-resolution ultrasonic images with compression and noncompression maneuvers of the deep venous system in addition to color doppler imaging were performed from the common femoral vein through the proximal calf veins. COMPARISON: None available at the time of this dictation. FINDINGS/IMPRESSION: Currently there is normal compressibility of the deep venous system from the common femoral vein through the proximal calf veins. Limited evaluation of the bilateral calf vessels. The left common femoral vein and greater saphenous vein were not well visualized due to patient positioning. ACT 112: Negative or not required by law. Electronically signed by: Babatunde Lopez M.D. 09/04/2022 5:06 PM Chest CTA 09/06/22 07:30 CT angio chest PE protocol CLINICAL HISTORY: Rule out PE TECHNIQUE: Multidetector row helical CT of the chest was performed with angiographic protocol. Coronal and sagittal reformations were obtained. Coronal and sagittal MIPS were obtained from the axial data set and were submitted for review. Automated dose lowering techniques and/or adjustment according to pa tient size were utilized for this exam. CT DOSE: 1743.53 mGy.cm Comparison: None available at the time of this dictation. FINDINGS: Lungs and pleura: Bilateral trace pleural effusions are seen. Underlying atelectasis is seen. Heart and pericardium: Cardiomegaly is seen with biatrial enlargement. There is a 5 mm nodule in the right middle lobe (series 7 image 180). Vessels: No evidence of pulmonary embolism. Mediastinum and claire: Unremarkable. Chest wall and lower neck: Unremarkable. Abdomen: Unremarkable. Bones: Degenerative changes in the thoracic spine. IMPRESSION: 1. No pulmonary embolus is seen. 2. 5 mm nodule in the right lower lobe. According to Fleischner criteria, no follow-up is required in low risk patients, in high-risk patients, a 12 month follow-up CT can be optionally performed. ACT 112: Negative or not required by law. Electronically signed by: Babatunde Lopez M.D. 09/06/2022 11:19 AM
[2022-09-09] MEDS: MAGNESIUM OXIDE 400 MG TAB PO SCH (20:24)
[2022-09-10] MEDS: HEPARIN SOD 5,000 UNIT/0.5 ML VIAL SQ SCH (05:52)
[2022-09-10 07:28] LABS: Basophils # (auto) 0.01 K/uL (0-0.2); Basophils % (auto) 0.1 %; Eosinophils # (auto) 0.19 K/uL (0-0.50); Eosinophils % (auto) 2.2 %; Hematocrit (blood only) 41.5 % (37.0-47.0); Hemoglobin 12.1 g/dl (12.0-16.0); Immature Granulocytes # (auto) 0.03 K/uL (0.01-0.20); Immature Granulocytes % (auto) 0.3 %; Lymphocytes % (auto) 17.5 %; Mean Corpuscular Hemoglobin 24.3 pg (25.0-34.0); Mean Corpuscular Hgb Conc 29.2 g/dL (32.0-36.0); Mean Corpuscular Volume 83.5 fL (80.0-100.0); Mean Platelet Volume 10.8 fL (9.4-12.4); Monocytes # (auto) 0.48 K/uL (0.11-0.59); Monocytes % (auto) 5.6 %; Neutrophils # (auto) 6.37 K/uL (1.40-6.50); Neutrophils % (auto) 74.3 %; Platelet Count 244 K/uL (130-400); RDW Coefficient of Variation 19.3 % (11.5-14.5); RDW Standard Deviation 54.3 fL (36.4-46.3); Red Blood Count 4.97 M/uL (4.20-5.40); White Blood Count 8.58 K/ul (4.8-10.8)
[2022-09-10 07:47] LABS: BUN Creatinine Ratio 25.5 (10-20); Calcium 9.1 mg/dl (8.6-10.3); Creatinine Clr Calc Pharmacy 205.7 ml/min; Est GFR (African American) 130.7 ml/min; Est GFR (Non-African American) 112.8 ml/min; Magnesium 1.8 mg/dl (1.7-2.4); Potassium 4.4 mmol/L (3.5-5.1)
[2022-09-10] MEDS: INSULIN ASPART PER UNIT CHARGE SC SCH ×2 (08:33→11:49)
[2022-09-10] MEDS: FUROSEMIDE INJ 20 MG/2 ML VIAL IV SCH (08:33)
[2022-09-10] MEDS: allopurinoL 100 MG TAB PO SCH (08:35)
[2022-09-10] MEDS: carvediloL 3.125 MG TAB PO SCH (08:36)
[2022-09-10] MEDS: cephALEXin 500 MG CAP PO SCH (08:36)
[2022-09-10] MEDS: FAMOTIDINE 20 MG TAB PO SCH (08:36)
[2022-09-10] MEDS: DULoxetine HCL 60 MG CAP PO SCH (08:36)
[2022-09-10] MEDS: SPIRONOLACTONE 25 MG TAB PO SCH (08:37)
[2022-09-10] MEDS: MAGNESIUM OXIDE 400 MG TAB PO SCH (08:37)
[2022-09-10] MEDS: LOSARTAN POTASSIUM 50 MG TAB PO SCH (08:37)
[2022-09-10] MEDS: POTASSIUM CHLORIDE CRTAB 20 MEQ TABCR PO SCH (08:37)
[2022-09-10] MEDS: ATORVASTATIN 10 MG TAB PO SCH (09:50)
--- NOTE | 2022-09-10 12:02 | Discharge Summary ---
Date of Service September 10, 2022 Admission HPI Per Admitting Provider Mr. Slater is a 52-year-old female that presented to the ED after her sister drove her to the hospital with complaints of shortness of breath that have been occurring for the past few weeks; worsening over the past few days with increased abdominal distention. She reports that she noticed her hand imprint if she left her hand on her abdomen. She had dyspnea at rest and with exertion. On arrival patient SPO2 70% improved with 4 L supplemental O2. Patient reporting bilateral lower extremity swelling. No known history of congestive heart failure. Chest x-ray revealed cardiomegaly with interstitial pulmonary edema and trace bilateral pleural effusions. No ischemia on EKG and patient denies chest pain. Pt has had a productive clear cough that has been present since May. She denies fever/chills. She does have bilateral LE edema up to above her knee with right sided erythema, R> L. BNP 41, troponin 895; suspect mismatch related to fluid overload and do not suspect this to be ACS in nature. CXR Cardiomegaly with mild interstitial pulmonary edema and trace bilateral pleural effusions. High suspicion for PE/DVT due to obesity and increased tobacco risk. Additional past medical history includes hypertension, HLD, diabetes mellitus type 2 [id number], obesity, gout, osteoarthritis, lumbar DDD and urge incontinence. Patient denies headache, visual or auditory changes, dizziness, fever, chills, cough, chest pain, appetite changes, new rashes, recent falls or trauma, nausea, vomiting, diarrhea. She does report some palpitations over the past week or so b ut not associated with any activity, aggravated or relieved by anything specific. Currently smoking 1.5 ppd of cigarettes for the past four years and had quite for five years prior to that. Prior to her 5 years of smoking cessation she was smoking 1ppd x 10+ years. She denies alcohol or recreational drug use. Pt lives with her mother and her sister drove her to the hospital today. At baseline, she is able to ambulate with a cane intermittently and is able to complete her own ADL's. She is not working. When I visited with her, she was sitting upright in her hospital bed in no apparent distress and able to speak in complete sentences. Patient will be admitted for further evaluation and management. Please see A/P for further details. Admission Exam Per Admitting Provider Neuro: AAOx4, PERRLA, no aphagia, memory changes, CNII-XII grossly intact HEENT: head normocephalic, moist mucus membranes CV: S1/S2, (-) M/G/R, (+) edema, cap refill < 3 seconds Resp: Lungs clear upper airway; decreased air movement lower lungs GI: Abdomen large NT and distended, Ax4 bowel sounds, (-) CVA tenderness Musculoskeletal: 5/5 B/L UE strength, 5/5 B/L LE strength. No gait disturbance Skin: (-) rashes , (+) erythema R>L. Psych: euthymic mood Principal Diagnosis Acute hypoxic respiratory failure Acute on chronic diastolic heart failure Elevated high-sensitivity troponin due to demand ischemia Discharge Exam Constitutional: Alert, oriented x3; morbidly obese. Respiratory: Basal lung sounds difficult to appreciate due to body habitus. Otherwise, vesicular breath sound. Cardiovascular: RRR, no murmur, no edema Vessels: no JVD or carotid bruit Chest: normal inspection of chest Abdomen: normal bowel sounds, soft, nontender, no hepatosplenomegaly Musculoskeletal: no cyanosis or clubbing, extremities motor strength 5/5 Skin: Slight redness present in bilateral lower extremity. 1+ pitting edema present. Neurologic: PERRL, EOMI, accommodation nl, no face palsy, no dysarthria CN's II- XI intact bilaterally and moves all extremities Psychiatric: A+Ox3, euthymic affect Lymphatic: no cervical or axillary lymphadenopathy : deferred Discharge Data Allergies Allergy/AdvReac Type Severity Reaction Status Date / Time Penicillins Allergy Hives Verified 09/04/22 13:29 Consultations 09/04/22 12:31 ED Decision to Admit Stat 09/05/22 07:48 Consult Cardiology Routine Ordered Studies 09/04/22 12:13 US venous doppler LE BI Stat 09/06/22 07:30 CT angio chest PE protocol Urgent Hospital Course (1) Shortness of breath: (2) HTN (hypertension): (3) HLD (hyperlipidemia): (4) Non-insulin dependent type 2 diabetes mellitus: (5) Tobacco use disorder: (6) Gout: (7) Obesity: (8) Depression: (9) Cellulitis: Plan Acute hypoxic respiratory failure Acute on chronic diastolic heart failure Elevated high-sensitivity troponin due to demand ischemia 52-year-old female presents to the hospital with increasing shortness of breath for few weeks. On presentation, her SPO2 at room air was 77%, with RR greater than 22. Chest x-ray on admission personally reviewed; consistent with pulmonary edema Labs reviewed; BNP elevated Echocardiogram results reviewed; mild concentric left ventricular hypertrophy. EF of 55 to 60%. Grade 1 diastolic dysfunction Venous duplex did not show DVT CTA chest reviewed; no PE. Bilateral atelectasis present. Found to have 5 mm nodule in right lower lobe. Discussed with patient; she will need CT chest follow-up follow-up as outpatient. During the hospitalization, cardiology consultation was done. Patient was started on beta-allen. She was started on losartan, spironolactone. Also, patient was diuresed with IV Lasix. Patient was -12L at discharge. PT OT evaluation was done; patient was recommended home with home health. Also, two- step oxygen evaluation was done. Patient required 3 L at rest and 4 L on exertion. As per cardiology recommendation, patient was discharged on 40 mg of Lasix twice daily for 3 more days which will be switched over to 20 mg twice daily then after. Patient to follow-up with PCP. Cellulitis: Erythema RLE; warm to touch No open areas Treated with Keflex during the hospitalization HTN: Previously on lisinopril. Switch to losartan 50 mg twice daily during hospitalization. HLD: Takes atorvastatin; continue Diabetes mellitus, type II: Home medication with continued at discharge Please note the above document was generated using voice recognition software. It may contain grammatical, syntax or spelling errors. Any formal questions or concerns about the content, text or information contained within the body of this dictation should be directly addressed to the provider for clarification Total Time Total Time Spent Total Time Spent (In Minutes): 45 Total Time Includes: Examination of the Patient, Discharge Planning, Medication Reconciliation, Communication With Other Providers and Other Discharge Plan Discharge Items Patient Disposition: Home - Home Health Services Reason For Visit: SOB Discharge Diagnosis: Acute hypoxic respiratory failure Acute on chronic diastolic heart failure Elevated high-sensitivity troponin due to demand ischemia Condition on Discharge: Fair Activity: Resume your previous activity Non-emergency contact: Primary Care Provider Call non-emergency contact if: you have any medication questions and your symptoms worsen Follow-up/Referrals: Santo Griffith MD [Primary Care Provider] - (Date & Time 09/14/2022 1:00 PM Provider Santo Griffith MD Department Family Medicine [facility] ) Diet: Regular Addtl Attending Provider Instructions: You were admitted to the hospital with heart failure exacerbation. You are prescribed following medications: 1) Diuretics(Lasix 20 mg). Take 2 tablets twice a day(in the morning and in the afternoon) for next 3 days. Take 1 tablet twice a day after that. 2) Losartan 50 mg twice daily 3) Coreg 3.125 twice daily 4) Aldactone 25 mg once daily 5) Potassium chloride 20 mg tablet twice daily 6) Magnesium oxide 1 tablet twice daily You are also prescribed an inhaler to be used twice daily. Please follow-up with your primary care doctor as scheduled. CT of the chest showed 5 mm nodule in right lower lobe. You will need follow-up CT chest in 2 will months. Please discuss that with her primary care doctor. You need 3 L of oxygen at rest and 4 L of oxygen on exertion Pending Studies at Discharge: No Stand-Alone Forms: My [facility], Smoking Cessation Medications and DC Order Prescriptions: New losartan 50 mg Tablet 50 mg PO BID Qty: 60 0RF spironolactone 25 mg Tablet 25 mg PO QAM Qty: 30 0RF carvedilol 3.125 mg Tablet 3.125 mg PO BID Qty: 60 0RF potassium chloride 20 mEq Tablet,Er Particles/Crystals 20 meq PO BID Qty: 60 0RF magnesium oxide 400 mg (241.3 mg magnesium) Tablet 400 mg PO BID Qty: 60 0RF furosemide [Lasix] 20 mg tablet See Taper PO BID Qty: 90 0RF Taper: Taper, Blank 40 mg TWICE A DAY for 3 Days 20 mg TWICE A DAY for 30 Days Spiriva Respimat 2.5 mcg/actuation mist 2 inh inhalation DAILY Qty: 4 0RF Continued atorvastatin 10 mg tablet 10 mg PO DAILY allopurinol 100 mg tablet 100 mg PO DAILY famotidine 20 mg tablet 20 mg PO DAILY metformin 1,000 mg tablet 1,000 mg PO BID albuterol sulfate [ProAir HFA] 90 mcg/actuation HFA aerosol inhaler 90 mcg INHALATION BID PRN (Reason: Shortness Of Breath Or Wheezing) duloxetine 60 mg capsule,delayed release(DR/EC) 60 mg PO DAILY Discontinued lisinopril 30 mg tablet 30 mg PO DAILY Discharge Orders: Discharge Order- CHF (Routine); Ordered 09/10/22 Ordered By: Adi Caicedo/Other Patient Handouts: Managing Type 2 Diabetes Admission Data Admit Date/Time: 09/04/22 12:33 Attending Provider: Adi Boyd Admit Provider: Keiry Lynn Primary Care Provider: Santo Griffith Other Providers: Keiry Lynn ; Santosh Rodriguez
== END 2022-09-10 13:31 | disposition home health service (06) | DRG 291 ==
LOC: ED 10:27 → EDINP 12:33 → SUATTDRO 12:33 → 2E 14:54
DX: E11.9 Type 2 diabetes mellitus without complications; I24.8 Other forms of acute ischemic heart disease; J44.1 Chronic obstructive pulmonary disease with (acute) exacerbation; E66.9 Obesity, unspecified; I11.0 Hypertensive heart disease with heart failure; R32 Unspecified urinary incontinence; L03.115 Cellulitis of right lower limb; E78.5 Hyperlipidemia, unspecified; F32.A Depression, unspecified; Z20.822 Contact with and (suspected) exposure to COVID-19; E87.20 Acidosis, unspecified; Z79.84 Long term (current) use of oral hypoglycemic drugs; I50.33 Acute on chronic diastolic (congestive) heart failure; Z88.0 Allergy status to penicillin; M51.9 Unspecified thoracic, thoracolumbar and lumbosacral intervertebral disc disorder; J96.01 Acute respiratory failure with hypoxia; M10.9 Gout, unspecified; Z79.899 Other long term (current) drug therapy; Z68.44 Body mass index [BMI] 60.0-69.9, adult; F17.210 Nicotine dependence, cigarettes, uncomplicated; M19.90 Unspecified osteoarthritis, unspecified site

== ENCOUNTER 2023-11-18 10:42 | Inpatient (IN) ==
[2023-11-18 11:43] LABS: Basophils # (auto) 0.03 K/uL (0.00-0.20); Basophils % (auto) 0.3 %; Eosinophils # (auto) 0.46 K/uL (0.00-0.50); Eosinophils % (auto) 4.2 %; Hematocrit (blood only) 40.6 % (37.0-47.0); Hemoglobin 13.3 g/dl (12.0-16.0); Immature Granulocytes # (auto) 0.07 K/uL (0.01-0.20); Immature Granulocytes % (auto) 0.6 %; Lymphocytes # (auto) 2.98 K/uL (1.20-3.40); Lymphocytes % (auto) 27.2 %; Mean Corpuscular Hemoglobin 31.4 pg (25.0-34.0); Mean Corpuscular Hgb Conc 32.8 g/dL (32.0-36.0); Monocytes # (auto) 0.44 K/uL (0.11-0.59); Neutrophils # (auto) 6.96 K/uL (1.40-6.50); Neutrophils % (auto) 63.7 %; Platelet Count 244 K/uL (130-400); RDW Coefficient of Variation 14.1 % (11.5-14.5); RDW Standard Deviation 49.1 fL (36.4-46.3); Red Blood Count 4.23 M/uL (4.20-5.40); White Blood Count 10.94 K/ul (4.8-10.8)
[2023-11-18 12:01] LABS: Albumin Globulin Ratio 1.4 (0.9-2); Albumin Level 4.1 gm/dl (3.4-5.0); BUN Creatinine Ratio 23.2 (10-20); Bilirubin,Total 0.5 mg/dl (0.2-1.0); Calcium 9.4 mg/dl (8.6-10.3); Creatinine Clr Calc Pharmacy 97.4 ml/min; Est GFR (African American) 78.7 ml/min; Est GFR (Non-African American) 67.9 ml/min; Potassium 4.5 mmol/L (3.5-5.1); Total Protein 7.1 gm/dl (6.0-8.3)
--- NOTE | 2023-11-18 12:21 | XRay Report ---
SINGLE VIEW CHEST CLINICAL HISTORY: Dyspnea. Weight gain FINDINGS: An AP, portable, upright chest radiograph is compared to study dated 09/04/2022 and correlat ed with chest CT dated 09/06/2022. The heart is enlarged. There is pulmonary vascular congestion. Atel ectasis is noted at the lung bases. No large pleural effusion or pneumothorax is seen. The skeletal s tructures are osteopenic. The bony thorax is grossly intact. IMPRESSION: Cardiomegaly with pulmonary vascular congestion. ACT 112: Negative or not required by law. Electronically signed by: Kai Yun M.D. 11/18/2023 12:19 PM
--- NOTE | 2023-11-18 12:57 | Emergency Department Note ---
Impression & Plan CHF (congestive heart failure), Pedal edema ED Provider Note NAME: TRANG TRONCOSO AGE: 53 SEX: F : 1970 ARRIVES VIA: Walk-In INFORMANT: Patient, ED PROVIDER(S): Beto Paredes MD CHIEF COMPLAINT: Weight gain, shortness of breath HPI: This is a 53-year-old female presenting for shortness of breath, leg swelling. Patient notes that she has gained 30 to 40 pounds in last several months. She was switched from Lasix to a new diuretic. She notes that swelling is in her legs, abdomen. She notes that she has had trouble with walking due to exertion and dyspnea. Otherwise no chest pain, shortness of breath at rest. No chest pain with walking. No fevers or chills. No history of CHF previously. ROS: See above HPI for pertinent positives & negatives. A total of 10 systems reviewed and were otherwise negative. PHYSICAL EXAMINATION: General: resting comfortably in no acute distress Head: Normocephalic and atraumatic Eyes: Normal inspection, extraocular muscles intact Ear, nose, throat: Normal external exam Neck: Normal range of motion Respiratory: lungs clear to auscultation bilaterally Cardiovascular: Regular rate/rhythm, no murmur GI: soft, nontender, no guarding or rebound, distended Extremities: nontender, moves all extremities, 1+ pitting edema to bilateral extremities Neuro: The patient awake and alert, appropriately conversive, no focal deficits, symmetric faces Skin: Warm, dry, and intact MEDICAL DECISION MAKING: This is a 53-year-old female presenting for shortness of breath and leg swelling. Consider CHF. Lower concern for PE or ACS without chest pain. Will do chest x-ray to help elucidate underlying cause. Will do basic blood work as well -Chest Xray independently interpreted by me showing cardiomegaly without focal opacity or pleural effusions -Labs reviewed without significant abnormalities -With patient's 30 to 40 pound weight gain, will admit for fluid overload/CHF -Will give 80 mg IV Lasix at this time Differential diagnosis: CHF, ACS, PE ER treatment provided: See below Diagnostics interpreted by me: ECG: See above Cardiac Monitoring: An order was placed for continuous cardiac monitoring. The monitor shows a rate of 66 with sinus rhythm. Laboratory studies: As stated above and show below. Imaging studies: See below. Past Med/Surg History Problem List (Updated 11/18/23 @ 14:35 by Beto Paredes MD) (HFpEF) heart failure with preserved ejection fraction Elevated troponin Right heart failure Hypoxia (Acute) SOB (shortness of breath) (Acute) CHF (congestive heart failure) (Acute) Pedal edema (Acute) UTI (urinary tract infection) (Acute) Cellulitis Depression Non-insulin dependent type 2 diabetes mellitus Gout HLD (hyperlipidemia) HTN (hypertension) Tobacco use disorder Obesity Shortness of breath Medical History Cellulitis Depression Gout HLD (hyperlipidemia) HTN (hypertension) Non-insulin dependent type 2 diabetes mellitus Obesity Shortness of breath Tobacco use disorder Surgical History H/O: H/O: hysterectomy History of cholecystectomy Family History Other Asthma Dyslipidemia Heart disease Hypertension Social History Smoking Status: Current every day smoker Tobacco Type: Cigarettes packs per day: 1.5; Second Hand Exposure: Yes; Do You Dip or Chew Tobacco: No; Hx Alcohol Use: No Hx Substance Use: No Preferred Language: Syriac Communication Ability: Effective Hearing Ability: Normal 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 Required: No Beliefs That Will Affect Care: None Current Living Situation: Parent current occupational status: unemployed Feels Safe at Home: Yes Assistive Devices: Cane Allergies Allergies Allergy/AdvReac Type Severity Reaction Status Date / Time Penicillins Allergy Hives Verified 09/04/22 13:29 Home Meds Home Medications Medication Instructions Recorded Confirmed albuterol sulfate 90 mcg/actuation 90 mcg inhalation BID PRN 09/04/22 09/04/22 aerosol inhaler (ProAir HFA) Shortness Of Breath Or Wheezing allopurinol 100 mg tablet 100 mg PO DAILY 09/04/22 09/04/22 atorvastatin 10 mg tablet 10 mg PO DAILY 09/04/22 09/04/22 duloxetine 60 mg capsule,delayed 60 mg PO DAILY 09/04/22 09/04/22 release famotidine 20 mg tablet 20 mg PO DAILY 09/04/22 09/04/22 metformin 1,000 mg tablet 1,000 mg PO BID 09/04/22 09/04/22 Previous Rx's Medication Instructions Recorded carvedilol 3.125 mg tablet 3.125 mg PO BID #60 tabs 09/10/22 furosemide 20 mg tablet (Lasix) See Taper PO BID #90 tabs 09/10/22 losartan 50 mg tablet 50 mg PO BID #60 tabs 09/10/22 magnesium oxide 400 mg (241.3 mg 400 mg PO BID #60 tabs 09/10/22 magnesium) tablet potassium chloride 20 mEq 20 meq PO BID #60 tabs 09/10/22 tablet,extended release(part/cryst) spironolactone 25 mg tablet 25 mg PO QAM #30 tabs 09/10/22 tiotropium bromide 2.5 2 inh inhalation DAILY #4 grams 09/10/22 mcg/actuation mist for inhalation (Spiriva Respimat) Results & Data (ED) Vital Signs Vital Signs - 24 hr 11/18/23 10:45 11/18/23 10:50 11/18/23 11:57 Temperature 36.6 C Temperature Source Oral Pulse Rate 80 70 Pulse Rate [Apical] Respiratory Rate 20 Respiratory Effort / Characteristics Non-Labored Spontaneous Non-Labored Spontaneous Respiratory Depth Normal Normal Blood Pressure 194/93 H Blood Pressure [Left Arm] Blood Pressure Mean 126 Blood Pressure Mean [Left Arm] Pulse Oximetry 94 Oxygen Delivery Method Room Air Sepsis Recent Fever Within 48 Hours No Sepsis New/Unexplained Change in Mental Status N/A Sepsis Action Taken by Nursing No Action Required 11/18/23 12:12 11/18/23 13:41 Temperature Temperature Source Pulse Rate Pulse Rate [Apical] 66 66 Respiratory Rate 20 22 Respiratory Effort / Characteristics Non-Labored Spontaneous Respiratory Depth Normal Blood Pressure Blood Pressure [Left Arm] 164/84 H 175/93 H Blood Pressure Mean Blood Pressure Mean [Left Arm] 110 120 Pulse Oximetry 97 94 Oxygen Delivery Method Room Air Room Air Sepsis Recent Fever Within 48 Hours Sepsis New/Unexplained Change in Mental Status Sepsis Action Taken by Nursing Laboratory Data 11/18/23 11:24 11/18/23 11:24 Lab Results 11/18/23 11/18/23 Range/Units 11:24 11:34 WBC 10.94 H (4.8-10.8) K/ul RBC 4.23 (4.20-5.40) M/uL Hgb 13.3 (12.0-16.0) g/dl Hct 40.6 (37.0-47.0) % MCV 96.0 (80.0-100.0) fL MCH 31.4 (25.0-34.0) pg MCHC 32.8 (32.0-36.0) g/dL RDW Std Deviation 49.1 H (36.4-46.3) fL RDW Coeff of Bhumi 14.1 (11.5-14.5) % Plt Count 244 (130-400) K/uL MPV 11.0 (9.4-12.4) fL Immature Gran % (Auto) 0.6 % Neut % (Auto) 63.7 % Lymph % (Auto) 27.2 % Denali % (Auto) 4.0 % Eos % (Auto) 4.2 % Baso % (Auto) 0.3 % Neut # (Auto) 6.96 H (1.40-6.50) K/uL Lymph # (Auto) 2.98 (1.20-3.40) K/uL Denali # (Auto) 0.44 (0.11-0.59) K/uL Eos # (Auto) 0.46 (0.00-0.50) K/uL Baso # (Auto) 0.03 (0.00-0.20) K/uL Immature Gran # (Auto) 0.07 (0.01-0.20) K/uL Sodium 136 (136-145) mmol/L Potassium 4.5 (3.5-5.1) mmol/L Chloride 101 (98-107) mmol/L Carbon Dioxide 25 (21-32) mmol/L Anion Gap 10 (3-11) BUN 22 (6-23) mg/dl Creatinine 0.95 (0.6-1.2) mg/dl Est Cr Clr Drug Dosing 97.4 ml/min Est GFR ( Amer) 78.7 ml/min Est GFR (Non-Af Amer) 67.9 ml/min BUN/Creatinine Ratio 23.2 H (10-20) Glucose 136 H (70-99(Fasting)) mg/dl Calcium 9.4 (8.6-10.3) mg/dl Total Bilirubin 0.5 (0.2-1.0) mg/dl AST 10 L (13-39) U/L ALT 17 (7-52) U/L Alkaline Phosphatase 112 H (34-104) U/L Troponin I High Sens 6.1 (0-14) pg/ml B-Natriuretic Peptide 152 H (0-100) pg/ml Total Protein 7.1 (6.0-8.3) gm/dl Albumin 4.1 (3.4-5.0) gm/dl Globulin 3.0 (2.5-4.0) gm/dl Albumin/Globulin Ratio 1.4 (0.9-2) Administered Medications Discontinued Medications Furosemide (Furosemide 40 Mg/4 Ml Vial) 80 mg IV ONE ONE Stop: 11/18/23 13:22 Last Admin: 11/18/23 13:41 Dose: 80 mg Documented By: HS Imaging Data Radiologist's Impression: Chest X-Ray 11/18/23 10:49 SINGLE VIEW CHEST CLINICAL HISTORY: Dyspnea. Weight gain FINDINGS: An AP, portable, upright chest radiograph is compared to study dated 09/04/2022 and correlated with chest CT dated 09/06/2022. The heart is enlarged. There is pulmonary vascular congestion. Atelectasis is noted at the lung bases. No large pleural effusion or pneumothorax is seen. The skeletal structures are osteopenic. The bony thorax is grossly intact. IMPRESSION: Cardiomegaly with pulmonary vascular congestion. ACT 112: Negative or not required by law. Electronically signed by: Kai Yun M.D. 11/18/2023 12:19 PM Discharge Plan Visit Data Chief Complaint: Chest Pain Stated Complaint: CHF, SOB, EDEMA, CHEST PAIN ED Provider: Beto Paredes Discharge Problem: CHF (congestive heart failure), Pedal edema Forms Stand Alone Forms: My [facility] Prescriptions Prescriptions: No Action atorvastatin 10 mg tablet 10 mg PO DAILY allopurinol 100 mg tablet 100 mg PO DAILY famotidine 20 mg tablet 20 mg PO DAILY metformin 1,000 mg tablet 1,000 mg PO BID albuterol sulfate [ProAir HFA] 90 mcg/actuation HFA aerosol inhaler 90 mcg INHALATION BID PRN (Reason: Shortness Of Breath Or Wheezing) duloxetine 60 mg capsule,delayed release(DR/EC) 60 mg PO DAILY losartan 50 mg Tablet 50 mg PO BID Qty: 60 0RF spironolactone 25 mg Tablet 25 mg PO QAM Qty: 30 0RF carvedilol 3.125 mg Tablet 3.125 mg PO BID Qty: 60 0RF potassium chloride 20 mEq Tablet,Er Particles/Crystals 20 meq PO BID Qty: 60 0RF magnesium oxide 400 mg (241.3 mg magnesium) Tablet 400 mg PO BID Qty: 60 0RF furosemide [Lasix] 20 mg tablet See Taper PO BID Qty: 90 0RF Taper: Taper, Blank 40 mg TWICE A DAY for 3 Days 20 mg TWICE A DAY for 30 Days Spiriva Respimat 2.5 mcg/actuation mist 2 inh inhalation DAILY Qty: 4 0RF Referrals Referrals: Santo Griffith MD [Primary Care Provider] -
[2023-11-18 13:35] LABS: Troponin I High Sensitivity 6.1 pg/ml (0-14)
[2023-11-18] MEDS: FUROSEMIDE 40 MG/4 ML VIAL IV ONE (13:41)
--- NOTE | 2023-11-18 15:30 | History & Physical Report ---
Date of Service November 18, 2023 Assessment & Plan (1) Acute on chronic heart failure with preserved ejection fraction (HFpEF): (2) Volume overload: Plan: Admit to telemetry Patient presenting from home with reports of worsening shortness of breath and weight gain. Patient states that she has slowly started to gain weight and has had significant weight gain over the past 3 to 4 months. She feels as though she has gained about 40 pounds. Patient was treated for acute on chronic HFpEF as an outpatient on 03/2023 with a dose of IV Lasix. Patient was unfortunately lost to follow-up. She was seen in the cardiology office on 10/23/23 and was found to be significantly volume overloaded. ER evaluation and/or outpatient IV Lasix was offered to the patient however she declined both. At that time, her furosemide 80mg was changed to torsemide 40 mg daily. S/p Lasix 80 mg IV in the ED, will continue with Lasix 40 mg IV BID Echo 08/2022-EF 55 to 60%, grade 1 diastolic dysfunction Update echo Cardiology consult (3) COPD (chronic obstructive pulmonary disease): Plan: Appears stable, no signs of acute exacerbation Continue home inhalers (4) HTN (hypertension): Plan: BP elevated on presentation however improved after IV Lasix Continue home doses carvedilol and losartan (5) Non-insulin dependent type 2 diabetes mellitus: Plan: Hgb A1c 6.3 05/2023 Hold home metformin Utilize NovoLog per protocol while hospitalized DVT PROPHYLAXIS SQ Lovenox Patient seen in collaboration with Dr. Moya. I spent a total of 75 minutes coordinating, documenting, and providing care for this patient excluding time spent in the performance of separately billed services. This included personally reviewing all current laboratories and imaging studies, medication reconciliation, outpatient chart review, and discussion with specialists. History of Present Illness Chief Complaint: Shortness of breath Primary Care Provider: Santo Griffith MD 53-year-old female PMH DM type II, nocturnal hypoxia on nocturnal O2, gout, dyslipidemia, COPD, tobacco abuse, chronic HFpEF, HTN, obesity, fibromyalgia, and other problems listed below who presents to the ED for evaluation of shortness of breath and weight gain. History is obtained from the patient and review of outpatient PCP and cardiology records. Patient was admitted to [facility] August 2022 for new onset heart failure. Patient was started on diuretics at that time. States that she had lost about 60 pounds by October. Patient states that she has slowly started to gain weight and has had significant weight gain over the past 3 to 4 months. She feels as though she has gained about 40 pounds. Patient was treated for acute on chronic HFpEF as an outpatient on 03/2023 with a dose of IV Lasix. Patient was unfortunately lost to follow-up. She was seen in the cardiology office on 10/23/23 and was found to be significantly volume overloaded. ER evaluation and/or outpatient IV Lasix was offered to the patient however she declined both. At that time, her furosemide 80mg was norberto nged to torsemide 40 mg daily. Patient states she has not noted much difference since changing to torsemide. She states she continues to have lower extremity edema and abdominal distention and feeling of fullness. She reports shortness of breath with minimal exertion and some episodes of chest heaviness. States she also has been getting significantly elevated blood pressure readings at home as well. Patient denies palpitations. No lightheadedness, dizziness, diaphoresis, syncopal events. Denies any other recent illnesses, fevers, chills. No abdominal pain, nausea, vomiting, diarrhea. Denies urinary symptoms. In the ED, CXR shows pulmonary vascular congestion. Patient is hemodynamically stable. She was given Lasix 80 mg IV. Allergies Allergy/AdvReac Type Severity Reaction Status Date / Time Penicillins Allergy Hives Verified 09/04/22 13:29 Home Medications Medication Instructions Recorded Confirmed Type albuterol sulfate 90 mcg/actuation 90 mcg inhalation BID PRN 09/04/22 11/18/23 History aerosol inhaler (ProAir HFA) Shortness Of Breath Or Wheezing atorvastatin 10 mg tablet 10 mg PO DAILY 09/04/22 11/18/23 History duloxetine 60 mg capsule,delayed 60 mg PO DAILY 09/04/22 11/18/23 History release famotidine 20 mg tablet 20 mg PO BID 09/04/22 11/18/23 History metformin 1,000 mg tablet 1,000 mg PO BID 09/04/22 11/18/23 History losartan 50 mg tablet 50 mg PO BID #60 tabs 09/10/22 11/18/23 Rx magnesium oxide 400 mg (241.3 mg 400 mg PO BID #60 tabs 09/10/22 11/18/23 Rx magnesium) tablet tiotropium bromide 2.5 2 inh inhalation DAILY #4 grams 09/10/22 11/18/23 Rx mcg/actuation mist for inhalation (Spiriva Respimat) allopurinol 300 mg tablet 300 mg PO DAILY 11/18/23 11/18/23 History carvedilol 12.5 mg tablet 12.5 mg PO BID 11/18/23 11/18/23 History diclofenac sodium 50 mg 50 mg PO BID 11/18/23 11/18/23 History tablet,delayed release fluticasone propionate 115 2 inh inhalation BID 11/18/23 11/18/23 History mcg-salmeterol 21 mcg/actuation HFA inhaler (Advair HFA) torsemide 20 mg tablet 40 mg PO DAILY 11/18/23 11/18/23 History Past Med/Surg History Problem List (Updated 11/18/23 @ 20:33 by ZACHERY Browne) Volume overload Acute on chronic heart failure with preserved ejection fraction (HFpEF) Medical History (Updated 11/18/23 @ 20:33 by ZACHERY Browne) COPD (chronic obstructive pulmonary disease) (HFpEF) heart failure with preserved ejection fraction Depression Non-insulin dependent type 2 diabetes mellitus Gout HLD (hyperlipidemia) HTN (hypertension) Tobacco use disorder Obesity Surgical History H/O: History of cholecystectomy H/O: hysterectomy Family History Other Asthma Dyslipidemia Heart disease Hypertension Social History Smoking Status: Current every day smoker Tobacco Type: Cigarettes and E-cigarettes / Vaping packs per day: 1.5; Second Hand Exposure: Yes; Do You Dip or Chew Tobacco: No; Hx Alcohol Use: No Hx Substance Use: No Preferred Language: Latvian Communication Ability: Effective Hearing Ability: Normal Traffic Worker Required: No Beliefs That Will Affect Care: None Current Living Situation: Parent current occupational status: unemployed Feels Safe at Home: Yes Assistive Devices: Denture - Upper and Glasses Review of Systems Review of Systems: ROS per HPI, all other systems reviewed and negative Physical Exam Constitutional: WD/WN, vitals as above + obese; no acute distress Eyes: PERRL, conjunctivae normal, anicteric sclerae ENMT: external ear and nose normal, oropharynx normal Respiratory: normal respiratory effort; no respiratory distress Auscultation: + crackles (faint, BL) and + wheezes (faint, BL, scattered, expiratory) Cardiovascular: Rate/Rhythm: regular rate and regular rhythm Vessels: normal peripheral pulses Extremities: + edema (+2-3 edema extending from BL feet up to abdomen ) Gastrointestinal (Abdomen): normal bowel sounds, soft, nontender, no hepatosplenomegaly Musculoskeletal: no cyanosis or clubbing, extremities motor strength 5/5 Skin: no rashes, warm and dry Neurologic: PERRL, EOMI, accommodation nl, no face palsy, no dysarthria Psychiatric: A+Ox3, euthymic affect Results & Data Results & Data Vital Signs (Past 12 Hours) Vital Signs Temp Pulse Pulse Resp BP BP Pulse Ox 11/18/23 13:41 66 22 175/93 H 94 11/18/23 12:12 66 20 164/84 H 97 11/18/23 11:57 70 11/18/23 10:45 36.6 C 80 20 194/93 H 94 O2 Del Method 11/18/23 13:41 Room Air 11/18/23 12:12 Room Air 11/18/23 11:57 11/18/23 10:45 Room Air Laboratory Results Short CBC 11/18/23 Range/Units 11:24 WBC 10.94 H (4.8-10.8) K/ul Hgb 13.3 (12.0-16.0) g/dl Hct 40.6 (37.0-47.0) % Plt Count 244 (130-400) K/uL BMP 11/18/23 11:24 Sodium 136 Potassium 4.5 Chloride 101 Carbon Dioxide 25 BUN 22 Creatinine 0.95 Glucose 136 H Calcium 9.4 Liver Function 11/18/23 Range/Units 11:24 Total Bilirubin 0.5 (0.2-1.0) mg/dl AST 10 L (13-39) U/L ALT 17 (7-52) U/L Alkaline Phosphatase 112 H (34-104) U/L Albumin 4.1 (3.4-5.0) gm/dl Diagnostic Findings Chest X-Ray 11/18/23 10:49 SINGLE VIEW CHEST CLINICAL HISTORY: Dyspnea. Weight gain FINDINGS: An AP, portable, upright chest radiograph is compared to study dated 09/04/2022 and correlated with chest CT dated 09/06/2022. The heart is enlarged. There is pulmonary vascular congestion. Atelectasis is noted at the lung bases. No large pleural effusion or pneumothorax is seen. The skeletal structures are osteopenic. The bony thorax is grossly intact. IMPRESSION: Cardiomegaly with pulmonary vascular congestion. ACT 112: Negative or not required by law. Electronically signed by: Kai Yun M.D. 11/18/2023 12:19 PM Code Status & VTE Plan VTE Prophylaxis Plan VTE Prophylaxis will be ordered: Yes Supervising Physician Co-Signing Physician Notes Pt was seen and examined by myself, Kalpana Moya MD on the day of service. Care was coordinated with ZACHERY Browne. 53yoF with acute on chronic CHF. AAOx3, no acute distress on exam. obese, with abdominal distension, lower extremity edema. No increased oxygen requirement, breath sounds decreased but clear bilaterally. Recent changes to home diuretics, states was switched from lasix to torsemide. Received IV Lasix 80mg in the ED, continue with IV Lasix 40mg BID. Cardiology consulted, appreciate further recs. Otherwise as above. I spent a total [id number] coordinating, documenting, and providing care for this patient excluding time spent in the performance of separately billed services
[2023-11-18] MEDS ORDERED: GLUCAGON FOR INJ 1 MG VIAL SQ PRN (16:16)
[2023-11-18] MEDS ORDERED: CARBOHYDRATES FOR HYPOGLYCEMIA PO PRN (16:16)
[2023-11-18] MEDS ORDERED: GLUCOSE 40% GEL 15 GM TUBE PO PRN (16:16)
[2023-11-18] MEDS ORDERED: DEXTROSE 50% 50 ML SYRINGE IV PRN (16:16)
[2023-11-18] MEDS ORDERED: GLUCOSE 10 TAB/TUBE PO PRN (16:16)
[2023-11-18] MEDS ORDERED: ACETAMINOPHEN 325 MG TAB PO PRN (16:16)
--- OUTSIDE RECORDS SUMMARY | 2023-11-18 16:52 | External Medical Summary | Summary of Care ---
Author Name Unknown Organization [facility] Address [address] [address] Phone [phone] Care Team Providers Care Media Liaison Officer Name Role Phone Jerome Griffith MD Primary Care Provide r Reason for Visit * Reason Comments eRx-Medication Refill Encounter Details Date Type Department Care Team (Late st Contact Info) Description 10/23/2023 Refill Family Medicine [address] [phone] Jerome Griffith MD [address] [place] [id number] Allergies Active Allergy Reactions Criticality Noted Date Comments Penicillin G Hives Medium 12/08/2014 Milnacipran Hcl Other (Please comment) Medium 12/09/19 15 Heart palpatations documented as of this encounter (statuses as of 10/24/2023) Medications Medication Sig Dispensed Refills Start Date End Date Status Blood Glucose Monitoring Suppl (ONETOUCH VERIO FLEX SYSTEM) w/Device KIT Test blood sugar 3 times daily 1 Kit 11/30/2019 Active OneTouch Delica Lancets 30GIndications:Type 2 diabetes mellitus with hemoglobin A1c goal of less than 7.0% ([facility]) TEST BLOOD SUGAR 3 TIMES DAILY DX E11.9 300 Each 3 11/06/2021 Active Albuterol Sulfate HFA 108 (90 Base) MCG/ACT Inhalation Aerosol SolutionIndications :Wheezing Inhale 2 Puffs by mouth every 4 hours as needed for Shortness of Breath or Wheezing. 18 g 5 06/08/2022 Active Atorvastatin Calcium 10 MG Oral Tablet (Lipitor)Indication s:Dyslipidemia, goal LDL below 130 TAKE 1 TABLET BY MOUTH EVERY DAY 90 Tablet 3 12/27/2022 Active OneTouch Verio In Vitro Strip (Glucose Blood)Indications:T ype 2 diabetes mellitus with hemoglobin A1c goal of less than 7.0% (HCC) USE TO TEST BLOOD SUGAR THREE TIMES A DAY DIRECTED. DX E11.9 100 Strip 11 12/28/2022 Active metFORMIN HCl 1000 MG Oral Tablet (Glucophage)Indicat ions:Type 2 diabetes mellitus with hemoglobin A1c goal of less than 7.0% (HCC) TAKE 1 TABLET BY MOUTH TWICE A DAY WITH BREAKFAST AND DINNER 180 Tablet 3 01/18/2023 Active Losartan Potassium 25 MG Oral Tablet (Cozaar) Take 1 Tablet by mouth in the morning. 34 Tablet 11 03/26/2023 Active Carvedilol 12.5 MG Oral Tablet (Coreg)Indications: Chronic hypoxemic respiratory failure (HCC),Heart failure, diastolic, due to HTN (HCC),HTN, goal below 140/90 Take 1 Tablet by mouth in the morning and 1 Tablet before bedtime. with food. 60 Tablet 11 06/12/2023 Active Spiriva Respimat 2.5 MCG/ACT Inhalation Aerosol Solution (Tiotropium Fisk Monohydrate)Indicat ions:Chronic obstructive pulmonary disease (HCC) INHALE 2 PUFFS BY MOUTH IN THE MORNING. 4 g 11 06/20/2023 Active DULoxetine HCl 60 MG Oral Capsule Delayed Release Particles (Cymbalta)Indicatio ns:DDD (degenerative disc disease), lumbar,Mild episode of recurrent major depressive disorder (HCC),Fibromyalgia TAKE 1 CAPSULE BY MOUTH EVERY DAY 30 Capsule 5 06/26/2023 Active Fluticasone-[place] rol 115-21 MCG/ACT Inhalation Aerosol (Advair Hfa) Inhale 2 Puffs by mouth in the morning and 2 Puffs before bedtime. 12 g 12 07/04/2023 Active Diclofenac Sodium 50 MG Oral Tablet Delayed Release (Voltaren)Indicatio ns:Primary osteoarthritis involving multiple joints TAKE 1 TABLET BY MOUTH TWICE A DAY 60 Tablet 5 09/23/2023 Active Magnesium Oxide -Mg Supplement 400 (240 Mg) MG Oral Tablet (Mag-Ox)Indications :HTN, goal below 140/90,Chronic hypoxemic respiratory failure (HCC),Heart failure, diastolic, due to HTN (HCC) TAKE 1 TABLET BY MOUTH IN THE MORNING AND BEFORE BEDTIME 180 Tablet 1 09/23/2023 Active Famotidine 20 MG Oral Tablet (Pepcid) TAKE 1 TABLET BY MOUTH EVERY DAY IN THE MORNING AND AT BEDTIME 180 Tablet 1 10/15/2023 Active Allopurinol 300 MG Oral Tablet (Zyloprim) TAKE 1 TABLET BY MOUTH EVERY DAY IN THE MORNING 90 Tablet 1 10/24/2023 Active Allopurinol 300 MG Oral Tablet (Zyloprim) TAKE 1 TABLET BY MOUTH EVERY DAY IN THE MORNING 90 Tablet 1 03/21/2023 10/24/19 24 Discontinued Hospital, Clinic, or Other Facility Administered Medication Ordered Dose Route Frequency Start Date End Date Status albuterol sulfate (PROVENTIL) (2.5 MG/3ML) 0.083% inhalation solution 2.5 mgIndications:BEDOYA (dyspnea on exertion) 2.5 mg NEBULIZER Q4H PRN 11/16/2016 Act rosa Albuterol Sulfate (Proventil) (5 MG/ML) 0.5% *conc* inhalation solution 2.5 mgIndications:Chronic hypoxemic respiratory failure (HCC),Morbid obesity due to excess calories (HCC),Body mass index (BMI) of 50.0 to 59.9 in adult (HCC) 2.5 mg NEBULIZER PRN 07/04/2023 07/03/2024 Active Albuterol Sulfate (Proventil) (2.5 MG/3ML) 0.083% inhalation solution 2.5 mgIndications:Chronic hypoxemic respiratory failure (HCC),Morbid obesity due to excess calories (HCC),Body mass index (BMI) of 50.0 to 59.9 in adult (HCC) 2.5 mg NEBULIZER PRN 07/04/2023 07/03/2024 Active documented as of this encounter (statuses as of 10/24/2023) Active Problems Problem Noted Date Diagnosed Date COPD, group B, by GOLD 2017 classification 07/21 Overview: Per COPD GOLD Classification Body mass index (BMI) of 50.0 to 59.9 in adult 0 11/26/2022 Overview: Per Obesity protocol - Per Obesity protocol Heart failure, diastolic, due to HTN 09/14/2022 Chronic hypoxemic respiratory failure 09/14/2022 Ganglion cyst of dorsum of left wrist 05/27/2020 Morbid obesity due to excess calories 05/27/2020 Type 2 diabetes mellitus wit h hemoglobin A1c goal of less than 7.0% 11/24/2019 Mild episode of recurrent major depressive disor devan 09/29/2019 BEDOYA (dyspnea on exertion) 05/10/2016 Premature atrial contraction 05/10/2016 Family history of cardiovascular disease 017 Urge incontinence of urine 08/24/2015 Primary osteoarthritis of both knees 05/13/2015 DDD (degenerative disc disease), lumbar 05/13/19 16 Fibromyalgia 12/08/2014 Hypertension goal BP (blood pressure) < 130/80 0 12/08/2014 Chronic pain 12/08/2014 Lymph edema 12/08/2014 Gout Dyslipidemia, goal LDL below 100 Osteoarthritis Positive CHRISSY (antinuclear antibody) Overview: 1:160 Rheumatoid factor positive documented as of this encounter (statuses as of 10/24/2023) Resolved Problems Problem Noted Date Diagnosed Date Resolved Date COPD, severity to be determined 09/14/2022 09/14/2022 Chronic obstructive pulmonary disease 09/14/2022 07/25/2023 Overview: Per COPD GOLD Classification Body mass index (BMI) of 60. 0 to 69.9 in adult 11/21/2020 11/29/2022 Overview: Per Obesity protocol Morbid obesity with BMI of 70 and over, adult 05/27/19 21 05/27/2020 Age-related incipient cataract of both eyes 09/29/2019 05/27/2020 Left elbow pain 05/10/2016 03/12/2017 Arthritis, rheumatoid 12/08/20142015 documented as of this encounter (statuses as of 10/24/2023) Immunizations Name Administration Dates Next Due COVID-19 mRNA, LNP-s, No Pre serve, 2-Dose Series (Moderna) 09/20/2020,08/23/2020 Hepatitis B, 20+ yrs 06/16/2021,05/27/2020 Pneumococcal Polysaccharide PPV23 (Pneumovax) TDAP (age 10 and older)(Boostrix) 01/31/2015 documented as of this encounter Social History Tobacco Use Types Packs/Day Years Used Date Smoking Tobacco: Every Day Cigarettes 1 30 Smokeless Tobacco: Never Alcohol Use Standard Drinks/Week Comments No 0 (1 standard drink = 0.6 oz pur e alcohol) PHQ-2 Answer Date Recorded PHQ-2 Score 2 05/21/2019 Hunger Vital Sign Answer Date Recorded Within the past 12 months, y ou worried that your food would run out before you got the money to buy more. Never true 05/30/19 24 Within the past 12 months, t he food you bought just didn't last and you didn't have money to get more. Never true 05/30/2023 Childcare Answer Date Recorded Do you feel overwhelmed with taking care of a child, family member or friend? No 05/30/2023 Does your family need help f inding childcare? (Household - for ages 0-17 years) Not on file 05/30/2023 Clothing Answer Date Recorded Have you been unable to get clothing when it was really needed? No 05/30/2023 Is your family able to get c lothes or diapers when needed? (Household - for ages 0-17 years) Not on file 05/30/2023 Personal Safety Answer Date Recorded Do you feel unsafe or have concerns for your saf ety? No 05/30/2023 Do you have concerns for you r family's safety? (Household - for ages 0-17 years) Not on file 05/30/2023 Utilities Answer Date Recorded Do you have trouble paying y our heating, water, or electric bill? No 05/30/2023 Is your family able to pay t he heat, water, or electric bill? (Household - for ages 0-17 years) Not on file 05/30/2023 Does your family have access to good internet? (Household - for ages 0-17 years) Not on file 05/30/2023 Employment Status Answer Date Recorded Are you unemployed or without regular income? No 05/30/2023 Does the household have a re gular source of income? (Household - for ages 0-17 years) Not on file 05/30/2023 Social Connections Answer Date Recorded How often do you feel lonely or isolated from those around you? Sometimes 05/30/2023 Financial Resource Strain Answer Date R ecorded Do you have any trouble payi ng for your medications, or do you think you might in the future? No 05/30/2023 Does your family have troubl e paying for medicine? (Household - for ages 0-17 years) Not on file 05/30/2023 Transportation Needs Answer Date Record ed READ ONLY Do you have troubl e getting a ride to medical visits or work? Often True 05/30/2023 Does your family have a hard time getting a ride to doctors visits? (Household - for ages 0-17 years) Not on file 05/30/2023 Has lack of transportation k ept you from medical appointments, meetings, work, or from getting things needed for daily living? Check all that apply. (Adult - for ages 18 years and over) Not on file 05/30/2023 Do you (or your family) have trouble finding or paying for a ride (transportation)? (Household - for ages 0-17 years) Not on file 05/30/2023 Housing Stability Answer Date Recorded Do you currently live in a s helter or have no steady place to sleep at night? No 05/30/2023 READ ONLY Do you think you a re at risk of becoming homeless? No 05/30/2023 Does your family worry about paying for your home or becoming homeless? (Household - for ages 0-17 years) Not on file 0 05/30/2023 Are you homeless or worried that you might be in the future? (Adult - for ages 18 years and over) Not on file Are you (or your family) miranda eless or worried that you might be in the future? (Household - for ages 0-17 years) Not on file Food Insecurity Answer Date Recorded Do you need food for this week? No 05/30/2023 Are you able to get enough f ood for your family? (Household - for ages 0-17 years) Not on file 05/30/2023 Does your family need food t his week? (Household - for ages 0-17 years) Not on file 05/30/2023 Do you always have enough fo od for your family? (Household - for ages 0-17 years) Not on file 05/30/2023 Sex and Gender Information Value Date Recorded Sex Assigned at Not on file Gender Identity Not on file Sexual Orientation Not on file Job Start Date Occupation Industry Not on file Not on file Not on file documented as of this encounter Miscellaneous Notes * Telephone Encounter - Rosa Booker [facility] - 10/24/2023 1:29 PM EDT Signed Prescriptions: Disp Refills Allopurinol 300 MG Oral Tablet (Zyloprim) 90 Tab*1 Sig: TAKE 1 TABLET BY MOUTH EVERY DAY IN THE MORNINGAuthorizing Provider: JEROME GRIFFITH User: ROSA BOOKER documented in this encounter Plan of Treatment Upcoming Encounters Date Type Department Care Team (Late st Contact Info) Description 11/18/2023 2:30 PM EDT Office Visit Cardiology, [facility] [address] [facility] [place] [address] Marion Carey PA-C [address] [place] [address] [place] [address] Health Maintenance Due Date Last Done Comments DISCUSS TOBACCO CESSATION (REFER TO SMARTSET #[id number]) 1969 Alpha-1 Antitrypsin 1987 Diabetic Foot Exam 1987 Hepatitis C Screening 1987 Cologuard 2014 Colonoscopy 2014 Colorectal Cancer Screening 2014 Fecal Occult Blood Test 2014 Sigmoidoscopy 2014 Mammogram 02/15/2018 02/15/2017, 10/13, 09/29/2015 Lung Cancer Screening 2019 Zoster Vaccines (1 of 2) 2019 Depression Monitoring 05/19/2020 05/19/2019 Diabetic Eye Exam 09/27/2020 09/28/2019 Pneumococcal Vaccine: Pediatrics (0 to 5 Years) and At-Risk Patients (6 to 64 Years) (2 of 2 - PCV) 05/27/2021 05/27/2020 Hepatitis B Vaccine (3 of 3 - 19+ 3-dose series) 08/11/2021 06/16/2021, 05/27/2020 *CXR OR CT FOR COPD EVER 09/16/2022 COVID-19 Vaccine (3 - 2022-24 season) 2022 09/20/2020, 08/23/2020 HbA1c 12/11/2023 06/12/2023, 060 05/2022, 06/16/2021, Additional history exists Influenza Vaccine (FLU shot) (#1) 2023 Albumin/Creatinine Ratio 03/21/2024 023, 11/23/2019, 07/01/2018 GFR 10/22/2024 10/23/2023, 05/17, 03/21/2023, Additional history exists O2 ASSESSMENT COMPLETED IN PAST YEAR FOR COPD 10/22/2024 10/23/2023 DTaP,Tdap,and Td Vaccines (2 - Td or Tdap) 01/31/2025 01/31/2015 Lipid Panel 06/12/2028 06/12/2023, 06/0 05/2022, 06/16/2021, Additional history exists Pap Smear Discontinued 03/12/2017 (Not indicated) HPV (Gardasil) Vaccine Aged Out No lo nger eligible based on patient's age to complete this topic MENINGOCOCCAL (MENACTRA/MENVEO) Aged Out No longer eligible based on patient's age to complete this topic documented as of this encounter Medical Devices Not on filedocumented as of this encounter Care Teams Media Liaison Officer Relationship Specialty Start Date End Date Jerome Griffith MD [address] [place] [address] [place] [id number] PCP - General Family Medicine 02/15/17 documented as of this encounter
--- OUTSIDE RECORDS SUMMARY | 2023-11-18 16:52 | External Medical Summary | Summary of Care ---
Author Name Unknown Organization [facility] Address [address] [facility] [place] [address] Phone [phone] Care Team Providers Care Special Certificate Dictator Name Role Phone Santo Griffith MD Primary Care Provide r Reason for Visit * Reason Comments Follow Up Follow up Acute Retaining fluid, pt reports 30 lbs weight gain since 3-4 months, Encounter Details Date Type Department Care Team (Late st Contact Info) Description 10/23/2023 10:30 AM EDT Office Visit Cardiology, [facility] [address] [place] [address] Pebbles Sargent PA-C [address] [place] [id number] Acute on chronic diastolic heart failure (HCC)*; Heart failure, diastolic, due to HTN (HCC); Chronic hypoxemic respiratory failure (HCC); Chronic right-sided heart failure (HCC); Hypertension goal BP (blood pressure) < 130/80; Morbid obesity due to excess calories (HCC); Acute right heart failure (HCC) Allergies Active Allergy Reactions Criticality Noted Date Comments Penicillin G Hives Medium 12/08/2014 Milnacipran Hcl Other (Please comment) Medium 12/09/19 15 Heart palpatations documented as of this encounter (statuses as of 10/23/2023) Medications Medication Sig Dispensed Refills Start Date End Date Status Blood Glucose Monitoring Suppl (ONETOUCH VERIO FLEX SYSTEM) w/Device KIT Test blood sugar 3 times daily 1 Kit 11/30/2019 Active Noveporter Delica Lancets 30GIndications:Type 2 diabetes mellitus with hemoglobin A1c goal of less than 7.0% (HCC) TEST BLOOD SUGAR 3 TIMES DAILY DX E11.9 300 Each 3 11/06/2021 Active Albuterol Sulfate HFA 108 (90 Base) MCG/ACT Inhalation Aerosol SolutionIndications:W heezing Inhale 2 Puffs by mouth every 4 hours as needed for Shortness of Breath or Wheezing. 18 g 5 06/08/2022 Active Atorvastatin Calcium 10 MG Oral Tablet (Lipitor)Indications: Dyslipidemia, goal LDL below 130 TAKE 1 TABLET BY MOUTH EVERY DAY 90 Tablet 3 12/27/2022 Active [employer] In Vitro Strip (Glucose Blood)Indications:Typ e 2 diabetes mellitus with hemoglobin A1c goal of less than 7.0% (HCC) USE TO TEST BLOOD SUGAR THREE TIMES A DAY DIRECTED. DX E11.9 100 Strip 11 12/28/2022 Active metFORMIN HCl 1000 MG Oral Tablet (Glucophage)Indicatio ns:Type 2 diabetes mellitus with hemoglobin A1c goal of less than 7.0% (HCC) TAKE 1 TABLET BY MOUTH TWICE A DAY WITH BREAKFAST AND DINNER 180 Tablet 3 01/18/2023 Active Allopurinol 300 MG Oral Tablet (Zyloprim) TAKE 1 TABLET BY MOUTH EVERY DAY IN THE MORNING 90 Tablet 1 03/21/2023 Active Losartan Potassium 25 MG Oral Tablet (Cozaar) Take 1 Tablet by mouth in the morning. 34 Tablet 11 03/26/2023 Active Furosemide 80 MG Oral Tablet (Lasix) Take 1 Tablet by mouth in the morning. 90 Tablet 3 05/10/2023 Active Carvedilol 12.5 MG Oral Tablet (Coreg)Indications:Ch ronic hypoxemic respiratory failure (HCC),Heart failure, diastolic, due to HTN (HCC),HTN, goal below 140/90 Take 1 Tablet by mouth in the morning and 1 Tablet before bedtime. with food. 60 Tablet 11 06/12/2023 Active Spiriva Respimat 2.5 MCG/ACT Inhalation Aerosol Solution (Tiotropium Montfort Monohydrate)Indicatio ns:Chronic obstructive pulmonary disease (HCC) INHALE 2 PUFFS BY MOUTH IN THE MORNING. 4 g 11 06/20/2023 Active DULoxetine HCl 60 MG Oral Capsule Delayed Release Particles (Cymbalta)Indications :DDD (degenerative disc disease), lumbar,Mild episode of recurrent major depressive disorder (HCC),Fibromyalgia TAKE 1 CAPSULE BY MOUTH EVERY DAY 30 Capsule 5 06/26/2023 Active Fluticasone-Salmetero l 115-21 MCG/ACT Inhalation Aerosol (Advair Hfa) Inhale 2 Puffs by mouth in the morning and 2 Puffs before bedtime. 12 g 12 07/04/2023 Active Diclofenac Sodium 50 MG Oral Tablet Delayed Release (Voltaren)Indications :Primary osteoarthritis involving multiple joints TAKE 1 TABLET BY MOUTH TWICE A DAY 60 Tablet 5 09/23/2023 Active Magnesium Oxide -Mg Supplement 400 (240 Mg) MG Oral Tablet (Mag-Ox)Indications:H TN, goal below 140/90,Chronic hypoxemic respiratory failure (HCC),Heart failure, diastolic, due to HTN (HCC) TAKE 1 TABLET BY MOUTH IN THE MORNING AND BEFORE BEDTIME 180 Tablet 1 09/23/2023 Active Famotidine 20 MG Oral Tablet (Pepcid) TAKE 1 TABLET BY MOUTH EVERY DAY IN THE MORNING AND AT BEDTIME 180 Tablet 1 10/15/2023 Active Hospital, Clinic, or Other Facility Administered Medication [...] as of this encounter (statuses as of 10/23/2023) Active Problems Problem Noted Date Diagnosed Date [...] as of this encounter (statuses as of 10/23/2023) Resolved Problems Problem Noted Date Diagnosed Date [...] as of this encounter (statuses as of 10/23/2023) Immunizations Name Administration Dates Next Due COVID-19 [...] on file documented as of this encounter Last Filed Vital Signs Vital Sign Reading Time Taken Comments Blood Pressure 180/96 10/23/2023 10:10 AM EDT Pulse 84 10/23/2023 10:10 AM EDT Temperature - - Respiratory Rate 20 10/23/2023 10:10 AM EDT Oxygen Saturation 94% 10/23/2023 10:10 AM EDT RA Inhaled Oxygen Concentration - - Weight 149.7 kg (330 lb) 10/23/2023 10:10 AM EDT Height - - Body Mass Index 61.67 08/20/2023 10:46 AM EDT documented in this encounter Progress Notes * Pebbles Sargent PA-C - 10/23/2023 10:14 AM EDT Images from the original note were not included. 10/23/2023 Cardiology Acute Visit: HPI: Patient is a 53-year-old female here today for an acute cardiology visit requested by the patient. Last clinic evaluation approximately 6 months ago with Ms. Jo BINGHAM. Primary loftsman is Dr. Rodriguez. History includes: Chronic diastolic CHF and Right heart failure Obesity hypoventilation syndrome with chronic hypoxic respiratory failure Type 2 diabetes Hypertension Dyslipidemia Tobacco use, less than 1 pack per day Patient sent Queryly message several weeks ago with concerns regarding worsening SOB, abdominal bloating and possible weight gain. She is unable to weigh herself at home. She believes she is up 20-30 lbssince hospitalization last year. She is up at least 10 lbs since office visit in Mar 2023. At her last visit patient was treated with IV furosemide 80 mg daily And oral furosemide was increased to 80 mg daily. She reports this aided her symptoms but she barely made it home after getting the IV diuretics. She was to follow-up in 1 week but canceled this appointment and has not been seen since. Patient presents today feeling poorly. She notes shortness of breath with minimal activity. Oxygen saturation 94-95% on room air. She wears her supplemental O2 at night. She feels her abdomen is full of fluid. She does not wish to be hospitalized. She declines IV Lasix due to long trip home. BP also elevated on arrival today. No headache or vision changes. Mildly improved on my repeat. She had an episode of chest pain last night, described as a dull ache, lasting 15 minutes. No radiation or associated symptoms. No current CP in the office. No EKG changes today She does not believe furosemide is "working". No significant urination after taking 80 mg daily Review of Systems: See HPI for pertinent positives. All others negative, other than those noted in HPI. Patient Active Problem List Diagnosis Fibromyalgia HTN, goal below 140/90 Chronic pain Lymph edema Gout Dyslipidemia, goal LDL below 100 Osteoarthritis Positive CHRISSY (antinuclear antibody) Rheumatoid factor positive Primary osteoarthritis of both knees DDD (degenerative disc disease), lumbar Urge incontinence of urine BEDOYA (dyspnea on exertion) Premature atrial contraction Family history of cardiovascular disease Mild episode of recurrent major depressive disorder ([facility]) Type 2 diabetes mellitus with hemoglobin A1c goal of less than 7.0% ([facility]) Ganglion cyst of dorsum of left wrist Morbid obesity due to excess calories ([facility]) Heart failure, diastolic, due to HTN ([facility]) Chronic hypoxemic respiratory failure ([facility]) Body mass index (BMI) of 50.0 to 59.9 in adult ([facility]) COPD, group B, by GOLD 2017 classification ([facility]) Social History Tobacco Use Smoking status: Every Day Current packs/day: 1.00 Average packs/day: 1 pack/day for 30.0 years (30.0 ttl pk-yrs) Types: Cigarettes Smokeless tobacco: Never Vaping Use Vaping status: Former Substance Use Topics Alcohol use: No Drug use: No Family History Problem Relation Name Age of Onset Arthritis Mother ostoearthritis Diabetes Mother Diabetes Father Hypertension Father Heart Disorder Father Past Surgical History: Procedure Laterality Date DELIVERY 1989 DELIVERY 1990 HYSTERCTOMY,SUPRACERVICAL, UTERUS <251G 2000 MISCELLANEOUS ORDER ([facility] ONLY) 1995 milk duct removed REMOVE GALLBLADDER 1991 Review of patient's allergies indicates: Allergen Reactions Penicillin G Hives Savella [Milnacipran Hcl] Other (Please comment) Heart palpatations Current Outpatient Medications Medication Sig Dispense Refill Albuterol Sulfate HFA 108 (90 Base) MCG/ACT Inhalation Aerosol Solution Inhale 2 Puffs by mouth every 4 hours as needed for Shortness of Breath or Wheezing. 18 g 5 Atorvastatin Calcium 10 MG Oral Tablet (Lipitor) TAKE 1 TABLET BY MOUTH EVERY DAY 90 Tablet 3 metFORMIN HCl 1000 MG Oral Tablet (Glucophage) TAKE 1 TABLET BY MOUTH TWICE A DAY WITH BREAKFAST AND DINNER 180 Tablet 3 Allopurinol 300 MG Oral Tablet (Zyloprim) TAKE 1 TABLET BY MOUTH EVERY DAY IN THE MORNING 90 Tablet1 Losartan Potassium 25 MG Oral Tablet (Cozaar) Take 1 Tablet by mouth in the morning. 34 Tablet 11 Furosemide 80 MG Oral Tablet (Lasix) Take 1 Tablet by mouth in the morning. 90 Tablet 3 Carvedilol 12.5 MG Oral Tablet (Coreg) Take 1 Tablet by mouth in the morning and 1 Tablet before bedtime. with food. 60 Tablet 11 Spiriva Respimat 2.5 MCG/ACT Inhalation Aerosol Solution (Tiotropium Montfort Monohydrate) INHALE 2 PUFFS BY MOUTH IN THE MORNING. 4 g 11 DULoxetine HCl 60 MG Oral Capsule Delayed Release Particles (Cymbalta) TAKE 1 CAPSULE BY MOUTH EVERY DAY 30 Capsule 5 Fluticasone-Salmeterol 115-21 MCG/ACT Inhalation Aerosol (Advair Hfa) Inhale 2 Puffs by mouth in the morning and 2 Puffs before bedtime. 12 g 12 Diclofenac Sodium 50 MG Oral Tablet Delayed Release (Voltaren) TAKE 1 TABLET BY MOUTH TWICE A DAY 60 Tablet 5 Magnesium Oxide -Mg Supplement 400 (240 Mg) MG Oral Tablet (Mag-Ox) TAKE 1 TABLET BY MOUTH IN THE MORNING AND BEFORE BEDTIME 180 Tablet 1 Famotidine 20 MG Oral Tablet (Pepcid) TAKE 1 TABLET BY MOUTH EVERY DAY IN THE MORNING AND AT BEDTIME 180 Tablet 1 Blood Glucose Monitoring Suppl ([employer] FLEX SYSTEM) w/Device KIT Test blood sugar 3 times daily 1 Kit 0 [facility] Lancets 30G TEST BLOOD SUGAR 3 TIMES DAILY DX E11.9 300 Each 3 [employer] In Vitro Strip (Glucose Blood) USE TO TEST BLOOD SUGAR THREE TIMES A DAY DIRECTED. DX E11.9 100 Strip 11 Current Facility-Administered Medications Medication Dose Route Frequency Provider Last Rate Last Admin albuterol sulfate (PROVENTIL) (2.5 MG/3ML) 0.083% inhalation solution 2.5 mg 2.5 mg Nebulizer Q4H PRN Santo Griffith MD 2.5 mg at 11/16/16 1032 Albuterol Sulfate (Proventil) (5 MG/ML) 0.5% *conc* inhalation solution 2.5 mg 2.5 mg Nebulizer Tacho Jonas MD Albuterol Sulfate (Proventil) (2.5 MG/3ML) 0.083% inhalation solution 2.5 mg 2.5 mg Nebulizer PRN Tacho Hector MD 2.5 mg at 08/20/23 1022 Past Medical History: Diagnosis Date Dyslipidemia, goal LDL below 130 Fibromyalgia 12/08/2014 Gout HTN, goal below 140/90 12/08/2014 Morbid obesity with BMI of 70 and over, adult (HCC) Osteoarthritis Positive CHRISSY (antinuclear antibody) 1:160 Rheumatoid factor positive Past Surgical History: Procedure Laterality Date DELIVERY 1989 DELIVERY 1990 HYSTERCTOMY,SUPRACERVICAL, UTERUS <251G 2000 MISCELLANEOUS ORDER ([facility] ONLY) 1995 milk duct removed REMOVE GALLBLADDER 1991 Social History Tobacco Use Smoking status: Every Day Current packs/day: 1.00 Average packs/day: 1 pack/day for 30.0 years (30.0 ttl pk-yrs) Types: Cigarettes Smokeless tobacco: Never Vaping Use Vaping status: Former Substance Use Topics Alcohol use: No Drug use: No Review of patient's allergies indicates: Allergen Reactions Penicillin G Hives Savella [Milnacipran Hcl] Other (Please comment) Heart palpatations Physical Exam BP 180/96 | Pulse 84 | Resp 20 | Wt (!) 149.7 kg (330 lb) | BMI 61.67 kg/m | BSA 2.55 m Blood pressure my repeat 168/90 Wt Readings from Last 3 Encounters: 10/23/23 (!) 149.7 kg (330 lb) 08/20/23 (!) 148.3 kg (326 lb 15.1 oz) 03/21/24 (!) 147.9 kg (326 lb) General: NAD; mild conversational dyspnea; morbidly obese HEENT: Normocephalic. Atraumatic. Conjunctiva and sclera clear. NECK: No carotid bruits. No JVD. Carotid upstrokes are brisk. Heart: RRR. Distant heart sounds. S1 and S2 noted without murmur, rubs, gallops. Lungs: Diminished lung sounds. Fine rales in bilateral bases. Abdomen: Normal bowel sounds. Nontender. Obese. Distended. Extremities: +1 bilateral lower extremity pitting edema with chronic venous stasis. No clubbing or cyanosis. Pulses: radial=2/4, posterior tibial=2/4, dorsalis pedis = 2/4. NEURO: No focal deficits. PSYCH: Normal. Cardiac studies/labs: EKG performed today and reviewed personally: Normal sinus rhythm at 80 beats per minute Possible old anterior infarct, previously reported Compared with prior EKG in April 03, 2023, T-wave inversion no longer evident in lateral leads. Echo at [facility] 08/2022 No recent labs on file Impression/Plan: 1. Chronic diastolic CHF (congestive heart failure) (HCC) 2. Chronic right-sided heart failure (HCC) 3. Obesity hypoventilation syndrome (HCC) -Chronic diastolic CHF and Right heart failure -Obesity hypoventilation syndrome with chronic hypoxic respiratory failure -patient hypervolemic on exam, proximally up 20-30 lbs since fall 2022. Given significant hypertension, volume overload, and intermittent chest pain and shortness of breath we discuss ER and admission. Patient wishes to proceed with out treatment. Further options in regards to IV lasix in the office vs outpatient titration of diuretic therapy. Patient declines IV lasix due to travel distance home and previously had trouble making it after receiving IV lasix. Labs today - once reviewed, will likely stop furosemide and try torsemide. 4. HTN, goal below 140/90 Hypertensive today in office and at home. Patient currently asymptomatic but has been having intermittent chest pain. -no acute EKG changes -hopefully BP will trend downward with diuresis. -ER for worsening symptoms 5. Dyslipidemia, goal LDL below 100 LDL controlled 1. Continue atorvastatin 10 mg daily Await labs Will call patient with additional changes and adjustment in diuretic therapy. Low sodium diet encouraged. Compliance with meds encouraged. ER for worsening symptoms advised. Patient is being evaluated in the cardiology office for ongoing care/risk management for CHF; HTN. I spent a total of 45 minutes on the date of service in preparation, delivery, and documentation ofthe care provided to Tyesha Slater excluding any time spent in the performance of separately billedservices. The patient agrees to the above plan and will call with additional questions or concerns. ER with all emergencies advised. Check-out note: Blood work today 2-4 week f/u - Any AP or Dr. Jennifer Sargent PA-C Department of Cardiology This chart was completed in part utilizing [employer] Voice Recognition Software. Grammatical errors, random word insertions, prounoun errors, and incomplete sentences are an occasional consequence of this system due to software limitations, ambient noise, and hardware issues. Any formal questions or concerns about the content, text, or information contained within the body of this dictation should be directly addressed to the provider for clarification. documented in this encounter Nursing Notes * Cinthia Arndt MED ASSIST - 10/23/2023 10:04 AM EDT Chief Complaint Patient presents with Follow Up Follow up Acute Retaining fluid, pt reports 30 lbs weight gain since 3-4 months, Examination Room: 6 Name: Tyesha Slater Date of : (1970). Reason for Visit: Acute - retaining fluid, reports lasix not working as well as a year ago Interim Hospitalization(s): denies Problems/Concerns: retaining fluid since 3-4 months, reports 30-33lb weight gain pt attributes to fluid retention. Taking 80mg lasix 1x daily. Chest Pain/SOB: SOB on exertion. Reports chest pain at rest last night, lasted 15 minutes, rated 3 on scale of 1-10. States it was more "annoying than painful". Pt does not have nitro rx. [facility] Discussed: No [facility] is a way you can talk to your provider online through e-mail. Would you like to sign up? I can activate it for you? ALREADY ACTIVE Patient was instructed to not get up on the exam table until directed and assisted by their provider; patient is to remain seated in the chair/ wheelchair/ exam table for fall prevention and safety reasons. Patient is aware to have assistance to step down off exam table with personnel. Patient voiced full comprehension of instructions. documented in this encounter Plan of Treatment Upcoming Encounters Date Type Department Care Team (Late st Contact Info) Description 11/18/2023 2:30 PM EDT Office Visit Cardiology, [facility] [address] [place] [address] Marion Carey PA-C [address] [place] [address] Pending Results Name Type Priority Associated Diagnoses Date /Time BNP, NT-PRO Lab Routine Heart failure, diastolic, due to HTN (HCC) Chronic hypoxemic respiratory failure (HCC) Chronic right-sided heart failure (HCC) Acute on chronic diastolic heart failure (HCC) 10/23/2023 10:48 AM EDT Scheduled Orders Name Type Priority Associated Diagnoses Orde r Schedule EKG EKG Routine Heart failure, diastolic, due to HTN (HCC) Ordered: 10/23/2023 BNP, NT-PRO Lab Routine Heart failure, diastolic, due to HTN (HCC) Chronic hypoxemic respiratory failure (HCC) Chronic right-sided heart failure (HCC) Acute on chronic diastolic heart failure (HCC) Expected: 10/23/2023, Expires: 10/22/2024 Health Maintenance Due Date Last Done Comments DISCUSS TOBACCO CESSATION (REFER TO SMARTSET #3991) 1970 Alpha-1 Antitrypsin 1987 Diabetic Foot Exam [...] season) 2022 09/20/2020, 08/23/2020 HbA1c 12/11/2023 06/12/2023, 06/0 05/2022, 06/16/2021, Additional history exists Influenza Vaccine [...] Not on filedocumented as of this encounter Results * (ABNORMAL) COMPREHENSIVE METABOLIC PANEL (10/23/2023 10:48 AM EDT) BUN 37(H) 6 - 20 mg/dL 10/23/2023 12:23 PM EDT [facility] [place] [facility] [facility] Creatinine 1.3(H) 0.5 - 1.0 mg/dL 10/23/2023 12:23 PM EDT [facility] [place] [facility] Estimated Glomerular Filtration Rate 48(L) >=60 mL/min 10/23/2023 12:23 PM EDT [facility] Comment:eGFR is calculated b ased on the CKD-EPI 2020 equation Sodium 140 135 - 146 mmol/L 10/23/2023 12:23 PM EDT [facility] Potassium 4.6 3.5 - 5.1 mmol/L 10/23/2023 12:23 PM EDT [facility] Chloride 100 98 - 107 mmol/L 10/23/2023 12:23 PM EDT [facility] CO2 22 22 - 32 mmol/L 10/23/2023 12:23 PM EDT [facility] [place] [facility] [facility] Anion Gap 18(H) 7 - 15 mmol/L 10/23/2023 12:23 PM EDT [facility] Glucose 184(H) 70 - 120 mg/dL 10/23/2023 12:23 PM EDT [facility] Albumin 4.0 3.8 - 5.0 g/dL 10/23/2023 12:23 PM EDT [facility] AST 16 10 - 35 U/L 10/23/2023 12:23 PM EDT [facility] Alkaline Phosphatase 141(H) 35 - 130 U/L 10/23/2023 12:23 PM EDT [facility] Bilirubin, Total 0.3 <=1.2 mg/dL 10/23/2023 12:23 PM EDT [facility] Calcium 9.8 8.4 - 10.2 mg/dL 10/23/2023 12:23 PM EDT [facility] Protein 6.9 6.0 - 8.3 g/dL 10/23/2023 12:23 PM EDT [facility] ALT 22 10 - 35 U/L 10/23/2023 12:23 PM EDT [facility] Blood Venous blood specimen / Unknown Venipuncture / Unknown 10/23/2023 10:48 AM EDT 10/23/2023 10:48 AM EDT Pebbles Sargent PA-C LAB BLOOD [facility] Performing Organization Address City/State/[facility] Co de Phone Number [facility] [place] [facility] [address] [place] [phone] * (ABNORMAL) CBC (10/23/2023 10:48 AM EDT) WBC 14.38(H) 4.00 - 10.80 K/uL 10/23/2023 11:21 AM EDT [facility] [place] [facility] [facility] RBC 4.21 3.85 - 5.15 M/uL 10/23/2023 11:21 AM EDT [facility] [place] [facility] HGB 13.6 12.0 - 15.3 g/dL 10/23/2023 11:21 AM EDT [facility] [place] [facility] [facility] HCT 41.2 36.0 - 45.2 % 10/23/2023 11:21 AM EDT [facility] MCV 97.9 81.5 - 97.5 fL 10/23/2023 11:21 AM EDT [facility] [place] [facility] MCH 32.3 27.0 - 34.0 pg 10/23/2023 11:21 AM EDT [facility] [place] [facility] [facility] MCHC 33.0 32.0 - 36.0 g/dL 10/23/2023 11:21 AM EDT [facility] [place] [facility] RDW 14.1 11.5 - 15.5 % 10/23/2023 11:21 AM EDT [facility] [place] [facility] PLT 245 140 - 400 K/uL 10/23/2023 11:21 AM EDT [facility] [place] [facility] MPV 11.6 6.6 - 11.1 fL 10/23/2023 11:21 AM EDT [facility] [place] [facility] Blood Venous blood specimen / Unknown Venipuncture / Unknown 10/23/2023 10:48 AM EDT 10/23/2023 10:48 AM EDT Pebbles Sargent PA-C LAB BLO[facility] [address] [place] [id number] documented in this encounter Visit Diagnoses Diagnosis Acute on chronic diastolic heart failure (HCC)- Primary Acute on chronic diastolic heart failure Heart failure, diastolic, due to HTN (HCC) Unspecified hypertensive heart disease with heart failure Chronic hypoxemic respiratory failure (HCC) Chronic respiratory failure Chronic right-sided heart failure (HCC) Congestive heart failure, unspecified Hypertension goal BP (blood pressure) < 130/80 Unspecified essential hypertension Morbid obesity due to excess calories (HCC) Acute right heart failure (HCC) Congestive heart failure, unspecified documented in this encounter Care Teams Special Certificate Dictator Relationship Specialty Start Date End Date Santo Griffith MD [address] [place] [address] [place] [id number] PCP - General Family Medicine 02/15/17 documented as of this encounter
--- OUTSIDE RECORDS SUMMARY | 2023-11-18 16:52 | External Medical Summary | Summary of Care ---
Author Name Unknown Organization [facility] Address [address] [facility] [place] [address] Phone [phone] Care Team Providers Care Well Logger Name Role Phone Santo Griffith MD Primary Care Provide r Encounter Details Date Type Department Care Team (Late st Contact Info) Description 10/25/2023 Orders Only PATIENT PORTAL DO NOT DELETE THIS DEPT USED BY [place] [id number] Allergies Active Allergy Reactions Criticality Noted Date Comments Penicillin G Hives Medium 12/08/2014 Milnacipran Hcl Other (Please comment) Medium 12/09/19 15 Heart palpatations documented as of this encounter (statuses as of 10/25/2023) Medications Medication Sig Dispensed Refills Start Date End Date Status Blood Glucose Monitoring Suppl ([employer] VERIO FLEX SYSTEM) w/Device KIT Test blood sugar 3 times daily 1 Kit 11/30/2019 Active OneTouch Delica Lancets 30GIndications:Type 2 diabetes mellitus with hemoglobin A1c goal of less than 7.0% ([facility]) TEST BLOOD SUGAR 3 TIMES [...] Active OneTouch Verio In Vitro Strip (Glucose Blood)Indications:Typ e 2 [...] 03/26/2023 Active Carvedilol 12.5 MG Oral Tablet (Coreg)Indications:Ch ronic hypoxemic respiratory failure (HCC),Heart failure, diastolic, due to HTN (HCC),HTN, goal below 140/90 Take 1 Tablet by mouth in the morning and 1 Tablet before bedtime. with food. 60 Tablet 11 06/12/2023 Active Spiriva Respimat 2.5 MCG/ACT Inhalation Aerosol Solution (Tiotropium [place] Monohydrate)Indicatio ns:Chronic obstructive pulmonary disease (HCC) INHALE [...] THE MORNING 90 Tablet 1 10/24/2023 Active Torsemide 20 MG Oral Tablet (Demadex)Indications: Encounter for monitoring diuretic therapy,Heart failure, diastolic, due to HTN (HCC),Chronic hypoxemic respiratory failure (HCC),Chronic right-sided heart failure (HCC),Acute on chronic diastolic heart failure (HCC) Take 2 Tablets by mouth in the morning. 60 Tablet 11 10/23/2023 Active Hospital, Clinic, or Other Facility Administered [...] as of this encounter (statuses as of 10/25/2023) Active Problems Problem Noted Date Diagnosed Date [...] as of this encounter (statuses as of 10/25/2023) Resolved Problems Problem Noted Date Diagnosed Date [...] as of this encounter (statuses as of 10/25/2023) Immunizations Name Administration Dates Next Due COVID-19 [...] on file documented as of this encounter Plan of Treatment Upcoming Encounters Date Type Department Care Team (Late st Contact Info) Description 11/18/2023 2:30 PM EDT Office Visit Cardiology, [facility] [address] [facility] [place] [address] Marion Carey PA-C [address] [place] [address] Health Maintenance Due Date Last Done Comments DISCUSS TOBACCO CESSATION (REFER TO SMARTSET #[id number]) 1969 Alpha-1 Antitrypsin 1987 Diabetic Foot Exam [...] COPD EVER 09/16/2022 COVID-19 Vaccine (3 - 2022- season) 2022 09/20/2020, 08/23/2020 HbA1c 12/11/2023 06/12/2023, [...] filedocumented as of this encounter Care Teams Well Logger Relationship Specialty Start Date End Date Santo Griffith MD [address] [place] [address] [place] [id number] PCP - General Family Medicine 02/15/17 documented as of this encounter
--- OUTSIDE RECORDS SUMMARY | 2023-11-18 16:52 | External Medical Summary ---
Author Name Unknown Address Unknown Organization [id number]:LAB[facility]ORY [facility] - [address] [place] [address] Laboratory Report Ordering Provider Test Date Status LUIS FERNANDO BORGES 10/23/2023 10:48:32 Final Exclude Heart Failure: <300 pg/mL
Diagnose Heart Failure:
Age <50 yr: >450 pg/mL
50-75 yr: >900 pg/mL
>75 yr: >1800 pg/mL
GFR is 30-59 mL/min: >1200 pg/mL or Age- adjusted values
GFR <30 mL/min: do not use, not reliable

Prognostic threshold: 1000 pg/mL Observation Date Value Abnormality Reference (Units ) Status BNP, Pro-hormone 10/23/2023 10:48:32 212 <30 0 (pg/mL) Final Performing Location [facility] - [address] [place] [address]
--- OUTSIDE RECORDS SUMMARY | 2023-11-18 16:52 | External Medical Summary ---
Author Name Unknown Address Unknown Organization [id number][facility] [address] [place] [address] Laboratory Report Ordering Provider Test Date Status LUIS FERNANDO BORGES 10/23/2023 10:48:32 Final Observation Date Value Abnormality Reference (Units ) Status WBC, Total 10/23/2023 10:48:32 14.38 Above high normal 4 .00-10.80 (K/uL) Final RBC 10/23/2023 10:48:32 4.21 3.85-5.15 (M/uL) Final Hemoglobin 10/23/2023 10:48:32 13.6 12.0-15.3 (g/dL) Final HCT 10/23/2023 10:48:32 41.2 36.0-45.2 (%) Final MCV 10/23/2023 10:48:32 97.9 81.5-97.5 (fL) Final MCH 10/23/2023 10:48:32 32.3 27.0-34.0 (pg) Final MCHC 10/23/2023 10:48:32 33.0 32.0-36.0 (g/dL) Final RDW 10/23/2023 10:48:32 14.1 11.5-15.5 (%) Final Platelets 10/23/2023 10:48:32 245 140-400 (K /uL) Final MPV 10/23/2023 10:48:32 11.6 6.6-11.1 ( fL) Final Performing Location [facility]ORY [facility] - [address] [place] [address]
--- OUTSIDE RECORDS SUMMARY | 2023-11-18 16:52 | External Medical Summary | Summary of Care ---
Author Name Unknown Organization [facility] Address [address] [facility] [place] [address] Phone [phone] Care Team Providers Care Disulfurizer Tender Name Role Phone Santo Griffith MD Primary Care Provide r Reason for Visit * Reason Onset Date Comments Test Results 10/23/2023 Encounter Details Date Type Department Care Team (Late st Contact Info) Description 10/23/2023 Telephone Card[facility] [address] [place] [address] Pebbles Sargent PA-C [address] [facility] [place] [address] Test Results Allergies Active Allergy Reactions Criticality Noted Date Comments Penicillin G Hives Medium 12/08/2014 Milnacipran Hcl Other (Please comment) Medium 12/09/19 15 Heart palpatations documented as of this encounter (statuses as of 10/30/2023) Medications Medication Sig Dispensed Refills Start Date End Date Status Blood Glucose Monitoring Suppl ([employer] VERIO FLEX SYSTEM) w/Device KIT Test blood sugar 3 times daily 1 Kit 0 Active OneTouch Delica Lancets 30GIndications:Typ e 2 diabetes mellitus with hemoglobin A1c goal of less than 7.0% ([facility]) TEST BLOOD SUGAR 3 TIMES DAILY DX E11.9 300 Each 3 2 Active Albuterol Sulfate HFA 108 (90 Base) MCG/ACT Inhalation Aerosol SolutionIndication s:Wheezing Inhale 2 Puffs by mouth every 4 hours as needed for Shortness of Breath or Wheezing. 18 g 5 3 Active Atorvastatin Calcium 10 MG Oral Tablet (Lipitor)Indicatio ns:Dyslipidemia, goal LDL below 130 TAKE 1 TABLET BY MOUTH EVERY DAY 90 Tablet 3 3 Active OneTouch Verio In Vitro Strip (Glucose Blood)Indications: Type 2 diabetes mellitus with hemoglobin A1c goal of less than 7.0% ([facility]) USE TO TEST BLOOD SUGAR THREE TIMES A DAY DIRECTED. DX E11.9 100 Strip 11 3 Active metFORMIN HCl 1000 MG Oral Tablet (Glucophage)Indica tions:Type 2 diabetes mellitus with hemoglobin A1c goal of less than 7.0% ([facility]) TAKE 1 TABLET BY MOUTH TWICE A DAY WITH BREAKFAST AND DINNER 180 Tablet 3 3 Active Losartan Potassium 25 MG Oral Tablet (Cozaar) Take 1 Tablet by mouth in the morning. 34 Tablet 11 3 Active Carvedilol 12.5 MG Oral Tablet (Coreg)Indications :Chronic hypoxemic respiratory failure (HCC),Heart failure, diastolic, due to HTN (HCC),HTN, goal below 140/90 Take 1 Tablet by mouth in the morning and 1 Tablet before bedtime. with food. 60 Tablet 11 4 Active Spiriva Respimat 2.5 MCG/ACT Inhalation Aerosol Solution (Tiotropium [place] Monohydrate)Indica tions:Chronic obstructive pulmonary disease (HCC) INHALE 2 PUFFS BY MOUTH IN THE MORNING. 4 g 11 4 Active DULoxetine HCl 60 MG Oral Capsule Delayed Release Particles (Cymbalta)Indicati ons:DDD (degenerative disc disease), lumbar,Mild episode of recurrent major depressive disorder (HCC),Fibromyalgia TAKE 1 CAPSULE BY MOUTH EVERY DAY 30 Capsule 5 4 Active Fluticasone-Salmet danilo 115-21 MCG/ACT Inhalation Aerosol (Advair Hfa) Inhale 2 Puffs by mouth in the morning and 2 Puffs before bedtime. 12 g 12 4 Active Diclofenac Sodium 50 MG Oral Tablet Delayed Release (Voltaren)Indicati ons:Primary osteoarthritis involving multiple joints TAKE 1 TABLET BY MOUTH TWICE A DAY 60 Tablet 5 4 Active Magnesium Oxide -Mg Supplement 400 (240 Mg) MG Oral Tablet (Mag-Ox)Indication s:HTN, goal below 140/90,Chronic hypoxemic respiratory failure (HCC),Heart failure, diastolic, due to HTN (HCC) TAKE 1 TABLET BY MOUTH IN THE MORNING AND BEFORE BEDTIME 180 Tablet 1 4 Active Famotidine 20 MG Oral Tablet (Pepcid) TAKE 1 TABLET BY MOUTH EVERY DAY IN THE MORNING AND AT BEDTIME 180 Tablet 1 4 Active Torsemide 20 MG Oral Tablet (Demadex)Indicatio ns:Encounter for monitoring diuretic therapy,Heart failure, diastolic, due to HTN (HCC),Chronic hypoxemic respiratory failure (HCC),Chronic right-sided heart failure (HCC),Acute on chronic diastolic heart failure (HCC) Take 2 Tablets by mouth in the morning. 60 Tablet 11 4 Active Allopurinol 300 MG Oral Tablet (Zyloprim) TAKE 1 TABLET BY MOUTH EVERY DAY IN THE MORNING 90 Tablet 1 3 10/24/19 24 Discontinued Furosemide 80 MG Oral Tablet (Lasix) Take 1 Tablet by mouth in the morning. 90 Tablet 3 4 10/23/19 24 Discontinued(Med ication/Dose Changed) Hospital, Clinic, or Other Facility Administered Medication [...] as of this encounter (statuses as of 10/30/2023) Active Problems Problem Noted Date Diagnosed Date [...] as of this encounter (statuses as of 10/30/2023) Resolved Problems Problem Noted Date Diagnosed Date [...] as of this encounter (statuses as of 10/30/2023) Immunizations Name Administration Dates Next Due COVID-19 [...] encounter Miscellaneous Notes * Telephone Encounter - Pebbles Sargent PA-C - 10/23/2023 4:37 PM EDT Noted. Script signed. Proceed with med changes, xray and repeat labs. * Telephone Encounter - Cinthia Arndt CMA - 10/23/2023 3:55 PM EDT Spoke with patient regarding results and recommendations from Pebbles. Patient verbalized understanding and agreeable. Pt denied UTI symptoms but stated that she usually does not have UTI symptoms until "too far gone". Pt stated she would update with any new or worsening symptoms. * Telephone Encounter - Jaison Espinosa LPN - 10/23/2023 2:15 PM EDT Sent patient a [employer] message to make aware. Awaiting reply to pend prescription. Lab and chest xray ordered. Forwarding to PCP to address [facility] scale. ----- Message from Pebbles Sargent sent at 10/23/2023 2:06 PM EDT ----- Mild renal insufficiency but likely due to fluid overload. Recommend stopping furosemide Start torsemide 40 mg - 1 tablet daily to start Potassium is upper limit of normal. No need for potassium supplement. Monitor fluid status at home. She reports she does not have home scale. Can we see if she qualifies for vocational case manager with PCP and set up for [facility] scale (not sure she qualifies with her insurance) Her WBC is elevated. I would like her to have a chest xray given intermittent cough. She denied fevers at today's visit. Verify she is not having any urinary symptoms - if having symptoms - UA with urine culture recommended. Repeat BMP and CBC early next week after change in diuretics. documented in this encounter Plan of Treatment Upcoming Encounters Date Type Department Care Team (Late st Contact Info) Description 11/18/2023 2:30 PM EDT [facility] [address] [facility] [place] [address] Marion Carey PA-C [address] [place] [address] [place] [address] Scheduled Orders Name Type Priority Associated Diagnoses Orde r Schedule BASIC METABOLIC PANEL Lab Routine Encounter for monitoring diuretic therapy Heart failure, diastolic, due to HTN (HCC) Chronic hypoxemic respiratory failure (HCC) Chronic right-sided heart failure (HCC) Acute on chronic diastolic heart failure (HCC) Expected: 10/30/2023 (Approximate), Expires: 10/22/2024 CBC Lab Routine Encounter for monitoring diuretic therapy Heart failure, diastolic, due to HTN (HCC) Chronic hypoxemic respiratory failure (HCC) Chronic right-sided heart failure (HCC) Acute on chronic diastolic heart failure (HCC) Expected: 10/30/2023 (Approximate), Expires: 10/22/2024 XR CHEST 2 VIEWS Medical Imaging Routine Cough Ordered: 10/23/2023 Health Maintenance Due Date Last Done Comments DISCUSS TOBACCO CESSATION (REFER TO SMARTSET #[id number]) 1970 Alpha-1 Antitrypsin 1987 Diabetic Foot Exam [...] Not on filedocumented as of this encounter Visit Diagnoses Diagnosis Heart failure, diastolic, due to HTN (HCC)- Primary Unspecified hypertensive heart disease with heart failure Encounter for monitoring diuretic therapy Encounter for therapeutic drug monitoring Chronic hypoxemic respiratory failure (HCC) Chronic respiratory failure Chronic right-sided heart failure (HCC) Congestive heart failure, unspecified Acute on chronic diastolic heart failure (HCC) Acute on chronic diastolic heart failure Cough documented in this encounter Care Teams Disulfurizer Tender Relationship Specialty Start Date End Date Santo Griffith MD [address] [place] [address] [place] [phone] PCP - General Family Medicine 02/15/17 documented as of this encounter
--- OUTSIDE RECORDS SUMMARY | 2023-11-18 16:52 | External Medical Summary ---
Author Name Unknown Address Unknown Organization K0G:[facility] [address] - [address] [place] [address] Laboratory Report Ordering Provider Test Date Status LUIS FERNANDO BORGES 10/23/2023 10:48:32 Final Observation Date Value Abnormality Reference (Units ) Status BUN 10/23/2023 10:48:32 37 Above high normal 6-20 (mg/dL) Final Creatinine 10/23/2023 10:48:32 1.3 Above high normal 0.5-1.0 (mg/dL) Final Glomerular filtration rate/1.73 sq M.predicted [Volume Rate/Area] in Serum, Plasma or Blood by Creatinine-based formula (CKD-EPI) 10/23/2023 10:48:32 48 Below low normal >=60 (mL/min) Final eGFR is calculated based on the CKD-EPI 2020 equation Sodium 10/23/2023 10:48:32 140 135-146 (m mol/L) Final Potassium 10/23/2023 10:48:32 4.6 3.5-5.1 (m mol/L) Final Cl 10/23/2023 10:48:32 100 98-107 (mm ol/L) Final CO2 10/23/2023 10:48:32 22 22-32 (mmo l/L) Final Anion gap 10/23/2023 10:48:32 18 Above high normal 7- 15 (mmol/L) Final Glucose 10/23/2023 10:48:32 184 Above high normal 70 -120 (mg/dL) Final Albumin 10/23/2023 10:48:32 4.0 3.8-5.0 (g /dL) Final AST (Aspartate aminotransferase) 10/23/2023 10:48:32 16 10-35 (U/L) Fin al Alk Phos 10/23/2023 10:48:32 141 Above high normal 35 -130 (U/L) Final Bilirubin, Total 10/23/2023 10:48:32 0.3 <=1 .2 (mg/dL) Final Calcium 10/23/2023 10:48:32 9.8 8.4-10.2 ( mg/dL) Final Protein 10/23/2023 10:48:32 6.9 6.0-8.3 (g /dL) Final ALT (Alanine aminotransferase) 10/23/2023 10:48:32 22 10-35 (U/L) Carlos vigil Performing Location LABORATORY [place] [address] - [address] [facility] [address]
--- OUTSIDE RECORDS SUMMARY | 2023-11-18 16:52 | External Medical Summary | Summary of Care ---
Author Name Unknown Organization [facility] Address [address] [facility] [place] [address] Phone [phone] Care Team Providers Care X Ray Equipment Servicer Name Role Phone Santo Griffith MD Primary Care Provide r Reason for Visit * Reason Comments Outpatient Testing Encounter Details Date Type Department Care Team (Late st Contact Info) Description 10/23/2023 11:10 AM EDT [facility], [facility] [address] [facility] [address] [place] [address] Heart failure, diastolic, due to HTN (HCC); Chronic hypoxemic respiratory failure (HCC); Chronic right-sided heart failure (HCC); Acute on chronic diastolic heart failure (HCC) Allergies Active Allergy Reactions Criticality Noted Date Comments Penicillin G Hives Medium 12/08/2014 Milnacipran Hcl Other (Please comment) Medium 12/09/19 15 Heart palpatations documented as of this encounter (statuses as of 10/23/2023) Medications Medication Sig Dispensed Refills Start Date End Date Status Blood Glucose Monitoring Suppl ([employer] VERIO FLEX SYSTEM) w/Device KIT Test blood sugar 3 times daily 1 Kit 11/30/2019 Active OneTouch Delica Lancets 30GIndications:Type 2 diabetes mellitus with hemoglobin A1c goal of less than 7.0% ([facility]) TEST BLOOD SUGAR 3 TIMES DAILY DX [...] hemoglobin A1c goal of less than 7.0% ([facility]) USE TO TEST BLOOD SUGAR THREE TIMES A DAY DIRECTED. DX E11.9 100 Strip 11 12/28/2022 Active metFORMIN HCl 1000 MG Oral Tablet (Glucophage)Indicatio ns:Type 2 diabetes mellitus with hemoglobin A1c goal of less than 7.0% ([facility]) TAKE 1 TABLET BY MOUTH TWICE A [...] Respimat 2.5 MCG/ACT Inhalation Aerosol Solution (Tiotropium [place] Monohydrate)Indicatio ns:Chronic obstructive pulmonary disease (HCC) INHALE [...] disc disease), lumbar 05/13/19 16 Fibromyalgia 12/08/2014 HTN, goal below 140/90 12/08/2014 Chronic pain 12/08/2014 Lymph edema 12/08/2014 [...] 11/18/2023 2:30 PM EDT Office Visit Cardiology, [facility] [address] [facility] [place] [address] Marion Carey PA-C [address] [place] [address] [place] [address] Pending Results Name Type Priority Associated Diagnoses Date /Time CBC Lab Routine Heart failure, diastolic, due to HTN (HCC) Chronic hypoxemic respiratory failure (HCC) Chronic right-sided heart failure (HCC) Acute on chronic diastolic heart failure (HCC) 10/23/2023 10:48 AM EDT COMPREHENSIVE METABOLIC PANEL Lab Routine Heart failure, diastolic, due to HTN (HCC) Chronic hypoxemic respiratory failure (HCC) Chronic right-sided heart failure (HCC) Acute on chronic diastolic heart failure (HCC) 10/23/2023 10:48 AM EDT BNP, NT-PRO Lab Routine Heart failure, diastolic, due to HTN (HCC) Chronic hypoxemic respiratory failure (HCC) Chronic right-sided heart failure (HCC) Acute on chronic diastolic heart failure (HCC) 10/23/2023 10:48 AM EDT Health Maintenance Due Date Last Done Comments DISCUSS TOBACCO CESSATION (REFER TO SMARTSET #0952) 1970 Alpha-1 Antitrypsin 1987 Diabetic Foot Exam [...] Albumin/Creatinine Ratio 03/21/2024 023, 11/23/2019, 07/01/2018 GFR 06/12/2024 06/12/2023, 12/0 10/2022, 12/05/2022, Additional history exists O2 ASSESSMENT COMPLETED IN PAST YEAR FOR COPD 08/19/2024 08/20/2023 DTaP,Tdap,and Td Vaccines (2 - Td or [...] Diagnosis Heart failure, diastolic, due to HTN (HCC) Unspecified hypertensive heart disease with heart failure Chronic hypoxemic respiratory failure (HCC) Chronic respiratory failure Chronic right-sided heart failure (HCC) Congestive heart failure, unspecified Acute on chronic diastolic heart failure (HCC) Acute on chronic diastolic heart failure documented in this encounter Care Teams X Ray Equipment Servicer Relationship Specialty Start Date End Date Santo Griffith MD [address] [place] [address] [place] [address] PCP - General Family Medicine 02/15/17 documented as of this encounter
--- OUTSIDE RECORDS SUMMARY | 2023-11-18 16:53 | External Medical Summary | Summary of Care ---
Author Name Unknown Organization [facility] Address [address] [facility] [address] Phone [phone] Care Team Providers Care Rn Night Name Role Phone Santo Griffith MD Primary Care Provide r Reason for Visit * Reason Onset Date Comments Oxygen Assessment 08/20/2023 NPO Encounter Details Date Type Department Care Team (Late st Contact Info) Description 08/20/2023 Telephone Pulmonary Medicine, [facility] [address] [facility] [place] [address] Tacho Hector MD [address] [facility] [place] [address] Oxygen Assessment (NPO) Allergies Active Allergy Reactions Criticality Noted Date Comments Penicillin G Hives Medium 12/08/2014 Milnacipran Hcl Other (Please comment) Medium 12/09/19 15 Heart palpatations documented as of this encounter (statuses as of 08/22/2023) Medications Medication Sig Dispensed Refills Start Date End Date Status Blood Glucose Monitoring Suppl ([employer] VERIO FLEX SYSTEM) w/Device KIT Test blood sugar 3 times daily 1 Kit 0 11/30/2019 Active OneTouch Delica Lancets 30GIndications:Type 2 diabetes mellitus with hemoglobin A1c goal of less than 7.0% ([facility]) TEST BLOOD SUGAR 3 TIMES DAILY DX E11.9 300 Each 3 11/06/2021 Active Albuterol Sulfate HFA 108 (90 Base) MCG/ACT Inhalation Aerosol SolutionIndications:W heezing Inhale 2 Puffs by mouth every 4 hours as needed for Shortness of Breath or Wheezing. 18 g 5 06/08/2022 Active Diclofenac Sodium 50 MG Oral Tablet Delayed Release (Voltaren)Indications :Primary osteoarthritis involving multiple joints TAKE 1 TABLET BY MOUTH TWICE A DAY 60 Tablet 11 09/28/2022 Active Atorvastatin Calcium 10 MG Oral Tablet [...] THE MORNING 90 Tablet 1 03/21/2023 Active Magnesium Oxide -Mg Supplement 400 (240 Mg) MG Oral Tablet (Mag-Ox)Indications:H TN, goal below 140/90,Chronic hypoxemic respiratory failure (HCC),Heart failure, diastolic, due to HTN (HCC) TAKE 1 TABLET BY MOUTH IN THE MORNING AND BEFORE BEDTIME 180 Tablet 1 03/21/2023 Active Losartan Potassium 25 MG Oral Tablet (Cozaar) Take 1 Tablet by mouth in the morning. 34 Tablet 11 03/26/2023 Active Famotidine 20 MG Oral Tablet (Pepcid) TAKE 1 TABLET BY MOUTH EVERY DAY IN THE MORNING AND AT BEDTIME 60 Tablet 5 03/30/2023 Active Furosemide 80 MG Oral Tablet (Lasix) [...] Respimat 2.5 MCG/ACT Inhalation Aerosol Solution (Tiotropium [place] Monohydrate)Indicatio ns:Chronic obstructive pulmonary disease (HCC) INHALE [...] before bedtime. 12 g 12 07/04/2023 Active Hospital, Clinic, or Other Facility Administered [...] as of this encounter (statuses as of 08/22/2023) Active Problems Problem Noted Date Diagnosed Date [...] as of this encounter (statuses as of 08/22/2023) Resolved Problems Problem Noted Date Diagnosed Date [...] as of this encounter (statuses as of 08/22/2023) Immunizations Name Administration Dates Next Due COVID-19 [...] money to get more. Never true 05/30/2023 Sex and Gender Information Value Date Recorded Sex Assigned at Not on file Gender Identity Not on file Sexual Orientation Not on file Job Start Date Occupation Industry Not on file Not on file Not on file documented as of this encounter Miscellaneous Notes * Telephone Encounter - Mali Suarez LPN - 08/22/2023 8:08 AM EDT Order has been sent to . Pt aware via [employer] message * Telephone Encounter - Tacho Hector MD - 08/21/2023 5:14 PM EDT 6 minute walk test was negative. No oxygen needed during ambulation. * Telephone Encounter - Mali Suarez LPN - 08/21/2023 9:12 AM EDT Please review pt's PFT/6 MWT. Will the pt need anything further ordered? * Telephone Encounter - Tacho Hector MD - 08/21/2023 7:27 AM EDT Correct nocturnal pulse oximetry reviewed [place] oxygen therapy ordered. Previous oxygen therapy order was canceled. * Telephone Encounter - Mali Suarez LPN - 08/20/2023 1:53 PM EDT Pt's NPO results have been scanned into the chart. Please review and advise documented in this encounter Plan of Treatment Upcoming Encounters Date Type Department Care Team (Late st Contact Info) Description 08/29/2023 12:40 PM EDT Office Visit Pulmonary Medicine, [facility] [address] [facility] [place] [address] Tacho Hector MD [address] [facility] [place] [address] Health Maintenance Due Date Last Done Comments DISCUSS TOBACCO CESSATION (REFER TO SMARTSET #[id number]) 1969 Alpha-1 Antitrypsin 1987 Diabetic Foot Exam 1987 Hepatitis C Screening 1987 Cologuard 2014 Colonoscopy 2014 Colorectal Cancer Screening 2014 Fecal Occult Blood Test 2014 Sigmoidoscopy 2014 Mammogram 02/15/2018 02/15/2017, 10/13, 09/29/2015 Lung Cancer Screening 2019 Zoster Vaccines (1 of 2) 2019 Diabetic Eye Exam 09/27/2020 09/28/2019 Pneumococcal Vaccine: Pediatrics (0 to 5 Years) and At-Risk Patients (6 to 64 Years) (2 of 2 - PCV) 05/27/2021 05/27/2020 Hepatitis B (3 of 3 - 19+ 3-dose series) 08/11/2021 06/16/2021, 05/27/2020 *CXR OR CT FOR COPD EVER 09/16/2022 COVID-19 Vaccine ( season) 2022 09/20/2020, 08/23/2020 HbA1c 12/11/2023 06/12/2023, 0 05/2022, 06/16/2021, Additional history exists Influenza Vaccine (FLU shot) (Season Ended) 2023 Albumin/Creatinine Ratio 03/21/2024 023, 11/23/2019, 07/01/2018 GFR 06/12/2024 06/12/2023, 120 10/2022, 12/05/2022, Additional history exists O2 ASSESSMENT COMPLETED IN PAST YEAR FOR COPD 08/19/2024 08/20/2023 DTaP,Tdap,and Td Vaccines (2 - Td or Tdap) 01/31/2025 01/31/2015 Lipid Panel 06/12/2028 06/12/2023, 0 05/2022, 06/16/2021, Additional history exists Pap Smear Discontinued 03/12/2017 (Not indicated) GARDASIL-HPV IMMUNIZATION SERIES Aged Out No longer eligible based on patient's age to complete this topic MENINGOCOCCAL (MENACTRA/MENVEO) Aged Out No longer eligible based on patient's age to complete this topic documented as of this encounter Medical Devices Not on filedocumented as of this encounter Visit Diagnoses Diagnosis Chronic respiratory failure with hypoxia (HCC)- Primary Chronic respiratory failure documented in this encounter Care Teams Rn Night Relationship Specialty Start Date End Date Santo Griffith MD [address] [place] [address] [place] [phone] PCP - General Family Medicine 02/15/17 documented as of this encounter
--- OUTSIDE RECORDS SUMMARY | 2023-11-18 16:53 | External Medical Summary | Summary of Care ---
Author Name Unknown Organization [facility] Address [address] [facility] [address] Phone [phone] Care Team Providers Care Muffler Hand Name Role Phone Santo Griffith MD Primary Care Provide r Reason for Visit * Reason Onset Date Comments Oxygen Assessment 08/16/2023 NPO Encounter Details Date Type Department Care Team (Late st Contact Info) Description 08/16/2023 Telephone Pulmonary Medicine, [facility] 132 [facility] [place] [address] Tacho Hector MD [address] [facility] [place] [address] Oxygen Assessment (NPO) Allergies Active Allergy Reactions Criticality Noted Date Comments Penicillin G Hives Medium 12/08/2014 Milnacipran Hcl Other (Please comment) Medium 12/09/19 15 Heart palpatations documented as of this encounter (statuses as of 08/20/2023) Medications Medication Sig Dispensed Refills Start Date End Date Status Blood Glucose Monitoring Suppl ([employer] VERIO FLEX SYSTEM) w/Device KIT Test blood sugar 3 times daily 1 Kit 0 11/30/2019 Active OneTouch Delica Lancets 30GIndications:Type 2 diabetes mellitus with hemoglobin A1c goal of less than 7.0% ([facility]) TEST BLOOD SUGAR 3 TIMES DAILY DX [...] Respimat 2.5 MCG/ACT Inhalation Aerosol Solution (Tiotropium [place] Monohydrate)Indicatio ns:Chronic obstructive pulmonary disease (HCC) INHALE [...] as of this encounter (statuses as of 08/20/2023) Active Problems Problem Noted Date Diagnosed Date [...] as of this encounter (statuses as of 08/20/2023) Resolved Problems Problem Noted Date Diagnosed Date [...] as of this encounter (statuses as of 08/20/2023) Immunizations Name Administration Dates Next Due COVID-19 mRNA, LNP-s, No Pre serve, 2-Dose Series (Moderna) 09/20/2020,08/23/2020 Hepatitis B, 20+ yrs 06/16/2021,05/27/2020 Pneumococcal Polysaccharide PPV23 (Pneumovax) TDAP (age 10 and older)(Boostrix) 01/31/2015 documented as of this encounter Social History Tobacco Use Types Packs/Day Years Used Date Smoking Tobacco: Every Day Cigarettes 1 30 Smokeless Tobacco: Never Comments:1 04/16 ppd 07/04/23. Alcohol Use Standard Drinks/Week Comments No 0 [...] Encounter - Mali Suarez LPN - 08/20/2023 1:40 PM EDT Our office called [facility] to have the results faxed to be scanned into the chart * Telephone Encounter - Garfield Perez OSA - 08/20/2023 12:47 PM EDT Called help desk to take scan out of the chart. They are in the process of that. * Telephone Encounter - Tacho Hector MD - 08/19/2023 4:46 PM EDT Wrong patient data scanned into the chart. Please remove immediately Cancel any associated oxygen orders. * Telephone Encounter - Mali Suarez LPN - 08/16/2023 2:20 PM EDT Pt's NPO results have been scanned into the chart. Please review and advise documented in this encounter Plan of Treatment Upcoming Encounters Date Type Department Care Team (Late st Contact Info) Description 08/29/2023 12:40 PM EDT Office Visit Pulmonary Medicine, [facility] [address] [facility] [place] [address] Tacho Hector MD [address] [facility] [place] [address] Health Maintenance Due Date Last Done Comments DISCUSS TOBACCO CESSATION (REFER TO SMARTSET #[id number]) 1969 Alpha-1 Antitrypsin 1987 Diabetic Foot Exam [...] season) 2022 09/20/2020, 08/23/2020 HbA1c 12/11/2023 06/12/2023, 06/05/2022, 06/16/2021, Additional history exists Influenza Vaccine (FLU shot) (Season Ended) 2023 Albumin/Creatinine Ratio 03/21/2024 023, 11/23/2019, 07/01/2018 GFR 06/12/2024 06/12/2023, 120 10/2022, 12/05/2022, Additional history exists O2 ASSESSMENT COMPLETED IN PAST YEAR FOR COPD 08/19/2024 08/20/2023 DTaP,Tdap,and Td Vaccines (2 - Td or Tdap) 01/31/2025 01/31/2015 Lipid Panel 06/12/2028 06/12/2023, 05/2022, 06/16/2021, Additional history exists Pap Smear [...] failure documented in this encounter Care Teams Muffler Hand Relationship Specialty Start Date End Date Santo Griffith MD [address] [place] [address] [place] [phone] PCP - General Family Medicine 02/15/17 documented as of this encounter
--- OUTSIDE RECORDS SUMMARY | 2023-11-18 16:53 | External Medical Summary | Summary of Care ---
Author Name Unknown Organization [facility] Address [address] [facility] [address] Phone [phone] Care Team Providers Care Hands Assembler Name Role Phone Santo Griffith MD Primary Care Provide r Reason for Visit * Reason Onset Date Comments Oxygen Assessment 08/20/2023 NPO Encounter Details Date Type Department Care Team (Late st Contact Info) Description 08/20/2023 Telephone Pulmonary Medicine, [facility] [address] [facility] [place] [address] Tacho Hector MD [address] [facility] [place] [address] Oxygen Assessment (NPO) Allergies Active Allergy Reactions Criticality Noted Date Comments Penicillin G Hives Medium 12/08/2014 Milnacipran Hcl Other (Please comment) Medium 12/09/19 15 Heart palpatations documented as of this encounter (statuses as of 08/21/2023) Medications Medication Sig Dispensed Refills Start Date End Date Status Blood Glucose Monitoring Suppl ([employer] VERIO FLEX SYSTEM) w/Device KIT Test blood sugar 3 times daily 1 Kit 0 11/30/2019 Active OneTouch Delica Lancets 30GIndications:Type 2 diabetes mellitus with hemoglobin A1c goal of less than 7.0% ([facility]) TEST BLOOD SUGAR 3 TIMES DAILY DX [...] Respimat 2.5 MCG/ACT Inhalation Aerosol Solution (Tiotropium [place] Monohydrate)Indicatio ns:Chronic obstructive pulmonary disease (HCC) INHALE [...] as of this encounter (statuses as of 08/21/2023) Active Problems Problem Noted Date Diagnosed Date [...] as of this encounter (statuses as of 08/21/2023) Resolved Problems Problem Noted Date Diagnosed Date [...] as of this encounter (statuses as of 08/21/2023) Immunizations Name Administration Dates Next Due COVID-19 [...] encounter Miscellaneous Notes * Telephone Encounter - Tacho Hector MD - 08/21/2023 7:27 AM EDT Correct nocturnal pulse oximetry reviewed [place] oxygen therapy ordered. Previous oxygen therapy order was canceled. * Telephone Encounter - Mali Suarez LPN - 08/20/2023 1:53 PM EDT Pt's NPO results have been scanned into the chart. Please review and advise documented in this encounter Plan of Treatment Upcoming Encounters Date Type Department Care Team (Late st Contact Info) Description 08/29/2023 12:40 PM EDT Office Visit Pulmonary Medicine, [address] [place] [address] Tacho Hector MD [address] [facility] [place] [address] Health Maintenance Due Date Last Done Comments DISCUSS TOBACCO CESSATION (REFER TO SMARTSET #4109) 1969 Alpha-1 Antitrypsin 1987 Diabetic Foot Exam [...] failure documented in this encounter Care Teams Hands Assembler Relationship Specialty Start Date End Date Santo Griffith MD [address] [place] [address] [place] [phone] PCP - General Family Medicine 02/15/17 documented as of this encounter
--- OUTSIDE RECORDS SUMMARY | 2023-11-18 16:53 | External Medical Summary | Summary of Care ---
Author Name Unknown Organization [facility] Address [address] [facility] [address] Phone [phone] Care Team Providers Care Area Relief Pilot Name Role Phone Santo Griffith MD Primary Care Provide r Reason for Visit * Reason Onset Date Comments Health Maintenance 09/25/2023 Encounter Details Date Type Department Care Team (Late st Contact Info) Description 09/25/2023 Telephone Family Medicine [address] [address] Santo Griffith MD [address] [place] [address] Health Maintenance Allergies Active Allergy Reactions Criticality Noted Date Comments Penicillin G Hives Medium 12/08/2014 Milnacipran Hcl Other (Please comment) Medium 12/09/19 15 Heart palpatations documented as of this encounter (statuses as of 09/25/2023) Medications Medication Sig Dispensed Refills Start Date End Date Status Blood Glucose Monitoring Suppl ([employer] VERIO FLEX SYSTEM) w/Device KIT Test blood sugar 3 times daily 1 Kit 11/30/2019 Active OneTouch Delica Lancets 30GIndications:Type 2 diabetes mellitus with hemoglobin A1c goal of less than 7.0% ([facility]) TEST BLOOD SUGAR 3 TIMES DAILY DX E11.9 300 Each 3 11/06/2021 Active Albuterol Sulfate HFA 108 (90 Base) MCG/ACT Inhalation Aerosol SolutionIndications:W venancio Inhale 2 Puffs by mouth every 4 [...] hemoglobin A1c goal of less than 7.0% ([facility]) USE TO TEST BLOOD SUGAR THREE TIMES A DAY DIRECTED. DX E11.9 100 Strip 11 12/28/2022 Active metFORMIN HCl 1000 MG Oral Tablet (Glucophage)Indicatio ns:Type 2 diabetes mellitus with hemoglobin A1c goal of less than 7.0% ([facility]) TAKE 1 TABLET BY MOUTH TWICE A [...] Respimat 2.5 MCG/ACT Inhalation Aerosol Solution (Tiotropium [place] Monohydrate)Indicatio ns:Chronic obstructive pulmonary disease (HCC) INHALE [...] BEFORE BEDTIME 180 Tablet 1 09/23/2023 Active Hospital, Clinic, or Other Facility Administered [...] as of this encounter (statuses as of 09/25/2023) Active Problems Problem Noted Date Diagnosed Date [...] as of this encounter (statuses as of 09/25/2023) Resolved Problems Problem Noted Date Diagnosed Date [...] as of this encounter (statuses as of 09/25/2023) Immunizations Name Administration Dates Next Due COVID-19 [...] encounter Miscellaneous Notes * Telephone Encounter - Jessica Cummings LPN - 09/25/2023 9:24 AM EDT Care Gaps Comprehensive Care Outreach Last Office/Telemedicine Visit: 06/12/2023 (in office), 06/08/2022 (telemedicine) Next Office Visit: Visit date not found Hemoglobin AIC Results: Lab Results Component Value Date/Time HEMOGLOBIN A1C - [facility] 6.3 (H) 06/12/2023 10:40 AM HEMOGLOBIN A1C - [facility] 6.7 (H) 09/14/2022 01:32 PM HEMOGLOBIN A1C - [facility] 6.9 (H) 06/16/2021 10:09 AM HEMOGLOBIN A1C - [facility] 14.4 (H) 11/23/2019 01:56 PM BP Readings from Last 1 Encounters: 08/20/23 142/86 Reviewed Health Maintenance below: Health Maintenance Topic Date Due DISCUSS TOBACCO CESSATION (REFER TO SMARTSET #3343) Never done Diabetic Foot Exam Never done Alpha-1 Antitrypsin Never done Hepatitis C Screening Never done Colorectal Cancer Screening Never done Mammogram 02/15/2018 Lung Cancer Screening Never done Zoster Vaccines (1 of 2) Never done Depression Monitoring 05/19/2020 Diabetic Eye Exam 09/27/2020 Pneumococcal Vaccine: Pediatrics (0 to 5 Years) and At-Risk Patients (6 to 64 Years) (2 of 2 - PCV)05/27/2021 Hepatitis B (3 of 3 - 19+ 3-dose series) 08/11/2021 *CXR OR CT FOR COPD EVER Never done COVID-19 Vaccine ( - season) 2022 HbA1c 12/11/2023 Influenza Vaccine (FLU shot) (Season Ended) 2023 Albumin/Creatinine Ratio 03/21/2024 Ov Eye Mamm Colon Lab aug Care Gap Outreach Action Taken: Left message documented in this encounter Plan of Treatment Upcoming Encounters Date Type Department Care Team (Late st Contact Info) Description 10/23/2023 10:30 AM EDT Office Visit Cardiology, [facility] [address] [place] [address] Pebbles Sargent PA-C [address] [place] [address] Health Maintenance Due Date Last Done Comments DISCUSS TOBACCO CESSATION (REFER TO SMARTSET #7458) 1970 Alpha-1 Antitrypsin 1987 Diabetic Foot Exam [...] filedocumented as of this encounter Care Teams Area Relief Pilot Relationship Specialty Start Date End Date Santo Griffith MD [address] [place] [address] [place] [phone] PCP - General Family Medicine 02/15/17 documented as of this encounter
--- OUTSIDE RECORDS SUMMARY | 2023-11-18 16:53 | External Medical Summary | Summary of Care ---
Author Name Unknown Organization [facility] Address [address] [facility] [address] Phone [phone] Care Team Providers Care Human Resources Operations Coordinator Name Role Phone Jerome Griffith MD Primary Care Provide r Reason for Visit * Reason Comments eRx-Medication Refill Encounter Details Date Type Department Care Team (Late st Contact Info) Description 09/21/2023 Refill Family Medicine [address] [address] Jerome Griffith MD [address] [place] [address] [place] [address] Primary osteoarthritis involving multiple joints; HTN, goal below 140/90; Chronic hypoxemic respiratory failure (HCC); Heart failure, diastolic, due to HTN (HCC) Allergies Active Allergy Reactions Criticality Noted Date Comments Penicillin G Hives Medium 12/08/2014 Milnacipran Hcl Other (Please comment) Medium 12/09/19 15 Heart palpatations documented as of this encounter (statuses as of 09/23/2023) Medications Medication Sig Dispensed Refills Start Date End Date Status Blood Glucose Monitoring Suppl (ONETOUCH VERIO FLEX SYSTEM) w/Device KIT Test blood sugar 3 times daily 1 Kit 11/30/2019 Active OneTouch Delica Lancets 30GIndications:Type 2 diabetes mellitus with hemoglobin A1c goal of less than 7.0% ([facility]) TEST BLOOD SUGAR 3 [...] hemoglobin A1c goal of less than 7.0% ([facility]) USE TO TEST BLOOD SUGAR THREE TIMES A DAY DIRECTED. DX E11.9 100 Strip 11 12/28/2022 Active metFORMIN HCl 1000 MG Oral Tablet (Glucophage)Indicat ions:Type 2 diabetes mellitus with hemoglobin A1c goal of less than 7.0% ([facility]) TAKE 1 TABLET BY MOUTH TWICE A [...] 05/10/2023 Active Carvedilol 12.5 MG Oral Tablet (Coreg)Indications: Chronic hypoxemic respiratory failure (HCC),Heart failure, diastolic, due to HTN (HCC),HTN, goal below 140/90 Take 1 Tablet by mouth in the morning and 1 Tablet before bedtime. with food. 60 Tablet 11 06/12/2023 Active Spiriva Respimat 2.5 MCG/ACT Inhalation Aerosol Solution (Tiotropium [place] Monohydrate)Indicat ions:Chronic obstructive pulmonary disease (HCC) INHALE [...] BEFORE BEDTIME 180 Tablet 1 09/23/2023 Active Diclofenac Sodium 50 MG Oral Tablet Delayed Release (Voltaren)Indicatio ns:Primary osteoarthritis involving multiple joints TAKE 1 TABLET BY MOUTH TWICE A DAY 60 Tablet 11 09/28/2022 09/23/19 24 Discontinued Magnesium Oxide -Mg Supplement 400 (240 Mg) MG Oral Tablet (Mag-Ox)Indications :HTN, goal below 140/90,Chronic hypoxemic respiratory failure (HCC),Heart failure, diastolic, due to HTN (HCC) TAKE 1 TABLET BY MOUTH IN THE MORNING AND BEFORE BEDTIME 180 Tablet 1 03/21/2023 09/23/19 24 Discontinued Hospital, Clinic, or Other Facility [...] as of this encounter (statuses as of 09/23/2023) Active Problems Problem Noted Date Diagnosed Date [...] as of this encounter (statuses as of 09/23/2023) Resolved Problems Problem Noted Date Diagnosed Date [...] as of this encounter (statuses as of 09/23/2023) Immunizations Name Administration Dates Next Due COVID-19 [...] encounter Miscellaneous Notes * Telephone Encounter - Sharif Conte MD - 09/23/2023 11:35 AM EDTSigned Prescriptions: Disp Refills Diclofenac Sodium 50 MG Oral Tablet Delaye*60 Tab*5 Sig: TAKE 1 TABLET BY MOUTH TWICE A DAY Authorizing Provider: JEROME GRIFFITH Ordering User: MALCOLM DIGGS Magnesium Oxide -Mg Supplement 400 (240 Mg*180 Ta*1 Sig: TAKE 1 TABLET BY MOUTH IN THE MORNING AND BEFORE BEDTIME Authorizing Provider: SHARIF CONTE< BR> * Telephone Encounter - Malcolm Diggs [facility] - 09/23/2023 9:42 AM EDT Pending Prescriptions: Disp Refills Magnesium Oxide -Mg Supplement 400 (240 Mg*180 Ta*1 Sig: TAKE 1 TABLET BY MOUTH IN THE MORNING AND BEFORE BEDTIME Signed Prescriptions: Disp Refills Diclofenac Sodium 50 MG Oral Tablet Delaye*60 Tab*5 Sig: TAKE 1 TABLET BY MOUTH TWICE A DAY Authorizing Provider: JEROME GRIFFITH Ordering User: MALCOLM DIGGS * Telephone Encounter - Malcolm Diggs [facility] - 09/23/2023 9:42 AM EDT Pending Prescriptions: Disp Refills Magnesium Oxide -Mg Supplement 400 (240 Mg*180 Ta*1 Sig: TAKE 1 TABLET BY MOUTH IN THE MORNING AND BEFORE BEDTIME Signed Prescriptions: Disp Refills Diclofenac Sodium 50 MG Oral Tablet Delaye*60 Tab*5 Sig: TAKE 1 TABLET BY MOUTH TWICE A DAY Authorizing Provider: JEROME GRIFFITH Ordering User: MALCOLM DIGGS 06/12/2023 (in office), 06/08/2022 (telemedicine) Visit date not found If no future appointments scheduled, and last appointment is greater than a year ago, please schedule patient for a follow-up appointment Last date the medication was ordered: 03/21/23 Pharmacy: [id number] [address]- [place] Is this request for a controlled substance?No Urine Drug Screen:No results found for this or any previous visit. Patient Phone Numbers Labs: Lab Results Component Value Date/Time CREAT 1.0 06/12/2023 10:40 AM CREAT 0.6 11/23/2019 01:56 PM POTASSIUM 4.9 06/12/2023 10:40 AM POTASSIUM 4.8 11/23/2019 01:56 PM TSH 2.09 09/14/2022 01:32 PM TSH 0.88 10/25/2015 11:06 AM TSH 1.52 06/16/1996 11:08 AM LDLCALC 114 06/12/2023 10:40 AM LDLCALC 90 07/01/2018 11:59 AM LDLDIRECT 85 11/23/2019 01:56 PM ALT 27 06/12/2023 10:40 AM ALT 21 11/23/2019 01:56 PM HGBA1C 6.3 (H) 06/12/2023 10:40 AM HGBA1C 14.4 (H) 11/23/2019 01:56 PM documented in this encounter Plan of Treatment Upcoming Encounters Date Type Department Care Team (Late st Contact Info) Description 10/23/2023 10:30 AM EDT Office Visit Cardiology, [facility] [address] [place] [address] Pebbles Sargent PA-C [address] [place] [address] Health Maintenance Due Date Last Done Comments DISCUSS TOBACCO CESSATION (REFER TO SMARTSET #[id number]) 1970 Alpha-1 Antitrypsin 1987 Diabetic Foot Exam [...] as of this encounter Visit Diagnoses Diagnosis Primary osteoarthritis involving multiple joints HTN, goal below 140/90 Unspecified essential hypertension Chronic hypoxemic respiratory failure (HCC) Chronic respiratory failure Heart failure, diastolic, due to HTN (HCC) 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
--- OUTSIDE RECORDS SUMMARY | 2023-11-18 16:53 | External Medical Summary | Summary of Care ---
Author Name Unknown Organization [facility] Address [address] [facility] [place] [address] Phone [phone] Care Team Providers Care Intensive Care Anaesthetist Name Role Phone Santo Griffith MD Primary Care Provide r Reason for Visit * Reason Comments eRx-Medication Refill Encounter Details Date Type Department Care Team (Late st Contact Info) Description 09/15/2023 Refill Family Medicine [address] [address] Santo Griffith MD [address] [place] [address] [place] [address] HTN, goal below 140/90; Chronic hypoxemic respiratory failure (HCC); Heart failure, diastolic, due to HTN (HCC) Allergies Active Allergy Reactions Criticality Noted Date Comments Penicillin G Hives Medium 12/08/2014 Milnacipran Hcl Other (Please comment) Medium 12/09/19 15 Heart palpatations documented as of this encounter (statuses as of 09/16/2023) Medications Medication Sig Dispensed Refills Start Date [...] Respimat 2.5 MCG/ACT Inhalation Aerosol Solution (Tiotropium [place] Monohydrate)Indicatio ns:Chronic obstructive pulmonary disease (HCC) INHALE [...] as of this encounter (statuses as of 09/16/2023) Active Problems Problem Noted Date Diagnosed Date [...] as of this encounter (statuses as of 09/16/2023) Resolved Problems Problem Noted Date Diagnosed Date [...] as of this encounter (statuses as of 09/16/2023) Immunizations Name Administration Dates Next Due COVID-19 [...] encounter Miscellaneous Notes * Telephone Encounter - Riley Arvizu RPh - 09/16/2023 8:57 PM EDT Refused Prescriptions: Disp Refills Carvedilol 3.125 MG Oral Tablet (Coreg) 180 Ta*1 Sig: TAKE 1 TABLET BY MOUTH IN THE MORNING AND BEFORE BEDTIMERefused By: RILEY ARVIZU for Refusal: Course of treatment complete documented in this encounter Plan of Treatment Health Maintenance Due Date Last Done Comments DISCUSS TOBACCO CESSATION (REFER TO SMARTSET #[id number]) 1970 Alpha-1 Antitrypsin 1987 Diabetic Foot Exam [...] FOR COPD EVER 09/16/2022 COVID-19 Vaccine ( - season) 2022 09/20/2020, 08/23/2020 HbA1c 12/11/2023 06/12/2023, 060 05/2022, 06/16/2021, Additional history exists Influenza Vaccine (FLU shot) (Season Ended) 2023 Albumin/Creatinine Ratio 03/21/2024 023, 11/23/2019, 07/01/2018 GFR 06/12/2024 06/12/2023, 1210/2022, 12/05/2022, Additional history exists O2 ASSESSMENT COMPLETED [...] as of this encounter Visit Diagnoses Diagnosis HTN, goal below 140/90 Unspecified essential hypertension Chronic hypoxemic respiratory failure (HCC) Chronic respiratory failure Heart failure, diastolic, due to HTN (HCC) 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
--- OUTSIDE RECORDS SUMMARY | 2023-11-18 16:53 | External Medical Summary | Summary of Care ---
Author Name Unknown Organization [facility] Address [address] [facility] [address] Phone [phone] Care Team Providers Care Notching Machine Operator Name Role Phone Santo Griffith MD Primary Care Provide r Reason for Visit * Reason Onset Date Comments Oxygen Assessment 08/20/2023 NPO Encounter Details Date Type Department Care Team (Late st Contact Info) Description 08/20/2023 Telephone Pulmonary Medicine, [facility] [address] [facility] [place] [address] Tacho Hector MD [address] [facility] [place] [address] Oxygen Assessment (NPO) Allergies Active Allergy Reactions Criticality Noted Date Comments Penicillin G Hives Medium 12/08/2014 Milnacipran Hcl Other (Please comment) Medium 12/09/19 15 Heart palpatations documented as of this encounter (statuses as of 08/21/2023) Medications Medication Sig Dispensed Refills Start Date End Date Status Blood Glucose Monitoring Suppl ([employer] VERIO FLEX SYSTEM) w/Device KIT Test blood sugar 3 times daily 1 Kit 0 11/30/2019 Active OneTouch Delica Lancets 30GIndications:Type 2 diabetes mellitus with hemoglobin A1c goal of less than 7.0% ([facility]) TEST BLOOD SUGAR 3 [...] Respimat 2.5 MCG/ACT Inhalation Aerosol Solution (Tiotropium [place] Monohydrate)Indicatio ns:Chronic obstructive pulmonary disease (HCC) INHALE [...] AM EDT Correct nocturnal pulse oximetry reviewed [place] oxygen therapy ordered. Previous oxygen therapy order was canceled. * Telephone Encounter - Mali Suarez LPN - 08/20/2023 1:53 PM EDT Pt's NPO results have been scanned into the chart. Please review and advise documented in this encounter Plan of Treatment Upcoming Encounters Date Type Department Care Team (Late st Contact Info) Description 08/29/2023 12:40 PM EDT Office Visit Pulmonary Medicine, [address] [place] [address] aTcho Hector MD [address] [facility] [place] [address] Health Maintenance Due Date Last Done Comments DISCUSS TOBACCO CESSATION (REFER TO SMARTSET #[id number]) 1970 Alpha-1 Antitrypsin 1987 Diabetic Foot Exam [...] failure documented in this encounter Care Teams Notching Machine Operator Relationship Specialty Start Date End Date Santo Griffith MD [address] [place] [address] [place] [phone] PCP - General Family Medicine 02/15/17 documented as of this encounter
--- OUTSIDE RECORDS SUMMARY | 2023-11-18 16:53 | External Medical Summary | Summary of Care ---
Author Name Unknown Organization [facility] Address [address] [facility] [place] [address] Phone [phone] Care Team Providers Care Adapted Physical Education Specialist Name Role Phone Santo Griffith MD Primary Care Provide r Reason for Visit * Reason Comments Pulmonary Function Test PFT with broncho dilator Oxygen Assessment 6 minute walk Encounter Details Date Type Department Care Team (Latest Contact Info) Description 08/20/2023 10:30 AM EDT PulmDiagnostic Pulmonary Function Lab, [facility] [address] [facility] [place] [address] [place], [address] [facility] [place] [address] Chronic hypoxemic respiratory failure (HCC)*; Morbid obesity due to excess calories (HCC); Body mass index (BMI) of 50.0 to 59.9 in adult (HCC) Allergies Active Allergy Reactions Criticality Noted Date Comments Penicillin G Hives Medium 12/08/2014 Milnacipran Hcl Other (Please comment) Medium 12/09/19 15 Heart palpatations documented as of this encounter (statuses as of 08/20/2023) Medications Medication Sig Dispensed Refills Start Date End Date Status Blood Glucose Monitoring Suppl (PayOrPassTOUCH VERIO FLEX SYSTEM) w/Device KIT Test blood sugar 3 times daily 1 Kit 0 11/30/2019 Active OneTouch Delica Lancets 30GIndications:Type 2 diabetes mellitus with hemoglobin A1c goal of less than 7.0% (HCC) TEST BLOOD SUGAR 3 TIMES DAILY DX E11.9 300 Each 3 11/06/2021 Active Albuterol Sulfate HFA 108 (90 Base) MCG/ACT Inhalation Aerosol SolutionIndications:W hedainaing Inhale 2 Puffs by mouth every 4 [...] Respimat 2.5 MCG/ACT Inhalation Aerosol Solution (Tiotropium [place] Monohydrate)Indicatio ns:Chronic obstructive pulmonary disease (HCC) INHALE [...] Sign Reading Time Taken Comments Blood Pressure 142/86 08/20/2023 10:46 AM EDT Pulse 85 08/20/2023 10:46 AM EDT Temperature - - Respiratory Rate 18 08/20/2023 10:4 6 AM EDT Oxygen Saturation 94% 08/20/2023 10: 46 AM EDT Inhaled Oxygen Concentration - - Weight 148.3 kg (326 lb 15.1 oz) 2023 10:46 AM EDT Height 155.8 cm (5' 1.34") 08/20/2023 1 0:46 AM EDT Body Mass Index 61.09 08/20/2023 10:46 AM EDT documented in this encounter Nursing Notes * Belle Cortez, BENEFIT SPECIALIST - 08/20/2023 10:48 AM EDT Tyesha Slater was identified by name, Date of : (1970), and . Vitals were obtained for testing. Body mass index is 61.09 kg/m. Pt has a 1 ppd for 30 years smoking history andhas currently cut back to 1/2 ppd. 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 Spirometry, DLCO, MVV, MIP/MEP, RAW, and TGV performed. A slow volume nebulizer treatment of 0.5ml of albuterol in 3 ml of NSS was given. The proper method of use, as well as anticipated side effects, of this svn are discussed and demonstrated to the patient. Patient demonstrates adequate delivery. Administrations This Visit Albuterol Sulfate (Proventil) (2.5 MG/3ML) 0.083% inhalation solution 2.5 mg Admin Date 08/20/2023 Action Given Dose 2.5 mg Route Nebulizer Documented By Belle Cortez RRT 6 minute walk Exercise oximetry performed on room air x 6 minutes. Pt ambulated pushing wheelchair 630 feet/ 192 meters. 3 rest periods were required for 37 seconds. Lowest SPO2 on room air was 90%. documented in this encounter Plan of Treatment Upcoming Encounters Date Type Department Care Team (Late st Contact Info) Description 08/29/2023 12:40 PM EDT Office Visit Pulmonary Medicine, [address] [place] [id number] Tacho Hector MD [address] [facility] [place] [address] Pending Results Name Type Priority Associated Diagnoses Date /Time DIFFUSION CAPACITY (DLCO) Procedures Routine Chronic hypoxemic respiratory failure (HCC) Morbid obesity due to excess calories (HCC) Body mass index (BMI) of 50.0 to 59.9 in adult (HCC) 08/20/2023 10:23 AM EDT SPIROMETRY B/A BRONCHODILATOR Procedures Routine Chronic hypoxemic respiratory failure (HCC) Morbid obesity due to excess calories (HCC) Body mass index (BMI) of 50.0 to 59.9 in adult (HCC) 08/20/2023 10:23 AM EDT LUNG VOLUMES (PLETHYSMOGRAPHY) Procedures Routine Chronic hypoxemic respiratory failure (HCC) Morbid obesity due to excess calories (HCC) Body mass index (BMI) of 50.0 to 59.9 in adult (HCC) 08/20/2023 10:23 AM EDT Health Maintenance Due Date Last Done Comments DISCUSS TOBACCO CESSATION (REFER TO SMARTSET #[id number]) 1970 Alpha-1 Antitrypsin 1987 Diabetic Foot Exam [...] COPD EVER 09/16/2022 COVID-19 Vaccine ( - 2022- season) 2022 09/20/2020, 08/23/2020 HbA1c [...] Not on filedocumented as of this encounter Procedures Procedure Name Priority Date/Time Associated Diagnosis Comments DIFFUSION CAPACITY (DLCO) Routine 2023 10:23 AM EDT Chronic hypoxemic respiratory failure (HCC) Morbid obesity due to excess calories (HCC) Body mass index (BMI) of 50.0 to 59.9 in adult (HCC) LUNG VOLUMES (PLETHYSMOGRAPHY) Routine 08/20/2023 10:23 AM EDT Chronic hypoxemic respiratory failure (HCC) Morbid obesity due to excess calories (HCC) Body mass index (BMI) of 50.0 to 59.9 in adult (HCC) SPIROMETRY B/A BRONCHODILATOR Routine 08/20/2023 10:23 AM EDT Chronic hypoxemic respiratory failure (HCC) Morbid obesity due to excess calories (HCC) Body mass index (BMI) of 50.0 to 59.9 in adult (HCC) documented in this encounter Visit Diagnoses Diagnosis Chronic hypoxemic respiratory failure (HCC)- Primary Chronic respiratory failure Morbid obesity due to excess calories (HCC) Body mass index (BMI) of 50.0 to 59.9 in adult (HCC) documented in this encounter Administered Medications Active Administered Medications - up to 3 most recent administrations Medication Order MAR Action Action Date Dose Rate Site Albuterol Sulfate (Proventil) (2.5 MG/3ML) 0.083% inhalation solution 2.5 mg 2.5 mg, Nebulizer, PRN Other, ONCE FOR PFT, Starting on Corry 07/04/23 at 1147, Until Sat07/03/24 at 1146, For 365 days Given 08/20/2023 10:22 AM EDT 2.5 mg documented in this encounter Care Teams Adapted Physical Education Specialist Relationship Specialty Start Date End Date Santo Griffith MD [address] [place] [address] [place] [phone] PCP - General Family Medicine 02/15/17 documented as of this encounter
--- OUTSIDE RECORDS SUMMARY | 2023-11-18 16:53 | External Medical Summary | Summary of Care ---
Author Name Unknown Organization [facility] Address [address] [facility] [address] Phone [phone] Care Team Providers Care Sock Liner Name Role Phone Santo Griffith MD Primary Care Provide r Reason for Visit * Reason Onset Date Comments Oxygen Assessment 08/16/2023 NPO Encounter Details Date Type Department Care Team (Late st Contact Info) Description 08/16/2023 Telephone Pulmonary Medicine, [facility] 132 [facility] [place] [address] Tacho Hector MD [address] [facility] [place] [address] Oxygen Assessment (NPO) Allergies Active Allergy Reactions Criticality Noted Date Comments Penicillin G Hives Medium 12/08/2014 Milnacipran Hcl Other (Please comment) Medium 12/09/19 15 Heart palpatations documented as of this encounter (statuses as of 08/20/2023) Medications Medication Sig Dispensed Refills Start Date End Date Status Blood Glucose Monitoring Suppl ([employer] VERIO FLEX SYSTEM) w/Device KIT Test blood sugar 3 times daily 1 Kit 0 11/30/2019 Active OneTouch Delica Lancets 30GIndications:Type 2 diabetes mellitus with hemoglobin A1c goal of less than 7.0% ([facility]) TEST BLOOD SUGAR 3 TIMES DAILY [...] Respimat 2.5 MCG/ACT Inhalation Aerosol Solution (Tiotropium [place] Monohydrate)Indicatio ns:Chronic obstructive pulmonary disease (HCC) INHALE [...] Encounter - Mali Suarez LPN - 08/20/2023 1:56 PM EDT The correct results have been scanned into the pt's chart. There is a separate encounter dealing with the pt's results * Telephone Encounter - Mali Suarez LPN - 08/20/2023 1:40 PM EDT Our office called [facility] to have the results faxed to [...] 12:40 PM EDT Office Visit Pulmonary Medicine, [facility] [address] [facility] [place] [address] Tacho Hector MD [address] [place] [phone] Health Maintenance Due Date Last Done Comments DISCUSS TOBACCO CESSATION (REFER TO SMARTSET #[id number]) 1970 Alpha-1 Antitrypsin 1987 Diabetic Foot Exam [...] Tdap) 01/31/2025 01/31/2015 Lipid Panel 06/12/2028 06/12/2023, 060 05/2022, 06/16/2021, Additional history exists Pap Smear [...] failure documented in this encounter Care Teams Sock Liner Relationship Specialty Start Date End Date Santo Griffith MD [address] [place] [address] [place] [phone] PCP - General Family Medicine 02/15/17 documented as of this encounter
--- OUTSIDE RECORDS SUMMARY | 2023-11-18 16:53 | External Medical Summary | Summary of Care ---
Author Name Unknown Organization [facility] Address [address] [facility] [address] Phone [phone] Care Team Providers Care Nursing Program Chair Name Role Phone Santo Griffith MD Primary Care Provide r Reason for Visit * Reason Onset Date Comments Oxygen Assessment 08/20/2023 NPO Encounter Details Date Type Department Care Team (Late st Contact Info) Description 08/20/2023 Telephone Pulmonary Medicine, [facility] [address] [facility] [place] [address] Tacho Hector MD [address] [facility] [place] [address] Oxygen Assessment (NPO) Allergies Active Allergy Reactions Criticality Noted Date Comments Penicillin G Hives Medium 12/08/2014 Milnacipran Hcl Other (Please comment) Medium 12/09/19 15 Heart palpatations documented as of this encounter (statuses as of 08/21/2023) Medications Medication Sig Dispensed Refills Start Date End Date Status Blood Glucose Monitoring Suppl ([employer] VERIO FLEX SYSTEM) w/Device KIT Test blood sugar 3 times daily 1 Kit 0 11/30/2019 Active OneTouch Delica Lancets 30GIndications:Type 2 diabetes mellitus with hemoglobin A1c goal of less than 7.0% ([facility]) TEST BLOOD SUGAR 3 TIMES DAILY DX [...] Respimat 2.5 MCG/ACT Inhalation Aerosol Solution (Tiotropium [place] Monohydrate)Indicatio ns:Chronic obstructive pulmonary disease (HCC) INHALE [...] AM EDT Correct nocturnal pulse oximetry reviewed [place] oxygen therapy ordered. Previous oxygen therapy order [...] [facility] 132 [facility] [place] [address] Tacho Hector MD [address] [place] [address] Health Maintenance Due Date Last Done Comments DISCUSS TOBACCO CESSATION (REFER TO SMARTSET #[id number]) 1970 Alpha-1 Antitrypsin 1987 Diabetic Foot Exam [...] Tdap) 01/31/2025 01/31/2015 Lipid Panel 06/12/2028 06/12/2023, 06/05/2022, 06/16/2021, Additional history exists Pap Smear Discontinued [...] failure documented in this encounter Care Teams Nursing Program Chair Relationship Specialty Start Date End Date Santo Griffith MD [address] [place] [address] [place] [phone] PCP - General Family Medicine 02/15/17 documented as of this encounter
--- OUTSIDE RECORDS SUMMARY | 2023-11-18 16:53 | External Medical Summary | Summary of Care ---
Author Name Unknown Organization [facility] Address [address] [facility] [address] Phone [phone] Care Team Providers Care Muck Farmer Name Role Phone Jerome Griffith MD Primary Care Provide r Reason for Visit * Reason Comments eRx-Medication Refill Encounter Details Date Type Department Care Team (Late st Contact Info) Description 10/14/2023 Refill Family Medicine [address] [phone] Jerome Griffith MD [address] [place] [address] Allergies Active Allergy Reactions Criticality Noted Date Comments Penicillin G Hives Medium 12/08/2014 Milnacipran Hcl Other (Please comment) Medium 12/09/19 15 Heart palpatations documented as of this encounter (statuses as of 10/15/2023) Medications Medication Sig Dispensed Refills Start Date End Date Status Blood Glucose Monitoring Suppl (ONETOUCH VERIO FLEX SYSTEM) w/Device KIT Test blood sugar 3 times daily 1 Kit 11/30/2019 Active OneTouch Delica Lancets 30GIndications:Type 2 diabetes mellitus with hemoglobin A1c goal of less than 7.0% ([facility]) TEST BLOOD SUGAR 3 TIMES DAILY [...] hemoglobin A1c goal of less than 7.0% ([facility]) TAKE 1 TABLET BY MOUTH TWICE A [...] 2.5 MCG/ACT Inhalation Aerosol Solution (Tiotropium [place] Monohydrate)Indicat ions:Chronic obstructive pulmonary disease (HCC) INHALE [...] AT BEDTIME 180 Tablet 1 10/15/2023 Active Famotidine 20 MG Oral Tablet (Pepcid) TAKE 1 TABLET BY MOUTH EVERY DAY IN THE MORNING AND AT BEDTIME 60 Tablet 5 03/30/2023 10/15/19 24 Discontinued Hospital, Clinic, or Other Facility [...] as of this encounter (statuses as of 10/15/2023) Active Problems Problem Noted Date Diagnosed Date [...] as of this encounter (statuses as of 10/15/2023) Resolved Problems Problem Noted Date Diagnosed Date [...] as of this encounter (statuses as of 10/15/2023) Immunizations Name Administration Dates Next Due COVID-19 [...] encounter Miscellaneous Notes * Telephone Encounter - Edilma Tracey RPh - 10/15/2023 10:33 AM EDTSigned Prescriptions: Disp Refills Famotidine 20 MG Oral Tablet (Pepcid) 180 Ta*1 Sig: TAKE 1 TABLET BY MOUTH EVERY DAY IN THE MORNING AND AT BEDTIMEAuthorizing Provider: JEROME GRIFFITH User: EDILMA TRACEY documented in this encounter Plan of Treatment Upcoming Encounters Date Type Department Care Team (Late st Contact Info) Description 10/23/2023 10:30 AM EDT Office Visit Cardiology, [facility] [address] [place] [address] Pebbles Sargent PA-C [address] [place] [address] Health Maintenance Due Date Last Done Comments DISCUSS TOBACCO CESSATION (REFER TO SMARTSET #[id number]) 1970 Alpha-1 Antitrypsin 1987 Diabetic Foot Exam [...] filedocumented as of this encounter Care Teams Muck Farmer Relationship Specialty Start Date End Date Jerome Griffith MD [address] [place] [address] [place] [address] PCP - General Family Medicine 02/15/17 documented as of this encounter
--- OUTSIDE RECORDS SUMMARY | 2023-11-18 16:53 | External Medical Summary | Summary of Care ---
Author Name Unknown Organization [facility] Address [address] [facility] [address] Phone [phone] Care Team Providers Care Extract Puller Name Role Phone Santo Griffith MD Primary Care Provide r Reason for Visit * Reason Onset Date Comments Oxygen Assessment 08/20/2023 NPO Encounter Details Date Type Department Care Team (Late st Contact Info) Description 08/20/2023 Telephone Pulmonary Medicine, [facility] [address] [facility] [place] [address] Tacho Hector MD [address] [facility] [place] [address] Oxygen Assessment (NPO) Allergies Active Allergy Reactions Criticality Noted Date Comments Penicillin G Hives Medium 12/08/2014 Milnacipran Hcl Other (Please comment) Medium 12/09/19 15 Heart palpatations documented as of this encounter (statuses as of 08/21/2023) Medications Medication Sig Dispensed Refills Start Date End Date Status Blood Glucose Monitoring Suppl ([employer] VERIO FLEX SYSTEM) w/Device KIT Test blood sugar 3 times daily 1 Kit 0 11/30/2019 Active OneTouch Delica Lancets 30GIndications:Type 2 diabetes mellitus with hemoglobin A1c goal of less than 7.0% ([facility]) TEST BLOOD SUGAR 3 TIMES DAILY [...] Respimat 2.5 MCG/ACT Inhalation Aerosol Solution (Tiotropium [place] Monohydrate)Indicatio ns:Chronic obstructive pulmonary disease (HCC) INHALE [...] AM EDT Correct nocturnal pulse oximetry reviewed [place] oxygen therapy ordered. Previous oxygen therapy order was canceled. * Telephone Encounter - Mali Suarez LPN - 08/20/2023 1:53 PM EDT Pt's NPO results have been scanned into the chart. Please review and advise documented in this encounter Plan of Treatment Upcoming Encounters Date Type Department Care Team (Late st Contact Info) Description 08/29/2023 12:40 PM EDT Office Visit Pulmonary Medicine, [facility] [address] [facility] [place] [address] Tacho Hector MD [address] [place] [address] Health Maintenance Due Date Last Done Comments DISCUSS TOBACCO CESSATION (REFER TO SMARTSET #[id number]) 1970 Alpha-1 Antitrypsin 1987 Diabetic Foot Exam [...] COPD EVER 09/16/2022 COVID-19 Vaccine (3 - season) 2022 09/20/2020, 08/23/2020 HbA1c 12/11/2023 06/12/2023, 06/05/2022, 06/16/2021, Additional history exists Influenza Vaccine (FLU shot) (Season Ended) 2023 Albumin/Creatinine Ratio 03/21/2024 023, 11/23/2019, 07/01/2018 GFR 06/12/2024 06/12/2023, 10/2022, 12/05/2022, Additional history exists O2 ASSESSMENT [...] failure documented in this encounter Care Teams Extract Puller Relationship Specialty Start Date End Date Santo Griffith MD [address] [place] [address] [place] [phone] PCP - General Family Medicine 02/15/17 documented as of this encounter
--- OUTSIDE RECORDS SUMMARY | 2023-11-18 16:54 | External Medical Summary | Summary of Care ---
Author Name Unknown Organization [facility] Address [address] [facility] [address] Phone [phone] Care Team Providers Care Photogrammetric Technician Name Role Phone Santo Griffith MD Primary Care Provide r Reason for Visit * Reason Onset Date Comments Oxygen Assessment 08/16/2023 NPO Encounter Details Date Type Department Care Team (Late st Contact Info) Description 08/16/2023 Telephone Pulmonary Medicine, [facility] [address] [facility] [place] [address] Tacho Hector MD [address] [facility] [place] [address] Oxygen Assessment (NPO) Allergies Active Allergy Reactions Criticality Noted Date Comments Penicillin G Hives Medium 12/08/2014 Milnacipran Hcl Other (Please comment) Medium 12/09/19 15 Heart palpatations documented as of this encounter (statuses as of 08/19/2023) Medications Medication Sig Dispensed Refills Start Date End Date Status Blood Glucose Monitoring Suppl ([employer] VERIO FLEX SYSTEM) w/Device KIT Test blood sugar 3 times daily 1 Kit 0 11/30/2019 Active OneTouch Delica Lancets 30GIndications:Type 2 diabetes mellitus with hemoglobin A1c goal of less than 7.0% ([facility]) TEST BLOOD SUGAR 3 TIMES DAILY DX [...] Respimat 2.5 MCG/ACT Inhalation Aerosol Solution (Tiotropium [place] Monohydrate)Indicatio ns:Chronic obstructive pulmonary disease (HCC) INHALE [...] as of this encounter (statuses as of 08/19/2023) Active Problems Problem Noted Date Diagnosed Date [...] as of this encounter (statuses as of 08/19/2023) Resolved Problems Problem Noted Date Diagnosed Date [...] as of this encounter (statuses as of 08/19/2023) Immunizations Name Administration Dates Next Due COVID-19 [...] Team (Late st Contact Info) Description 08/20/2023 10:30 AM EDT PulmDiagnostic Pulmonary Function Lab, [facility] [place] [address] [place] [address] 08/20/2023 12:00 PM EDT Imaging Radiology [facility] [address] [facility] [address] [place] [address] 08/29/2023 12:40 PM EDT Office Visit Pulmonary Medicine, [facility] [address] [place] [address] Tacho Hector MD [address] [place] [address] Health Maintenance Due Date Last Done Comments DISCUSS TOBACCO CESSATION (REFER TO SMARTSET #[id number]) 1970 Alpha-1 Antitrypsin 1987 Diabetic Foot Exam [...] ASSESSMENT COMPLETED IN PAST YEAR FOR COPD 07/03/2024 07/04/2023 DTaP,Tdap,and Td Vaccines (2 - Td or [...] failure documented in this encounter Care Teams Photogrammetric Technician Relationship Specialty Start Date End Date Santo Griffith MD [address] [place] [address] [place] [address] PCP - General Family Medicine 02/15/17 documented as of this encounter
--- OUTSIDE RECORDS SUMMARY | 2023-11-18 16:54 | External Medical Summary | Summary of Care ---
Author Name Unknown Organization [facility] Address [address] [facility] [place] [address] Phone [phone] Care Team Providers Care Extended Day Teacher Name Role Phone Santo Griffith MD Primary Care Provide r Reason for Visit * Reason Comments Pulmonary Function Test PFT with broncho dilator Oxygen Assessment [address] Encounter Details Date Type Department Care Team (Latest Contact Info) Description 08/20/2023 10:30 AM EDT PulmDiagnostic Pulmonary Function Lab, [facility] [address] [facility] [place] [address] [place], [address] [facility] [place] [address] Chronic hypoxemic respiratory failure (HCC)*; Morbid obesity [...] End Date Status Blood Glucose Monitoring Suppl (SaperionTOUCH VERIO FLEX SYSTEM) w/Device KIT Test blood [...] Respimat 2.5 MCG/ACT Inhalation Aerosol Solution (Tiotropium [place] Monohydrate)Indicatio ns:Chronic obstructive pulmonary disease (HCC) INHALE [...] this encounter Nursing Notes * Belle Cortez, PHARMACEUTICAL SCIENTIST - 08/20/2023 10:48 AM EDT Tyesha Slater was identified by name, Date of : (1970), and . Vitals were obtained for testing. Body mass index is 61.09 kg/m. Pt has a 1 ppd for 30 years smoking history andhas currently cut back to 1/2 ppd. 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 Spirometry, DLCO, MVV, MIP/MEP, [...] Team (Late st Contact Info) Description 08/20/2023 12:00 PM EDT Imaging Radiology [address] [place] [address] 08/29/2023 12:40 PM EDT Office Visit Pulmonary Medicine, [address] [place] [address] Tacho Hector MD [address] [facility] [place] [address] Pending Results Name Type Priority Associated Diagnoses [...] Comments DISCUSS TOBACCO CESSATION (REFER TO SMARTSET #1948) 1970 Alpha-1 Antitrypsin 1987 Diabetic Foot Exam [...] season) 2022 09/20/2020, 08/23/2020 HbA1c 12/11/2023 06/12/2023, 0605/2022, 06/16/2021, Additional history exists Influenza Vaccine (FLU [...] mg documented in this encounter Care Teams Extended Day Teacher Relationship Specialty Start Date End Date Santo Griffith MD [address] [place] [address] [place] [phone] PCP - General Family Medicine 02/15/17 documented as of this encounter
--- OUTSIDE RECORDS SUMMARY | 2023-11-18 16:54 | External Medical Summary | Summary of Care ---
Author Name Unknown Organization [facility] Address [address] [facility] [address] Phone [phone] Care Team Providers Care Bead Builder Name Role Phone Santo Griffith MD Primary Care Provide r Reason for Visit * Reason Onset Date Comments Oxygen Assessment 08/16/2023 NPO Encounter Details Date Type Department Care Team (Late st Contact Info) Description 08/16/2023 Telephone Pulmonary Medicine, [facility] [address] [facility] [place] [address] Tacho Hector MD [address] [facility] [place] [address] Oxygen Assessment (NPO) Allergies Active Allergy Reactions Criticality Noted Date Comments Penicillin G Hives Medium 12/08/2014 Milnacipran Hcl Other (Please comment) Medium 12/09/19 15 Heart palpatations documented as of this encounter (statuses as of 08/19/2023) Medications Medication Sig Dispensed Refills Start Date End Date Status Blood Glucose Monitoring Suppl ([employer] VERIO FLEX SYSTEM) w/Device KIT Test blood sugar 3 times daily 1 Kit 0 11/30/2019 Active OneTouch Delica Lancets 30GIndications:Type 2 diabetes mellitus with hemoglobin A1c goal of less than 7.0% ([facility]) TEST BLOOD SUGAR 3 TIMES DAILY DX [...] Respimat 2.5 MCG/ACT Inhalation Aerosol Solution (Tiotropium [place] Monohydrate)Indicatio ns:Chronic obstructive pulmonary disease (HCC) INHALE [...] 10:30 AM EDT PulmDiagnostic Pulmonary Function Lab, [facility] [place] [address] [address], [address] [place] [address] 08/20/2023 12:00 PM EDT Imaging Radiology [facility] [address] [facility] [address] [place] [address] 08/29/2023 12:40 PM EDT Office Visit Pulmonary Medicine, [facility] [address] [place] [address] Tacho Hector MD [address] [place] [address] Health Maintenance Due Date Last Done Comments DISCUSS TOBACCO CESSATION (REFER TO SMARTSET #1507) 1970 Alpha-1 Antitrypsin 1987 Diabetic Foot Exam [...] failure documented in this encounter Care Teams Bead Builder Relationship Specialty Start Date End Date Santo Griffith MD [address] [place] [address] [place] [address] PCP - General Family Medicine 02/15/17 documented as of this encounter
--- OUTSIDE RECORDS SUMMARY | 2023-11-18 16:54 | External Medical Summary | Summary of Care ---
Author Name Unknown Organization [facility] Address [address] [place] [address] Phone [phone] Care Team Providers Care Claims Adjuster Name Role Phone Santo Griffith MD Primary Care Provide r Reason for Referral * Precert (Within 10 days (routine)) - Pending Review Specialty Diagnoses / Procedures Referred By Contankit t Referred To Contact Radiology Diagnoses History of tobacco abuse Procedures CT CHEST LOW DOSE SCAN LUNG CANCER SCREEN INITIAL LUNG CANCER SCREENING PROGRAM REFERRAL Tacho Hector MD [address] [facility] [place] [address] Referral ID Status Reason Start Date Expiration Date V isits Requested Visits Authorized [id number] Pending Review 07/04/2023 999 999 Reason for Visit * Reason Comments NEW PATIENT Here new pulm . Burl[place] Man brittney respiratory hypoxemia. * Evaluate & Treat - Unlimited Visits (Within 10 days (routine)) - Pending Review Specialty Diagnoses / Procedures Referred By Contankit t Referred To Contact Pulmonary Diseases / Pulmonary Diagnoses Chronic hypoxemic respiratory failure (HCC) Heart failure, diastolic, due to HTN (HCC) Chronic bronchitis, unspecified chronic bronchitis type (HCC) BEDOYA (dyspnea on exertion) Lenka Diggs PA-C [address] [place] [address] [place] [address] Referral ID Status Reason Start Date Expiration Date Visits Requested Visits Authorized [id number] Pending Review Specialty Services Required 06/12/[phone] Encounter Details Date Type Department Care Team (Late st Contact Info) Description 07/04/2023 11:20 AM EDT Office Visit Pulmonary Medicine, [facility] [address] [facility] [place] [address] Tacho Hector MD [address] [facility] [place] [id number] Type 2 diabetes mellitus with hemoglobin A1c goal of less than 7.0% ([facility])*; Chronic hypoxemic respiratory failure (HCC); Heart failure, diastolic, due to HTN (HCC); Pulmonary emphysema, unspecified emphysema type (HCC); Morbid obesity due to excess calories (HCC); Body mass index (BMI) of 50.0 to 59.9 in adult (HCC); History of tobacco abuse Allergies Active Allergy Reactions Criticality Noted Date Comments Penicillin G Hives Medium 12/08/2014 Milnacipran Hcl Other (Please comment) Medium 12/09/19 15 Heart palpatations documented as of this encounter (statuses as of 07/04/2023) Medications Medication Sig Dispensed Refills Start Date End Date Status Blood Glucose Monitoring Suppl (ONETOUCH VERIO FLEX SYSTEM) w/Device KIT Test blood sugar 3 times daily 1 Kit 0 11/30/2019 Active OneTouch Delica Lancets 30GIndications:Type 2 diabetes mellitus with hemoglobin A1c goal of less than 7.0% ([facility]) TEST BLOOD SUGAR 3 TIMES DAILY [...] DAY 90 Tablet 3 12/27/2022 Active OneTouch PrimeraDx ([employer])jun In Vitro Strip (Glucose Blood)Indications:Typ e 2 [...] Respimat 2.5 MCG/ACT Inhalation Aerosol Solution (Tiotropium [place] Monohydrate)Indicatio ns:Chronic obstructive pulmonary disease (HCC) INHALE [...] as of this encounter (statuses as of 07/04/2023) Active Problems Problem Noted Date Diagnosed Date Body mass index (BMI) of 50.0 to 59.9 in adult 0 11/26/2022 Overview: Per Obesity protocol - Per Obesity protocol Heart failure, diastolic, due to HTN 09/14/2022 Chronic hypoxemic respiratory failure 09/14/2022 Chronic obstructive pulmonary disease 09/14/2022 Ganglion cyst of dorsum of left [...] as of this encounter (statuses as of 07/04/2023) Resolved Problems Problem Noted Date Diagnosed Date Resolved Date COPD, severity to be determined 09/14/2022 09/14/2022 Body mass index (BMI) of 60. 0 to 69.9 in adult 11/21/2020 11/29/2022 Overview: Per Obesity protocol Morbid obesity with BMI of 70 and over, adult 05/27/19 21 05/27/2020 Age-related incipient cataract of both eyes 09/29/2019 05/27/2020 Left elbow pain 05/10/2016 03/12/2017 Arthritis, rheumatoid 12/08/20142015 documented as of this encounter (statuses as of 07/04/2023) Immunizations Name Administration Dates Next Due COVID-19 mRNA, LNP-s, No Pre serve, 2-Dose Series (Moderna) 09/20/2020,08/23/2020 Hepatitis B, 20+ yrs 06/16/2021,05/27/2020 Pneumococcal Polysaccharide PPV23 (Pneumovax) TDAP (age 10 and older)(Boostrix) 01/31/2015 documented as of this encounter Social History Tobacco Use Types Packs/Day Years Used Date Smoking Tobacco: Every Day Cigarettes 1 30 Smokeless Tobacco: Never Tobacco Cessation:Ready to Q uit: Not Asked; Counseling Given: Not Answered Comments:1 04/16 ppd 07/04/23. Alcohol Use Standard [...] Sign Reading Time Taken Comments Blood Pressure 138/86 07/04/2023 10:48 AM EDT Pulse 79 07/04/2023 10:48 AM EDT Temperature 35.8 C (96.5 F) 07/04/2023 10:48 AM E DT Respiratory Rate 16 07/04/2023 10:48 AM EDT Oxygen Saturation 95% 07/04/2023 10:52 AM EDT ra-amb Inhaled Oxygen Concentration - - Weight 147.9 kg (326 lb) 07/04/2023 10:48 AM EDT Height 157.5 cm (5' 2") 07/04/2023 10:48 AM EDT Body Mass Index 59.63 07/04/2023 10:48 AM EDT documented in this encounter Patient Instructions * Patient Instructions* Tacho Hector MD - 07/04/2023 11:46 AM EDT Tyesha Slater [id number] Benefits of Quitting Smoking Why should I quit smoking? Smoking is bad for you and bad for others around you. Smoking causes cancer, heart attacks, hardening of the arteries, bronchitis, emphysema, cough, shortness of breath, wrinkles, and premature aging. It stains teeth and fingers, irritates the eyes, furs the tongue, and causes bad breath. People are living longer today than their parents did, so it makes sense to work on staying healthy and independent. One of the best ways to do this is to quit smoking. Benefits of quitting smoking It takes time to reverse many years' worth of smoking damage to your body, but some benefits of quitting smoking begin immediately. For example, you're financially better off on day one. Your health starts to improve right away, too, because you remove a former constant source of irritation from your lungs. People may comment that you no longer cough. Your blood circulation is likely to improve, so your hands and feet may feel warmer. Your teeth, breath, and fingers are no longer a turn-off. Benefits that you're less aware of also begin to occur. These include better resistance to colds and respiratory infections, less likelihood of major heart and circulation problems, less risk of high blood pressure or stroke, and less risk of developing cancer. The following arguments are often presented by smokers as justifications for their continuing to smoke: "I have to sometime, so I might as well enjoy life until then." True, but as a smoker you're much more likely to of a heart attack or cancer - neither of whichare very pleasant ways to go. "I'm only hurting myself." True, if you don't count the heartache and grief you may cause your loved ones by your early or permanent disability, or the damage of your smoke to others. "Lots of people who smoke live to ripe old ages in perfect health." True, but this is rare. Nearly all smokers have significant health problems. "Smoking is one of my pleasures. I don't want to quit." Smoking is associated with pleasure because the nicotine in tobacco is an addictive drug. Your bodywill continue to crave a regular supply until you can overcome the habit. Smoking is always a disadvantage to your health and that of your loved ones. "It's my choice and I choose to smoke." True. It is your choice. In a survey of older former smokers, more than 90% quit on their own because they decided to do so. The main reasons they gave for quitting were wanting to stay healthy, following health care provider's advice, regaining control of their lives, and making a loved one happy . [place] Department of Health Quit Line [employer] Free Quitline 4-552 QUIT NOW ( ) Your insurance company may also have more information and helpful programs to help you quit. Some may even help cover some of the costs. For example, [facility] members can call to find out about their smoking cessation program and medication coverage. Developed by Lakshmi Byrd MD, for [employer]. Published by [employer]. Last modified: 2005-08-24 Last reviewed: 2005-06-13 This content is reviewed periodically and is subject to change as new health information becomes available. The information is intended to inform and educate and is not a replacement for medical evaluation, advice, diagnosis or treatment by a healthcare professional. Adult Health Advisor 2006.4 Index Adult Health Advisor 2006.4 Credits Copyright 2006 [employer] and/or one of its subsidiaries. All Rights Reserved. 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 Patient describes limited exercise tolerance secondary to above-mentioned comorbidities. Denies productive cough. Patient was on home oxygen following discharge from [facility] which was discontinued later on. Patient describes improved ventilatory status while she was on oxygen therapy. Current bronchodilator regimen includes Spiriva and rescue albuterol. Physical examination significant for class 4 throat, adequate air entry with scattered coarse wheezing, basilar rales, no dullness, regular cardiac rhythm, obese body habitus and trace lower extremity edema along with nonlateralizing Neuro examination. Pulmonary function testing 2017 showed mixed obstructive and restrictive ventilatory pattern. Smoking cessation counseling was provided. Current bronchodilator therapy will be optimized to include Advair HFA while continuing with Spiriva and albuterol therapy. Baseline PFT, 6 minute walk test, nocturnal pulse oximetry on room air will be repeated. Results will be followed up as they are available. 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 Pt participated in the discussion. Type 2 diabetes mellitus with hemoglobin A1c goal of less than 7.0% (HCC) (Primary) Chronic hypoxemic respiratory failure (HCC) Heart failure, diastolic, due to HTN (HCC) Pulmonary emphysema, unspecified emphysema type (HCC) Morbid obesity due to excess calories ([facility]) Body mass index (BMI) of 50.0 to 59.9 in adult ([facility]) Tacho Hector MD Subjective CC: Chief Complaint Patient presents with NEW PATIENT Here new pulm . Chronic respiratory hypoxemia. HPI: Nursing Notes: Isabel Rockwell LPN 07/04/23 1054 Signed Chief Complaint Patient presents with NEW PATIENT Here new pulm . Chronic respiratory hypoxemia. Interm History/Respiratory Symptoms Cough: yes. clear Hemoptysis: no Sinus Symptoms: yes-runny nose Hospitalizations: no ED Trips: no Triggers: no Nocturnal: sleep on 2 pillows CPAP/BiPAP/O2: no Flu Vaccine: none Pneumovax: 2020 Prevnar: none COVID 19: x2. Mmrc Cat Question 06/25/2023 2:05 PM EDT - Filed by Patient When do you become breathless? (2) On level ground, I walk slower than people of the same age because of breathlessness or have to stop for breath when walking at my own pace How frequently do you cough? (4) Do you have phlegm in your chest? (2) Is your chest tight? (1) How breathless do you become when walking up a hill or steps? (4) How limited are you doing activities at home? (3) How confident are you leaving home with your lung condition? (3) How soundly do you sleep? (3) How much energy do you have? (2) Total MMRC Score (range: 0 - 4) 2 Total CAT Score (range: 0 - 40) 22 Copd Rescue Question 06/25/2023 2:05 PM EDT - Filed by Patient Have you used an antibiotic (e.g., azithromycin, doxycycline, augmentin) in the last 12 months because of your breathing or lung problem? No Have you added or increased the dose of a steroid (e.g., prednisone, solumedrol) in the last 12 months because of your breathing or lung problem? No Did you go to the ED, or were you hospitalized in the last 12 months because of your breathing or lung problem? Yes Myc Visit Accident Related Question Question 06/25/2023 2:06 PM EDT - Filed by Patient Is this visit related to an accident? (i.e work, motor vehicle) No Objective Filed Vitals: 07/04/23 1048 07/04/23 1052 BP: 138/86 Pulse: 79 Resp: 16 Temp: 35.8 C (96.5 F) TempSrc: Tympanic SpO2: 95% 95% Weight: (!) 147.9 kg (326 lb) Height: 1.575 m (5' 2") Exam: Const: No signs of acute distress present. Head/Face: Normal on inspection. Eyes: Conjunctivae clear. Pupils equal round and reactive to light. ENMT: Oropharynx: No erythema, exudate or masses. Posterior pharynx is normal. Neck: Supple and symmetric. Resp: Respiratory examination as outlined above CV: Rate is regular. Rhythm is regular. No heart murmur appreciated. Extremities: No edema of the lower limbs bilaterally. Skin: Skin is warm and dry. Neuro: Coordination normal. No involuntary movement. Psych: Patient's attitude is cooperative. Mood is normal. Affect is normal. Tests reviewed with the patient: No imaging results in the last 6 months Available Radiologic data was reviewed by me in PACS. The images were shown to the patient and findings were discussed with the patient. HOME MEDICATIONS: Fluticasone-Salmeterol 115-21 MCG/ACT Inhalation Aerosol (Advair Hfa) DULoxetine HCl 60 MG Oral Capsule Delayed Release Particles (Cymbalta) Spiriva Respimat 2.5 MCG/ACT Inhalation Aerosol Solution (Tiotropium [place] Monohydrate) Carvedilol 12.5 MG Oral Tablet (Coreg) Furosemide 80 MG Oral Tablet (Lasix) Famotidine 20 MG Oral Tablet (Pepcid) Losartan Potassium 25 MG Oral Tablet (Cozaar) Magnesium Oxide -Mg Supplement 400 (240 Mg) MG Oral Tablet (Mag-Ox) metFORMIN HCl 1000 MG Oral Tablet (Glucophage) OneTouch Verio In Vitro Strip (Glucose Blood) Atorvastatin Calcium 10 MG Oral Tablet (Lipitor) Diclofenac Sodium 50 MG Oral Tablet Delayed Release (Voltaren) Albuterol Sulfate HFA 108 (90 Base) MCG/ACT Inhalation Aerosol Solution [employer] DelXamarin Lancets 30G Blood Glucose Monitoring Suppl ([employer] VERIO FLEX SYSTEM) w/Device KIT Allopurinol 300 MG Oral Tablet (Zyloprim) Albuterol Sulfate (Proventil) (2.5 MG/3ML) 0.083% inhalation solution 2.5 mg Albuterol Sulfate (Proventil) (5 MG/ML) 0.5% *conc* inhalation solution 2.5 mg albuterol sulfate (PROVENTIL) (2.5 MG/3ML) 0.083% inhalation solution 2.5 mg ROS: No reported history of Hemoptysis, Hematemesis, Melena No reported history of Dysuria, Hematuria, Flank Pain No reported history of chronic headache, seizures No reported history of Fall or trauma . No reported history of recent change in weight or appetite. Past Medical History: Diagnosis Date Dyslipidemia, goal LDL below 130 Fibromyalgia 12/08/2014 Gout HTN, goal below 140/90 12/08/2014 Morbid obesity with BMI of 70 and over, adult (HCC) Osteoarthritis Positive CHRISSY (antinuclear antibody) 1:160 Rheumatoid factor positive Past Surgical History: Procedure Laterality Date DELIVERY 1989 DELIVERY 1990 HYSTERCTOMY,SUPRACERVICAL, UTERUS <251G 2000 MISCELLANEOUS ORDER ([facility] ONLY) 1995 milk duct removed REMOVE GALLBLADDER 1991 Social History Socioeconomic History Marital status: Number of children: 2 Tobacco Use Smoking status: Every Day Current packs/day: 1.00 Average packs/day: 1 pack/day for 30.0 years (30.0 ttl pk-yrs) Types: Cigarettes Smokeless tobacco: Never Tobacco comments: 1 /2 ppd 07/04/23. Vaping Use Vaping Use: Former Substance and Sexual Activity Alcohol use: No Drug use: No Social Determinants of Health Food Insecurity: No Food Insecurity (05/30/2023) Hunger Vital Sign Worried About Running Out of Food in the Last Year: Never true Ran Out of Food in the Last Year: Never true Family History Problem Relation Age of Onset Arthritis Mother ostoearthritis Diabetes Mother Diabetes Father Hypertension Father Heart Disorder Father Review of patient's allergies indicates: Allergen Reactions Penicillin G Hives Savella [Milnacipran Hcl] Other (Please comment) Heart palpatations The following information was reviewed/discussed with the patient: Benefits & harms of screening Potential indications for follow-up testing, if/when necessary Risk of over-diagnosis, false positive findings, and radiation exposure Importance of cigarette smoking abstinence, if applicable Annual adherence to lung cancer screening Impact of comorbidities and ability or willingness to undergo diagnostic testing and/or treatment if something concerning is identified during screening. documented in this encounter Nursing Notes * Isabel Rockwell LPN - 07/04/2023 10:52 AM EDT Chief Complaint Patient presents with NEW PATIENT Here new pulm . Chronic respiratory hypoxemia. Interm History/Respiratory Symptoms Cough: yes. clear Hemoptysis: no Sinus Symptoms: yes-runny nose Hospitalizations: no ED Trips: no Triggers: no Nocturnal: sleep on 2 pillows CPAP/BiPAP/O2: no Flu Vaccine: none Pneumovax: 2020 Prevnar: none COVID 19: x2. Mmrc Cat Question 06/25/2023 2:05 PM EDT - Filed by Patient When do you become breathless? (2) On level ground, I walk slower than people of the same age because of breathlessness or have to stop for breath when walking at my own pace How frequently do you cough? (4) Do you have phlegm in your chest? (2) Is your chest tight? (1) How breathless do you become when walking up a hill or steps? (4) How limited are you doing activities at home? (3) How confident are you leaving home with your lung condition? (3) How soundly do you sleep? (3) How much energy do you have? (2) Total MMRC Score (range: 0 - 4) 2 Total CAT Score (range: 0 - 40) 22 Copd Rescue Question 06/25/2023 2:05 PM EDT - Filed by Patient Have you used an antibiotic (e.g., azithromycin, doxycycline, augmentin) in the last 12 months because of your breathing or lung problem? No Have you added or increased the dose of a steroid (e.g., prednisone, solumedrol) in the last 12 months because of your breathing or lung problem? No Did you go to the ED, or were you hospitalized in the last 12 months because of your breathing or lung problem? Yes Myc Visit Accident Related Question Question 06/25/2023 2:06 PM EDT - Filed by Patient Is this visit related to an accident? (i.e work, motor vehicle) No documented in this encounter Plan of Treatment Upcoming Encounters Date Type Department Care Team (Late st Contact Info) Description 08/20/2023 10:30 AM EDT PulmDiagnostic Pulmonary Function Lab, [facility] [address] [facility] [place] [address] [place], [place] [address] [facility] [place] [address] 08/20/2023 12:00 PM EDT Imaging Radiology [address] [facility] [place] [address] 08/22/2023 12:00 PM EDT Office Visit Pulmonary Medicine, [facility] [address] [facility] [place] [address] Tacho Hector MD [address] [place] [address] Scheduled Orders Name Type Priority Associated Diagnoses Orde r Schedule PULMONARY STRESS TESTING Procedures Routine Chronic hypoxemic respiratory failure (HCC) Morbid obesity due to excess calories (HCC) Body mass index (BMI) of 50.0 to 59.9 in adult (HCC) Expected: 07/05/2023, Expires: 08/03/2024 DIFFUSION CAPACITY (DLCO) Procedures Routine Chronic hypoxemic respiratory failure (HCC) Morbid obesity due to excess calories (HCC) Body mass index (BMI) of 50.0 to 59.9 in adult (HCC) Expected: 07/11/2023, Expires: 08/03/2024 RESPIRATORY MUSCLE PRESSURES (BUGLE PRESSURES) Procedures Routine Chronic hypoxemic respiratory failure (HCC) Morbid obesity due to excess calories (HCC) Body mass index (BMI) of 50.0 to 59.9 in adult (HCC) Ordered: 07/04/2023 SPIROMETRY B/A BRONCHODILATOR Procedures Routine Chronic hypoxemic respiratory failure (HCC) Morbid obesity due to excess calories (HCC) Body mass index (BMI) of 50.0 to 59.9 in adult (HCC) Expected: 07/11/2023, Expires: 08/03/2024 LUNG VOLUMES (PLETHYSMOGRAPHY) Procedures Routine Chronic hypoxemic respiratory failure (HCC) Morbid obesity due to excess calories (HCC) Body mass index (BMI) of 50.0 to 59.9 in adult (HCC) Expected: 07/11/2023, Expires: 08/03/2024 NOCTURNAL HOME OXIMETRY (OP) Procedures Routine Chronic hypoxemic respiratory failure (HCC) Morbid obesity due to excess calories (HCC) Body mass index (BMI) of 50.0 to 59.9 in adult (HCC) Ordered: 07/04/2023 CT CHEST LOW DOSE SCAN LUNG CANCER SCREEN INITIAL Medical Imaging Routine History of tobacco abuse Expected: 07/04/2023, Expires: 07/03/2025 Health Maintenance Due Date Last Done Comments DISCUSS TOBACCO CESSATION (REFER TO SMARTSET #2908) 1970 Alpha-1 Antitrypsin 1987 Diabetic Foot Exam 1987 Hepatitis C Screening 1987 Cologuard 2014 Colonoscopy 2014 Colorectal Cancer Screening 2014 Fecal Occult Blood Test 2014 Sigmoidoscopy 2014 Mammogram 02/15/2018 02/15/2017, 10/13, 09/29/2015 LUNG CANCER SCREENING - USE SMARTSET 63102 2019 Zoster Vaccines (1 of 2) 2019 Depression Screening 05/19/2020 05/19/2019 Diabetic Eye Exam 09/27/2020 09/28/2019 Pneumococcal Vaccine: Pediatrics (0 to 5 Years) and At-Risk Patients (6 to 64 Years) (2 of 2 - PCV) 05/27/2021 05/27/2020 Hepatitis B (3 of 3 - 19+ 3-dose series) 08/11/2021 06/16/2021, 05/27/2020 *CXR OR CT FOR COPD EVER 09/16/2022 COVID-19 Vaccine (3 - 24 season) 2022 09/20/2020, 08/23/2020 Influenza Vaccine (FLU shot) (#1) 2022 HbA1c 12/11/2023 06/12/2023, 06/0 05/2022, 06/16/2021, Additional history exists Albumin/Creatinine Ratio 03/21/2024 023, 11/23/2019, 07/01/2018 GFR [...] as of this encounter Visit Diagnoses Diagnosis Type 2 diabetes mellitus with hemoglobin A1c goal of less than 7.0% (HCC)- Primary Chronic hypoxemic respiratory failure (HCC) Chronic respiratory failure Heart failure, diastolic, due to HTN (HCC) Unspecified hypertensive heart disease with heart failure Pulmonary emphysema, unspecified emphysema type (HCC) Morbid obesity due to excess calories (HCC) Body mass index (BMI) of 50.0 to 59.9 in adult (HCC) History of tobacco abuse Personal history of tobacco use, presenting hazards to health documented in this encounter Care Teams Claims Adjuster Relationship Specialty Start Date End Date Santo Griffith MD [address] [place] [address] [place] [phone] PCP - General Family Medicine 02/15/17 documented as of this encounter
--- OUTSIDE RECORDS SUMMARY | 2023-11-18 16:54 | External Medical Summary | Summary of Care ---
Author Name Unknown Organization [facility] Address [address] [facility] [address] Phone [phone] Care Team Providers Care Bearingizer Name Role Phone Santo Griffith MD Primary Care Provide r Reason for Visit * Reason Onset Date Comments Oxygen Assessment 08/16/2023 NPO Encounter Details Date Type Department Care Team (Late st Contact Info) Description 08/16/2023 Telephone Pulmonary Medicine, [facility] [address] [facility] [place] [address] Tacho Hector MD [address] [facility] [place] [address] Oxygen Assessment (NPO) Allergies Active Allergy Reactions Criticality Noted Date Comments Penicillin G Hives Medium 12/08/2014 Milnacipran Hcl Other (Please comment) Medium 12/09/19 15 Heart palpatations documented as of this encounter (statuses as of 08/20/2023) Medications Medication Sig Dispensed Refills Start Date End Date Status Blood Glucose Monitoring Suppl (Tinitell VERIO FLEX SYSTEM) w/Device KIT Test blood sugar 3 times daily 1 Kit 0 11/30/2019 Active OneTouch Delica Lancets 30GIndications:Type 2 diabetes mellitus with hemoglobin A1c goal of less than 7.0% ([facility]) TEST BLOOD SUGAR 3 TIMES [...] Respimat 2.5 MCG/ACT Inhalation Aerosol Solution (Tiotropium [place] Monohydrate)Indicatio ns:Chronic obstructive pulmonary disease (HCC) INHALE [...] encounter Miscellaneous Notes * Telephone Encounter - Garfield Perez OSA [...] 12:40 PM EDT Office Visit [facility]monary [facility], [facility] [address] [facility] [place] [address] Tacho Hector MD [address] [place] [address] Health Maintenance Due Date Last Done Comments DISCUSS TOBACCO CESSATION (REFER TO SMARTSET #[id number]) 1970 Alpha-1 Antitrypsin 1987 Diabetic Foot Exam [...] failure documented in this encounter Care Teams Bearingizer Relationship Specialty Start Date End Date Santo Griffith MD [address] [place] [address] [place] [address] PCP - General Family Medicine 02/15/17 documented as of this encounter
--- OUTSIDE RECORDS SUMMARY | 2023-11-18 16:54 | External Medical Summary | Summary of Care ---
Author Name Unknown Organization [facility] Address [address] [facility] [address] Phone [phone] Care Team Providers Care Administrative Job Titles Name Role Phone Santo Griffith MD Primary Care Provide r Encounter Details Date Type Department Care Team (Late st Contact Info) Description 08/19/2023 Telephone Pulmonary Medicine, [facility] [address] [facility] [place] [address] Tacho Hector MD [address] [facility] [address] Allergies Active Allergy Reactions Criticality Noted Date [...] less than 7.0% ([facility]) TEST BLOOD SUGAR 3 TIMES DAILY DX [...] EVERY DAY 90 Tablet 3 12/27/2022 Active OneJusuch Verio In Vitro Strip (Glucose Blood)Indications:Typ e [...] Respimat 2.5 MCG/ACT Inhalation Aerosol Solution (Tiotropium [place] Monohydrate)Indicatio ns:Chronic obstructive pulmonary disease (HCC) INHALE [...] Encounter - Tacho Hector MD - 08/19/2023 4:53 PM EDT Please cancel the oxygen therapy order placed earlier (as the scanned nocturnal pulse ox is for a different patient. Please delete the scanned NPOX report and cancel the oxygen order placed in error. documented in this encounter Plan of Treatment Upcoming Encounters Date Type Department Care Team (Late st Contact Info) Description 08/20/2023 10:30 AM EDT PulmDiagnostic Pulmonary Function Lab, [facility] [address] [address] [place] [place] [address] 08/20/2023 12:00 PM EDT Imaging Radiology [facility] [address]st [facility] [address] [place] [address] 08/29/2023 12:40 PM EDT Office Visit Pulmonary Medicine, [facility] [address] [place] [address] Tacho Hector MD [address] [place] [address] Health Maintenance Due Date Last Done Comments DISCUSS TOBACCO CESSATION (REFER TO SMARTSET #[id number]) 1970 Alpha-1 Antitrypsin 1987 Diabetic Foot Exam [...] filedocumented as of this encounter Care Teams Administrative Job Titles Relationship Specialty Start Date End Date Santo Griffith MD [address] [place] [address] [place] [phone] PCP - General Family Medicine 02/15/17 documented as of this encounter
--- OUTSIDE RECORDS SUMMARY | 2023-11-18 16:54 | External Medical Summary | Summary of Care ---
Author Name Unknown Organization [facility] Address [address] [facility] [address] Phone [phone] Care Team Providers Care Sales Negotiator Name Role Phone Santo Griffith MD Primary Care Provide r Reason for Visit * Reason Onset Date Comments Oxygen Assessment 08/16/2023 NPO Encounter Details Date Type Department Care Team (Late st Contact Info) Description 08/16/2023 Telephone Pulmonary Medicine, [facility] [address] [facility] [place] [address] Tacho Hector MD [address] [facility] [place] [address] Oxygen Assessment (NPO) Allergies Active Allergy Reactions Criticality Noted Date Comments Penicillin G Hives Medium 12/08/2014 Milnacipran Hcl Other (Please comment) Medium 12/09/19 15 Heart palpatations documented as of this encounter (statuses as of 08/20/2023) Medications Medication Sig Dispensed Refills Start Date End Date Status Blood Glucose Monitoring Suppl (Revert.IO VERIO FLEX SYSTEM) w/Device KIT Test blood sugar 3 times daily 1 Kit 0 11/30/2019 Active OneTouch Delica Lancets 30GIndications:Type 2 diabetes mellitus with hemoglobin A1c goal of less than 7.0% ([facility]) TEST BLOOD SUGAR 3 TIMES [...] Respimat 2.5 MCG/ACT Inhalation Aerosol Solution (Tiotropium [place] Monohydrate)Indicatio ns:Chronic obstructive pulmonary disease (HCC) INHALE [...] 10:30 AM EDT PulmDiagnostic Pulmonary Function Lab, [facility] [address] [facility] [place] [address] [place], [address] [address] 08/20/2023 12:00 PM EDT Imaging Radiology [facility] [address] [facility] [address] [place] [address] 08/29/2023 12:40 PM EDT Office Visit Pulmonary Medicine, [facility] [address] [place] [address] Tacho Hector MD [address] [place] [address] Health Maintenance Due Date Last Done Comments DISCUSS TOBACCO CESSATION (REFER TO SMARTSET #[id number]) 1970 Alpha-1 Antitrypsin 1987 Diabetic Foot Exam [...] failure documented in this encounter Care Teams Sales Negotiator Relationship Specialty Start Date End Date Satno Griffith MD [address] [place] [address] [place] [id number] PCP - General Family Medicine 02/15/17 documented as of this encounter
--- OUTSIDE RECORDS SUMMARY | 2023-11-18 16:55 | External Medical Summary ---
Author Name Unknown Address Unknown Organization K01:[facility] [place] - [address] [facility] [address] Laboratory Report Ordering Provider Test Date Status YUDITH DC 06/12/2023 10:40:17 Final Observation Date Value Abnormality Reference (Units ) Status HbA1C 06/12/2023 10:40:17 6.3 Above high normal 4. 0-5.6 (%) Final The use of HbA1c to monitor glycemic status is based on normal hemoglobin and HbA composition. This test should not be used in patients with abnormal hemoglobin that affects the half life of the red blood cell or the in vivo glycation rates. Glucose, estimated average 06/12/2023 10:40:17 134 Above high normal <126 (mg/dL) Carlos vigil Performing Location [facility] [place] - [address] [facility] [address]
--- OUTSIDE RECORDS SUMMARY | 2023-11-18 16:55 | External Medical Summary | Summary of Care ---
Author Name Unknown Organization [facility] Address [address] [address] Phone [phone] Care Team Providers Care Refrigeration Plant Cork Insulator Name Role Phone Santo Girffith MD Primary Care Provide r Reason for Referral * Evaluate & Treat - Unlimited Visits (Within 10 days (routine)) - Pending Review Specialty Diagnoses / Procedures Referred By Salomón victor Referred To Contact Pulmonary Diseases / Pulmonary Diagnoses Chronic hypoxemic respiratory failure (HCC) Heart failure, diastolic, due to HTN (HCC) Chronic bronchitis, unspecified chronic bronchitis type (HCC) BEDOYA (dyspnea on exertion) Lenka Diggs PA-C [address] [place] [address] [place] [phone] Referral ID Status Reason Start Date Expiration Date Visits Requested Visits Authorized [id number] Pending Review Specialty Services Required 06/12/[phone] Question Answer Referral Priority Within 10 days (routine) Where should this appointment be scheduled? [facility] Reason for Referral? Asthma/COPD Comments COPD - chronic respiratory hypoxemia Reason for Visit * Reason Comments Re-Check Encounter Details Date Type Department Care Team (Latest Contact Info) Description 06/12/2023 10:20 AM EST Office Visit Family Medicine [address] [place] [phone] Lenka Diggs PA-C [address] [place] [address] [place] [phone] Body mass index (BMI) of 50.0 to 59.9 in adult ([facility])*; Chronic hypoxemic respiratory failure ([facility]); Heart failure, diastolic, due to HTN ([facility]); Type 2 diabetes mellitus with hemoglobin A1c goal of less than 7.0% ([facility]); Primary osteoarthritis involving multiple joints; Chronic bronchitis, unspecified chronic bronchitis type ([facility]); Chronic pain syndrome; DDD (degenerative disc disease), lumbar; BEDOYA (dyspnea on exertion); Dyslipidemia, goal LDL below 100; Fibromyalgia; HTN, goal below 140/90; Mild episode of recurrent major depressive disorder ([facility]); Primary osteoarthritis of both knees Allergies Active Allergy Reactions Criticality Noted Date Comments Penicillin G Hives Medium 12/08/2014 Milnacipran Hcl Other (Please comment) Medium 12/09/19 15 Heart palpatations documented as of this encounter (statuses as of 06/12/2023) Medications Medication Sig Dispensed Refills Start Date End Date Status Blood Glucose Monitoring Suppl ([employer] FLEX SYSTEM) w/Device KIT Test blood sugar 3 times daily 1 Kit 0 11/30/2019 Active uConnect Delica Lancets 30GIndications:Type 2 diabetes mellitus with hemoglobin A1c goal of less than 7.0% ([facility]) TEST BLOOD SUGAR 3 TIMES DAILY DX E11.9 300 Each 3 11/06/2021 Active Albuterol Sulfate HFA 108 (90 Base) MCG/ACT Inhalation Aerosol SolutionIndications: Wheezing Inhale 2 Puffs by mouth every 4 hours as needed for Shortness of Breath or Wheezing. 18 g 5 06/08/2022 Active Diclofenac Sodium 50 MG Oral Tablet Delayed Release (Voltaren)Indication s:Primary osteoarthritis involving multiple joints TAKE 1 TABLET BY MOUTH TWICE A DAY 60 Tablet 11 09/28/2022 Active Tiotropium [place] Monohydrate 2.5 MCG/ACT Inhalation Aerosol Solution (Spiriva Respimat)Indications :Chronic obstructive pulmonary disease (HCC) Inhale 2 Puffs by mouth in the morning. 12 g 1 10/12/2022 Active Atorvastatin Calcium 10 MG Oral Tablet (Lipitor)Indications :Dyslipidemia, goal LDL below 130 TAKE 1 TABLET BY MOUTH EVERY DAY 90 Tablet 3 12/27/2022 Active OneTouch Verio In Vitro Strip (Glucose Blood)Indications:Ty pe 2 diabetes mellitus with hemoglobin A1c goal of less than 7.0% (HCC) USE TO TEST BLOOD SUGAR THREE TIMES A DAY DIRECTED. DX E11.9 100 Strip 11 12/28/2022 Active DULoxetine HCl 60 MG Oral Capsule Delayed Release Particles (Cymbalta)Indication s:DDD (degenerative disc disease), lumbar,Mild episode of recurrent major depressive disorder (HCC),Fibromyalgia TAKE 1 CAPSULE BY MOUTH EVERY DAY 30 Capsule 5 12/28/2022 Active metFORMIN HCl 1000 MG Oral Tablet (Glucophage)Indicati ons:Type 2 diabetes mellitus with hemoglobin A1c goal of less than 7.0% (HCC) TAKE 1 TABLET BY MOUTH TWICE A DAY WITH BREAKFAST AND DINNER 180 Tablet 3 01/18/2023 Active Allopurinol 300 MG Oral Tablet (Zyloprim) TAKE 1 TABLET BY MOUTH EVERY DAY IN THE MORNING 90 Tablet 1 03/21/2023 Active Magnesium Oxide -Mg Supplement 400 (240 Mg) MG Oral Tablet (Mag-Ox)Indications: HTN, goal below 140/90,Chronic hypoxemic respiratory failure (HCC),Heart [...] 05/10/2023 Active Carvedilol 12.5 MG Oral Tablet (Coreg)Indications:C hronic hypoxemic respiratory failure (HCC),Heart failure, diastolic, due to HTN (HCC),HTN, goal below 140/90 Take 1 Tablet by mouth in the morning and 1 Tablet before bedtime. with food. 60 Tablet 11 06/12/2023 Active Solifenacin Succinate 10 MG Oral Tablet (VESIcare) TAKE 1 TABLET BY MOUTH EVERY DAY 30 Tablet 5 01/16/2022 4 Discontinue d(Medicatio n List Clean Up) Carvedilol 6.25 MG Oral Tablet (Coreg)Indications:H TN, goal below 140/90,Chronic hypoxemic respiratory failure (HCC),Heart failure, diastolic, due to HTN (HCC) Take 1 Tablet by mouth 2 times a day with morning and evening meals. 360 Tablet 3 05/21/2023 4 Discontinue d(Refill) Hospital, Clinic, or Other Facility Administered Medication Ordered Dose Route Frequency Start Date End Date Status albuterol sulfate (PROVENTIL) (2.5 MG/3ML) 0.083% inhalation solution 2.5 mgIndications:BEDOYA (dyspnea on exertion) 2.5 mg NEBULIZER Q4H PRN 11/16/2016 Act rosa documented as of this encounter (statuses as of 06/12/2023) Active Problems Problem Noted Date Diagnosed Date [...] as of this encounter (statuses as of 06/12/2023) Resolved Problems Problem Noted Date Diagnosed Date [...] as of this encounter (statuses as of 06/12/2023) Immunizations Name Administration Dates Next Due COVID-19 [...] uit: Not Asked; Counseling Given: Not Answered Alcohol Use Standard Drinks/Week Comments No 0 [...] Sign Reading Time Taken Comments Blood Pressure 156/90 06/12/2023 10:09 AM EST Pulse 87 06/12/2023 10:09 AM EST Temperature 35.7 C (96.2 F) 06/12/2023 10:[address] Respiratory Rate 24 06/12/2023 10:09 AM EST Oxygen Saturation - - Inhaled Oxygen Concentration - - Weight 143.8 kg (317 lb) 06/12/2023 10:09 AM EST Height - - Body Mass Index 59.94 09/14/2022 12:54 PM EDT documented in this encounter Progress Notes * Lenka Diggs PA-C - 06/12/2023 10:22 AM EST Nursing Notes: Alexandria Alvarado LPN 06/12/23 1021 Sign at exiting of workspace Here for oxygen assessment. Got it when she was in [facility] in August. Now she uses it when she is out andabout. SOB with exertion. Due for 6 month blood work Assessment: Pulse ox at rest with room air 97% Pulse ox with exertion at room air 93% Pt here today for O2 assessment. Pt got O2 about 10 months ago. She uses it when she is out and about. Pt does get SOB with exertion. Pulse ox at rest on RA 97%. Pulse ox with exertion on RA 93%. Sheis due for labs. Pt with PMH of chronic hypoxemic respiratory failure, COPD, chronic lower back pain, dyslipidemia, fibromyalgia, heart failure, HTN, obesity, OA, DM. No longer qualifies for O2. We can refer to pulm. She is a smoker. Pt does need some labs. BP elevated today. She is taking all of her meds, as directed. Pt has cardio appt in 3 weeks. Review of patient's allergies indicates: Allergen Reactions [...] BY MOUTH EVERY DAY 90 Tablet 3 DULoxetine HCl 60 MG Oral Capsule Delayed Release Particles (Cymbalta) TAKE 1 CAPSULE BY MOUTH EVERY DAY 30 Capsule 5 metFORMIN HCl 1000 MG Oral Tablet (Glucophage) TAKE 1 TABLET BY MOUTH TWICE A DAY WITH BREAKFAST AND DINNER 180 Tablet 3 Allopurinol 300 MG Oral Tablet (Zyloprim) TAKE 1 TABLET BY MOUTH EVERY DAY IN THE MORNING 90 Tablet1 Magnesium Oxide -Mg Supplement 400 (240 Mg) MG Oral Tablet (Mag-Ox) TAKE 1 TABLET BY MOUTH IN THE MORNING AND BEFORE BEDTIME 180 Tablet 1 Losartan Potassium 25 MG Oral Tablet (Cozaar) Take 1 Tablet by mouth in the morning. 34 Tablet 11 Famotidine 20 MG Oral Tablet (Pepcid) TAKE 1 TABLET BY MOUTH EVERY DAY IN THE MORNING AND AT BEDTIME 60 Tablet 5 Furosemide 80 MG Oral Tablet (Lasix) Take 1 Tablet by mouth in the morning. 90 Tablet 3 Carvedilol 6.25 MG Oral Tablet (Coreg) Take 1 Tablet by mouth 2 times a day with morning and evening meals. 360 Tablet 3 Blood Glucose Monitoring Suppl ([employer] VERIO FLEX SYSTEM) w/Device KIT Test blood sugar 3 times daily 1 Kit 0 [employer] Delica Lancets 30G TEST BLOOD SUGAR 3 TIMES DAILY DX E11.9 300 Each 3 Diclofenac Sodium 50 MG Oral Tablet Delayed Release (Voltaren) TAKE 1 TABLET BY MOUTH TWICE A DAY 60 Tablet 11 Tiotropium [place] Monohydrate 2.5 MCG/ACT Inhalation Aerosol Solution (Spiriva Respimat) Inhale 2 Puffs by mouth in the morning. 12 g 1 uConnect Verio In Vitro Strip (Glucose Blood) USE TO TEST BLOOD SUGAR THREE TIMES A DAY DIRECTED. DX E11.9 100 Strip 11 Current Facility-Administered Medications Medication Dose Route Frequency Provider Last Rate Last Admin albuterol sulfate (PROVENTIL) (2.5 MG/3ML) 0.083% inhalation solution 2.5 mg 2.5 mg Nebulizer Q4H PRN Santo Griffith MD 2.5 mg at 11/16/16 1032 Past Medical History: Diagnosis Date Dyslipidemia, goal LDL below 130 Fibromyalgia 12/08/2014 Gout HTN, goal below 140/90 12/08/2014 Morbid obesity with BMI of 70 and over, adult (HCC) Osteoarthritis Positive CHRISSY (antinuclear antibody) 1:160 Rheumatoid factor positive Social History Socioeconomic History Marital status: Spouse name: Not on file Number of children: 2 Years of education: Not on file Highest education level: Not on file Occupational History Not on file Tobacco Use Smoking status: Every Day Current packs/day: 1.00 Average packs/day: 1 pack/day for 30.0 years (30.0 ttl pk-yrs) Types: Cigarettes Smokeless tobacco: Never Substance and Sexual Activity Alcohol use: No Drug use: No Sexual activity: Not on file Other Topics Concern Not on file Social History Narrative Not on file Social Determinants of Health Financial Resource Strain: Not on file Food Insecurity: No Food Insecurity (05/30/2023) Hunger Vital Sign Worried About Running Out of Food in the Last Year: Never true Ran Out of Food in the Last Year: Never true Transportation Needs: Not on file Physical Activity: Not on file Stress: Not on file Social Connections: Not on file Intimate Partner Violence: Not on file Housing Stability: Not on file O:Blood pressure 156/90, pulse 87, temperature 35.7 C (96.2 F), temperature source Tympanic, resp. rate 24, weight (!) 143.8 kg (317 lb). GENERAL: alert, healthy, and no distress NECK: supple, no adenopathy, no bruits, thyroid normal size, non-tender, without nodularity EYES: PERRLA, conjunctiva are pink and non-injected, sclera clear EARS: External ears normal, Canals clear, TM's Normal NOSE: no mucosal erythema, no mucosal edema, no purulent discharge OROPHARYNX: no exudate, no erythema, lips, buccal mucosa, and tongue normal, and mucous membranes are moist HEART: regular rate & rhythm, no murmur, and no gallops LUNGS: chest symmetric with normal AP diameter, no chest deformities noted, no chest wall tenderness, lungs clear to auscultation ABDOMEN: abdomen soft, non-tender, normal bowel sounds, and no masses or organomegaly A:Body mass index (BMI) of 50.0 to 59.9 in adult ([facility]) (Primary) Chronic hypoxemic respiratory failure ([facility]) - PULMONARY REFERRAL OP - Carvedilol 12.5 MG Oral Tablet (Coreg); Take 1 Tablet by mouth in the morning and 1 Tablet beforebedtime. with food. Heart failure, diastolic, due to HTN ([facility]) - PULMONARY REFERRAL OP - Carvedilol 12.5 MG Oral Tablet (Coreg); Take 1 Tablet by mouth in the morning and 1 Tablet beforebedtime. with food. Type 2 diabetes mellitus with hemoglobin A1c goal of less than 7.0% ([facility]) - HEMOGLOBIN A1C; Future; Expected date: 06/12/2023 Primary osteoarthritis involving multiple joints Chronic bronchitis, unspecified chronic bronchitis type ([facility]) - PULMONARY REFERRAL OP Chronic pain syndrome DDD (degenerative disc disease), lumbar BEDOYA (dyspnea on exertion) - PULMONARY REFERRAL OP Dyslipidemia, goal LDL below 100 - LIPID PANEL WITH DIRECT LDL IF TG IS HIGH; Future; Expected date: 06/12/2023 Fibromyalgia HTN, goal below 140/90 - COMPREHENSIVE METABOLIC PANEL; Future; Expected date: 06/12/2023 - Carvedilol 12.5 MG Oral Tablet (Coreg); Take 1 Tablet by mouth in the morning and 1 Tablet beforebedtime. with food. Mild episode of recurrent major depressive disorder (HCC) Primary osteoarthritis of both knees Will check some labs. Will refer to pulm. Increase coreg from 6.25 mg bid to 12.5 mg bid. Keep cardio appt in 3 weeks. Recheck BP at that time. Any questions/problems, please call. If anything changes, worsens, develops new sx, please call ISABEL. Follow Up: Return if symptoms worsen or fail to improve. Lenka Diggs PA-C documented in this encounter Nursing Notes * Alexandria Alvarado LPN - 06/12/2023 10:07 AM EST Here for oxygen assessment. Got it when she was in [facility] in August. Now she uses it when she is out andabout. SOB with exertion. Due for 6 month blood work Assessment: Pulse ox at rest with room air 97% Pulse ox with exertion at room air 93% documented in this encounter Plan of Treatment Upcoming Encounters Date Type Department Care Team (Late st Contact Info) Description 06/25/2023 11:30 AM EDT Office Visit Cardiology, [facility] [address] [place] [address] Ricky Melo, [address] [place] [address] Pending Results Name Type Priority Associated Diagnoses Date /Time HEMOGLOBIN A1C Lab Routine Type 2 diabetes mellitus with hemoglobin A1c goal of less than 7.0% ([facility]) 06/12/2023 10:40 AM EST LIPID PANEL WITH DIRECT LDL IF TG IS HIGH Lab Routine Dyslipidemia, goal LDL below 100 06/12/2023 10:40 AM EST COMPREHENSIVE METABOLIC PANEL Lab STAT HTN, goal below 140/90 06/12/2023 10:40 AM EST Scheduled Orders Name Type Priority Associated Diagnoses Orde r Schedule HEMOGLOBIN A1C Lab Routine Type 2 diabetes mellitus with hemoglobin A1c goal of less than 7.0% (HCC) Expected: 06/12/2023 (Approximate), Expires: 06/11/2024 LIPID PANEL WITH DIRECT LDL IF TG IS HIGH Lab Routine Dyslipidemia, goal LDL below 100 Expected: 06/12/2023, Expires: 06/12/2024 COMPREHENSIVE METABOLIC PANEL Lab Routine HTN, goal below 140/90 Expected: 06/12/2023 (Approximate), Expires: 06/11/2024 Scheduled Referrals Name Type Priority Associated Diagnoses Orde r Schedule PULMONARY REFERRAL OP Referral Within 10 days (routine) Chronic hypoxemic respiratory failure (HCC) Heart failure, diastolic, due to HTN (HCC) Chronic bronchitis, unspecified chronic bronchitis type (HCC) BEDOYA (dyspnea on exertion) Ordered: 06/12/2023 Health Maintenance Due Date Last Done Comments DISCUSS TOBACCO CESSATION (REFER TO SMARTSET #3291) 1969 Alpha-1 Antitrypsin 1987 Diabetic Foot Exam 1987 Hepatitis C Screening 1987 Cologuard 2014 Colonoscopy 2014 Colorectal Cancer Screening 2014 Fecal Occult Blood Test 2014 Sigmoidoscopy 2014 Mammogram 02/15/2018 02/15/2017, 10/13, 09/29/2015 LUNG CANCER SCREENING - USE SMARTSET 44223 2019 Zoster Vaccines (1 of 2) 2019 [...] (3 - 2022-24 season) 2022 09/20/2020, 08/23/2020 Influenza Vaccine (FLU shot) (#1) 2022 HbA1c 03/16/2023 09/14/2022, 030 07/2021, 11/01/2020, Additional history exists Albumin/Creatinine Ratio 03/21/2024 023, 11/23/2019, 07/01/2018 GFR 03/21/2024 03/21/2023, 11/14, 11/01/2022, Additional history exists O2 ASSESSMENT COMPLETED IN PAST YEAR FOR COPD 03/21/2024 03/21/2023 DTaP,Tdap,and Td Vaccines (2 - Td or Tdap) 01/31/2025 01/31/2015 Lipid Panel 09/15/2027 09/14/2022, 030 07/2021, 11/01/2020, Additional history exists Pap Smear Discontinued 03/12/2017 (Not indicated) GARDASIL-HPV IMMUNIZATION SERIES Aged Out No longer eligible based on patient's age to complete this topic MENINGOCOCCAL (MENACTRA/MENVEO) Aged Out No longer eligible based on patient's age to complete this topic documented as of this encounter Medical Devices Not on filedocumented as of this encounter Visit Diagnoses Diagnosis Body mass index (BMI) of 50.0 to 59.9 in adult (HCC)- Primary Chronic hypoxemic respiratory failure (HCC) Chronic respiratory failure Heart failure, diastolic, due to HTN (HCC) Unspecified hypertensive heart disease with heart failure Type 2 diabetes mellitus with hemoglobin A1c goal of less than 7.0% (HCC) Primary osteoarthritis involving multiple joints Chronic bronchitis, unspecified chronic bronchitis type (HCC) Chronic pain syndrome DDD (degenerative disc disease), lumbar Degeneration of lumbar or lumbosacral intervertebral disc BEDOYA (dyspnea on exertion) Other dyspnea and respiratory abnormality Dyslipidemia, goal LDL below 100 Other and unspecified hyperlipidemia Fibromyalgia Mylagia and myositis, unspecified HTN, goal below 140/90 Unspecified essential hypertension Mild episode of recurrent major depressive disorder (HCC) Primary osteoarthritis of both knees Primary localized osteoarthrosis, lower leg documented in this encounter Care Teams Refrigeration Plant Cork Insulator Relationship Specialty Start Date End Date Santo Griffith MD [address] [place] [address] [place] [phone] PCP - General Family Medicine 02/15/17 documented as of this encounter
--- OUTSIDE RECORDS SUMMARY | 2023-11-18 16:55 | External Medical Summary ---
Author Name Unknown Address Unknown Organization K01:LABORATORY [facility] - [address] [facility] [place] [address] Laboratory Report Ordering Provider Test Date Status YUDITH DC 06/12/2023 10:40:17 Final Observation Date Value Abnormality Reference (Units ) Status BUN 06/12/2023 10:40:17 32 Above high normal 6-20 (mg/dL) Final Creatinine 06/12/2023 10:40:17 1.0 0.5-1.0 (mg/dL) Final Glomerular filtration rate/1.73 sq M.predicted [Volume Rate/Area] in Serum, Plasma or Blood by Creatinine-based formula (CKD-EPI) 06/12/2023 10:40:17 65 >=60 (mL/min) Final eGFR is calculated based on the CKD-EPI 2020 equation SODIUM 06/12/2023 10:40:17 139 135-146 (m mol/L) Final Potassium 06/12/2023 10:40:17 4.9 3.5-5.1 (m mol/L) Final Cl 06/12/2023 10:40:17 100 98-107 (mm ol/L) Final CO2 06/12/2023 10:40:17 22 22-32 (mmo l/L) Final Anion gap 06/12/2023 10:40:17 17 Above high normal 7- 15 (mmol/L) Final Glucose 06/12/2023 10:40:17 97 70-120 (mg /dL) Final Albumin 06/12/2023 10:40:17 4.4 3.8-5.0 (g /dL) Final AST (Aspartate aminotransferase) 06/12/2023 10:40:17 13 10-35 (U/L) Fin al Alk Phos 06/12/2023 10:40:17 129 35-130 (U/ L) Final Bilirubin, Total 06/12/2023 10:40:17 0.3 <=1 .2 (mg/dL) Final Calcium 06/12/2023 10:40:17 9.6 8.4-10.2 ( mg/dL) Final Protein 06/12/2023 10:40:17 7.2 6.0-8.3 (g /dL) Final ALT (Alanine aminotransferase) 06/12/2023 10:40:17 27 10-35 (U/L) Carlos vigil Performing Location LABORATORY [facility] - [address] [facility] [address]
--- OUTSIDE RECORDS SUMMARY | 2023-11-18 16:55 | External Medical Summary | Summary of Care ---
Author Name Unknown Organization [facility] Address [address] [address] Phone [phone] Care Team Providers Care Library Science Instructor Name Role Phone Jerome Griffith MD Primary Care Provide r Reason for Visit * Reason Comments eRx-Medication Refill Encounter Details Date Type Department Care Team (Late st Contact Info) Description 06/19/2023 Refill Family Medicine [address] [phone] Jerome Griffith MD [address] [place] [id number] Chronic obstructive pulmonary disease (HCC) Allergies Active Allergy Reactions Criticality Noted Date Comments Penicillin G Hives Medium 12/08/2014 Milnacipran Hcl Other (Please comment) Medium 12/09/19 15 Heart palpatations documented as of this encounter (statuses as of 06/20/2023) Medications Medication Sig Dispensed Refills Start Date End Date Status Blood Glucose Monitoring Suppl ([employer] VERIO FLEX SYSTEM) w/Device KIT Test blood sugar 3 times daily 1 Kit 0 11/30/2019 Active OneTouch Delica Lancets 30GIndications:Type 2 diabetes mellitus with hemoglobin A1c goal of less than 7.0% ([facility]) TEST BLOOD SUGAR 3 TIMES [...] 2.5 MCG/ACT Inhalation Aerosol Solution (Tiotropium [place] Monohydrate)Indicat ions:Chronic obstructive pulmonary disease (HCC) INHALE 2 PUFFS BY MOUTH IN THE MORNING. 4 g 11 06/20/2023 Active Tiotropium [place] Monohydrate 2.5 MCG/ACT Inhalation Aerosol Solution (Spiriva Respimat)Indication s:Chronic obstructive pulmonary disease (HCC) Inhale 2 Puffs by mouth in the morning. 12 g 1 10/12/2022 06/20/19 24 Discontinued Hospital, Clinic, or Other Facility Administered Medication Ordered Dose Route Frequency Start Date End Date Status albuterol sulfate (PROVENTIL) (2.5 MG/3ML) 0.083% inhalation solution 2.5 mgIndications:BEDOYA (dyspnea on exertion) 2.5 mg NEBULIZER Q4H PRN 11/16/2016 Act rosa documented as of this encounter (statuses as of 06/20/2023) Active Problems Problem Noted Date Diagnosed Date [...] as of this encounter (statuses as of 06/20/2023) Resolved Problems Problem Noted Date Diagnosed Date [...] as of this encounter (statuses as of 06/20/2023) Immunizations Name Administration Dates Next Due COVID-19 [...] encounter Miscellaneous Notes * Telephone Encounter - Prusinski, Beatris W, [facility] - 06/20/2023 11:57 AM ESTSigned Prescriptions: Disp Refills Spiriva Respimat 2.5 MCG/ACT Inhalation Ae*4 g 11 Sig: INHALE 2PUFFS BY MOUTH IN THE MORNING.Authorizing Provider: JEROME GRIFFITHOrderyanique User: BEATRIS SHERIDAN documented in this encounter Plan of Treatment Upcoming Encounters Date Type Department Care Team (Late st Contact Info) Description 06/26/2023 2:20 PM EDT Office Visit Pulmonary Medicine, [facility] [address] [place] [address] Tacho Hector MD [address] [place] [address] 06/26/2023 3:30 PM EDT Office Visit Cardiology, [facility] [address] [place] [address] Ricky Melo DO [address] [place] [address] Health Maintenance Due Date Last Done Comments DISCUSS TOBACCO CESSATION (REFER TO SMARTSET #3291) 1969 Alpha-1 Antitrypsin 1987 Diabetic Foot Exam 1987 Hepatitis C Screening 1987 Cologuard 2014 Colonoscopy 2014 Colorectal Cancer Screening 2014 Fecal Occult Blood Test 2014 Sigmoidoscopy 2014 Mammogram 02/15/2018 02/15/2017, 10/13, 09/29/2015 LUNG CANCER SCREENING - USE SMARTSET 61442 2019 Zoster Vaccines (1 of 2) 2019 [...] exists Albumin/Creatinine Ratio 03/21/2024 023, 11/23/2019, 07/01/2018 O2 ASSESSMENT COMPLETED IN PAST YEAR FOR COPD 03/21/2024 03/21/2023 GFR 06/12/2024 06/12/2023, 120 10/2022, 12/05/2022, Additional history exists DTaP,Tdap,and Td Vaccines (2 - Td or [...] of this encounter Visit Diagnoses Diagnosis Chronic obstructive pulmonary disease (HCC) Chronic airway obstruction, not elsewhere classified documented in this encounter Care Teams Library Science Instructor Relationship Specialty Start Date End Date Jerome Griffith MD [address] [place] [address] [place] [phone] PCP - General Family Medicine 02/15/17 documented as of this encounter
--- OUTSIDE RECORDS SUMMARY | 2023-11-18 16:55 | External Medical Summary | Summary of Care ---
Author Name Unknown Organization [facility] Address [address] [facility] [address] Phone [phone] Care Team Providers Care Filling And Packing Supervisor Name Role Phone Jerome Griffith MD Primary Care Provide r Reason for Visit * Reason Comments eRx-Medication Refill Encounter Details Date Type Department Care Team (Late st Contact Info) Description 06/26/2023 Refill Pharmacy, [address] [place] [id number] Jerome Griffith MD [address] [place] [address] [place] [id number] DDD (degenerative disc disease), lumbar; Mild episode of recurrent major depressive disorder (HCC); Fibromyalgia Allergies Active Allergy Reactions Criticality Noted Date Comments Penicillin G Hives Medium 12/08/2014 Milnacipran Hcl Other (Please comment) Medium 12/09/19 15 Heart palpatations documented as of this encounter (statuses as of 06/26/2023) Medications Medication Sig Dispensed Refills Start Date End Date Status Blood Glucose Monitoring Suppl (DataMotion VERIO FLEX SYSTEM) w/Device KIT Test blood [...] Respimat 2.5 MCG/ACT Inhalation Aerosol Solution (Tiotropium [place] Monohydrate)Indicat ions:Chronic obstructive pulmonary disease (HCC) INHALE 2 PUFFS BY MOUTH IN THE MORNING. 4 g 11 06/20/2023 Active DULoxetine HCl 60 MG Oral Capsule Delayed Release Particles (Cymbalta)Indicatio ns:DDD (degenerative disc disease), lumbar,Mild episode of recurrent major depressive disorder (HCC),Fibromyalgia TAKE 1 CAPSULE BY MOUTH EVERY DAY 30 Capsule 5 06/26/2023 Active DULoxetine HCl 60 MG Oral Capsule Delayed Release Particles (Cymbalta)Indicatio ns:DDD (degenerative disc disease), lumbar,Mild episode of recurrent major depressive disorder (HCC),Fibromyalgia TAKE 1 CAPSULE BY MOUTH EVERY DAY 30 Capsule 5 12/28/2022 06/26/19 24 Discontinued Hospital, Clinic, or Other Facility Administered Medication Ordered Dose Route Frequency Start Date End Date Status albuterol sulfate (PROVENTIL) (2.5 MG/3ML) 0.083% inhalation solution 2.5 mgIndications:BEDOYA (dyspnea on exertion) 2.5 mg NEBULIZER Q4H PRN 11/16/2016 Act rosa documented as of this encounter (statuses as of 06/26/2023) Active Problems Problem Noted Date Diagnosed Date [...] as of this encounter (statuses as of 06/26/2023) Resolved Problems Problem Noted Date Diagnosed Date [...] as of this encounter (statuses as of 06/26/2023) Immunizations Name Administration Dates Next Due COVID-19 [...] encounter Miscellaneous Notes * Telephone Encounter - Jerome Griffith MD - 06/26/2023 8:38 AM EDT Signed Prescriptions: Disp Refills DULoxetine HCl 60 MG Oral Capsule Delayed *30 Cap*5 Sig: TAKE 1 CAPSULE BY MOUTH EVERY DAY Authorizing Provider: JEROME GRIFFITH * Telephone Encounter - Cristina Bazan [facility] - 06/26/2023 7:57 AM EDT Pending Prescriptions: Disp Refills DULoxetine HCl 60 MG Oral Capsule Delayed *30 Cap*5 Sig: TAKE 1CAPSULE BY MOUTH EVERY DAY documented in this encounter Plan of Treatment Upcoming Encounters Date Type Department Care Team (Late st Contact Info) Description 07/04/2023 11:20 AM EDT Office Visit Pulmonary Medicine, [facility] [address] [facility] [place] [phone] Tacho Hector MD [address] [place] [phone] Health Maintenance Due Date Last Done Comments DISCUSS TOBACCO CESSATION (REFER TO SMARTSET #4325) 1969 Alpha-1 Antitrypsin 1987 Diabetic Foot Exam 1987 Hepatitis C Screening 1987 Cologuard 2014 Colonoscopy 2014 Colorectal Cancer Screening 2014 Fecal Occult Blood Test 2014 Sigmoidoscopy 2014 Mammogram 02/15/2018 02/15/2017, 10/13, 09/29/2015 LUNG CANCER SCREENING - USE SMARTSET 41667 2019 Zoster Vaccines (1 of 2) 2019 [...] FOR COPD 03/21/2024 03/21/2023 GFR 06/12/2024 06/12/2023, 12/0 10/2022, 12/05/2022, Additional history exists DTaP,Tdap,and Td [...] as of this encounter Visit Diagnoses Diagnosis DDD (degenerative disc disease), lumbar Degeneration of lumbar or lumbosacral intervertebral disc Mild episode of recurrent major depressive disorder (HCC) Fibromyalgia Mylagia and myositis, unspecified documented in this encounter Care Teams Filling And Packing Supervisor Relationship Specialty Start Date End Date Jerome Griffith MD [address] [place] [address] [place] [address] PCP - General Family Medicine 02/15/17 documented as of this encounter
--- OUTSIDE RECORDS SUMMARY | 2023-11-18 16:55 | External Medical Summary | Summary of Care ---
Author Name Unknown Organization [facility] Address [address] [facility] [place] [address] Phone [phone] Care Team Providers Care Elementary Teacher Name Role Phone Santo Griffith MD Primary Care Provide r Reason for Visit * Reason Comments Outpatient Testing Encounter Details Date Type Department Care Team (Latest Contact Info) Description 06/12/2023 10:40 AM EST Laboratory Laboratory [address] [place] [phone] [facility] [address] [place] [address] Chronic diastolic CHF (congestive heart failure) ([facility]); Chronic right-sided heart failure (HCC); Obesity hypoventilation syndrome ([facility]); HTN, goal below 140/90; Dyslipidemia, goal LDL below 100; Chronic hypoxemic respiratory failure ([facility]); Heart failure, diastolic, due to HTN ([facility]); Type 2 diabetes mellitus with hemoglobin A1c goal of less than 7.0% ([facility]) Allergies Active Allergy Reactions Criticality Noted Date Comments Penicillin G Hives Medium 12/08/2014 Milnacipran Hcl Other (Please comment) Medium 12/09/19 15 Heart palpatations documented as of this encounter (statuses as of 06/12/2023) Medications Medication Sig Dispensed Refills Start Date End Date Status Blood Glucose Monitoring Suppl ([employer] VERIO FLEX SYSTEM) w/Device KIT Test blood [...] DAY 60 Tablet 11 09/28/2022 Active Tiotropium [place] Monohydrate 2.5 MCG/ACT Inhalation Aerosol Solution (Spiriva Respimat)Indications: Chronic obstructive pulmonary disease (HCC) Inhale 2 Puffs [...] with food. 60 Tablet 11 06/12/2023 Active Hospital, Clinic, or Other Facility Administered [...] 06/25/2023 11:30 AM EDT Office Visit Cardiology, [facility] [address] [place] [address] Ricky Melo, [address] [place] [address] Pending Results Name Type Priority Associated Diagnoses Date /Time HEMOGLOBIN A1C Lab Routine Type 2 diabetes mellitus with hemoglobin A1c goal of less than 7.0% (HCC) 06/12/2023 10:40 AM EST LIPID PANEL WITH DIRECT LDL IF TG IS HIGH Lab Routine Dyslipidemia, goal LDL below 100 06/12/2023 10:40 AM EST COMPREHENSIVE METABOLIC PANEL Lab STAT HTN, goal below 140/90 06/12/2023 10:40 AM EST Health Maintenance Due Date Last Done Comments DISCUSS TOBACCO CESSATION (REFER TO SMARTSET #7247) 1969 Alpha-1 Antitrypsin 1987 Diabetic Foot Exam 1987 Hepatitis C Screening 1987 Cologuard 2014 Colonoscopy 2014 Colorectal Cancer Screening 2014 Fecal Occult Blood Test 2014 Sigmoidoscopy 2014 Mammogram 02/15/2018 02/15/2017, 10/13, 09/29/2015 LUNG CANCER SCREENING - USE SMARTSET 99147 2019 Zoster Vaccines (1 of 2) 2019 [...] (FLU shot) (#1) 2022 HbA1c 03/16/2023 09/14/2022, 03/0 07/2021, 11/01/2020, Additional history exists Albumin/Creatinine Ratio [...] of this encounter Visit Diagnoses Diagnosis Chronic diastolic CHF (congestive heart failure) (HCC) Chronic diastolic heart failure Chronic right-sided heart failure (HCC) Congestive heart failure, unspecified Obesity hypoventilation syndrome (HCC) Obesity hypoventilation syndrome HTN, goal below 140/90 Unspecified essential hypertension Dyslipidemia, goal LDL below 100 Other and unspecified hyperlipidemia Chronic hypoxemic respiratory failure (HCC) Chronic respiratory failure Heart failure, diastolic, due to HTN (HCC) Unspecified hypertensive heart disease with heart failure Type 2 diabetes mellitus with hemoglobin A1c goal of less than 7.0% (HCC) documented in this encounter Care Teams Elementary Teacher Relationship Specialty Start Date End Date Santo Griffith MD [address] [place] [address] [place] [phone] PCP - General Family Medicine 02/15/17 documented as of this encounter
--- NOTE | 2023-11-18 17:03 | Electrocardiogram Report ---
Test Reason : Blood Pressure : */* mmHG Vent. Rate : 74 BPM Atrial Rate : 74 BPM P-R Int : 198 ms QRS Dur : 86 ms QT Int : 374 ms P-R-T Axes : 74 28 70 degrees QTcB Int : 415 ms Normal sinus rhythm When compared with ECG of 06-Sep-2022 06:20, T wave inversion no longer evident in Inferior leads Confirmed by Reza Melvin ([id number]) on 11/18/2023 5:03:03 PM Referred By: REFERRED SELF Confirmed By: Reza Melvin
[2023-11-18] MEDS: INSULIN ASPART PER UNIT CHARGE SC SCH (19:11)
[2023-11-18] MEDS: ENOXAPARIN INJ 40 MG/0.4 ML SYR SQ SCH (19:12)
[2023-11-18] MEDS: carvediloL 12.5 MG TAB PO SCH (20:08)
[2023-11-18] MEDS: MAGNESIUM OXIDE 400 MG TAB PO SCH (20:08)
[2023-11-18] MEDS: LOSARTAN POTASSIUM 50 MG TAB PO SCH (20:08)
[2023-11-18] MEDS: FAMOTIDINE 20 MG TAB PO SCH (20:08)
[2023-11-19 06:40] LABS: Hematocrit (blood only) 35.4 % (37.0-47.0); Hemoglobin 11.9 g/dl (12.0-16.0); Mean Corpuscular Hemoglobin 31.9 pg (25.0-34.0); Mean Corpuscular Hgb Conc 33.6 g/dL (32.0-36.0); Mean Corpuscular Volume 94.9 fL (80.0-100.0); Mean Platelet Volume 11.5 fL (9.4-12.4); Platelet Count 185 K/uL (130-400); RDW Coefficient of Variation 13.8 % (11.5-14.5); RDW Standard Deviation 47.8 fL (36.4-46.3); Red Blood Count 3.73 M/uL (4.20-5.40); White Blood Count 9.86 K/ul (4.8-10.8)
[2023-11-19 06:49] LABS: BUN Creatinine Ratio 27.1 (10-20); Calcium 8.9 mg/dl (8.6-10.3); Creatinine Clr Calc Pharmacy 109.2 ml/min; Est GFR (Non-African American) 77.7 ml/min; Magnesium 2.3 mg/dl (1.7-2.4); Potassium 4.1 mmol/L (3.5-5.1)
[2023-11-19 07:35] LABS: Estimated Average Glucose 131 mg/dl; Hemoglobin A1C 6.2 % (4.5-5.6)
--- NOTE | 2023-11-19 08:08 | Hospitalist Progress Note ---
Date of Service November 19, 2023 Assessment & Plan (1) Acute on chronic heart failure with preserved ejection fraction (HFpEF): (2) Volume overload: (3) COPD (chronic obstructive pulmonary disease): (4) HTN (hypertension): (5) Non-insulin dependent type 2 diabetes mellitus: Plan Ms. Slater is a 53 year old woman who presented from home with reports of worsening shortness of breath and weight gain and admitted for acute on chronic heart failure with preserved EF. Patient was treated for acute on chronic HFpEF as an outpatient on 03/2023 with a dose of IV Lasix. She was seen in the cardiology office on 10/23/23 and was found to be significantly volume overloaded. ER evaluation and/or outpatient IV Lasix was offered to the patient however she declined both and opted for transition to torsemide from lasix. Patient continued to worsen prompting presentation. ECHO is 55-60% on 11/17 with GIDD, not too dissimilar from 08/2022 #Acute on chronic heart failure with preserved EF -ECHO stable, EF 55-60% NO oxygen requirements Initially 40mg IV lasix BID Cardiology on consult reviewed note, recs as follows -Increased 80mg IV BID -Spironolactone 12.5mg daily added Continue to monitor I/Os, patient declined hearn FR 2L Daily weight Continue corg and losartan Continue statin Monitor and replace lytes prn #COPD (chronic obstructive pulmonary disease): Appears stable, no signs of acute exacerbation Continue home inhalers #HTN (hypertension): Continue home doses carvedilol and losartan #Non-insulin dependent type 2 diabetes mellitus: Hgb A1c 6.3 05/2023 Hold home metformin Utilize NovoLog per protocol while hospitalized DVT PROPHYLAXIS SQ Lovenox PT/OT Dispo 2-3 days Admission and Anticipated Discharge Date Admission Date: November 18, 2023 Subjective Pleasant this am Reports subjective improvement in SOB, states that she feels this fluid has been ongoing for likely months. She states she was 297lbs, but last month noted her weight to be upto 330lbs with her abdomen being the main area for fluid accumulation She has trialed torsemide given escalating doses of lasix as OP, but notes she doesnt feel it was nearly as effective and the swelling continued. She denies any other acute concerns at time of visit, she reports being mostly independent in all her activities, occasionally relying on a walker/wheelchair when she feels tired Physical Exam Constitutional: WD/WN, vitals as above Respiratory: normal respiratory effort, lungs clear to auscultation Cardiovascular: RRR, no murmur appreciated Gastrointestinal (Abdomen): large edematous pannus Musculoskeletal: BLE trace pitting edema, skin thickening c/w lymphedema Results & Data Results & Data Vital Signs (Past 12 Hours) Vital Signs Temp Pulse Pulse Resp BP Pulse Ox O2 Del Method 11/19/23 07:24 36.7 C 63 18 151/67 H 93 Room Air 11/19/23 04:05 36.5 C 71 19 178/77 H 94 Room Air 11/18/23 23:01 61 161/89 H 11/18/23 21:33 37 C 64 16 173/83 H 92 Room Air 11/18/23 21:30 Room Air 11/18/23 20:09 70 18 94 11/18/23 20:07 72 20 140/66 96 Room Air Laboratory Results Short CBC 11/19/23 Range/Units 05:38 WBC 9.86 (4.8-10.8) K/ul Hgb 11.9 L (12.0-16.0) g/dl Hct 35.4 L (37.0-47.0) % Plt Count 185 (130-400) K/uL BMP 11/19/23 05:38 Sodium 138 Potassium 4.1 Chloride 102 Carbon Dioxide 28 BUN 23 Creatinine 0.85 Glucose 115 H Calcium 8.9 Medications Administered Home Medications Medication Instructions Recorded Confirmed Last Taken albuterol sulfate 90 mcg/actuation 90 mcg inhalation BID PRN 09/04/22 11/18/23 Unknown aerosol inhaler (ProAir HFA) Shortness Of Breath Or Wheezing atorvastatin 10 mg tablet 10 mg PO DAILY 09/04/22 11/18/23 Unknown duloxetine 60 mg capsule,delayed 60 mg PO DAILY 09/04/22 11/18/23 Unknown release famotidine 20 mg tablet 20 mg PO BID 09/04/22 11/18/23 Unknown metformin 1,000 mg tablet 1,000 mg PO BID 09/04/22 11/18/23 Unknown losartan 50 mg tablet 50 mg PO BID #60 tabs 09/10/22 11/18/23 Unknown magnesium oxide 400 mg (241.3 mg 400 mg PO BID #60 tabs 09/10/22 11/18/23 Unknown magnesium) tablet tiotropium bromide 2.5 2 inh inhalation DAILY #4 grams 09/10/22 11/18/23 Unknown mcg/actuation mist for inhalation (Spiriva Respimat) allopurinol 300 mg tablet 300 mg PO DAILY 11/18/23 11/18/23 Unknown carvedilol 12.5 mg tablet 12.5 mg PO BID 11/18/23 11/18/23 Unknown diclofenac sodium 50 mg 50 mg PO BID 11/18/23 11/18/23 Unknown tablet,delayed release fluticasone propionate 115 2 inh inhalation BID 11/18/23 11/18/23 Unknown mcg-salmeterol 21 mcg/actuation HFA inhaler (Advair HFA) torsemide 20 mg tablet 40 mg PO DAILY 11/18/23 11/18/23 Unknown Active Medications Generic Name Dose Route Start Last Admin Trade Name Freq PRN Reason Stop Dose Admin Allopurinol 300 mg 11/19/23 09:00 11/19/23 09:10 Allopurinol 300 Mg Tab PO 12/19/23 08:59 300 mg DAILY DIA Administration Atorvastatin Calcium 10 mg 11/19/23 09:00 11/19/23 09:11 Atorvastatin 10 Mg Tab PO 12/19/23 08:59 10 mg DAILY DIA Administration Carvedilol 12.5 mg 11/18/23 21:00 11/19/23 09:11 Carvedilol 12.5 Mg Tab PO 12/18/23 20:59 12.5 mg BID DIA Administration Duloxetine HCl 60 mg 11/19/23 09:00 11/19/23 09:11 Duloxetine Hcl 60 Mg Cap PO 12/19/23 08:59 60 mg DAILY DIA Administration Enoxaparin Sodium 40 mg 11/18/23 17:00 11/19/23 06:30 Enoxaparin Inj 40 Mg/0.4 Ml Syr SQ 12/18/23 16:59 Not Given Q12H DIA Famotidine 20 mg 11/18/23 21:00 11/19/23 09:11 Famotidine 20 Mg Tab PO 12/18/23 20:59 20 mg BID DIA Administration Fluticasone/Vilanterol 1 puffs 11/19/23 09:00 11/19/23 09:11 Fluticasone/Vilanterol 100/25mcg 14 Puffs/Inhaler INH 12/19/23 08:59 Not Given DAILY DIA Insulin Aspart 0 units 11/18/23 16:30 11/19/23 12:52 Insulin Aspart Per Unit Charge SC 12/18/23 16:29 4 units ACHS DIA Administration Losartan Potassium 50 mg 11/18/23 21:00 11/19/23 09:11 Losartan Potassium 50 Mg Tab PO 12/18/23 20:59 50 mg BID DIA Administration Magnesium Oxide 400 mg 11/18/23 21:00 11/19/23 09:11 Magnesium Oxide 400 Mg Tab PO 12/18/23 20:59 400 mg BID DIA Administration Spironolactone 12.5 mg 11/19/23 12:45 11/19/23 13:19 Spironolactone 12.5 Mg Tab PO 12/19/23 12:44 12.5 mg DAILY DIA Administration Umeclidinium [place] 1 puffs 11/19/23 09:00 11/19/23 09:11 Umeclidinium [place] 62.5mcg/Blister 7 Puffs/Inhaler INH 12/19/23 08:59 Not Given DAILY DIA
--- NOTE | 2023-11-19 08:44 | Cardiology Consultation ---
Date of Consultation November 19, 2023 Assessment & Plan (1) Acute on chronic heart failure with preserved ejection fraction (HFpEF): (2) HTN (hypertension): Plan Patient admitted for SOB, edema, weight gain, consistent with acute on chronic heart failure with preserved LVEF. Echo with stable findings, preserved EF, no significant valvular disease. Pulm vascular congestion on chest xray. Received 2 doses of IV lasix thus far. Increase Lasix to 80 mg IV starting this afternoon. Add spironolactone 12.5 mg daily Monitor I+Os Daily weight with standing scale. Monitor renal function and electrolytes. Supplemental O2 as needed. Continue all other oral/home cardiac medications including carvedilol, atorvastatin. She has been recently transitioned from furosemide 80 mg daily to torsemide 40 mg daily. May need to consider torsemide 40 mg BID on discharge Case discussed with Dr. Rodriguez I spent a total of 45 minutes on the date of service in preparation, delivery, and documentation of the care provided to this patient, excluding any time spent in the performance of separately billed services. Pebbles Sargent PA-C Department of Cardiology, [facility] This chart was completed in part utilizing Speech Voice Recognition Software. Grammatical errors, random word insertions, pronoun errors, and incomplete sentences are an occasional consequence of this system due to software limitations, ambient noise, and hardware issues. Any formal questions or concerns about the content, text, or information contained within the body of this dictation should be directly addressed to the provider for clarification. Supervising Physician Co-Signing Physician Notes Attending attestation: Case reviewed with the advanced practitioner. I have personally performed a history and physical examination on the patient. I have reviewed the advanced practitioner's documentation on the date of service referenced in note, and I agree with, and take responsibility for the plan of care. Patient describes sensation of feeling like she was retaining fluid in her abdomen. Continue IV diuretics. I spent a total of 20 minutes coordinating, documenting, and providing care for this patient excluding time spent in the performance of separately billed services or time spent by another provider. Santosh Rodriguez DO History of Present Illness Attending Physician: Katelyn Lozoya MD History of Present Illness Patient is a 53 year old female known to [facility]. History includes: 1.Chronic HFpEF and Right heart failure 2.Obesity hypoventilation syndrome with chronic hypoxic respiratory failure 3.Type 2 diabetes 4.Hypertension 5.Dyslipidemia 6.Tobacco use, less than 1 pack per day Patient recently evaluated in the outpatient cardiology office for concerns regarding worsening SOB, fluid retention, weight gain. She felt she was not responding to oral furosemide. She declined IV lasix in the office due to travel home. She declined admission at that time. With shared decision making, we attempted to transition oral diuretics from furosemide to torsemide 40 mg daily. She reports initially she responded to this dose with mild improvement in her symptoms. however over the last week her fluid status worsened and she became dyspneic with minimal activity. She felt she was not urinating as much with the torsemide and came to ER for evaluation due to dyspnea and fluid retention. Chest xray on arrival demonstrated small b/l pleural effusions with pulm vascular congestion echo with preserved LVEF, no acute findings. HS troponin unremarkable. Started on furosemide 40 mg IV since admission. Has received 2 doses thus far. Urine outputs have not been measured. At time of evaluation, patient reports she feels slightly better than admission. Still with SOB wiht minimal activity/ambulation to restroom. Conversational dyspnea noted as well. No chest pain. She does admit to frequent urination in the first 1-2 hours after IV lasix, but then dwindles. Allergies Allergy/AdvReac Type Severity Reaction Status Date / Time Penicillins Allergy Hives Verified 09/04/22 13:29 Home Medications Medication Instructions Recorded Confirmed Type albuterol sulfate 90 mcg/actuation 90 mcg inhalation BID PRN 09/04/22 11/18/23 History aerosol inhaler (ProAir HFA) Shortness Of Breath Or Wheezing atorvastatin 10 mg tablet 10 mg PO DAILY 09/04/22 11/18/23 History duloxetine 60 mg capsule,delayed 60 mg PO DAILY 09/04/22 11/18/23 History release famotidine 20 mg tablet 20 mg PO BID 09/04/22 11/18/23 History metformin 1,000 mg tablet 1,000 mg PO BID 09/04/22 11/18/23 History losartan 50 mg tablet 50 mg PO BID #60 tabs 09/10/22 11/18/23 Rx magnesium oxide 400 mg (241.3 mg 400 mg PO BID #60 tabs 09/10/22 11/18/23 Rx magnesium) tablet tiotropium bromide 2.5 2 inh inhalation DAILY #4 grams 09/10/22 11/18/23 Rx mcg/actuation mist for inhalation (Spiriva Respimat) allopurinol 300 mg tablet 300 mg PO DAILY 11/18/23 11/18/23 History carvedilol 12.5 mg tablet 12.5 mg PO BID 11/18/23 11/18/23 History diclofenac sodium 50 mg 50 mg PO BID 11/18/23 11/18/23 History tablet,delayed release fluticasone propionate 115 2 inh inhalation BID 11/18/23 11/18/23 History mcg-salmeterol 21 mcg/actuation HFA inhaler (Advair HFA) torsemide 20 mg tablet 40 mg PO DAILY 11/18/23 11/18/23 History Patient History Medical History (Updated 11/19/23 @ 12:28 by Pebbles Sargent PA-C) COPD (chronic obstructive pulmonary disease) (HFpEF) heart failure with preserved ejection fraction Depression Non-insulin dependent type 2 diabetes mellitus Gout HLD (hyperlipidemia) HTN (hypertension) Tobacco use disorder Obesity Surgical History H/O: History of cholecystectomy H/O: hysterectomy Family History Other Asthma Dyslipidemia Heart disease Hypertension Social History Smoking Status: Current every day smoker Tobacco Type: Cigarettes and E-cigarettes / Vaping packs per day: 1.5; Second Hand Exposure: Yes; Do You Dip or Chew Tobacco: No; Hx Alcohol Use: No Hx Substance Use: No Preferred Language: Macedonian Communication Ability: Effective Hearing Ability: Normal 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 Beliefs That Will Affect Care: None Current Living Situation: Parent current occupational status: unemployed Feels Safe at Home: Yes Assistive Devices: Denture - Upper and Glasses Review of Systems Review of Systems: All systems reviewed & are unremarkable except as noted in HPI & below Physical Exam Constitutional: + morbidly obese; no acute distress Neck: + thick neck Respiratory: no labored breathing (Mild conversational dyspnea noted) Auscultation: + rales (bilaterally) Cardiovascular: Rate/Rhythm: regular rate and regular rhythm Heart Sounds: normal S1 and normal S2; no murmur (No audible murmur. Distant heart sounds) Vessels: no JVD (No JVD evident. Thick neck. Difficult to assess) Extremities: + edema (2+ LE edema) Gastrointestinal (Abdomen): Percussion/Palpation: abdomen soft ( obese.) Neurologic: PERRL, EOMI, accommodation nl, no face palsy, no dysarthria Psychiatric: A+Ox3, euthymic affect Results & Data Vital Signs (Past 12 Hours) Vital Signs Temp Pulse Resp BP Pulse Ox O2 Del Method 11/19/23 07:24 36.7 C 63 18 151/67 H 93 Room Air 11/19/23 04:05 36.5 C 71 19 178/77 H 94 Room Air 11/18/23 23:01 61 161/89 H 11/18/23 21:33 37 C 64 16 173/83 H 92 Room Air 11/18/23 21:30 Room Air Laboratory Results Cardiac Enzymes 11/18/23 11/18/23 Range/Units 11:24 11:34 Troponin I High Sens 6.1 (0-14) pg/ml B-Natriuretic Peptide 152 H (0-100) pg/ml Coagulation 11/18/23 Range/Units 11:34 B-Natriuretic Peptide 152 H (0-100) pg/ml CBC 11/19/23 Range/Units 05:38 WBC 9.86 (4.8-10.8) K/ul RBC 3.73 L (4.20-5.40) M/uL Hgb 11.9 L (12.0-16.0) g/dl Hct 35.4 L (37.0-47.0) % Plt Count 185 (130-400) K/uL Comprehensive Metabolic Panel 11/19/23 Range/Units 05:38 Sodium 138 (136-145) mmol/L Potassium 4.1 (3.5-5.1) mmol/L Chloride 102 (98-107) mmol/L Carbon Dioxide 28 (21-32) mmol/L BUN 23 (6-23) mg/dl Creatinine 0.85 (0.6-1.2) mg/dl Glucose 115 H (70-99(Fasting)) mg/dl Calcium 8.9 (8.6-10.3) mg/dl Intake and Output 11/18/23 11/19/23 11/19/23 22:59 06:59 14:59 Intake Total 300 / 300 Balance 300 / 300 Intake: Oral 300 / 300 Other: Weight 153.178 kg 153.5 kg Weight Measurement Method Built in Bedscale Built in [facility] Diagnostic Findings Telemetry reviewed: NSR in the 70-90's. No arrhythmias. Rare ectopy EKG reviewed from arrival to ER: NSR at 74 bmp, no acute ST changes No significant change from previous Echo report reviewed from 11/18/23: Normal LVEF at 55-60% Grade I diastolic dysfunction Chest xray: IMPRESSION: Cardiomegaly with pulmonary vascular congestion. Medications Administered Current Inpatient Medications Acetaminophen (Acetaminophen 325 Mg Tab) 650 mg PO Q4H PRN PRN Reason: Pain or Fever Stop: 12/18/23 16:15 Allopurinol (Allopurinol 300 Mg Tab) 300 mg PO DAILY DIA Stop: 12/19/23 08:59 Last Admin: 11/19/23 09:10 Dose: 300 mg Atorvastatin Calcium (Atorvastatin 10 Mg Tab) 10 mg PO DAILY DIA Stop: 12/19/23 08:59 Last Admin: 11/19/23 09:11 Dose: 10 mg Carvedilol (Carvedilol 12.5 Mg Tab) 12.5 mg PO BID DIA Stop: 12/18/23 20:59 Last Admin: 11/19/23 09:11 Dose: 12.5 mg Dextrose (Dextrose 50% 50 Ml Syringe) 25 - 50 ml IV UD PRN; Protocol PRN Reason: Hypoglycemia Protocol Stop: 12/18/23 16:15 Duloxetine HCl (Duloxetine Hcl 60 Mg Cap) 60 mg PO DAILY DIA Stop: 12/19/23 08:59 Last Admin: 11/19/23 09:11 Dose: 60 mg Enoxaparin Sodium (Enoxaparin Inj 40 Mg/0.4 Ml Syr) 40 mg SQ Q12H DIA Stop: 12/18/23 16:59 Last Admin: 11/19/23 06:30 Dose: Not Given Famotidine (Famotidine 20 Mg Tab) 20 mg PO BID DIA Stop: 12/18/23 20:59 Last Admin: 11/19/23 09:11 Dose: 20 mg Fluticasone/Vilanterol (Fluticasone/Vilanterol 100/25mcg 14 Puffs/Inhaler) 1 puffs INH DAILY DIA Stop: 12/19/23 08:59 Last Admin: 11/19/23 09:11 Dose: Not Given Furosemide (Furosemide 40 Mg/4 Ml Vial) 40 mg IV BID17 DIA Stop: 12/19/23 08:59 Last Admin: 11/19/23 09:11 Dose: 40 mg Glucagon (Glucagon For Inj 1 Mg Vial) 1 mg SQ UD PRN; Protocol PRN Reason: Hypoglycemia Protocol Stop: 12/18/23 16:15 Glucose (Glucose 40% Gel 15 Gm Tube) 15 - 30 gm PO UD PRN; Protocol PRN Reason: Hypoglycemia Protocol Stop: 12/18/23 16:15 Glucose (Glucose 10 Tab/Tube) 4 - 8 tab PO UD PRN; Protocol PRN Reason: Hypoglycemia Treatment Stop: 12/18/23 16:15 Insulin Aspart (Insulin Aspart Per Unit Charge) 0 units SC ACHS DIA Stop: 12/18/23 16:29 Last Admin: 11/19/23 09:05 Dose: 7 units Losartan Potassium (Losartan Potassium 50 Mg Tab) 50 mg PO BID DIA Stop: 12/18/23 20:59 Last Admin: 11/19/23 09:11 Dose: 50 mg Magnesium Oxide (Magnesium Oxide 400 Mg Tab) 400 mg PO BID DIA Stop: 12/18/23 20:59 Last Admin: 11/19/23 09:11 Dose: 400 mg Miscellaneous (Carbohydrates For Hypoglycemia ) 15 - 30 gm PO UD PRN PRN Reason: Hypoglycemia Protocol Stop: 12/18/23 16:15 Umeclidinium [place] (Umeclidinium [place] 62.5mcg/Blister 7 Puffs/Inhaler) 1 puffs INH DAILY DIA Stop: 12/19/23 08:59 Last Admin: 11/19/23 09:11 Dose: Not Given (2) HTN (hypertension) Hypertension type: primary hypertension Qualified Code(s): I10 - Essential (primary) hypertension
[2023-11-19] MEDS: allopurinoL 300 MG TAB PO SCH (09:10)
[2023-11-19] MEDS: ATORVASTATIN 10 MG TAB PO SCH (09:11)
[2023-11-19] MEDS: FUROSEMIDE 40 MG/4 ML VIAL IV SCH ×2 (09:11→17:49)
[2023-11-19] MEDS: UMECLIDINIUM BROMIDE 62.5MCG/BLISTER 7 PUFFS/INHALER INH SCH (09:11)
[2023-11-19] MEDS: DULoxetine HCL 60 MG CAP PO SCH (09:11)
[2023-11-19] MEDS: FLUTICASONE/VILANTEROL 100/25MCG 14 PUFFS/INHALER INH SCH (09:11)
[2023-11-19] MEDS: SPIRONOLACTONE 12.5 MG TAB PO SCH (13:19)
[2023-11-19] MEDS: diphenhydrAMINE 2%/ZINC 0.1% CREAM 28.4GM TUBE EXT PRN (21:01)
[2023-11-20 06:38] LABS: Hematocrit (blood only) 36.4 % (37.0-47.0); Hemoglobin 12.2 g/dl (12.0-16.0); Mean Corpuscular Hemoglobin 31.8 pg (25.0-34.0); Mean Corpuscular Hgb Conc 33.5 g/dL (32.0-36.0); Mean Corpuscular Volume 94.8 fL (80.0-100.0); Mean Platelet Volume 11.2 fL (9.4-12.4); Platelet Count 188 K/uL (130-400); RDW Coefficient of Variation 13.9 % (11.5-14.5); RDW Standard Deviation 48.1 fL (36.4-46.3); Red Blood Count 3.84 M/uL (4.20-5.40); White Blood Count 8.92 K/ul (4.8-10.8)
[2023-11-20 06:49] LABS: Creatinine Clr Calc Pharmacy 85.5 ml/min; Est GFR (African American) 68.2 ml/min; Est GFR (Non-African American) 58.8 ml/min; Magnesium 2.3 mg/dl (1.7-2.4); Phosphorus 5.4 mg/dl (2.5-4.9)
--- NOTE | 2023-11-20 12:20 | Cardiology Progress Note ---
Date of Service November 20, 2023 Assessment & Plan (1) Acute on chronic heart failure with preserved ejection fraction (HFpEF): (2) HTN (hypertension): Plan 11/19/23 Patient admitted for SOB, edema, weight gain, consistent with acute on chronic heart failure with preserved LVEF. Echo with stable findings, preserved EF, no significant valvular disease. Pulm vascular congestion on chest xray. Received 2 doses of IV lasix thus far. Increase Lasix to 80 mg IV starting this afternoon. Add spironolactone 12.5 mg daily Monitor I+Os Daily weight with standing scale. Monitor renal function and electrolytes. Supplemental O2 as needed. Continue all other oral/home cardiac medications including carvedilol, atorvastatin. She had been recently transitioned from furosemide 80 mg daily to torsemide 40 mg daily. May need to consider torsemide 40 mg BID on discharge 11/20/23: Interval improvement in her dyspnea since admission I+Os not accurate due to incontinence. Down 3 kg since admission Stable renal function and potassium and magnesium. Continue IV furosemide 80 mg IV BID today Hold AM dose and likely transition to oral torsemide 40 mg BID tomorrow Spironolactone added during this admission. Would continue 12.5 mg daily today and on discharge. Case discussed with Dr. Rodriguez I spent a total of 30 minutes on the date of service in preparation, delivery, and documentation of the care provided to this patient, excluding any time spent in the performance of separately billed services. Pebbles Sargent PA-C Department of Cardiology, [facility] This chart was completed in part utilizing Speech Voice Recognition Software. Grammatical errors, random word insertions, pronoun errors, and incomplete sentences are an occasional consequence of this system due to software limitations, ambient noise, and hardware issues. Any formal questions or concerns about the content, text, or information contained within the body of this dictation should be directly addressed to the provider for clarification. Admission and Anticipated Discharge Date Admission Date: November 18, 2023 Supervising Physician Co-Signing Physician Notes Attending attestation: Case reviewed with the advanced practitioner. I have personally performed a history and physical examination on the patient. I have reviewed the advanced practitioner's documentation on the date of service referenced in note, and I agree with, and take responsibility for the plan of care. I spent a total of 20 minutes coordinating, documenting, and providing care for this patient excluding time spent in the performance of separately billed services or time spent by another provider. Santosh Rodriguez DO Subjective Patient resting in bed. Reports SOB has improved. Ambulating to restroom with less dyspnea. No chest pain. edema improving. Per nurse, she has been incontinent of urine and I+O's not accurate. Per scale, she is down about 3 kg since admission. Physical Exam Constitutional: + morbidly obese; no acute distress Neck: + thick neck Respiratory: no labored breathing (Mild conversational dyspnea noted) Auscultation: + diminished lung sounds; no crackles and no rales (bilaterally) Cardiovascular: Rate/Rhythm: regular rate and regular rhythm Heart Sounds: normal S1 and normal S2; no murmur (No audible murmur. Distant heart sounds) Vessels: no JVD (No JVD evident. Thick neck. Difficult to assess) Extremities: + edema (1+ LE edema) Gastrointestinal (Abdomen): Percussion/Palpation: abdomen soft ( obese.) Neurologic: PERRL, EOMI, accommodation nl, no face palsy, no dysarthria Psychiatric: A+Ox3, euthymic affect Results & Data Vital Signs (Past 12 Hours) Vital Signs Temp Pulse Resp BP BP Pulse Ox O2 Del Method 11/20/23 11:08 36.6 C 70 19 127/76 92 Room Air 11/20/23 08:00 Room Air 11/20/23 07:29 36.7 C 62 18 146/71 H 91 Room Air 11/20/23 03:46 36.9 C 66 19 151/62 H 93 Room Air Laboratory Results CBC 11/20/23 Range/Units 05:38 WBC 8.92 (4.8-10.8) K/ul RBC 3.84 L (4.20-5.40) M/uL Hgb 12.2 (12.0-16.0) g/dl Hct 36.4 L (37.0-47.0) % Plt Count 188 (130-400) K/uL Comprehensive Metabolic Panel 11/20/23 Range/Units 05:38 Sodium 139 (136-145) mmol/L Potassium 4.0 (3.5-5.1) mmol/L Chloride 101 (98-107) mmol/L Carbon Dioxide 30 (21-32) mmol/L BUN 31 H (6-23) mg/dl Creatinine 1.07 (0.6-1.2) mg/dl Glucose 122 H (70-99(Fasting)) mg/dl Calcium 9.0 (8.6-10.3) mg/dl Intake and Output 11/19/23 11/20/23 11/20/23 22:59 06:59 14:59 Intake Total 400 / 1725 525 / 1725 Output Total 1075 / 2225 250 / 2225 Balance -675 / -500 275 / -500 Intake: Oral 400 / 1725 525 / 1725 Output: Urine 1075 / 2225 250 / 2225 Other: # Unmeasured Voids 2 Weight 150.252 kg Weight Measurement Method [id number] Diagnostic Findings Telemetry reviewed: NSR in the ' Echo report reviewed: Normal LVEF at 55-60% Grade I diastolic dysfunction LV wall motion is normal. Medications Administered Current Inpatient Medications Acetaminophen (Acetaminophen 325 Mg Tab) 650 mg PO Q4H PRN PRN Reason: Pain or Fever Stop: 12/18/23 16:15 Allopurinol (Allopurinol 300 Mg Tab) 300 mg PO DAILY DIA Stop: 12/19/23 08:59 Last Admin: 11/20/23 08:37 Dose: 300 mg Atorvastatin Calcium (Atorvastatin 10 Mg Tab) 10 mg PO DAILY DIA Stop: 12/19/23 08:59 Last Admin: 11/20/23 08:38 Dose: 10 mg Carvedilol (Carvedilol 12.5 Mg Tab) 12.5 mg PO BID DIA Stop: 12/18/23 20:59 Last Admin: 11/20/23 08:38 Dose: 12.5 mg Dextrose (Dextrose 50% 50 Ml Syringe) 25 - 50 ml IV UD PRN; Protocol PRN Reason: Hypoglycemia Protocol Stop: 12/18/23 16:15 Duloxetine HCl (Duloxetine Hcl 60 Mg Cap) 60 mg PO DAILY DIA Stop: 12/19/23 08:59 Last Admin: 11/20/23 08:38 Dose: 60 mg Enoxaparin Sodium (Enoxaparin Inj 40 Mg/0.4 Ml Syr) 40 mg SQ Q12H DIA Stop: 12/18/23 16:59 Last Admin: 11/20/23 06:22 Dose: 40 mg Famotidine (Famotidine 20 Mg Tab) 20 mg PO BID DIA Stop: 12/18/23 20:59 Last Admin: 11/20/23 08:38 Dose: 20 mg Fluticasone/Vilanterol (Fluticasone/Vilanterol 100/25mcg 14 Puffs/Inhaler) 1 puffs INH DAILY DIA Stop: 12/19/23 08:59 Last Admin: 11/20/23 08:39 Dose: 1 puffs Furosemide (Furosemide 40 Mg/4 Ml Vial) 80 mg IV BID17 DIA Stop: 12/19/23 16:59 Last Admin: 11/20/23 08:39 Dose: 80 mg Glucagon (Glucagon For Inj 1 Mg Vial) 1 mg SQ UD PRN; Protocol PRN Reason: Hypoglycemia Protocol Stop: 12/18/23 16:15 Glucose (Glucose 40% Gel 15 Gm Tube) 15 - 30 gm PO UD PRN; Protocol PRN Reason: Hypoglycemia Protocol Stop: 12/18/23 16:15 Glucose (Glucose 10 Tab/Tube) 4 - 8 tab PO UD PRN; Protocol PRN Reason: Hypoglycemia Treatment Stop: 12/18/23 16:15 Insulin Aspart (Insulin Aspart Per Unit Charge) 0 units SC ACHS DIA Stop: 12/18/23 16:29 Last Admin: 11/20/23 08:34 Dose: 6 units Losartan Potassium (Losartan Potassium 50 Mg Tab) 50 mg PO BID DIA Stop: 12/18/23 20:59 Last Admin: 11/20/23 08:40 Dose: 50 mg Magnesium Oxide (Magnesium Oxide 400 Mg Tab) 400 mg PO BID DIA Stop: 12/18/23 20:59 Last Admin: 11/20/23 08:40 Dose: 400 mg Miscellaneous (Carbohydrates For Hypoglycemia ) 15 - 30 gm PO UD PRN PRN Reason: Hypoglycemia Protocol Stop: 12/18/23 16:15 Nystatin (Nystatin Powder 15gm Btl) 1 appln EXT BID PRN PRN Reason: Affected Skin Folds Stop: 12/20/23 11:54 Spironolactone (Spironolactone 12.5 Mg Tab) 12.5 mg PO DAILY DIA Stop: 12/19/23 12:44 Last Admin: 11/20/23 08:40 Dose: 12.5 mg Umeclidinium [place] (Umeclidinium [place] 62.5mcg/Blister 7 Puffs/Inhaler) 1 puffs INH DAILY DIA Stop: 12/19/23 08:59 Last Admin: 11/20/23 08:39 Dose: 1 puffs Zinc Acetate/Diphenhydramine (Diphenhydramine 2%/Zinc 0.1% Cream 28.4gm Tube) 1 appln EXT BID PRN PRN Reason: Itching Stop: 12/19/23 20:38 Last Admin: 11/20/23 08:51 Dose: 1 appln (2) HTN (hypertension) Hypertension type: primary hypertension Qualified Code(s): I10 - Essential (primary) hypertension
--- NOTE | 2023-11-20 13:30 | Hospitalist Progress Note ---
Date of Service November 20, 2023 Assessment & Plan (1) Acute on chronic heart failure with preserved ejection fraction (HFpEF): (2) COPD (chronic obstructive pulmonary disease): (3) HTN (hypertension): (4) Non-insulin dependent type 2 diabetes mellitus: (5) Nocturnal hypoxia: Plan Patient with acute on chronic heart failure. Responding well to diuresis Communication with cardiology, continue IV diuresis throughout the day potentially converting to oral diuretics tomorrow Follow electrolytes and renal function Encourage activity Patient reports that she had outpatient sleep testing and was recommended she be on oxygen at night with sleep. Will continue Medications for her bowels. Anticipate discharge 1 to 2 days Admission and Anticipated Discharge Date Admission Date: November 18, 2023 Subjective Patient reports feeling better. Moving better and breathing better Physical Exam Physical Exam: Constitutional: Alert HEENT: Mucous membranes moist. Lungs: Decreased breath sounds, few crackles at bases CV: S1-S2, regular Abdomen: Soft, nontender, nondistended Extremities: Trace edema Neuro: No focal deficits Psych: Cooperative, normal mood Results & Data Results & Data Vital Signs (Past 12 Hours) Vital Signs Temp Pulse Resp BP BP Pulse Ox O2 Del Method 11/20/23 11:08 36.6 C 70 19 127/76 92 Room Air 11/20/23 08:00 Room Air 11/20/23 07:29 36.7 C 62 18 146/71 H 91 Room Air 11/20/23 03:46 36.9 C 66 19 151/62 H 93 Room Air Diagnostic Findings Reviewed imaging, laboratory and diagnostic studies. Pertinent findings as below. (3) HTN (hypertension) Hypertension type: primary hypertension Qualified Code(s): I10 - Essential (primary) hypertension
[2023-11-20] MEDS: NYSTATIN POWDER 15GM BTL EXT PRN (19:49)
[2023-11-21 06:49] LABS: BUN Creatinine Ratio 30.7 (10-20); Creatinine Clr Calc Pharmacy 80.2 ml/min; Est GFR (African American) 63.1 ml/min; Est GFR (Non-African American) 54.5 ml/min; Magnesium 2.5 mg/dl (1.7-2.4); Potassium 3.7 mmol/L (3.5-5.1)
--- NOTE | 2023-11-21 11:14 | Cardiology Progress Note ---
Date of Service November 21, 2023 Assessment & Plan (1) Acute on chronic heart failure with preserved ejection fraction (HFpEF): (2) HTN (hypertension): Plan 11/19/23 Patient admitted for SOB, edema, weight gain, consistent with acute on chronic heart failure with preserved LVEF. Echo with stable findings, preserved EF, no significant valvular disease. Pulm vascular congestion on chest xray. Received 2 doses of IV lasix thus far. Increase Lasix to 80 mg IV starting this afternoon. Add spironolactone 12.5 mg daily Monitor I+Os Daily weight with standing scale. Monitor renal function and electrolytes. Supplemental O2 as needed. Continue all other oral/home cardiac medications including carvedilol, atorvastatin. She had been recently transitioned from furosemide 80 mg daily to torsemide 40 mg daily. May need to consider torsemide 40 mg BID on discharge 11/20/23: Interval improvement in her dyspnea since admission I+Os not accurate due to incontinence. Down 3 kg since admission Stable renal function and potassium and magnesium. Continue IV furosemide 80 mg IV BID today Hold AM dose and likely transition to oral torsemide 40 mg BID tomorrow Spironolactone added during this admission. Would continue 12.5 mg daily today and on discharge. 11/21/23: Improved cardiac symptoms. Weight down. Stable for discharge. Transition to oral torsemide at 40 mg BID with spironolactone 12.5 mg daily. Recommend BMP in 1 week. Recommend cardiology f/u in 2-4 weeks. Patient encouraged to follow low sodium diet. Fluid restriction of 60-80 ounces per day. Daily weight. Continue all other cardiac meds on discharge including atorvastatin, carvedilol, losartan. Case discussed with Dr. Rodriguez Message sent to [facility] Hospitalist for discharge. I spent a total of 25 minutes on the date of service in preparation, delivery, and documentation of the care provided to this patient, excluding any time spent in the performance of separately billed services. Pebbles Sargent PA-C Department of Cardiology, [facility] This chart was completed in part utilizing Speech Voice Recognition Software. Grammatical errors, random word insertions, pronoun errors, and incomplete sentences are an occasional consequence of this system due to software limitations, ambient noise, and hardware issues. Any formal questions or concerns about the content, text, or information contained within the body of this dictation should be directly addressed to the provider for clarification. Admission and Anticipated Discharge Date Admission Date: November 18, 2023 Supervising Physician Co-Signing Physician Notes Attending attestation: Case reviewed with the advanced practitioner. I have personally performed a history and physical examination on the patient. I have reviewed the advanced practitioner's documentation on the date of service referenced in note, and I agree with, and take responsibility for the plan of care. I spent a total of 20 minutes coordinating, documenting, and providing care for this patient excluding time spent in the performance of separately billed services or time spent by another provider. Santosh Rodriguez, Subjective Patient resting in bed. Feeling better. SOB improved. less dyspneic with ambulation to restroom. No dizziness or palpitations. No chest pain. Review of Systems Review of Systems: All systems reviewed & are unremarkable except as noted in HPI & below Physical Exam Constitutional: + morbidly obese; no acute distress Neck: + thick neck Respiratory: no labored breathing (Mild conversational dyspnea noted) Auscultation: + diminished lung sounds; no crackles and no rales (bilaterally) Cardiovascular: Rate/Rhythm: regular rate and regular rhythm Heart Sounds: normal S1 and normal S2; no murmur (No audible murmur. Distant heart sounds) Vessels: no JVD (No JVD evident. Thick neck. Difficult to assess) Extremities: + edema (1+ LE edema) Gastrointestinal (Abdomen): Percussion/Palpation: abdomen soft ( obese.) Neurologic: PERRL, EOMI, accommodation nl, no face palsy, no dysarthria Psychiatric: A+Ox3, euthymic affect Results & Data Vital Signs (Past 12 Hours) Vital Signs Temp Pulse Resp BP BP Pulse Ox O2 Del Method 11/21/23 10:35 36.4 C L 85 19 118/68 93 Room Air 11/21/23 08:00 Room Air 11/21/23 07:16 36.5 C 63 17 148/76 H 91 Room Air 11/21/23 04:11 36.7 C 64 19 146/78 H 94 Room Air Laboratory Results Comprehensive Metabolic Panel 11/21/23 Range/Units 05:52 Sodium 139 (136-145) mmol/L Potassium 3.7 (3.5-5.1) mmol/L Chloride 100 (98-107) mmol/L Carbon Dioxide 29 (21-32) mmol/L BUN 35 H (6-23) mg/dl Creatinine 1.14 (0.6-1.2) mg/dl Glucose 127 H (70-99(Fasting)) mg/dl Calcium 9.0 (8.6-10.3) mg/dl Intake and Output 11/20/23 11/21/23 11/21/23 22:59 06:59 14:59 Intake Total 750 / 2100 Output Total 900 / 1600 Balance -150 / 500 Intake: Oral 750 / 2100 Output: Urine 900 / 1600 Other: # Unmeasured Voids 2 Weight 150 kg Weight Measurement Method Built in [facility] Diagnostic Findings Telemetry reviewed: NSR in the 's Medications Administered Current Inpatient Medications Acetaminophen (Acetaminophen 325 Mg Tab) 650 mg PO Q4H PRN PRN Reason: Pain or Fever Stop: 12/18/23 16:15 Allopurinol (Allopurinol 300 Mg Tab) 300 mg PO DAILY DIA Stop: 12/19/23 08:59 Last Admin: 11/21/23 08:41 Dose: 300 mg Atorvastatin Calcium (Atorvastatin 10 Mg Tab) 10 mg PO DAILY DIA Stop: 12/19/23 08:59 Last Admin: 11/21/23 08:41 Dose: 10 mg Carvedilol (Carvedilol 12.5 Mg Tab) 12.5 mg PO BID DIA Stop: 12/18/23 20:59 Last Admin: 11/21/23 08:37 Dose: 12.5 mg Dextrose (Dextrose 50% 50 Ml Syringe) 25 - 50 ml IV UD PRN; Protocol PRN Reason: Hypoglycemia Protocol Stop: 12/18/23 16:15 Duloxetine HCl (Duloxetine Hcl 60 Mg Cap) 60 mg PO DAILY DIA Stop: 12/19/23 08:59 Last Admin: 11/21/23 08:37 Dose: 60 mg Enoxaparin Sodium (Enoxaparin Inj 40 Mg/0.4 Ml Syr) 40 mg SQ Q12H DIA Stop: 12/18/23 16:59 Last Admin: 11/21/23 06:26 Dose: 40 mg Famotidine (Famotidine 20 Mg Tab) 20 mg PO BID DIA Stop: 12/18/23 20:59 Last Admin: 11/21/23 08:37 Dose: 20 mg Fluticasone/Vilanterol (Fluticasone/Vilanterol 100/25mcg 14 Puffs/Inhaler) 1 puffs INH DAILY DIA Stop: 12/19/23 08:59 Last Admin: 11/21/23 08:41 Dose: 1 puffs Furosemide (Furosemide 40 Mg/4 Ml Vial) 80 mg IV BID17 DIA Stop: 12/19/23 16:59 Last Admin: 11/20/23 17:46 Dose: 80 mg Glucagon (Glucagon For Inj 1 Mg Vial) 1 mg SQ UD PRN; Protocol PRN Reason: Hypoglycemia Protocol Stop: 12/18/23 16:15 Glucose (Glucose 40% Gel 15 Gm Tube) 15 - 30 gm PO UD PRN; Protocol PRN Reason: Hypoglycemia Protocol Stop: 12/18/23 16:15 Glucose (Glucose 10 Tab/Tube) 4 - 8 tab PO UD PRN; Protocol PRN Reason: Hypoglycemia Treatment Stop: 12/18/23 16:15 Insulin Aspart (Insulin Aspart Per Unit Charge) 0 units SC ACHS DIA Stop: 12/18/23 16:29 Last Admin: 11/21/23 08:36 Dose: 5 units Losartan Potassium (Losartan Potassium 50 Mg Tab) 50 mg PO BID DIA Stop: 12/18/23 20:59 Last Admin: 11/21/23 08:37 Dose: 50 mg Magnesium Oxide (Magnesium Oxide 400 Mg Tab) 400 mg PO BID DIA Stop: 12/18/23 20:59 Last Admin: 11/21/23 08:37 Dose: 400 mg Miscellaneous (Carbohydrates For Hypoglycemia ) 15 - 30 gm PO UD PRN PRN Reason: Hypoglycemia Protocol Stop: 12/18/23 16:15 Nystatin (Nystatin Powder 15gm Btl) 1 appln EXT BID PRN PRN Reason: Affected Skin Folds Stop: 12/20/23 11:54 Last Admin: 11/20/23 19:49 Dose: 1 appln Spironolactone (Spironolactone 12.5 Mg Tab) 12.5 mg PO DAILY DIA Stop: 12/19/23 12:44 Last Admin: 11/21/23 08:37 Dose: 12.5 mg Umeclidinium [place] (Umeclidinium [place] 62.5mcg/Blister 7 Puffs/Inhaler) 1 puffs INH DAILY DIA Stop: 12/19/23 08:59 Last Admin: 11/21/23 08:41 Dose: 1 puffs Zinc Acetate/Diphenhydramine (Diphenhydramine 2%/Zinc 0.1% Cream 28.4gm Tube) 1 appln EXT BID PRN PRN Reason: Itching Stop: 12/19/23 20:38 Last Admin: 11/20/23 20:16 Dose: 1 appln (2) HTN (hypertension) Hypertension type: primary hypertension Qualified Code(s): I10 - Essential (primary) hypertension
--- NOTE | 2023-11-21 11:28 | Discharge Summary ---
Discharge Summary Date of Service November 21, 2023 Principal Dx & Hospital Course #1 = Principal Diagnosis (1) Acute on chronic heart failure with preserved ejection fraction (HFpEF): (2) COPD (chronic obstructive pulmonary disease): (3) HTN (hypertension): (4) Non-insulin dependent type 2 diabetes mellitus: (5) Nocturnal hypoxia: Plan Patient was admitted to the hospital. She had evidence of decompensated heart failure. She was aggressively diuresed with IV Lasix. Cardiology consultation was obtained. They agreed with ongoing IV diuresis. Throughout her hospitalizations patient's symptoms significantly improved. She diuresed over 3 kg. Her renal function remained stable. She was titrated off oxygen during the day. She continued her usual home nocturnal oxygen. On the day of discharge her vital signs were stable. Her symptoms had resolved. She will be transition to oral diuretics at a higher dose than she was previously. She will be discharged home to follow-up with her PCP and cardiology. Notes For Next Care Provider BMP in approximately 10 days Follow-up with cardiology as coordinated through their office Medication Changes From Visit Torsemide dose increased Aldactone added Admission HPI Per Admitting Provider 53-year-old female PMH DM type II, nocturnal hypoxia on nocturnal O2, gout, dyslipidemia, COPD, tobacco abuse, chronic HFpEF, HTN, obesity, fibromyalgia, and other problems listed below who presents to the ED for evaluation of shortness of breath and weight gain. History is obtained from the patient and review of outpatient PCP and cardiology records. Patient was admitted to [facility] August 2022 for new onset heart failure. Patient was started on diuretics at that time. States that she had lost about 60 pounds by October. Patient states that she has slowly started to gain weight and has had significant weight gain over the past 3 to 4 months. She feels as though she has gained about 40 pounds. Patient was treated for acute on chronic HFpEF as an outpatient on 03/2023 with a dose of IV Lasix. Patient was unfortunately lost to follow-up. She was seen in the cardiology office on 10/23/23 and was found to be significantly volume overloaded. ER evaluation and/or outpatient IV Lasix was offered to the patient however she declined both. At that time, her furosemide 80mg was changed to torsemide 40 mg daily. Patient states she has not noted much difference since changing to torsemide. She states she continues to have lower extremity edema and abdominal distention and feeling of fullness. She reports shortness of breath with minimal exertion and some episodes of chest heaviness. States she also has been getting significantly elevated blood pressure readings at home as well. Patient denies palpitations. No lightheadedness, dizziness, diaphoresis, syncopal events. Denies any other recent illnesses, fevers, chills. No abdominal pain, nausea, vomiting, diarrhea. Denies urinary symptoms. In the ED, CXR shows pulmonary vascular congestion. Patient is hemodynamically stable. She was given Lasix 80 mg IV. Admission Exam Per Admitting Provider See H&P Discharge Exam Constitutional: Alert HEENT: Mucous membranes moist. Lungs: Clear to auscultation, decreased, few crackles at bases CV: S1-S2, regular Abdomen: Soft, nontender, nondistended Extremities: No significant edema in lower extremity, very mild edema and pannus Neuro: No focal deficits Psych: Cooperative, normal mood Updated Medication List Medication Instructions Recorded Confirmed Type albuterol sulfate 90 mcg/actuation 90 mcg inhalation BID PRN 09/04/22 11/18/23 History aerosol inhaler (ProAir HFA) Shortness Of Breath Or Wheezing atorvastatin 10 mg tablet 10 mg PO DAILY 09/04/22 11/18/23 History duloxetine 60 mg capsule,delayed 60 mg PO DAILY 09/04/22 11/18/23 History release famotidine 20 mg tablet 20 mg PO BID 09/04/22 11/18/23 History metformin 1,000 mg tablet 1,000 mg PO BID 09/04/22 11/18/23 History losartan 50 mg tablet 50 mg PO BID #60 tabs 09/10/22 11/18/23 Rx magnesium oxide 400 mg (241.3 mg 400 mg PO BID #60 tabs 09/10/22 11/18/23 Rx magnesium) tablet tiotropium bromide 2.5 2 inh inhalation DAILY #4 grams 09/10/22 11/18/23 Rx mcg/actuation mist for inhalation (Spiriva Respimat) allopurinol 300 mg tablet 300 mg PO DAILY 11/18/23 11/18/23 History carvedilol 12.5 mg tablet 12.5 mg PO BID 11/18/23 11/18/23 History diclofenac sodium 50 mg 50 mg PO BID 11/18/23 11/18/23 History tablet,delayed release fluticasone propionate 115 2 inh inhalation BID 11/18/23 11/18/23 History mcg-salmeterol 21 mcg/actuation HFA inhaler (Advair HFA) torsemide 20 mg tablet 40 mg PO DAILY 11/18/23 11/18/23 History spironolactone 25 mg tablet 12.5 mg (1/2 x 25 mg) PO DAILY 30 11/21/23 Rx days #15 tabs torsemide 20 mg tablet 40 mg (2 x 20 mg) PO BID 30 days 11/21/23 Rx #120 tabs Hospital Stay Data Consultations 11/18/23 13:38 ED Decision to Admit Stat 11/18/23 14:40 Consult Cardiology Routine Diagnostic Imagining Performed Reviewed imaging, laboratory and diagnostic studies. Pertinent findings as below. Creatinine 1.14 Echocardiogram showed normal ejection fraction 55 to 60%, did show some diastolic dysfunction of the left ventricle, I refer you to the full report for details Pending Results Patient Have Any Pending Studies at Discharge: No Discharge Instructions Given to Patient (Per Discharging Provider) Weigh yourself daily. Call your food production worker if you notice 3 pound weight gain in 1 day or 5 pound weight gain in 1 week Home Health Attestation I certify that this patient is under my care and that I, or a physicians insurance administrative assistant working with me, had a face to-face encounter that meets the home health [id number] encounter requirements with this patient. The encounter with the patient was in whole, or in part, for the following medical condition, which is the primary reason for home health care (list medical condition): I certify that, based on my findings, the following services are medically necessary home health services: My clinical findings support the need for the above services because: Further, I certify that my clinical findings support that this patient is homebound (i.e. absences from home require considerable and taxing effort and are for medical reasons or [employer] services or infrequently or of short duration when for other reasons) because: Certification for Home Health Services: Based on the above findings, I certify that this patient is confined to the home and needs intermittent jail care, physical therapy and/or speech therapy or continues to need occupational therapy. The patient is under my care, and I have initiated the establishment of the plan of care. This patient will be followed by a physician who will periodically review the plan of care. Total Time Total Time Spent Total Time Spent (In Minutes): 33
== END 2023-11-21 12:05 | disposition home or self-care (01) | DRG 291 ==
LOC: ED 10:42 → SUATTDRO 13:56 → EDINP 13:56 → 4W 16:16